=== PATIENT | female | born 1995 | race Caucasian/White ===

== ENCOUNTER → 2016-08-19 | Outpatient (CLI) | payer OTHER ==
[~2016-08-19] MED LIST: BCPILLS PO; MULT-506 PO; [UNRECOGNIZED DRUG - REMARK] PO
[2016-08-21 21:57] LABS: CHLAMYDIA TRACH RNA*** NOT DETECTED (NOT DETECTED); GC (NEIS GONORRHOEAE)RNA** NOT DETECTED (NOT DETECTED)
== END | disposition home or self-care (01) ==
LOC: C.LABSPEC 18:07
PROVIDERS: ATTEND Obstetrics & Gynecology
DX: Z01.419 Encounter for gynecological examination (general) (routine) without abnormal findings (principal)

== ENCOUNTER → 2016-08-19 | Outpatient (CLI) | payer OTHER | END | disposition home or self-care (01) | LOC: C.PAPS 10:13 | PROVIDERS: ATTEND Obstetrics & Gynecology | DX: Z01.419 Encounter for gynecological examination (general) (routine) without abnormal findings (principal) ==

== ENCOUNTER 2017-01-04 13:03 | Emergency (ER) | payer OTHER ==
[~2017-01-04] VITALS: Ht 160 cm; Wt 83.0 kg
[2017-01-04 13:07] VITALS: TEMP 36.7; Ht 160 cm; Wt 83.0 kg
[2017-01-04] MEDS ORDERED: XYLOCAINE 1%/SOD BICARB 20 ML VIAL INFIL ONE (13:15)
[2017-01-04] MEDS ORDERED: DIPHTHERIA/TETANUS/PERTUSSIS 0.5 ML SYR/VIAL IM. ONE (13:15)
[2017-01-04] MEDS ORDERED: [UNRECOGNIZED DRUG - REMARK] PO (13:21)
[2017-01-04] MEDS ORDERED: MULT-506 PO (13:21)
[2017-01-04] MEDS ORDERED: BCPILLS PO (13:21)
--- NOTE | 2017-01-04 13:48 | EMERGENCY ROOM VISIT NOTE ---
History First contact with patient: 13:09 Chief Complaint: LACERATION/CUT (NON-SUTURE) Stated Complaint: CUT FINGER/HAND Nursing Triage Summary: pt here with lac to right 5th from a piece of broken glass. full rom of hand. History of Present Illness The patient is a 21 year old female who presents to the Emergency Room with complaints of a laceration to her right fifth finger. The patient was washing a drinking glass when the glass broke and cut her hand. The patient denies any paresthesias or numbness of the right fifth finger. She is able to flex and extend the finger. She rates her discomfort a 5 out of 10. The patient is left -hand dominant. The patient reports that her tetanus booster is not up-to-date. Review of Systems 6 system review was performed and was negative except for pertinent positives and negatives as indicated in history of present illness Past Medical/Surgical History Medical Problems: (1) Concussion Surgical Problems: (1) No history of previous surgery Family History FH: cancer FH: diabetes mellitus FH: heart disease Social History Smoking Status: Never Smoker Alcohol Use: none Marital Status: single, in relationship Occupation Status: employed Current/Historical Medications Scheduled Control Pills ( Control Pills), 1 TAB PO DAILY Multivitamin (Multivitamin), 1 TAB PO DAILY [Facial Medication], 1 TAB PO DAILY Allergies Coded Allergies: No Known Allergies (Unverified , 01/04/17) Physical Exam Vital Signs Date Time Temp Pulse Resp B/P (MAP) Pulse Ox O2 Delivery O2 Flow Rate FiO2 01/04/17 13:07 36.7 91 16 120/77 96 Room Air Physical Exam CONSTITUTIONAL: Healthy and well nourished. Alert and oriented X 3 with positive affect. HEENT: Normocephalic, atraumatic. Pupils equal, round and reactive. NECK: Full active range of motion without discomfort. MUSCULOSKELETAL: Examination of the right fifth finger shows a 1.25 cm laceration over the ulnar aspect of the proximal phalanx. No active bleeding noted. Capillary refill of the fingertip is less than 2 seconds. The patient is able to flex and extend the finger against resistance. INTEGUMENTARY: No rash or other significant dermatologic conditions noted. NEUROLOGIC: Right fifth finger is sensory intact. Medical Decision & Procedures Medications Administered Medications (Trade) Dose Ordered Sig/Dali Route Start Time Stop Time Status Last Admin Dose Admin Diphtheria/ Pertussis/Tetanus Vacc (Adacel Inj) 0.5 ml ONCE ONCE IM. 01/04/17 13:15 01/04/17 13:16 DC 01/04/17 13:21 0.5 ML Lidocaine HCl (Buffered Lidocaine 1% Inj) 20 ml ONE ONCE INFIL 01/04/17 13:15 01/04/17 13:16 DC 01/04/17 13:20 20 ML Procedure Laceration repair was performed under local anesthesia after receiving verbal consent from the patient. Using buffered 1% lidocaine without epinephrine, good local anesthesia was administered. The wound was then peripherally cleansed with iodine, then irrigated with approximately 80 mL of normal saline. The wound was then approximated using 5-0 nylon simple interrupted sutures. Bacitracin dressing was applied. ED Course Patient history and physical exam were performed. Nurse's notes were reviewed. Vital signs were reviewed and normal. Laceration repair was performed under local anesthesia. The patient was provided additional verbal and written wound care instructions. Ice for swelling. Ibuprofen or Tylenol as needed for pain. Suture removal in 12-14 days, or seek reevaluation sooner for any signs of wound infection. Patient was happy with plan of care, voiced understanding of all discharge instructions, and denied any pain at the time of discharge. Medical Decision Impression Primary Impression: Laceration of right little finger Departure Information Referrals No Doctor, Assigned (PCP) Patient Instructions Critical Access Hospital Problem Qualifiers Primary Impression: Laceration of right little finger Encounter type: initial encounter Damage to nail status: without damage Foreign body presence: without foreign body Qualified Codes: S61.216A - Laceration without foreign body of right little finger without damage to nail, initial encounter
[2017-01-04 13:58] VITALS: BP 116/72; PULSE 86; O2SAT 99
== END 2017-01-04 13:59 | disposition home or self-care (01) ==
LOC: C.EDB 13:04 → C.EDD 13:59
DX: S61.216A Laceration without foreign body of right little finger without damage to nail, initial encounter (principal); W25.XXXA Contact with sharp glass, initial encounter; Z80.9 Family history of malignant neoplasm, unspecified; Z83.3 Family history of diabetes mellitus; Z79.3 Long term (current) use of hormonal contraceptives; Z79.899 Other long term (current) drug therapy; Z23 Encounter for immunization

== ENCOUNTER 2022-06-06 10:07 | Inpatient (IN) ==
[2022-06-06] MEDS ORDERED: DINOPROSTONE 10 MG INSERT PV ONE (10:16)
[2022-06-06] MEDS ORDERED: LIDOCAINE 1% LOCAL 20 ML VIAL INFIL PRN (10:16)
[2022-06-06] MEDS ORDERED: OXYTOCIN 30 UNITS/500 ML BAG IV PRN ×3 (10:16→22:44)
[2022-06-06 10:53] LABS: Hematocrit (blood only) 35.7 % (34.1-44.9); Mean Corpuscular Hemoglobin 30.3 pg (25.0-34.0); Mean Corpuscular Hgb Conc 33.6 g/dL (32.0-36.0); Mean Corpuscular Volume 90.2 fL (80.0-100.0); Mean Platelet Volume 11.4 fL (9.4-12.3); Platelet Count 237 K/uL (130-400); RDW Coefficient of Variation 13.4 % (11.5-14.5); Red Blood Count 3.96 M/uL (3.93-5.22); White Blood Count 11.76 K/ul (4.8-10.8)
--- NOTE | 2022-06-06 11:04 | History & Physical Report ---
Date of Service June 06, 2022 Assessment & Plan (1) History of IUFD: Plan: 26-year-old -0-0-1 at 39 weeks of gestation with history of IUFD in 2013 from placental abruption at 30 weeks, Induction of labor per history, Vital signs stable afebrile, heart rate category 1, Cervix favorable, has some irregular contractions, GBS negative, Plan to admit, monitor, labs, oxytocin per protocol, epidural when patient desires, All questions were answered. (2) MTHFR mutation: Plan: No h/o DVT, on Aspirin Admission and Anticipated Discharge Date Admission Date: June 06, 2022 History of Present Illness Primary Care Provider: Pedro Mckinney MD Patient is a 26-year-old -0-0-1 at 39 weeks of gestation who was scheduled for induction of labor at term due to history of IUFD in 2013. Patient feels well and no complaints. She denies contractions, leakage of fluid, vaginal bleeding. She reports good movements. She has contractions on the monitor and she feels them as tightening with no pain. Her has been uncomplicated, GBS negative. She had vaginal bleeding in 2013 when she was to her first child around 30 weeks, when she presented to the hospital, found to have IUFD and was in labor. She delivered demise infants and told that she had abruption. She has been seeing [facility] during this with growth scans and NSTs. They have been normal. Last growth scan was within a week and estimated weight was 7 pounds 7 ounces. History of MT FHR mutation, no history of DVT, on aspirin 81 mg daily. History of depression and anxiety, has been off medications and feeling well. Allergies Allergy/AdvReac Type Severity Reaction Status Date / Time No Known Allergies Allergy Unverified 11/26/20 12:09 Home Medications Medication Instructions Recorded Confirmed Type ondansetron 4 mg disintegrating 4 mg PO Q6H PRN nausea and 11/26/20 Rx tablet vomiting #20 tabs Patient History Medical History (Updated 06/06/22 @ 11:03 by Yanick Ibarra MD) Anxiety Depression MTHFR mutation PCOS (polycystic ovarian syndrome) Platelet disorder Surgical History No significant past surgical history Social History Smoking Status: Never smoker Hx Alcohol Use: No Hx Substance Use: No Preferred Language: Hungarian Communication Ability: Effective Applique Cutter Required: No Beliefs That Will Affect Care: None marital status: Single Current Living Situation: Significant Other Current Living Situation Comment: [employer] current occupational status: employed Other Information That Helps Us Care for You: No Feels Safe at Home: Yes Safety Concerns: Feels Safe At This Time Assistive Devices: None 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 Physical Exam Constitutional: WD/WN, vitals as above well developed, well nourished, + well hydrated and comfortable Gastrointestinal (Abdomen): normal bowel sounds, soft, nontender, no hepatosplenomegaly (gravid) Genitourinary: normal external appearance OB Exam Abdomen: + vertex Manual OB Exam: + cervical dilation 3 cm, + cervical effacement 50% and + station -2 OB Exam Monitor Tracing: + external uterine monitor used and + category I Results & Data ([facility]) Vital Signs (Past 12 Hours) Vital Signs Temp Pulse Resp BP 06/06/22 10:20 37.0 C 20 06/06/22 10:18 78 115/67 Laboratory Results Lab Results 06/06/22 06/06/22 Range/Units 10:34 Unknown WBC 11.76 H (4.8-10.8) K/ul RBC 3.96 (3.93-5.22) M/uL Hgb 12.0 (12.0-16.0) g/dl Hct 35.7 (34.1-44.9) % MCV 90.2 (80.0-100.0) fL MCH 30.3 (25.0-34.0) pg MCHC 33.6 (32.0-36.0) g/dL RDW Std Deviation 44.0 (36.4-46.3) fL RDW Coeff of Raj 13.4 (11.5-14.5) % Plt Count 237 (130-400) K/uL MPV 11.4 (9.4-12.3) fL SARS-CoV-2, RNA, NAAT NEGATIVE (NEGATIVE)
[2022-06-06 11:20] LABS: Alanine Aminotransferase 8 U/L (7-52); Albumin Globulin Ratio 1.1 (0.9-2); Albumin Level 3.4 gm/dl (3.4-5.0); Alkaline Phosphatase 85 U/L (34-104); Anion Gap 8 (3-11); Aspartate Aminotransferase 14 U/L (13-39); BUN Creatinine Ratio 23.3 (10-20); Bilirubin,Total 0.5 mg/dl (0.2-1.0); Blood Urea Nitrogen 10 mg/dl (6-23); Calcium 9.3 mg/dl (8.5-10.1); Carbon Dioxide 22 mmol/L (21-32); Chloride 105 mmol/L (98-107); Creatinine Clr Calc Pharmacy 199.6 ml/min; Est GFR (African American) > 150.0 ml/min; Est GFR (Non-African American) 138.4 ml/min; Globulin 3.2 gm/dl (2.5-4.0); Glucose 78 mg/dl (70-99(Fasting)); Potassium 3.9 mmol/L (3.5-5.1); Sodium 135 mmol/L (136-145); Total Protein 6.6 gm/dl (6.0-8.3)
[2022-06-06] MEDS: LACTATED RINGER'S 1,000 ML IV PRN ×3 (11:32→20:25)
--- NOTE | 2022-06-06 15:29 | Obstetrical Progress Note ---
Date of Service June 06, 2022 Assessment & Plan Admission and Anticipated Discharge Date Admission Date: June 06, 2022 Subjective Patient is reevaluated She has been on Oxytocin, 12 miu/min, not painful yet. FHR categ I VE; 4/ 70%/ -2, AROM'ed clear fluid Continue to monitor closely Results & Data ([facility]) Vital Signs (Past 12 Hours) Vital Signs Temp Pulse Resp BP 06/06/22 10:20 37.0 C 20 06/06/22 14:38 72 06/06/22 14:38 118/61 06/06/22 13:39 74 06/06/22 13:39 111/60 06/06/22 12:14 77 06/06/22 12:14 36.9 C 121/58 L 06/06/22 11:35 71 06/06/22 11:35 113/68 06/06/22 10:18 78 115/67
[2022-06-06] MEDS ORDERED: LIDOCAINE 2%/EPINEPHRINE 1:200,000 20 ML SDV ONE (16:32)
[2022-06-06] MEDS ORDERED: ePHEDrine sulfate 50 MG/ML AMP ONE (16:32)
[2022-06-06] MEDS ORDERED: BUPIVACAINE 0.25% 30 ML VIAL ONE (16:32)
[2022-06-06] MEDS ORDERED: fentaNYL citrate 100 MCG/2 ML VIAL ONE (16:32)
[2022-06-06] MEDS ORDERED: SODIUM CHLORIDE 0.9% INJ 10 ML VIAL ONE (16:32)
[2022-06-06] MEDS ORDERED: fentaNYL 2MCG/ML ROPIVACAINE 1.25MG/ML 100 ML BAG EPI ONE (16:33)
--- NOTE | 2022-06-06 16:39 | Anesthesiology Consultation ---
Date of Service June 06, 2022 Assessment & Plan (1) Encounter for pre-operative examination: Chart Review Chart Review: Patient NOT seen in Pre Admission Testing and Acceptable Risk for Labor Epidural Consults Requested none History Height/Weight Height: 5 ft 2 in Weight: 87.09 kg Allergies Allergy/AdvReac Type Severity Reaction Status Date / Time No Known Allergies Allergy Unverified 11/26/20 12:09 Medications Home Medications Medication Instructions Recorded Confirmed Last Taken ondansetron 4 mg disintegrating 4 mg PO Q6H PRN nausea and 11/26/20 Unknown tablet vomiting #20 tabs Active Medications Generic Name Dose Route Start Last Admin Trade Name Freq PRN Reason Stop Dose Admin Lactated Ringer's 1,000 mls @ 150 mls/hr 06/06/22 10:16 06/06/22 16:35 Lr IV 06/08/22 10:15 999 mls/hr .[id number] PRN Administration L&D Protocol Protocol Oxytocin 30 units in 500 mls @ 12 mls/hr 06/06/22 10:56 06/06/22 15:10 Pitocin IV 06/08/22 10:55 0.72 units/hr .Q24H PRN 12 mls/hr Labor Induction/Augmentation Titration Protocol 0.72 UNITS/HR Past Medical History Medical History Anxiety Depression MTHFR mutation PCOS (polycystic ovarian syndrome) Platelet disorder Past Surgical History Surgical History No significant past surgical history Social History Smoking Status: Never smoker Hx Alcohol Use: No Hx Substance Use: No Physical Exam Vital Signs Last Vital Signs Temp 98.8 F 06/06/22 16:10 Pulse 79 06/06/22 16:35 Resp 20 06/06/22 16:10 BP 117/80 06/06/22 16:35 Testing Laboratory Results 06/06/22 10:34 06/06/22 10:34
[2022-06-06] MEDS ORDERED: ePHEDrine sulfate 50 MG/ML AMP IV PRN (16:42)
[2022-06-06] MEDS ORDERED: NALOXONE HCL 0.4 MG/1 ML VIAL/CARP IV PRN (16:42)
[2022-06-06] MEDS ORDERED: diphenhydrAMINE 50 MG/ML VIAL IV PRN (16:42)
[2022-06-06] MEDS ORDERED: fentaNYL 2MCG/ML ROPIVACAINE 1.25MG/ML 100 ML BAG EPI PRN (16:42)
[2022-06-06] MEDS ORDERED: NALBUPHINE HCL INJ 10 MG/ML AMP IV PRN (16:42)
[2022-06-06] MEDS ORDERED: NALOXONE HCL 1 MG in SODIUM CHLORIDE 0.9% 1000ML 1,000 ML IV PRN (16:42)
--- NOTE | 2022-06-06 19:51 | Obstetrical Progress Note ---
Date of Service June 06, 2022 Assessment & Plan Admission and Anticipated Discharge Date Admission Date: June 06, 2022 Subjective Patient feels pressure FHR categ I, eary decels with contractions only, moderate variability and accels in between VE; 8/ 90%/ +1 to +2 Continue to monitor closely Anticipate Results & Data ([facility]) Vital Signs (Past 12 Hours) Vital Signs Temp Pulse Resp BP Pulse Ox 06/06/22 19:15 36.7 C 18 06/06/22 16:10 37.1 C 20 06/06/22 10:20 37.0 C 20 06/06/22 19:45 99 06/06/22 19:45 86 06/06/22 19:42 82 06/06/22 19:42 120/59 L 06/06/22 19:40 99 06/06/22 19:40 80 06/06/22 19:14 18 06/06/22 19:14 36.7 C 18 06/06/22 19:35 99 06/06/22 19:35 86 06/06/22 19:30 99 06/06/22 19:30 83 06/06/22 19:28 88 06/06/22 19:28 138/68 06/06/22 19:25 99 06/06/22 19:25 82 06/06/22 19:20 100 06/06/22 19:20 86 06/06/22 19:15 99 06/06/22 19:15 78 06/06/22 19:13 82 06/06/22 19:13 117/64 06/06/22 19:10 99 06/06/22 19:10 73 06/06/22 19:05 100 06/06/22 19:05 69 06/06/22 19:00 100 06/06/22 19:00 79 06/06/22 18:57 71 06/06/22 18:57 104/57 L 06/06/22 18:55 100 06/06/22 18:55 69 06/06/22 18:50 100 06/06/22 18:50 73 06/06/22 18:20 20 06/06/22 18:20 20 06/06/22 18:35 20 06/06/22 18:35 20 06/06/22 18:05 20 06/06/22 18:05 20 06/06/22 18:45 100 06/06/22 18:45 76 06/06/22 18:43 80 06/06/22 18:43 113/57 L 06/06/22 18:40 100 06/06/22 18:40 74 06/06/22 18:35 99 06/06/22 18:35 69 06/06/22 18:30 99 06/06/22 18:30 70 06/06/22 18:28 66 06/06/22 18:28 114/62 06/06/22 18:25 99 06/06/22 18:25 70 06/06/22 18:20 97 06/06/22 18:20 72 06/06/22 18:15 97 06/06/22 18:15 67 06/06/22 18:12 71 06/06/22 18:12 110/59 L 06/06/22 18:10 98 06/06/22 18:10 75 06/06/22 18:05 97 06/06/22 18:05 63 06/06/22 18:05 20 06/06/22 18:05 20 06/06/22 18:00 97 06/06/22 18:00 78 06/06/22 17:58 76 06/06/22 17:58 109/58 L 06/06/22 17:55 97 06/06/22 17:55 76 06/06/22 17:50 20 06/06/22 17:50 36.8 C 20 06/06/22 17:50 97 06/06/22 17:50 80 06/06/22 17:45 97 06/06/22 17:45 74 06/06/22 17:43 69 06/06/22 17:43 131/71 06/06/22 17:40 97 06/06/22 17:40 73 06/06/22 17:07 20 06/06/22 17:07 20 06/06/22 17:20 20 06/06/22 17:20 20 06/06/22 17:35 20 06/06/22 17:35 20 06/06/22 17:35 97 06/06/22 17:35 72 06/06/22 17:30 97 06/06/22 17:30 74 06/06/22 17:29 77 06/06/22 17:29 118/63 12/01/22 17:25 97 06/06/22 17:25 72 06/06/22 17:20 98 06/06/22 17:20 75 06/06/22 17:15 97 06/06/22 17:15 80 06/06/22 17:10 97 06/06/22 17:10 78 06/06/22 17:10 114/59 L 06/06/22 17:08 82 06/06/22 17:08 119/57 L 06/06/22 17:06 88 06/06/22 17:06 117/57 L 06/06/22 17:05 97 06/06/22 17:05 84 06/06/22 17:04 80 06/06/22 17:04 119/56 L 06/06/22 17:02 82 06/06/22 17:02 118/61 06/06/22 17:00 98 06/06/22 17:00 84 06/06/22 16:55 98 06/06/22 16:55 80 06/06/22 16:55 108/55 L 06/06/22 16:50 99 06/06/22 16:50 82 06/06/22 16:49 82 06/06/22 16:49 125/72 06/06/22 16:45 97 06/06/22 16:45 79 06/06/22 16:35 79 06/06/22 16:35 117/80 06/06/22 16:09 70 06/06/22 16:09 118/66 06/06/22 14:38 72 06/06/22 14:38 118/61 06/06/22 13:39 74 06/06/22 13:39 111/60 06/06/22 12:14 77 06/06/22 12:14 36.9 C 121/58 L 06/06/22 11:35 71 06/06/22 11:35 113/68 06/06/22 10:18 78 115/67
[2022-06-06] MEDS ORDERED: MINERAL OIL 30 ML UDC ONE (20:56)
[2022-06-06] MEDS ORDERED: LIDOCAINE 2% LOCAL 20 ML VIAL ONE (22:09)
[2022-06-06] MEDS ORDERED: ceFAZolin 2000MG 2,000 MG/15 ML SYR IV STA (22:24)
[2022-06-06] MEDS ORDERED: ONDANSETRON INJ 2 MG/ML 2 ML VIAL ONE (22:32)
[2022-06-06] MEDS ORDERED: ONDANSETRON INJ 2 MG/ML 2 ML VIAL IV STA (22:33)
[2022-06-06] MEDS ORDERED: DIPHTHERIA/TETANUS/PERTUSSIS 0.5 ML SYR/VIAL IM ONE (22:44)
[2022-06-06] MEDS ORDERED: HYDROCORTISONE ACETATE 25 MG SUPP PR PRN (22:44)
[2022-06-06] MEDS ORDERED: BENZOCAINE 20% AER SPR 82.5 GM CAN EXT PRN (22:44)
[2022-06-06] MEDS ORDERED: ACETAMINOPHEN 325 MG TAB PO PRN (22:44)
[2022-06-06] MEDS ORDERED: oxyCODONE/ACETAMINOPHEN 5mg/325mg TAB PO PRN (22:44)
[2022-06-06] MEDS ORDERED: MEASLES, MUMPS & RUBELLA VIRUS VIAL SQ ONE (22:44)
--- NOTE | 2022-06-06 22:50 | Delivery Summary ---
Vaginal Delivery Summary Date of Service June 06, 2022 Vaginal Delivery Summary Patient was found to be fully dilated and desire to push. She pushed for about 50 minutes and delivered the head without difficulty. The shoulders were delivered with minimal traction and the baby was handed off to the mother, where mouth and nose were suctioned. The cord was clamped times and cut at 1 minute delay. The baby was moving and crying at that point. The vagina and perineum were checked for lacerations. There was a second-degree perineal laceration, skin laceration was extended into the perineal area. Rectal exam was done and good sphincter tone was noted. Perineal body muscles around the sphincter were held with Allis clamps to support the sphincter during repair. You have 8 stitches were placed x2 with 2-0 Vicryl. And the rest of the perineal body muscles were sutured with 2-0 Vicryl. Rectal exam was done and again excellent sphincter tone was noted and no sutures were felt. The gloves were changed and the rest of the laceration was repaired with 2-0 Vicryl starting from vaginal mucosa together in a continuous fashion and bringing the skin in a subcuticular fashion. It was hemostatic. The rest of the vagina and labia were intact. Placenta was found to be in the vagina, delivered spontaneously as intact and complete. The uterus was explored and found to be empty, the lower segment was cleared of all clots and debris's, fundus was firm and EBL was 250 mL. The mom and baby tolerated the procedure well. Patient was given 2 g of cefazolin during repair. Baby was a viable female Apgars 7/9, weight is pending. None complications happened and I was present during whole procedure. At the end of the procedure the sponge, needle and instrument count was correct x2.
[2022-06-07] MEDS: PRENATAL VITAMIN 1 TAB PO SCH (07:28)
[2022-06-07] MEDS: DOCUSATE SODIUM 100 MG CAP PO SCH ×2 (07:28→21:21)
[2022-06-07] MEDS: FERROUS SULFATE 325 MG TAB PO SCH (07:28)
[2022-06-07] MEDS ORDERED: bisacodyL 5 MG TABEC PO SCH (09:00)
[2022-06-07 09:42] LABS: Hematocrit (blood only) 30.7 % (34.1-44.9); Hemoglobin 10.5 g/dl (12.0-16.0); Mean Corpuscular Hemoglobin 30.8 pg (25.0-34.0); Mean Corpuscular Hgb Conc 34.2 g/dL (32.0-36.0); Mean Platelet Volume 11.7 fL (9.4-12.3); Platelet Count 224 K/uL (130-400); RDW Coefficient of Variation 13.2 % (11.5-14.5); Red Blood Count 3.41 M/uL (3.93-5.22); White Blood Count 23.41 K/ul (4.8-10.8)
--- NOTE | 2022-06-07 10:06 | Obstetrical Progress Note ---
Date of Service June 07, 2022 Assessment & Plan (1) Normal course: PPD #1 pt doing well no complaints d/c home tomorrow Results & Data ([facility]) Vital Signs (Past 12 Hours) Vital Signs Temp Pulse Pulse Resp BP BP Pulse Ox 06/07/22 07:25 36.6 C 73 21 107/69 06/07/22 05:00 36.5 C 81 16 110/66 97 06/07/22 01:00 37.1 C 85 18 106/64 97 06/07/22 00:40 20 06/07/22 00:10 20 06/06/22 23:40 37.0 C 18 06/06/22 23:25 18 06/06/22 23:10 18 06/06/22 22:55 18 06/06/22 22:40 20 06/07/22 00:40 97 H 118/62 06/07/22 00:26 96 H 118/63 06/07/22 00:10 120 H 121/70 06/06/22 23:56 123/61 06/06/22 23:41 100 H 06/06/22 23:41 122/58 L 06/06/22 23:25 93 H 06/06/22 23:25 139/63 06/06/22 23:10 111 H 06/06/22 23:10 138/64 06/06/22 22:56 101 H 06/06/22 22:56 134/55 L 06/06/22 22:40 105 H 06/06/22 22:40 133/65 06/06/22 22:35 97 06/06/22 22:35 117 H 06/06/22 22:30 97 06/06/22 22:30 133 H 06/06/22 22:27 112 H 06/06/22 22:27 150/65 H 06/06/22 22:25 99 06/06/22 22:25 108 H 06/06/22 22:21 110 H 06/06/22 22:21 152/65 H 06/06/22 22:20 98 06/06/22 22:20 115 H 06/06/22 22:15 95 06/06/22 22:15 127 H 06/06/22 22:13 171 H 06/06/22 22:13 71/55 L 12/01/22 22:10 94 06/06/22 22:10 109 H O2 Del Method 06/07/22 07:25 Room Air 06/07/22 05:00 Room Air 06/07/22 01:00 Room Air 06/07/22 00:40 06/07/22 00:10 06/06/22 23:40 06/06/22 23:25 06/06/22 23:10 06/06/22 22:55 06/06/22 22:40 06/07/22 00:40 06/07/22 00:26 06/07/22 00:10 06/06/22 23:56 06/06/22 23:41 06/06/22 23:41 06/06/22 23:25 06/06/22 23:25 06/06/22 23:10 06/06/22 23:10 06/06/22 22:56 06/06/22 22:56 06/06/22 22:40 06/06/22 22:40 06/06/22 22:35 06/06/22 22:35 06/06/22 22:30 06/06/22 22:30 06/06/22 22:27 06/06/22 22:27 06/06/22 22:25 06/06/22 22:25 06/06/22 22:21 06/06/22 22:21 06/06/22 22:20 06/06/22 22:20 06/06/22 22:15 06/06/22 22:15 06/06/22 22:13 06/06/22 22:13 06/06/22 22:10 06/06/22 22:10
--- NOTE | 2022-06-07 11:31 | Anesthesia Procedure Note ---
Date of Service June 07, 2022 Anesthesia Post Epidural Note Vital Signs Vital Signs: Temp Pulse Resp BP Pulse Ox O2 Del Method 36.6 C 73 21 107/69 97 06/07/22 07:25 06/07/22 07:25 06/07/22 07:25 06/07/22 07:25 06/07/22 05:00 06/07/22 07:25 Pain Intensity Lower Perineal: Pain Intensity: 1 Notes Mental Status: alert / awake / arousable and participated in evaluation Patient Amnestic to Procedure: No Nausea / Vomiting: adequately controlled Pain: adequately controlled Airway Patency, RR, SpO2: stable & adequate BP & HR: stable & adequate Hydration State: stable & adequate Neuraxial Anesthesia: was administered and sensory block resolved Anesthetic Complications: no major complications apparent and Pt Satisfied with anesthetic care Epidural: Removed without complications and With tip intact
[2022-06-07] MEDS: IBUPROFEN 600 MG TAB PO PRN ×2 (17:13→21:21)
[2022-06-08] MEDS ORDERED: bisacodyL 10 MG SUPP PR PRN
[2022-06-08 07:34] LABS: Hematocrit (blood only) 28.5 % (34.1-44.9); Hemoglobin 9.5 g/dl (12.0-16.0)
[2022-06-08] MEDS: FERROUS SULFATE 325 MG TAB PO SCH (08:12)
[2022-06-08] MEDS: PRENATAL VITAMIN 1 TAB PO SCH (08:12)
[2022-06-08] MEDS: IBUPROFEN 600 MG TAB PO PRN (08:12)
[2022-06-08] MEDS: DOCUSATE SODIUM 100 MG CAP PO SCH (08:12)
--- NOTE | 2022-06-08 08:23 | Obstetrical Progress Note ---
Date of Service June 08, 2022 Assessment & Plan (1) Normal course: PPD #2 pt doing well d/c home today Subjective Ambulation: ambulating normally Voiding: no voiding problems Passing Gas:: Yes Diet Tolerance:: regular diet Lochia:: Small Feeding Type:: breast feeding Current Pain Level(1-10): 3 Cramping pain, wants to go home today. Denies SOB, chest pain, fevers or chills Physical Exam Constitutional WD/WN, vitals as above Respiratory normal respiratory effort, lungs clear to auscultation Cardiovascular RRR, no murmur, no edema Gastrointestinal (Abdomen) normal bowel sounds, soft, nontender, no hepatosplenomegaly Results & Data ([facility]) Vital Signs (Past 12 Hours) Vital Signs Temp Pulse Resp BP Pulse Ox O2 Del Method 06/07/22 23:17 36.6 C 73 18 103/66 97 Room Air Laboratory Results H/H 9.5/28.5%
== END 2022-06-08 20:15 | disposition home or self-care (01) | DRG 807 ==
LOC: 4S1 10:07 → 4E2 06-07 01:08

== ENCOUNTER 2024-02-17 11:10 | Inpatient (IN) ==
[2024-02-17] MEDS ORDERED: LIDOCAINE 1% LOCAL 20 ML VIAL INFIL PRN (11:26)
[2024-02-17] MEDS ORDERED: OXYTOCIN 30 UNITS/NSS 30 UNITS/500 ML BAG IV PRN (11:26)
[2024-02-17 11:53] LABS: Hemoglobin 11.5 g/dl (12.0-16.0); Mean Corpuscular Hemoglobin 30.3 pg (25.0-34.0); Mean Corpuscular Hgb Conc 33.8 g/dL (32.0-36.0); Mean Corpuscular Volume 89.5 fL (80.0-100.0); Mean Platelet Volume 12.2 fL (9.4-12.4); Platelet Count 188 K/uL (130-400); RDW Coefficient of Variation 13.6 % (11.5-14.5); RDW Standard Deviation 44.4 fL (36.4-46.3); White Blood Count 8.82 K/ul (4.8-10.8)
--- NOTE | 2024-02-17 14:28 | History & Physical Report ---
Date of Service February 17, 2024 Assessment & Plan (1) History of IUFD: Plan: induction of labor with Oxytocin Admission and Anticipated Discharge Date Admission Date: February 17, 2024 History of Present Illness Chief Complaint: induction of labor Primary Care Provider: Pedro Mckinney MD 28 F [id number] at 39 weeks admitted for induction of labor due to history of IUFD at 30 weeks. GBS is negative. Allergies Allergy/AdvReac Type Severity Reaction Status Date / Time prednisone AdvReac Anxiety Verified 02/17/24 11:54 Home Medications Medication Instructions Recorded Confirmed Type ferrous sulfate 325 mg (65 mg 325 mg PO BID 06/06/22 02/17/24 History iron) tablet (Iron (ferrous sulfate)) prenat.vits,ralph,[id number] 1 tab PO DAILY 06/06/22 02/17/24 History aspirin 81 mg chewable tablet 81 mg PO DAILY 02/17/24 02/17/24 History Patient History Medical History OCD (obsessive compulsive disorder) MTHFR mutation History of IUFD Platelet disorder Surgical History No significant past surgical history Social History Smoking Status: Never smoker Hx Alcohol Use: No Hx Substance Use: No Preferred Language: Brazilian Communication Ability: Effective Black Pickler Required: No Beliefs That Will Affect Care: None marital status: Single Current Living Situation: Significant Other Current Living Situation Comment: [employer] and daughter current occupational status: employed Other Information That Helps Us Care for You: No Feels Safe at Home: Yes Safety Concerns: Feels Safe At This Time Assistive Devices: None 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 Review of Systems All systems reviewed & are unremarkable except as noted in HPI & below Physical Exam Constitutional: WD/WN, vitals as above Eyes: PERRL, conjunctivae normal, anicteric sclerae Respiratory: normal respiratory effort, lungs clear to auscultation Cardiovascular: RRR, no murmur, no edema Gastrointestinal (Abdomen): Inspection/Auscultation: abdomen normal to inspe ction Musculoskeletal: Extremities: extremities normal to inspection Skin: no rashes, warm and dry Neurologic: patellar DTR's 2+ bilat, sensation intact Psychiatric: A+Ox3, euthymic affect Genitourinary: Manual OB Exam: + cervical dilation 3 cm, + cervical effacement 50% and + station -2 OB Exam Monitor Tracing: + external FHT monitor used, + external uterine monitor used, + category I and + normal FHT variability Results & Data Vital Signs (Past 12 Hours) Vital Signs Temp Pulse Resp BP 02/17/24 11:35 36.8 C 20 02/17/24 11:21 69 115/67 Laboratory Results Laboratory Results - last 72 hr 02/17/24 11:39 WBC 8.82 RBC 3.80 L Hgb 11.5 L Hct 34.0 L MCV 89.5 MCH 30.3 MCHC 33.8 RDW Std Deviation 44.4 RDW Coeff of Raj 13.6 Plt Count 188 MPV 12.2 Treponema pallidum Ab Negative Code Status & VTE Plan VTE Prophylaxis Plan VTE Prophylaxis will be ordered: No Monitoring External Monitor Cat 1
[2024-02-17] MEDS: LACTATED RINGER'S 1,000 ML IV PRN (14:48)
[2024-02-17] MEDS: OXYTOCIN 30 UNITS/NSS 30 UNITS/500 ML BAG IV PRN (14:49)
--- OUTSIDE RECORDS SUMMARY | 2024-02-17 18:05 | External Medical Summary | Summary of Care ---
Author Name Unknown Organization [facility] Address [address] [place] [address] Phone [phone] Care Team Providers Care Jig Maker Name Role Phone Thelma Christian PA-C Primary Care Provider [phone] Reason for Visit * Reason Onset Date Comments Med Request 02/09/2024 Encounter Details Date Type Department Care Team (Late st Contact Info) Description 02/09/2024 Telephone Family Practice [facility] [address] [place] [address] Thelma Christian PA-C [address] [place] [address] Med Request Allergies Active Allergy Reactions Criticality Noted Date Comments Prednisone 04/23/2021 Increased anxiety documented as of this encounter (statuses as of 02/12/2024) Medications Medication Sig Dispensed Refills Start Date End Date Status 6.75-0.2 MG Oral Tablet Take by mouth. Active Aspirin 81 MG Oral Tablet ChewableIndication s:Hx of preeclampsia, prior , currently , unspecified trimester Take 1 Tablet by mouth in the morning. 100 Tablet 3 08/04/2023 Active Vitron-C 65-125 MG Oral Tablet (Iron-Vitamin C 65-125 mg per tab) Take 1 Tablet by mouth in the morning. 90 Tablet 1 10/20/2023 Active metroNIDAZOLE 500 MG Oral Tablet (Flagyl) Take 1 Tablet by mouth in the morning and 1 Tablet before bedtime. X 7 days until gone.. 14 Tablet 12/15/2023 02/11/2024 Discontinued (Medication List Clean Up) metroNIDAZOLE 250 MG Oral Tablet (Flagyl) Take 1 Tablet by mouth in the morning and 1 Tablet at noon and 1 Tablet before bedtime. Do all this for 7 days. until gone.. 21 Tablet 02/05/2024 02/11/2024 Discontinued (Medication List Clean Up) documented as of this encounter (statuses as of 02/12/2024) Active Problems Problem Noted Date Diagnosed Date Pyelectasis of fetus on ultrasound 11/05 Overview: Resolved 31 weeks Last Assessment & Plan: CONSIDERATIONS: urinary tract dilation is found in approximately 1% of pregnancies and for the woman who is under 35 years of age at the time of delivery, this may be considered a normal variant of and is not associated with an increased risk for aneuploidy. urinary tract dilation can be physiologic 50 to 70 percent of the time. The other common causes of urinary tract dilation are some type of urinary obstruction (10-30%) and bladder reflux (10-40%). RECOMMENDATIONS: We recommend follow up Maternal Medicine ultrasound at 32-36 weeks gestation. We recommend alerting the undercover cop providing care of this finding. Impaired glucose in , antepartum 2023 Overview: Failed early 1 hr GTT Antepartum anemia 10/20/2023 Overview: Hgb 11.6 at 21 weeks. Repeat 11.7 at 34 weeks. Increased Vitron C to twice daily. , supervision, high-risk 07/23/2023 Recurrent major depressive disorder 11/20/2022 COVID-19 virus infection 02/04/2022 Hx of preeclampsia, prior pr egnancy, currently , unspecified trimester 11/15/2021 Overview: Patient reports hypertension and proteinuria at last appointment prior to IUFD at 30 weeks in 2013. Possible preeclampsia - records not available. Recommend starting low-dose aspirin at 12-13 weeks. Baseline Preeclampsia Labs Lab Results Component Value Date/Time PLATELET AUTO - [facility] 279 07/23/2023 09:54 AM CREATININE - [facility] 0.5 07/23/2023 09:54 AM AST - [facility] 20 07/23/2023 09:54 AM ALT - [facility] 32 07/23/2023 09:54 AM PROTEIN/ CREATININE RATIO, URINE - [facility] 92 07/23/2023 09:45 AM BP Readings from Last 10 Encounters: 07/23/23 100/60 06/19/23 120/76 04/29/23 118/68 03/21/23 110/70 10/22/22 98/70 06/03/22 98/70 05/31/22 120/70 05/24/22 120/70 05/17/22 110/80 05/14/22 120/68 Last Assessment & Plan: CONSIDERATIONS: Discussed that the overall recurrence rate for pre-eclampsia is 20%. The recurrence risk of pre-eclampsia is 5-7% if it was uncomplicated pre-eclampsia in the prior . If it was pre-eclampsia with severe features in the prior , the recurrence risk goes up to 30-65%. Explained to patient that risk factors for development of pre-eclampsia include the primigravid state, history of pre-eclampsia in previous , family history of pre-eclampsia, presence of chronic hypertension, increased BMI, multiple gestation, pre-existing maternal renal disease or diabetes, advanced maternal age, antiphospholipid syndrome and other coagulopathies, chronic maternal autoimmune disease, or prolonged interval between pregnancies. Discussed with patient that the risks associated with a diagnosis of pre- eclampsia which is not monitored and not managed appropriately include development of HELLP syndrome or eclampsia (seizures) and end organ damage to liver, brain, kidneys, or fetus (manifested by growth restriction or ), and even maternal . RECOMMENDATIONS: Recommend baseline pre-eclamptic labwork be done early in subsequent pregnancies to include CBC, AST/ALT, creatinine, and 24 hour total urine protein. Patients should be monitored closely in subsequent pregnancies for signs of pre-eclampsia and managed appropriately to reduce the incidence of associated maternal and risks. Reviewed that pre-eclampsia and HELLP are not preventable conditions. There is some evidence that daily ASA 81mg may decrease the risk for recurrence in patients with a history of pre-eclampsia prior to 34 weeks and we recommend that she proceed with starting this therapy after 12 weeks. Recommend testing for antiphospholipid antibody syndrome (lupus anticoagulant, anti-cardiolipin IgG and IGM and [id number]) for those patients who delivered prior to 34 weeks secondary to pre-eclampsia or HELLP. Family history of blood clots 11/15/2021 Overview: Patient adopted; family history unclear. However, she thinks that her parents may have had a clotting disorder. Last Assessment & Plan: Negative inherited thrombophilia panel. History of placental abruption 10/18/2021 Overview: 2013: resulted in intrauterine demise at 29 weeks Last Assessment & Plan: I reviewed the ultrasound with her. The anatomy that was visualized appears unremarkable and the biometry is appropriate for the gestational age. The amniotic fluid volume is subjectively normal and the fetus is in the breech presentation. I reviewed her low risk noninvasive screen in light of the normal ultrasound findings. I reviewed the plan of care with her for the remainder of the . She understands that she will start nonstress testing at 28 weeks of gestation due to a demise in a prior at 30 weeks of gestation. History of IUFD 10/18/2021 Overview: Per scanned notes from [facility] 2013: Vaginal bleeding at 29+ weeks, noted to have demise. Vaginal delivery at 30 wks. Placenta examination consistent w/abruption. November 2021: APS and thrombophilia work up completed: negative Last Assessment & Plan: She presents for follow-up of growth. She has a history of placental abruption and demise in a prior , possibly related to pre-eclampsia. Today's ultrasound notes the following: The estimated weight is appropriate for gestational age in the 32nd percentile. The visualized anatomy is unremarkable in appearance. The MICHELLE is normal. A BPP is 02/11. 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 This result is not associated with a significantly increased risk for coronary artery disease, venous thromboembolism, or adverse outcome. Last Assessment & Plan: Reviewed the [place] [employer] ACOG Practice Bulletin Number 197, published January 2018,recommendations regarding MTHFR mutation. ACOG does not recommend either screening for or treating patients with MTHFR mutation given the lack of evidence of any association with an increased risk for venous thromboembolism nor for adverse outcomes. PCOS (polycystic ovarian syndrome) 05/19/2018 Overview: Treated with Metformin in the past. No recent treatment as of 11/15/21. Last Assessment & Plan: RECOMMENDATIONS: Due to the increased risk for diabetes in this population, recommend testing for undiagnosed type 2 diabetes mellitus with the first visit using the standard diagnostic criteria (2016 ADA Diabetes Management Guidelines). Family history of diabetes mellitus 04/10/2016 Overview: Sister at age 22 Estimated Date of Delivery Comme nts Yes 02/24/2024 Based on Ultraso und documented as of this encounter (statuses as of 02/12/2024) Resolved Problems Problem Noted Date Diagnosed Date Resolved Date Antepartum anemia complicating 03/22/2022 07/23/2023 Abnormal glucose tolerance i n mother complicating 03/21/2022 04/09/2022 COVID-19 affecting , antepartum 03/19/2022 07/23/2023 Overview: 21 weeks Thrombophilia 02/04/2022 11/20/2022 Health counseling 12/10/2021 07/23/2023 Overview: Patient seen by [facility]. Patient denies any questions or concerns. Problem Action Taken Date entered Entered by Date resolved 2nd trimester ed Reviewed w/pt 01/08/2022 Trista Rojas RN 01/08/2022 Provided a [facility] medical form for pt to review 01/08/2022 Trista Rojas RN 01/08/2022 Problem Action Taken Date entered Entered by Date resolved Current needs or questions Patient denies having any current needs or questions 03/21/2022 Briseida Dow RN 03/21/2022 Problem Action Taken Date entered Entered by Date resolved Current needs or questions Patient denies having any current needs or questions 03/26/2022 Chapito Novoa RN 03/26/22 Problem Action Taken Date entered Entered by Date resolved Current needs or questions Patient denies having any current needs or questions 03/29/2022 Briseida Dow RN 03/29/2022 Problem Action Taken Date entered Entered by Date resolved Current needs or questions Patient denies having any current needs or questions 04/02/2022 Briseida Dow RN 04/02/2022 Problem Action Taken Date entered Entered by Date resolved NST Discussed 04/05/2022 Tamiko Mejia RN 04/05/2022 Problem Action Taken Date entered Entered by Date resolved Current needs or questions Patient denies having any current needs or questions 04/09/2022 Chapito Novoa RN 04/09/22 Problem Action Taken Date entered Entered by Date resolved Current needs or questions Patient denies having any current needs or questions 04/12/2022 Tamiko Mejia RN 04/12/2022 Problem Action Taken Date entered Entered by Date resolved Current needs or questions Patient denies having any current needs or questions 04/23/2022 Briseida Dow RN 04/23/2022 Problem Action Taken Date entered Entered by Date resolved Current needs or questions Patient denies having any current needs or questions 04/26/2022 Briseida Dow RN 04/26/2022 Problem Action Taken Date entered Entered by Date resolved Current needs or questions Patient denies having any current needs or questions 04/30/2022 Briseida Dow RN 04/30/2022 Problem Action Taken Date entered Entered by Date resolved Current needs or questions Patient denies having any current needs or questions 05/03/2022 Briseida Dow RN 05/03/2022 Supervision of high-risk pre gnancy, unspecified trimester 11/15/2021 07/23/2023 Obesity affecting in third trimester 11/15/2021 07/23/2023 Overview: Pre-gravid BMI 30.54 (#167, 5'2") Early 1 hour GCT ordered, not completed to date. Last Assessment & Plan: DISCUSSION: 1. Discussed obstetrical risks associated with class I obesity (pre- BMI of 30 to 34.9). 2. The accuracy of ultrasound at diagnosing anomalies is significantly decreased for women with an increased BMI. RECOMMENDATIONS: 1. Recommend restricting weight gain during to 11-20 pounds. Consider referral for nutrition consult. 2. Recommend evaluation for signs and symptoms (snoring, excessive daytime sleepiness witnessed apnea or unexplained hypoxia) of obstructive sleep apnea. If any of these are present, referral to Sleep Medicine specialist for further evaluation should be considered. 3. Recommend performing gestational diabetes mellitus screen at first visit and repeat again at 26-28 weeks if early screen is normal. 4. Recommend Maternal- Medicine ultrasound for anatomy at 20 weeks. Depression complicating , antepartum 11/16/1907/23/2023 Overview: Denies suicidal or homicidal ideation. with 10 completed weeks gestation 10/18/2021 11/11/2023 Anxiety during 10/18/2021 Overview: Reports increased anxiety in due to history of IUFD. No current treatment or medication. Encouraged patient to reach out if she desires counseling or medication. Last Assessment & Plan: ANXIETY AND DEPRESSION CONSIDERATIONS: Untreated maternal anxiety and depression may be associated with an increased risk of multiple poor obstetrical outcomes including miscarriages, low weight, and delivery. Women with a history of anxiety or depression are at risk for recurrence both during and/or the period. Studies of first-trimester SSRI exposure do not demonstrate consistent data to support an increased risk for structural malformations. Anti-anxiety or depression medications have been associated with transient effects (withdrawal syndrome). RECOMMENDATIONS: Mental illness can and should be treated during when the benefits of treatment outweigh potential risks. Referral to behavioral health services as clinically indicated. Menstrual irregularity 08/07/202107/23 Melanocytic nevus of trunk 05/23/2016 0 03/17/2017 Obesity, Class I, BMI 30.0-3 4.9 (see actual BMI) 05/23/2016 11/15/2021 Overview: Early glucola Abnormal transaminases 04/23/201605/27 Overview: 04/21-alt-47->rpt 6 mths++ H/O toxoplasmosis 04/22/2016 05/19/2018 Overview: labs on [facility]CH panel >+ IGG 08/31/13--no active inf--works on barn with horses and cats, nl cbc,cr,, immune varicella,rubell, neg RPR,neg Hbs ag INFORMATION 04/10/2016 05/19/2018 Overview: Lost son at 8 mth preg in 2013 [facility]--was told has clotting disorder, ?MTHFR -testing by [facility] in [facility]-obtain records. Closed head injury with concussion 04/10/2016 05/19/2018 documented as of this encounter (statuses as of 02/12/2024) Immunizations Name Administration Dates Next Due HPV Vaccine, 9-Valent 05/27/2019 Seasonal Influenza, PF, 6 M & above, IM , (FluLaval or Fluzone) 03/07/2022,04/07/2020,04/22/2019 TDAP (age 10 and older)(Boostrix) 12/04/2023,,01/04/2017 TDAP, Age 7 and older, IM (Adacel) 01/04/2017 documented as of this encounter Social History Tobacco Use Types Packs/Day Years Used Date Smoking Tobacco: Never Smokeless Tobacco: Never Alcohol Use Standard Drinks/Week Comments No 0 (1 standard drink = 0.6 oz pur e alcohol) PHQ-2 Answer Date Recorded PHQ-2 Score 0 05/01/2020 Hunger Vital Sign Answer Date Recorded Within the past 12 months, y ou worried that your food would run out before you got the money to buy more. Never true 07/23/19 24 Within the past 12 months, t he food you bought just didn't last and you didn't have money to get more. Never true 07/23/2023 Ackerman Depression Scale Answer Date Recorded Ackerman Depression Scale Total 7 01/13/2024 The thought of harming myself has occurred to me . Never 01/13/2024 Childcare Answer Date Recorded Do you feel overwhelmed with taking care of a child, family member or friend? No 07/23/2023 Does your family need help f inding childcare? (Household - for ages 0-17 years) Not on file 07/23/2023 Clothing Answer Date Recorded Have you been unable to get clothing when it was really needed? No 07/23/2023 Is your family able to get c lothes or diapers when needed? (Household - for ages 0-17 years) Not on file 07/23/2023 Personal Safety Answer Date Recorded Do you feel unsafe or have concerns for your saf ety? No 07/23/2023 Do you have concerns for you r family's safety? (Household - for ages 0-17 years) Not on file 07/23/2023 Utilities Answer Date Recorded Do you have trouble paying y our heating, water, or electric bill? No 07/23/2023 Is your family able to pay t he heat, water, or electric bill? (Household - for ages 0-17 years) Not on file 07/23/2023 Does your family have access to good internet? (Household - for ages 0-17 years) Not on file 07/23/2023 Employment Status Answer Date Recorded Are you unemployed or without regular income? Ye s 07/23/2023 Does the household have a re gular source of income? (Household - for ages 0-17 years) Not on file 07/23/2023 Social Connections Answer Date Recorded How often do you feel lonely or isolated from th ose around you? Never 07/23/2023 Financial Resource Strain Answer Date R ecorded Do you have any trouble payi ng for your medications, or do you think you might in the future? No 07/23/2023 Does your family have troubl e paying for medicine? (Household - for ages 0-17 years) Not on file 07/23/2023 Transportation Needs Answer Date Record ed READ ONLY Do you have troubl e getting a ride to medical visits or work? Never True 07/23/2023 Does your family have a hard time getting a ride to doctors visits? (Household - for ages 0-17 years) Not on file 07/23/2023 Has lack of transportation k ept you from medical appointments, meetings, work, or from getting things needed for daily living? Check all that apply. (Adult - for ages 18 years and over) Not on file 07/23/2023 Do you (or your family) have trouble finding or paying for a ride (transportation)? (Household - for ages 0-17 years) Not on file 07/23/2023 Housing Stability Answer Date Recorded Do you currently live in a s helter or have no steady place to sleep at night? No 07/23/2023 READ ONLY Do you think you a re at risk of becoming homeless? No 07/23/2023 Does your family worry about paying for your home or becoming homeless? (Household - for ages 0-17 years) Not on file 0 07/23/2023 Are you homeless or worried that you might be in the future? (Adult - for ages 18 years and over) Not on file Are you (or your family) julia eless or worried that you might be in the future? (Household - for ages 0-17 years) Not on file Food Insecurity Answer Date Recorded Do you need food for this week? No 07/23/2023 Are you able to get enough f ood for your family? (Household - for ages 0-17 years) Not on file 07/23/2023 Does your family need food t his week? (Household - for ages 0-17 years) Not on file 07/23/2023 Do you always have enough fo od for your family? (Household - for ages 0-17 years) Not on file 07/23/2023 Estimated Date of Delivery Comme nts Yes 02/24/2024 Based on Ultraso und Sex and Gender Information Value Date Recorded Sex Assigned at Female 05/27/2019 10:41 AM EST Gender Identity Female 05/27/2019 10:41 AM EST Sexual Orientation Straight 05/27/2019 10 :41 AM EST Job Start Date Occupation Industry Not on file Not on file Not on file documented as of this encounter Miscellaneous Notes * Telephone Encounter - Kaila Patton LPN - 02/12/2024 11:41 AM EDT My G message sent to patient regarding information, please contact to set up acute video (telemed) appt to discuss medication during . * Telephone Encounter - Willard Nails DO - 02/10/2024 7:52 PM EDT Needs acute visit to discuss risks and benefits of Paxil in . Can be acute video visit * Telephone Encounter - Jaja Forde LPN - 02/10/2024 8:25 AM EDT Sent to wrong office * Telephone Encounter - Myrna Donovan OSA - 02/09/2024 2:44 PM EDT An order was requested for this patient. Name of Requesting Provider: PT Order Requested: Paroxetine Diagnosis/Reason for Request: OCD and Anxiety Pt would like to have the prescription filled so she can start taking it after she gives If order request is for Mammogram: Is the patient having any breast symptoms? N/A Is there a chance of ? N/A Has the patient had any breast problems in the past? NA What location AND department does the patient wish to have their order completed at? Na Fax Number, if applicable: Na If the caller is not a current patient, please advise the patient to call their current PCP to havethe order's prior to being seen in our office. The patient was informed that our providers would not order anything (medication, labs, etc.) prior to being seen. documented in this encounter Plan of Treatment Upcoming Encounters Date Type Department Care Team (Late st Contact Info) Description 02/18/2024 3:00 PM EDT Office Visit Gynecology/Obstetrics [facility] [address] [place] [id number] Brandy Morales CRNP [address] [place] [id number] 02/18/2024 3:30 PM EDT Imaging Radiology [facility] [address]nd Floor, [place] [address] [place] [id number] Health Maintenance Due Date Last Done Comments Hepatitis B Vaccine (1 of 3 - 19+ 3-dose series) 2012 HPV (Gardasil) Vaccine (2 - 3-dose series) 06/24/2019 05/27/2019 Depression Monitoring 05/01/2021 05/01/2020 COVID-19 Vaccine (3 - 2022-24 season) 2023 03/23/2021, 03/02/2021 Influenza Vaccine (FLU shot) (#1) 2024 03/07/2022, 04/07/2020, 04/22/2019 Pap Smear 07/23/2026 07/23/2023, 1008/2019, 08/19/2016 Cervical Cancer Screening 07/23/2028 HPV/Co-Test 07/23/2028 07/23/2023 DTaP,Tdap,and Td Vaccines (5 - Td or Tdap) 12/03/2033 12/04/2023, 03/21/2022, 01/04/2017, Additional history exists MENINGOCOCCAL (MENACTRA/MENVEO) Aged Out No longer eligible based on patient's age to complete this topic Pneumococcal Vaccine: Pediatrics (0 to 5 Years) and At-Risk Patients (6 to 64 Years) Aged Out No longer eligible based on patient's age to complete this topic documented as of this encounter Medical Devices Not on filedocumented as of this encounter Care Teams Jig Maker Relationship Specialty Start Date End Date GinoOctober ANNA Sims [address] [place] [id number] PCP - General Physician Picture Frames Inspector 12/08/20 documented as of this encounter
--- OUTSIDE RECORDS SUMMARY | 2024-02-17 18:05 | External Medical Summary | Summary of Care ---
Author Name Unknown Organization [facility] Address [address] [place] [facility] [place] [address] Phone [phone] Care Team Providers Care Outside Machinist Supervisor Name Role Phone Gino Thelma Sims PA-C Primary Care Provider [phone] Encounter Details Date Type Department Care Team (Late st Contact Info) Description 02/11/2024 Refill Gynecology/Obstetrics [facility] [address] [facility] [place] [address] Lisy Lobo, DNP, CNM [address] [facility] [place] [address] Allergies Active Allergy Reactions Criticality Noted Date Comments Prednisone 04/23/2021 Increased anxiety documented as of this encounter (statuses as of 02/12/2024) Medications Medication Sig Dispensed Refills Start Date End Date Status 6.75-0.2 MG Oral Tablet Take by mouth. Active Aspirin 81 MG Oral Tablet ChewableIndications:H x of preeclampsia, prior , currently , unspecified trimester Take 1 Tablet by mouth in the morning. 100 Tablet 3 08/04/2023 Active Vitron-C 65-125 MG Oral Tablet (Iron-Vitamin C 65-125 mg per tab) Take 1 Tablet by mouth in the morning. 90 Tablet 1 10/20/2023 Active documented as of this encounter (statuses as [...] 32-36 weeks gestation. We recommend alerting the tape stringer providing care of this finding. Impaired glucose [...] (lupus anticoagulant, anti-cardiolipin IgG and IGM and hqaj-6-ufyvajqnpfjp) for those patients who delivered prior to 34 weeks secondary to pre-eclampsia or HELLP. Family history of blood clots 11/15/2021 Overview: Patient adopted; family history unclear. However, she thinks that her parents may have had a clotting disorder. Last Assessment & Plan: Negative inherited thrombophilia panel. History of placental abruption 10/18/2021 Overview: 2014: resulted in intrauterine demise at 29 weeks [...] IUFD 10/18/2021 Overview: Per scanned notes from [facility] 2013: Vaginal bleeding at 29+ weeks, noted [...] The MICHELLE is normal. A BPP is 8/8. 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 This result is not associated with a significantly increased risk for coronary artery disease, venous thromboembolism, or adverse outcome. Last Assessment & Plan: Reviewed the [employer] ACOG Practice [...] counseling 12/10/2021 07/23/2023 Overview: Patient seen by [facility] Meter/Relay Technician. Patient denies any questions or concerns. Problem [...] at 20 weeks. Depression complicating , antepartum 11/16/19 22 07/23/2023 Overview: Denies suicidal or homicidal ideation. with [...] son at 8 mth preg in [address] Dr.Shuman GRUBER--was told has clotting disorder, ?MTHFR -testing by [facility] BUTTON MAKER in [facility]-obtain records. Closed head injury with concussion 04/10/2016 [...] money to get more. Never true 07/23/2023 [place] Depression Scale Answer Date Recorded [place] Depression Scale Total 7 01/13/2024 The thought [...] encounter Miscellaneous Notes * Telephone Encounter - Briseida Stevens RN - 02/12/2024 3:36 PM EDT Patient returned call. She was prescribed both diflucan and metrogel last week on 02/04. The metrogelis on list as discontinued so did not see this at first. Patient aware that this would treat BV, she already has picked up medication and completed this. No other concerns at this time. * Telephone Encounter - Briseida Stevens RN - 02/12/2024 2:06 PM EDT Attempted to call patient. No answer, LVM to return call. * Telephone Encounter - Briseida Stevens RN - 02/11/2024 4:17 PM EDT Received phone call from Lisy Lobo CNM for telephone order to send treatment for patient's BV. Lisy would like nursing to call in Metrogel - 5g vaginally once daily x 5 days to patients pharmacy.Order pended, Need to call pt to confirm pharmacy then call into pharmacy. Of note, patient was sent diflucan last week to treat yeast but nothing sent for BV. Attempted to call patient to make aware and confirm pharmacy. documented in this encounter Plan of Treatment Upcoming Encounters Date Type Department Care Team (Late st Contact Info) Description 02/18/2024 3:00 PM EDT Office Visit Gynecology/Obstetrics [facility] [address] [facility] [place] [address] Brandy Morales CRNP [address] [place] [address] 02/18/2024 3:30 PM EDT Imaging Radiology [facility] [address] [facility] [place] [address] Health Maintenance Due Date Last Done Comments Hepatitis B Vaccine (1 of 3 - 19+ 3-dose series) 2012 HPV (Gardasil) Vaccine (2 - 3-dose series) 06/24/2019 05/27/2019 Depression Monitoring 05/01/2021 05/01/2020 COVID-19 Vaccine (3 - 2022- season) 2023 03/23/2021, 03/02/2021 Influenza Vaccine (FLU [...] filedocumented as of this encounter Care Teams Outside Machinist Supervisor Relationship Specialty Start Date End Date Thelma Christian, ANNA [address] [place] [address] [place] [address] PCP - General Physician Felting Machine Operator 12/08/20 documented as of this encounter
--- OUTSIDE RECORDS SUMMARY | 2024-02-17 18:05 | External Medical Summary | Summary of Care ---
Author Name Unknown Organization [facility] Address [address] [place] [address] Phone [phone] Care Team Providers Care Tissue Rewinder Name Role Phone Thelma Christian PA-C Primary Care Provider [phone] Reason for Referral * Medication Prior Authorization - Closed Specialty Diagnoses / Procedures Referred By Stacy mojica Referred To Contact Diagnoses JOSSIE (generalized anxiety disorder) Stephanie Nails DO [address] [place] [address] Referral ID Status Reason Start Date Expiration Date Visits Re quested Visits Authorized [id number] Closed 999 999 Reason for Visit * Reason Onset Date Comments Med Request 02/09/2024 Encounter Details Date Type Department Care Team (Late st Contact Info) Description 02/09/2024 [facility]phone [facility] [address] [place] [address] Thelma Christian PA-C [address] [place] [address] Med Request Allergies Active Allergy Reactions Criticality [...] the morning. 90 Tablet 1 10/20/2023 Active PARoxetine HCl 10 MG Oral Tablet (pAXil)Indications :JOSSIE (generalized anxiety disorder) Take 1 Tablet by mouth in the morning. 30 Tablet 11 02/12/2024 Active metroNIDAZOLE 500 MG Oral Tablet (Flagyl) [...] 32-36 weeks gestation. We recommend alerting the splitter machine providing care of this finding. Impaired glucose [...] (lupus anticoagulant, anti-cardiolipin IgG and IGM and fgbi-3-oxigwhohyyoo) for those patients who delivered prior to [...] 2019: This individual is homozygous for the [id number] variant and negative (normal) for the C677T variant in the MTHFR gene. This result is not associated with a significantly increased risk for coronary artery disease, venous thromboembolism, or adverse outcome. Last Assessment & Plan: Reviewed the [employer] ACOG Practice [...] counseling 12/10/2021 07/23/2023 Overview: Patient seen by [facility] Product Applications Scientist. Patient denies any questions or concerns. Problem [...] H/O toxoplasmosis 04/22/2016 05/19/2018 Overview: labs on [facility] panel >+ IGG 08/31/13--no active inf--works on barn with horses and cats, nl cbc,cr,, immune varicella,rubell, neg RPR,neg Hbs ag INFORMATION 04/10/2016 05/19/2018 Overview: Lost son at 8 mth preg in 2013 [facility]--was told has clotting disorder, ?MTHFR -testing by ACCESS LIAISON in [facility]-obtain records. Closed head injury with concussion [...] money to get more. Never true 07/23/2023 Potter Depression Scale Answer Date Recorded Potter Depression Scale Total 7 01/13/2024 The thought [...] as of this encounter Miscellaneous Notes * Addendum Note - Stephanie Nails DO - 02/12/2024 2:23 PM EDTAddended by: STEPHANIE NAILS on: 02/12/2024 02:23 PM Modules accepted: Orders * Telephone Encounter - Shelly Padilla LPN - 02/12/2024 1:[address] Nails-patient wants to wait for medication until after delivery. * Telephone Encounter - Kaila Patton LPN - 02/12/2024 11:41 AM EDT My G message sent to patient regarding information, please contact to set up acute video (telemed) appt to discuss medication during . * Telephone Encounter - Stephanie Nails DO - 02/10/2024 7:52 PM EDT [...] 02/18/2024 3:00 PM EDT Office Visit Gynecology/Obstetrics [facility] [address] [place] [address] Brandy Morales CRNP 132 [place] [address] 02/18/2024 3:30 PM EDT Imaging Radiology [facility] 2[facility] [address] [place] [address] Health Maintenance Due Date Last Done Comments Hepatitis B Vaccine (1 of 3 - 19+ 3-dose series) 2012 HPV (Gardasil) Vaccine (2 - 3-dose series) 06/24/2019 05/27/2019 Depression Monitoring 05/01/2021 05/01/2020 COVID-19 Vaccine (3 - 2022- season) 2023 03/23/2021, 03/02/2021 Influenza Vaccine (FLU shot) (#1) 2024 03/07/2022, 04/07/2020, 04/22/2019 Pap Smear 07/23/2026 07/23/2023, 10/0 08/2019, 08/19/2016 Cervical Cancer Screening 07/23/2028 HPV/Co-Test 07/23/2028 [...] Not on filedocumented as of this encounter Visit Diagnoses Diagnosis JOSSIE (generalized anxiety disorder) Generalized anxiety disorder documented in this encounter Care Teams Tissue Rewinder Relationship Specialty Start Date End Date Gino October [place] [address] [address] [place] [address] PCP - General Physician Recreation Engineer 12/08/20 documented as of this encounter
--- OUTSIDE RECORDS SUMMARY | 2024-02-17 18:05 | External Medical Summary | Summary of Care ---
Author Name Unknown Organization [facility] Address [address] [facility] [place] [address] Phone [phone] Care Team Providers Care Tuft Machine Operator Name Role Phone Gino Tehlma Carrera PA-C Primary Care Provider [phone] Reason for Visit * Reason Comments Return Visit Encounter Details Date Type Department Care Team (Late st Contact Info) Description 01/28/2024 2:15 PM EDT Office Visit Gynecology/Obstetric s Latoya Catalan [address] [place] [address] Brandy Morales CRNP [address] [place] [address] Supervision of high risk in third trimester*; MTHFR mutation; History of placental abruption; History of IUFD; Hx of preeclampsia, prior , currently , unspecified trimester; Impaired glucose in , antepartum; Antepartum anemia; Pyelectasis of fetus on ultrasound Allergies Active Allergy Reactions Criticality Noted Date Comments Prednisone 04/23/2021 Increased anxiety documented as of this encounter (statuses as of 01/28/2024) Medications Medication Sig Dispensed Refills Start Date End Date Status 6.75-0.2 MG Oral Tablet Take by mouth. Active Aspirin 81 MG Oral Tablet ChewableIndications :Hx of preeclampsia, prior , currently , unspecified [...] 7 days until gone.. 14 Tablet 12/15/2023 Active Additional Information Patient not taking.Reported on 01/13/2024 documented as of this encounter (statuses as of 01/28/2024) Active Problems Problem Noted Date Diagnosed Date [...] 32-36 weeks gestation. We recommend alerting the chief of internal medicine providing care of this finding. 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 This result is not associated with a significantly increased risk for coronary artery disease, venous thromboembolism, or adverse outcome. 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 Patient denies any questions or concerns. Problem [...] told has clotting disorder, ?MTHFR -testing by CONTINUOUS WASHER OPERATOR in [facility]-obtain records. Closed head injury with concussion 04/10/2016 05/19/2018 documented as of this encounter (statuses as of 01/28/2024) Immunizations Name Administration Dates Next Due HPV [...] money to get more. Never true 07/23/2023 Moodus Depression Scale Answer Date Recorded Moodus Depression Scale Total 7 01/13/2024 The thought [...] on file documented as of this encounter Last Filed Vital Signs Vital Sign Reading Time Taken Comments Blood Pressure 102/64 01/28/2024 1:58 PM EDT Pulse - - Temperature - - Respiratory Rate - - Oxygen Saturation - - Inhaled Oxygen Concentration - - Weight 78.5 kg (173 lb) 01/28/2024 1:58 PM EDT Height 162.6 cm (5' 4") 01/28/2024 1:58 PM EDT Body Mass Index 29.7 01/28/2024 1:58 PM EDT documented in this encounter Progress Notes * Brandy Morales CRNP - 01/28/2024 2:21 PM EDT 36w1d No concerns, but would like to discuss contraception. She may be interested in Nexplanon. Baby is active. No contractions, bleeding, LOF. Needs IOL d/t IUFD. BPP after this appt today. ANNA Gamboa documented in this encounter Nursing Notes * Martina Vasquez LPN - 01/28/2024 2:06 PM EDT 36w1d Denies concerns. documented in this encounter Plan of Treatment Upcoming Encounters Date Type Department Care Team (Late st Contact Info) Description 01/28/2024 3:30 PM EDT Imaging Radiology [address] [facility] [place] [address] History of IUFD; History of placental abruption; Supervision of high risk in third trimester 02/04/2024 3:30 PM EDT Imaging Radiology [address] [facility] [place] [address] 02/04/2024 4:15 PM EDT Office Visit Gynecology/Obstetric s [address] [place] [address] Lisy Lobo, KELLIE, CNM [address] [place] [address] 02/11/2024 3:00 PM EDT Office Visit Gynecology/Obstetric s [address] [place] [address] Brandy Morales CRNP [address] [place] [address] 02/11/2024 3:30 PM EDT Imaging Radiology [address] [facility] [place] [address] 02/18/2024 3:00 PM EDT Office Visit Gynecology/Obstetric s [facility] [address] [facility] [place] [address] Brandy Morales CRNP [address] [place] [address] 02/18/2024 3:30 PM EDT Imaging Radiology [address] [facility] [place] [address] Pending Results Name Type Priority Associated Diagnoses Date /Time GROUP B STREP CULTURE/PCR Lab Routine Supervision of high risk in third trimester 01/28/2024 2:36 PM EDT Health Maintenance Due Date Last Done Comments Hepatitis B Vaccine (1 of 3 - 19+ 3-dose series) 2012 HPV (Gardasil) Vaccine (2 - 3-dose series) 06/24/2019 05/27/2019 Depression Monitoring 05/01/2021 05/01/2020 COVID-19 Vaccine ( season) 2023 03/23/2021, 03/02/2021 Influenza Vaccine (FLU [...] as of this encounter Visit Diagnoses Diagnosis History of IUFD History of placental abruption Supervision of high risk in third trimester Unspecified high-risk Supervision of high risk in third trimester- Primary Unspecified high-risk MTHFR mutation Disturbances of sulphur-bearing amino-acid metabolism History of placental abruption History of IUFD Hx of preeclampsia, prior , currently , unspecified trimester Impaired glucose in , antepartum Abnormal maternal glucose tolerance, antepartum Antepartum anemia Anemia, antepartum Pyelectasis of fetus on ultrasound Abnormal findings on screening documented in this encounter Care Teams Tuft Machine Operator Relationship Specialty Start Date End Date GinoOctober ANNA Carrera [address] [place] [address] PCP - General Physician Milk Drying Machine Operator 12/08/20 documented as of this encounter
--- OUTSIDE RECORDS SUMMARY | 2024-02-17 18:05 | External Medical Summary | Summary of Care ---
Author Name Unknown Organization [facility] Address [address] [place] [facility] [place] [address] Phone [phone] Care Team Providers Care Net Web Developer Name Role Phone Gino Thelma Sims PA-C Primary Care Provider [phone] Reason for Visit * Reason Comments Return Visit Encounter Details Date Type Department Care Team (Late st Contact Info) Description 02/11/2024 3:00 PM EDT Office Visit Gynecology/Obstetric s Latoya Catalan [address] [place] [address] Brandy Morales CRNP [address] [place] [address] Supervision of high risk in third trimester*; MTHFR mutation; History of placental abruption; History of IUFD; Hx of preeclampsia, prior , currently , unspecified trimester; Impaired glucose in , antepartum; Antepartum anemia; Pyelectasis of fetus on ultrasound Allergies Active Allergy Reactions Criticality Noted Date Comments Prednisone 04/23/2021 Increased anxiety documented as of this encounter (statuses as of 02/11/2024) Medications Medication Sig Dispensed Refills Start Date [...] as of this encounter (statuses as of 02/11/2024) Active Problems Problem Noted Date Diagnosed Date [...] 32-36 weeks gestation. We recommend alerting the embossograph operator providing care of this finding. Impaired glucose [...] prior to IUFD at 30 weeks in 2014. Possible preeclampsia - records not available. Recommend [...] (lupus anticoagulant, anti-cardiolipin IgG and IGM and dfcd-3-vmeeswznthre) for those patients who delivered prior to [...] IUFD 10/18/2021 Overview: Per scanned notes from [facility] 2013: Vaginal bleeding at 29+ weeks, noted [...] 2019: This individual is homozygous for the [id number] variant and negative (normal) for the C677T variant in the MTHFR gene. This result is not associated with a significantly increased risk for coronary artery disease, venous thromboembolism, or adverse outcome. Last Assessment & Plan: Reviewed the [employer] ACOG Practice [...] as of this encounter (statuses as of 02/11/2024) Resolved Problems Problem Noted Date Diagnosed Date Resolved Date Antepartum anemia complicating 03/22/2022 07/23/2023 Abnormal glucose tolerance i n mother complicating 03/21/2022 04/09/2022 COVID-19 affecting , antepartum 03/19/2022 07/23/2023 Overview: 21 weeks Thrombophilia 02/04/2022 11/20/2022 Health counseling 12/10/2021 07/23/2023 Overview: Patient seen by [facility] Casting And Pasting Supervisor. Patient denies any questions or concerns. Problem [...] told has clotting disorder, ?MTHFR -testing by CORPORATE COMPLIANCE OFFICER in [facility]-obtain records. Closed head injury with concussion 04/10/2016 05/19/2018 documented as of this encounter (statuses as of 02/11/2024) Immunizations Name Administration Dates Next Due HPV [...] money to get more. Never true 07/23/2023 Myton Depression Scale Answer Date Recorded Myton Depression Scale Total 7 01/13/2024 The thought [...] Sign Reading Time Taken Comments Blood Pressure 104/62 02/11/2024 3:01 PM EDT Pulse - - Temperature - - Respiratory Rate - - Oxygen Saturation - - Inhaled Oxygen Concentration - - Weight - - Height 162.6 cm (5' 4") 02/11/2024 3:01 PM EDT Body Mass Index - - documented in this encounter Progress Notes * Barndy Morales CRNP - 02/11/2024 3:47 PM EDT 38w1d No concerns. Baby is active. No contractions, bleeding, LOF. Certain this is her last baby, unsure of what she desires for contraception. BPP following this visit, was 8/8, vertex. ANNA Gamboa * Jeanie Shea LPN - 02/11/2024 3:01 PM EDT 38w1d Has us today documented in this encounter Plan of Treatment Upcoming Encounters Date Type Department Care Team (Late st Contact Info) Description 02/18/2024 3:00 PM EDT Office Visit Gynecology/Obstetrics [facility] [address] [place] [address] Brandy Morales CRNP [address] [place] [address] 02/18/2024 3:30 PM EDT Imaging [facility] [address] [place] [address] Health Maintenance Due Date Last Done Comments [...] as of this encounter Visit Diagnoses Diagnosis Supervision of high risk in third trimester- Primary Unspecified high-risk MTHFR mutation Disturbances of sulphur-bearing amino-acid metabolism History of placental abruption History of IUFD Hx of preeclampsia, prior , currently , unspecified trimester Impaired glucose in , antepartum Abnormal maternal glucose tolerance, antepartum Antepartum anemia Anemia, antepartum Pyelectasis of fetus on ultrasound Abnormal findings on screening documented in this encounter Care Teams Net Web Developer Relationship Specialty Start Date End Date GinoOctober ANNA Sims [address] [place] [address] PCP - General Physician Back End Developer 12/08/20 documented as of this encounter
--- OUTSIDE RECORDS SUMMARY | 2024-02-17 18:05 | External Medical Summary ---
Author Name Unknown Address Unknown Organization K01:[facility] [place] [address] [place] [address] Laboratory Report Ordering Provider Test Date Status BOBBY RODRIGUEZ 01/28/2024 14:36:28 Final Observation Date Value Abnormality Reference (Units ) Status Streptococcus agalactiae DNA [Presence] in Specimen by SYDNEE with probe detection 01/28/2024 14:36:28 Negative Negative Final No Group B Streptococcus det ected by culture-enhanced PCR (amplified probe). GBS GBSCT - [facility] 01/28/2024 14:36:28 0.0 Final GBS SPCCT - [facility] 01/28/2024 14:36:28 30.1 Final Performing Location LABORATORY [facility] - [address] [place] [address]
--- OUTSIDE RECORDS SUMMARY | 2024-02-17 18:05 | External Medical Summary | Summary of Care ---
Author Name Unknown Organization [facility] Address [address] [place] [address] Phone [phone] Care Team Providers Care Supervisor Hide House Name Role Phone Gino Thelma Sims PA-C Primary Care Provider [phone] Reason for Visit * Reason Comments Return Visit Encounter Details Date Type Department Care Team (Late st Contact Info) Description 02/04/2024 4:15 PM EDT Office Visit Gynecology/Obstetric s [facility] [address] [facility] [place] [address] Lisy Lobo, DNP, CN [address] [place] [address] MTHFR mutation*; History of placental abruption; History of IUFD; Hx of preeclampsia, prior , currently , unspecified trimester; Supervision of high risk , antepartum; Impaired glucose in , antepartum; Antepartum anemia; Pyelectasis of fetus on ultrasound; Vaginal discharge Allergies Active Allergy Reactions Criticality Noted Date Comments Prednisone 04/23/2021 Increased anxiety documented as of this encounter (statuses as of 02/04/2024) Medications Medication Sig Dispensed Refills Start Date [...] as of this encounter (statuses as of 02/04/2024) Active Problems Problem Noted Date Diagnosed Date [...] 32-36 weeks gestation. We recommend alerting the well driller helper providing care of this finding. 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 This result is not associated with a significantly increased risk for coronary artery disease, venous thromboembolism, or adverse outcome. 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 Patient denies any questions or concerns. Problem Action Taken Date entered Entered by Date resolved 2nd trimester ed Reviewed w/pt 01/08/2022 Trista Rojas RN 01/08/2022 Provided a [facility] medical form for pt to review 01/08/2022 Trista Rojas RN 01/08/2022 Problem Action Taken Date entered Entered by Date resolved Current needs or questions Patient denies having any current needs or questions 03/21/2022 Brsieida Dow RN 03/21/2022 Problem Action Taken Date [...] told has clotting disorder, ?MTHFR -testing by ADMINISTRATIVE EXECUTIVE in [facility]-obtain records. Closed head injury with concussion 04/10/2016 05/19/2018 documented as of this encounter (statuses as of 02/04/2024) Immunizations Name Administration Dates Next Due HPV [...] money to get more. Never true 07/23/2023 [place] Depression Scale Answer Date Recorded [place] Depression Scale Total 7 01/13/2024 The thought [...] Sign Reading Time Taken Comments Blood Pressure 104/64 02/04/2024 4:10 PM EDT Pulse - - Temperature - - Respiratory Rate - - Oxygen Saturation - - Inhaled Oxygen Concentration - - Weight 78.7 kg (173 lb 6.4 oz) 02/04/2024 4:10 P M EDT Height - - Body Mass Index 29.76 01/28/2024 1:58 PM EDT documented in this encounter Progress Notes * Lisy Lobo DNP, CNM - 02/04/2024 4:36 PM EDT Kanika Louise is a 28 year old female here for her routine OB appointment at 37w1d Her Estimated Date of Delivery: 02/24/24 REVIEW OF SYSTEMS: She affirms active movement.Having some lower pubic discomfort and pressure especially when baby moves, encouraged maternity belt. Denies vaginal bleeding, contractions, N/V, headaches.Noted today increased vaginal discharge x1 yesterday. Last had intercourse 3 days ago. No itching, burning, irritation, or odor. Denies UTI symptoms. PHYSICAL EXAM: Filed Vitals: 02/04/24 1610 BP: 104/64 Weight: 78.7 kg (173 lb 6.4 oz) SSE: no pooling, nitrazine neg, yellow-greenish discharge noted in vagina. GC/CT, BV panel collected SVE: closed/thick/high ASSESSMENT/PLAN: (Z87.59) History of IUFD Plan: Doing weekly BPP instead of 2x weekly NSTs due to her schedule. 02/11 BPP today. (O09.90) , supervision, high-risk Plan: Still deciding on contraception, states she has gotten on mini- pill. Considering Nexplanon, doing research. (O99.810) Impaired glucose in , antepartum Plan: Passed 3 hour GTT (O99.019) Antepartum anemia Plan: Taking iron and vit c - recommended Covid vaccine due to increased risk of severe disease in . Patient states she had 2 vaccines, no boosters. - Reviewed labor precautions, kick counts, loss of fluid, vaginal bleeding, round ligament pain, and encouraged hydration. - f/u with GC/CT, BV panel - RTO in 1 week or PRN Lisy Lobo DNP, CNM * Juana Trent, MED ASSIST - 02/04/2024 4:13 PM EDT 37w1d MICHELLE 13.4 BPP 8/8 Fluid leaking yesterday morning and yesterday afternoon. Reports dizziness Reports pelvic pain and lower back pain Increased pelvic pressure Denies contractions + movements documented in this encounter Plan of Treatment Upcoming Encounters Date Type Department Care Team (Late st Contact Info) Description 02/11/2024 3:00 PM EDT Office Visit Gynecology/Obstetrics [facility] [address] [place] [address] Brandy Morales CRNP [address] [place] [address] 02/11/2024 3:30 PM EDT Imaging Radiology [address] [place] [address] 02/18/2024 3:00 PM EDT Office Visit Gynecology/Obstetrics [facility] [address] [place] [address] Brandy Morales CRNP [address] [place] [address] 02/18/2024 3:30 PM EDT Imaging Radiology [address], [place] [address] [place] [address] Pending Results Name Type Priority Associated Diagnoses Date /Time VAGINOSIS PANEL, PCR Lab Routine Vaginal discharge 02/04/2024 4:43 PM EDT CHLAMYDIA TRACHOMATIS AND NEISSERIA GONORRHOEAE, AMPLIFIED PROBE Lab Routine Vaginal discharge 02/04/2024 4:43 PM EDT Scheduled Orders Name Type Priority Associated Diagnoses Orde r Schedule VAGINOSIS PANEL, PCR Lab Routine Vaginal discharge Expected: 02/04/2024, Expires: 02/03/2025 CHLAMYDIA TRACHOMATIS AND NEISSERIA GONORRHOEAE, AMPLIFIED PROBE Lab Routine Vaginal discharge Expected: 02/04/2024, Expires: 02/03/2025 Health Maintenance Due Date Last Done Comments Hepatitis B Vaccine (1 of 3 - 19+ 3-dose series) 2012 HPV (Gardasil) Vaccine (2 - 3-dose series) 06/24/2019 05/27/2019 Depression Monitoring 05/01/2021 05/01/2020 COVID-19 Vaccine (3 - season) 2023 03/23/2021, 03/02/2021 Influenza Vaccine (FLU shot) (#1) 2024 03/07/2022, 04/07/2020, 04/22/2019 Pap Smear 07/23/2026 07/23/2023, 10/08/2019, 08/19/2016 Cervical Cancer Screening 07/23/2028 HPV/Co-Test 07/23/2028 07/23/2023 DTaP,Tdap,and Td Vaccines (5 - Td or Tdap) 12/03/2033 12/04/2023, 03/21/2022, 01/04/2017, Additional history exists HIV Screening Completed 07/23/2023, 11/08/2021 Hepatitis C Screening Completed 07/23/2023 , 07/23/2023, 07/23/2023, Additional history exists MENINGOCOCCAL (MENACTRA/MENVEO) Aged Out No longer eligible based on patient's age to complete this topic Pneumococcal Vaccine: Pediatrics (0 to 5 Years) and At-Risk Patients (6 to 64 Years) Aged Out No longer eligible based on patient's age to complete this topic documented as of this encounter Medical Devices Not on filedocumented as of this encounter Visit Diagnoses Diagnosis MTHFR mutation- Primary Disturbances of sulphur-bearing amino-acid metabolism History of placental abruption History of IUFD Hx of preeclampsia, prior , currently , unspecified trimester Supervision of high risk , antepartum Impaired glucose in , antepartum Abnormal maternal glucose tolerance, antepartum Antepartum anemia Anemia, antepartum Pyelectasis of fetus on ultrasound Abnormal findings on screening Vaginal discharge Leukorrhea, not specified as infective documented in this encounter Care Teams Supervisor Hide House Relationship Specialty Start Date End Date GinoOctober ANNA Sims [address] [place] [address] PCP - General Physician Agricultural Equipment Sales Engineer 12/08/20 documented as of this encounter
--- OUTSIDE RECORDS SUMMARY | 2024-02-17 18:05 | External Medical Summary ---
Author Name Unknown Address Unknown Organization [id number]:LABORATORY [facility] - [address] [facility] [place] [address] Laboratory Report Ordering Provider Test Date Status IESHA MITCHELL 02/04/2024 16:43:03 Final Observation Date Value Abnormality Reference (Units ) Status Bacterial vaginosis [Interpretation] in Vaginal fluid Qualitative 02/04/2024 16:43:03 Positive Abnormal Negative Final Positive for Bacterial Vagin osis. Correlate results with other clinical findings. Aurora sp DNA [Presence] in Vaginal fluid by Probe 02/04/2024 16:43:03 Positive Abnormal Negative Final Aurora species group RNA de tected. Correlate results with other clinical findings. Aurora glabrata RNA [Presen ce] in Vaginal fluid by SYDNEE with probe detection 02/04/2024 16:43:03 Negative Negative Final No Aurora glabrata RNA dete cted. Correlate results with other clinical findings. Trichomonas vaginalis DNA [P resence] in Vaginal fluid by Probe 02/04/2024 16:43:03 Negative Negative Final No Trichomonas vaginalis RNA detected. Performing Location LABORATORY [facility] - [address] [place] [address]
--- OUTSIDE RECORDS SUMMARY | 2024-02-17 18:05 | External Medical Summary | Summary of Care ---
Author Name Unknown Organization [facility] Address [address] [place] [address] Phone [phone] Care Team Providers Care Scroll Shear Operator Name Role Phone Thelma Christian PA-C Primary Care Provider [phone] Reason for Visit * Reason Onset Date Comments Med Request 02/09/2024 Encounter Details Date Type Department Care Team (Late st Contact Info) Description 02/09/2024 Telephone Family Practice [facility] [address] [facility] [place] [address] Thelma Christian PA-C [address] [place] [address] Med Request Allergies Active Allergy Reactions Criticality [...] 32-36 weeks gestation. We recommend alerting the website/blog editor providing care of this finding. Impaired glucose [...] (lupus anticoagulant, anti-cardiolipin IgG and IGM and jpsb-7-fqykqsgcpipc) for those patients who delivered prior to [...] IUFD 10/18/2021 Overview: Per scanned notes from [facility] 2013: Vaginal bleeding at 29+ weeks, noted [...] 2019: This individual is homozygous for the [id number] variant and negative (normal) for the C677T variant in the MTHFR gene. This result is not associated with a significantly increased risk for coronary artery disease, venous thromboembolism, or adverse outcome. Last Assessment & Plan: Reviewed the [employer] [employer] ACOG Practice [...] 12/10/2021 07/23/2023 Overview: Patient seen by [facility] Summer Babysitter. Patient denies any questions or concerns. Problem [...] told has clotting disorder, ?MTHFR -testing by PHYSICIAN ASSISTANT SURGERY in [facility]-obtain records. Closed head injury with [...] money to get more. Never true 07/23/2023 [place] Depression Scale Answer Date Recorded [place] Depression Scale Total 7 01/13/2024 The thought [...] encounter Miscellaneous Notes * Telephone Encounter - Shelly Padilla LPN [...] 02/18/2024 3:00 PM EDT Office Visit Gynecology/Obstetrics [facility] [address] [place] [address] Brandy Morales CRNP [address] [place] [address] 02/18/2024 3:30 PM EDT Imaging Radiology [facility] 2nd Floor, [place] [address] [place] [address] Health Maintenance Due Date Last Done Comments [...] filedocumented as of this encounter Care Teams Scroll Shear Operator Relationship Specialty Start Date End Date GinoOctober ANNA Sims [address] [place] [address] PCP - General Physician Radio Engineering Teacher 12/08/20 documented as of this encounter
--- OUTSIDE RECORDS SUMMARY | 2024-02-17 18:05 | External Medical Summary | Summary of Care ---
Author Name Unknown Organization [facility] Address [address] [facility] [place] [address] Phone [phone] Care Team Providers Care Ignition Expert Name Role Phone ReannaThelma lopez Bethany CASTILLO Primary Care Provider [phone] Encounter Details Date Type Department Care Team (Late st Contact Info) Description 02/05/2024 Telephone Gynecology/Obstetrics [facility] [address] [place] [address] Yanick Tadeo MD [address] [place] [address] Allergies Active Allergy Reactions Criticality Noted Date Comments Prednisone 04/23/2021 Increased anxiety documented as of this encounter (statuses as of 02/05/2024) Medications Medication Sig Dispensed Refills Start Date [...] Additional Information Patient not taking.Reported on 01/13/2024 Fluconazole 150 MG Oral Tablet (Diflucan) Take 1 Tablet by mouth once for 1 dose. 1 Tablet 02/05/2024 02/05/2024 Active metroNIDAZOLE 250 MG Oral Tablet (Flagyl) Take 1 Tablet by mouth in the morning and 1 Tablet at noon and 1 Tablet before bedtime. Do all this for 7 days. until gone.. 21 Tablet 02/05/2024 02/12/2024 Active documented as of this encounter (statuses as of 02/05/2024) Active Problems Problem Noted Date Diagnosed Date [...] 32-36 weeks gestation. We recommend alerting the tray server providing care of this finding. 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 This result is not associated with a significantly increased risk for coronary artery disease, venous thromboembolism, or adverse outcome. Last Assessment & Plan: Reviewed the [place] [employer] ACOG Practice [...] as of this encounter (statuses as of 02/05/2024) Resolved Problems Problem Noted Date Diagnosed Date Resolved Date Antepartum anemia complicating 03/22/2022 07/23/2023 Abnormal glucose tolerance i n mother complicating 03/21/2022 04/09/2022 COVID-19 affecting , antepartum 03/19/2022 07/23/2023 Overview: 21 weeks Thrombophilia 02/04/2022 11/20/2022 Health counseling 12/10/2021 07/23/2023 Overview: Patient seen by [facility] Superintendent System Operation. Patient denies any questions or concerns. Problem [...] [facility] 8 [facility]was told has clotting disorder, ?MTHFR -testing by RATTLE LEAK AND SQUEAK REPAIRER in [facility]-obtain records. Closed head injury with concussion 04/10/2016 05/19/2018 documented as of this encounter (statuses as of 02/05/2024) Immunizations Name Administration Dates Next Due HPV [...] money to get more. Never true 07/23/2023 [place] Depression Scale Answer Date Recorded [place] Depression Scale Total 7 01/13/2024 The thought [...] encounter Miscellaneous Notes * Telephone Encounter - Jeanie Shea LPN - 02/05/2024 2:19 PM EDT Spoke with pt she verbalized understanding * Telephone Encounter - Jeanie Shea LPN - 02/05/2024 1:58 PM EDT Called pt lm to return call * Telephone Encounter - Yanick Tadeo MD - 02/05/2024 1:40 PM EDT Rx is sent Thanks * Telephone Encounter - Jeanie Shea LPN - 02/05/2024 1:01 PM EDT Pt called for her results from yesterday and per pt Lisy will not be back in the office for a couple of days and pt was to reach out to triage to have something sent in for her if results came back Positive. Pts BV culture came back positive for Bacterial Vaginosis and Aurora Species.Pt uses [facility] in [place]. Please review and advise documented in this encounter Plan of Treatment Upcoming Encounters Date Type Department Care Team (Late st Contact Info) Description 02/11/2024 3:00 PM EDT Office Visit Gynecology/Obstetrics [facility] [address] [place] [address] Brandy Morales CRNP [address] [place] [address] 02/11/2024 3:30 PM EDT Imaging Radiology [facility] [address] [facility] [place] [address] [place] [address] 02/18/2024 3:00 PM EDT Office Visit Gynecology/Obstetrics [facility] [address] [place] [address] Brandy Morales CRNP [address] [place] [address] 02/18/2024 3:30 PM EDT Imaging Radiology [facility] [address] [facility] [place] [address] [place] [address] Health Maintenance Due Date Last Done Comments Hepatitis B Vaccine (1 of 3 - 19+ 3-dose series) 2012 HPV (Gardasil) Vaccine (2 - 3-dose series) 06/24/2019 05/27/2019 Depression Monitoring 05/01/2021 05/01/2020 COVID-19 Vaccine ( - 2022- season) 2023 03/23/2021, 03/02/2021 Influenza Vaccine (FLU shot) (#1) 2024 03/07/2022, 04/07/2020, 04/22/2019 Pap Smear 07/23/2026 07/23/2023, 08/2019, 08/19/2016 Cervical Cancer Screening 07/23/2028 HPV/Co-Test [...] filedocumented as of this encounter Care Teams Ignition Expert Relationship Specialty Start Date End Date Gino October ANNA Sims [address] [place] [address] PCP - General Physician Microbiology Supervisor 12/08/20 documented as of this encounter
--- OUTSIDE RECORDS SUMMARY | 2024-02-17 18:05 | External Medical Summary ---
Author Name Unknown Address Unknown Organization K01:LABORATORY [facility] [place] - [facility] [address] [place] [address] Laboratory Report Ordering Provider Test Date Status IESHA MITCHELL 02/04/2024 16:43:03 Final Observation Date Value Abnormality Reference (Units ) Status Chlamydia trachomatis rRNA [Presence] in Specimen by SYDNEE with probe detection 02/04/2024 16:43:03 Negative Negative Final No Chlamydia trachomatis det ected by special education science teacher-mediated nucleic acid amplification. Neisseria gonorrhoeae rRNA [ Presence] in Specimen by SYDNEE with probe detection 02/04/2024 16:43:03 Negative Negative Final No Neisseria gonorrhoeae det ected by special education science teacher-mediated nucleic acid amplification. Performing Location LABORATORY [facility] - [address] [place] [address]
--- OUTSIDE RECORDS SUMMARY | 2024-02-17 18:06 | External Medical Summary ---
Author Name Unknown Address Unknown Organization K01:LABORATORY [facility] [place] - [facility] [address] [place] [address] Laboratory Report Ordering Provider Test Date Status ERMA BRAXTON 01/13/2024 15:46:55 Final Observation Date Value Abnormality Reference (Units ) Status Creatinine 01/13/2024 15:46:55 0.5 0.5-1.0 (mg/dL) Final Glomerular filtration rate/1.73 sq M.predicted [Volume Rate/Area] in Serum, Plasma or Blood by Creatinine-based formula (CKD-EPI) 01/13/2024 15:46:55 >90 >=60 (mL/min) Final eGFR is calculated based on the CKD-EPI 2020 equation Performing Location LABORATORY [facility] - [address] [place] [address]
--- OUTSIDE RECORDS SUMMARY | 2024-02-17 18:06 | External Medical Summary | Summary of Care ---
Author Name Unknown Organization [facility] Address [address] [place] [address] Phone [phone] Care Team Providers Care Container Repairer Name Role Phone Gino Thelma Sims PA-C Primary Care Provider [phone] Encounter Details Date Type Department Care Team (Late st Contact Info) Description 01/22/2024 1:45 PM EDT Office Visit Substitute Teacher Obstetrics Maternal Medicine, [place] [address] [place], [place] [id number] Pedro German, DO [address] [place] [address] History of IUFD*; Hx of preeclampsia, prior , currently , unspecified trimester; History of placental abruption Allergies Active Allergy Reactions Criticality Noted Date Comments Prednisone 04/23/2021 Increased anxiety documented as of this encounter (statuses as of 01/22/2024) Medications Medication Sig Dispensed Refills Start Date [...] as of this encounter (statuses as of 01/22/2024) Active Problems Problem Noted Date Diagnosed Date [...] 32-36 weeks gestation. We recommend alerting the economist research assistant providing care of this finding. 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 This result is not associated with a significantly increased risk for coronary artery disease, venous thromboembolism, or adverse outcome. 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 Patient denies any questions or concerns. Problem [...] told has clotting disorder, ?MTHFR -testing by IMPROVEMENT COORDINATOR in [facility]-obtain records. Closed head injury with concussion 04/10/2016 05/19/2018 documented as of this encounter (statuses as of 01/22/2024) Immunizations Name Administration Dates Next Due HPV [...] money to get more. Never true 07/23/2023 [place] Depression Scale Answer Date Recorded [place] Depression Scale Total 7 01/13/2024 The thought [...] 07/23/2023 Does the household have a re lar source of income? (Household - for ages [...] on file documented as of this encounter Progress Notes * Pedro German, DO - 01/22/2024 11:36 PM EDT MATERNAL MEDICINE VISIT Kanika Louise presented today at 35w2d to [facility] for an ultrasound. She is being seen today by Maternal- Medicine for the following reasons: Problem List Items Addressed This Visit History of placental abruption History of IUFD - Primary She presents for follow-up of growth. She has a history of placental abruption and demise in a prior , possibly related to pre-eclampsia. Today's ultrasound notes the following: The estimated weight is appropriate for gestational age in the 32nd percentile. The visualized anatomy is unremarkable in appearance. The MICHELLE is normal. A BPP is 8/8. Hx of preeclampsia, prior , currently , unspecified trimester I reviewed the ultrasound images. Kanika Louise was given the opportunity to meet with me if shehad any questions. Please refer to the ultrasound report for additional details about today's ultrasound examination. RECOMMENDATIONS: Recommend surveillance secondary to history of a demise. No follow-up with Maternal Medicine is necessary unless further questions or indications arise. Recommend delivery at 39 weeks gestation. Thank you for allowing us to participate in the care of this patient. Please call with any questions. Pedro German DO 01/22/2024 11:36 PM documented in this encounter Miscellaneous Notes * Assessment & Plan Note - Pedro German DO - 01/22/2024 11:36 PM EDT Associated Problem(s): History of IUFD She presents for follow-up of growth. She has a history of placental abruption and demise in a prior , possibly related to pre-eclampsia. Today's ultrasound notes the following: The estimated weight is appropriate for gestational age in the 32nd percentile. The visualized anatomy is unremarkable in appearance. The MICHELLE is normal. A BPP is 8/8. documented in this encounter Plan of Treatment Upcoming Encounters Date Type Department Care Team (Late st Contact Info) Description 01/28/2024 2:15 PM EDT Office Visit Gynecology/Obstetrics [facility] [address] [address] Brandy Morales CRNP [address] [address] 01/28/2024 3:30 PM EDT Imaging Radiology [facility] 2nd [facility] [address] [address] 02/04/2024 3:30 PM EDT Imaging Radiology [address] [place] [address] 02/04/2024 4:15 PM EDT Office Visit Gynecology/Obstetrics [place] [address] [address] [place] [address] Lisy Lobo, KELLIE, CNM [address] [place] [address] 02/11/2024 3:00 PM EDT Office Visit Gynecology/Obstetrics [place] [address] [place] [address] Brandy Morales CRNP [address] [place] [address] 02/11/2024 3:30 PM EDT Imaging Radiology [address] [place] [address] 02/18/2024 3:00 PM EDT Office Visit Gynecology/Obstetrics [place] [address] [facility] [place] [address] Brandy Morales CRNP [facility] [place] [address] 02/18/2024 3:30 PM EDT Imaging Radiology [address] [facility] [place] [address] Health Maintenance Due Date Last Done Comments Hepatitis B Vaccine (1 of 3 - 19+ 3-dose series) 2012 HPV (Gardasil) Vaccine (2 - 3-dose series) 06/24/2019 05/27/2019 Depression Monitoring 05/01/2021 05/01/2020 COVID-19 Vaccine (3 - 2022-24 season) 2023 03/23/2021, 03/02/2021 Influenza Vaccine (FLU shot) (#1) 2024 03/07/2022, 04/07/2020, 04/22/2019 Pap Smear 07/23/2026 07/23/2023, 100 08/2019, 08/19/2016 Cervical Cancer Screening 07/23/2028 HPV/Co-Test [...] this encounter Visit Diagnoses Diagnosis History of IUFD- Primary Hx of preeclampsia, prior , currently , unspecified trimester History of placental abruption documented in this encounter Care Teams Container Repairer Relationship Specialty Start Date End Date Thelma Christian PA-C [address] [place] [address] PCP - General Physician Rn Internship 12/08/20 documented as of this encounter
--- OUTSIDE RECORDS SUMMARY | 2024-02-17 18:06 | External Medical Summary ---
Author Name Unknown Address Unknown Organization K01:LAB[facility]ATORY [place] [address] [facility] [address] Laboratory Report Ordering Provider Test Date Status IRAISERMA 01/13/2024 15:46:55 Final Observation Date Value Abnormality Reference (Units ) Status Retic, % (auto) 01/13/2024 15:46:55 1.76 0.80-1.90 (%) Final Reticulocytes, Absolute 01/13/2024 15:46:55 68.6 31.3-100.1 (K/uL) Final Reticulocyte fraction, immature 01/13/2024 15:46:55 16.4 2.5-20.6 (%) Final Reticulocyte HGB 01/13/2024 15:46:55 33.5 29.7-37.4 (pg) Final Performing Location LAB[facility] [place] [place] [address] [place] [address]
--- OUTSIDE RECORDS SUMMARY | 2024-02-17 18:06 | External Medical Summary | Summary of Care ---
Author Name Unknown Organization [facility] Address [address] [facility] [place] [address] Phone [phone] Care Team Providers Care Rolfer Name Role Phone Gino Thelma Sims PA-C Primary Care Provider [phone] Encounter Details Date Type Department Care Team (Late st Contact Info) Description 01/14/2024 Telephone Gynecology/Obstetrics [facility] 132 [facility] [place] [address] Sandhya Saxena CNM [address] [facility] [place] [address] Allergies Active Allergy Reactions Criticality Noted Date Comments Prednisone 04/23/2021 Increased anxiety documented as of this encounter (statuses as of 01/14/2024) Medications Medication Sig Dispensed Refills Start Date [...] as of this encounter (statuses as of 01/14/2024) Active Problems Problem Noted Date Diagnosed Date [...] 32-36 weeks gestation. We recommend alerting the buildings and grounds superintendent providing care of this finding. Impaired glucose [...] (lupus anticoagulant, anti-cardiolipin IgG and IGM and bzpc-3-ppdnqszhtuot) for those patients who delivered prior to [...] IUFD 10/18/2021 Overview: Per scanned notes from [facility] 2013: Vaginal bleeding at 29+ weeks, noted to have demise. Vaginal delivery at 30 wks. Placenta examination consistent w/abruption. November 2021: APS and thrombophilia work up completed: negative Last Assessment & Plan: She presents for follow-up of growth. She has a history of placental abruption and demise in a prior , possibly related to pre-eclampsia. Mild right urinary tract dilation has been noted previously. Today's ultrasound notes the following: The estimated weight is appropriate for gestational age in the 57th percentile. urinary tract dilation is not appreciated. The visualized anatomy is unremarkable in appearance. The MICHELLE is normal. 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 This result is not associated with a significantly increased risk for coronary artery disease, venous thromboembolism, or adverse outcome. 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 Patient denies any questions or concerns. Problem Action Taken Date entered Entered by Date resolved 2nd trimester ed Reviewed w/pt 01/08/2022 Trista Rojas RN 01/08/2022 Provided a [facility] medical form for pt to review 01/08/2022 Trista Rojas RN 01/08/2022 Problem Action Taken Date entered Entered by Date resolved Current needs or questions Patient denies having any current needs or questions 03/21/2022 Briseida Dwo RN 03/21/2022 Problem Action Taken Date entered [...] H/O toxoplasmosis 04/22/2016 05/19/2018 Overview: labs on [facility] panel >+ IGG 08/31/13--no active inf--works on barn with horses and cats, nl cbc,cr,, immune varicella,rubell, neg RPR,neg Hbs ag INFORMATION 04/10/2016 05/19/2018 Overview: Lost son at 8 mth preg in 2013 [facility]--was told has clotting disorder, ?MTHFR -testing by VP SOFTWARE ENGINEERING in [facility]-obtain records. Closed head injury with concussion 04/10/2016 05/19/2018 documented as of this encounter (statuses as of 01/14/2024) Immunizations Name Administration Dates Next Due HPV [...] money to get more. Never true 07/23/2023 [place] Depression Scale Answer Date Recorded [place] Depression Scale Total 7 01/13/2024 The thought [...] s 07/23/2023 Does the household have a [facility] source of income? (Household - for ages [...] Telephone Encounter - Briseida Stevens RN - 01/14/2024 9:21 AM EDT See other encounter. Made aware in my g message. * Telephone Encounter - Briseida Stevens RN - 01/14/2024 9:21 AM EDT ----- Message from Sandhya Saxena sent at 01/13/2024 11:57 PM EDT ----- Please let patient know her anemia is remaining stable. I recommend she continue with her oral ironsupplement (Vitron C). If she can tolerate it, she should increase to twice daily. Thanks! Sandhya Saxena CNM documented in this encounter Plan of Treatment Upcoming Encounters Date Type Department Care Team (Late st Contact Info) Description 01/22/2024 1:45 PM EDT Office Visit Environmental Maintenance Worker Obstetrics Maternal Medicine, [place] [address] [place] [address] Pedro German, [address] [place] [address] 01/22/2024 1:45 PM EDT [facility] [place] [address] [place] [address] 01/28/2024 2:15 PM EDT Office Visit Gynecology/Obstetrics [facility] 132 [place] [address] Brandy Morales CRNP 132 [place] [address] 01/28/2024 3:30 PM EDT Imaging Radiology [address] [place] [address] 02/04/2024 3:30 PM EDT Imaging Radiology [address] 132 [place] [address] 02/04/2024 4:15 PM EDT Office Visit Gynecology/Obstetrics [facility] 132 [facility] [place] [address] Lisy Lobo DNP, CNM [address] [facility] [place] [address] 02/11/2024 3:00 PM EDT Office Visit Gynecology/Obstetrics [place] [address] [address] [place] [address] Brandy Morales CRNP [address] [place] [address] 02/11/2024 3:30 PM EDT Imaging Radiology [address] [place] [address] 02/18/2024 3:00 PM EDT Office Visit Gynecology/Obstetrics [facility] [address] [place] [address] Brandy Morales CRNP [address] [place] [address] 02/18/2024 3:30 PM EDT Imaging Radiology [address] [place] [address] Health Maintenance Due Date Last Done Comments [...] filedocumented as of this encounter Care Teams Rolfer Relationship Specialty Start Date End Date Gino October Beth[place], ANNA [address] [place] [address] PCP - General Physician Rampman 12/08/20 documented as of this encounter
--- OUTSIDE RECORDS SUMMARY | 2024-02-17 18:06 | External Medical Summary | Summary of Care ---
Author Name Unknown Organization [facility] Address [address] [facility] [place] [address] Phone [phone] Care Team Providers Care Toter Name Role Phone Gino Thelma Sims PA-C Primary Care Provider [phone] Encounter Details Date Type Department Care Team (Late st Contact Info) Description 01/14/2024 Telephone Gynecology/Obstetrics [facility] 132 [facility] [place] [address] Sandhya Saxena CNM 400 [facility] [place] [address] Allergies Active [...] 32-36 weeks gestation. We recommend alerting the credit review officer providing care of this finding. 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 This result is not associated with a significantly increased risk for coronary artery disease, venous thromboembolism, or adverse outcome. Last Assessment & Plan: Reviewed the [place] [employer] ACOG Practice [...] counseling 12/10/2021 07/23/2023 Overview: Patient seen by [facility] Poultry Raiser. Patient denies any questions or concerns. Problem [...] H/O toxoplasmosis 04/22/2016 05/19/2018 Overview: labs on [employer] panel >+ IGG 08/31/13--no active inf--works on barn with horses and cats, nl cbc,cr,, immune varicella,rubell, neg RPR,neg Hbs ag INFORMATION 04/10/2016 05/19/2018 Overview: Lost son at 8 mth preg in 2013 [facility]--was told has clotting disorder, ?MTHFR -testing by PERSONAL INJURY LEGAL ASSISTANT in [facility]-obtain records. Closed head injury [...] money to get more. Never true 07/23/2023 [place] Depression Scale Answer Date Recorded [place] Depression Scale Total 7 01/13/2024 The thought [...] s 07/23/2023 Does the household have a [facility] source of income? (Household - for ages [...] Stevens RN - 01/14/2024 9:21 AM EDT Please let patient know her anemia is remaining stable. I recommend she continue with her oral ironsupplement (Vitron C). If she can tolerate it, she should increase to twice daily. Thanks! Sandhya Saxena CNM * Telephone Encounter - Briseida Stevens RN - 01/14/2024 9:19 AM EDT ----- Message from Sandhya Saxena sent at 01/14/2024 7:15 AM EDT ----- Please let patient know her vitamin B12, folic acid, and TSH were normal. Thanks! Sandhya Saxena CNM documented in this encounter Plan of Treatment Upcoming Encounters Date Type Department Care Team (Late st Contact Info) Description 01/22/2024 1:45 PM EDT Office Visit Dormitory Keeper Obstetrics Maternal Medicine, [place] [address] [place] [address] [facility] [address] [place] [address] 01/22/2024 1:45 PM EDT Imaging Radiology [facility] [place] [address] [place] [address] 01/28/2024 2:15 PM EDT Office Visit Gynecology/Obstetrics [facility] [address] [place] [address] Brandy Morales CRNP 132 [facility] [place] [address] 01/28/2024 3:30 PM EDT Imaging Radiology [facility] 2nd [facility] 132 [facility] [place] [address] 02/04/2024 3:30 PM EDT Imaging Radiology [facility] 2nd [facility] [address] [facility] [place] [address] 02/04/2024 4:15 PM EDT Office Visit Gynecology/Obstetrics [facility] 132 [facility] [place] [address] Lisy Lobo DNP, CNM [address] [place] [address] [place] [address] 02/11/2024 3:00 PM EDT Office Visit Gynecology/Obstetrics [facility] [address] [place] [address] Brandy Morales CRNP [address] [place] [address] 02/11/2024 3:30 PM EDT Imaging Radiology [address] [facility] [place] [address] 02/18/2024 3:00 PM EDT Office Visit Gynecology/Obstetrics [facility] [address] [facility] [place] [address] Brandy Morales CRNP [address] [place] [address] 02/18/2024 3:30 PM EDT Imaging Radiology [address] [facility] [place] [address] Health Maintenance Due Date Last Done Comments [...] filedocumented as of this encounter Care Teams Toter Relationship Specialty Start Date End Date GinoOctober ANNA Sims [address] [place] [address] PCP - General Physician Relief Salesperson 12/08/20 documented as of this encounter
--- OUTSIDE RECORDS SUMMARY | 2024-02-17 18:06 | External Medical Summary ---
Author Name Unknown Address Unknown Organization K01:[facility] [place] [address] [place] [address] Laboratory Report Ordering Provider Test Date Status ERMA BRAXTON 01/13/2024 15:46:55 Final Observation Date Value Abnormality Reference (Units ) Status Folic Acid 01/13/2024 15:46:55 >20.0 >4.5 (ng/ mL) Final Performing Location LABORATORY [facility] - [address] [place] [address]
--- OUTSIDE RECORDS SUMMARY | 2024-02-17 18:06 | External Medical Summary ---
Author Name Unknown Address Unknown Organization K01:[facility]ATORY [facility] [place] [address] [place] [address] Laboratory Report Ordering Provider Test Date Status ERMA BRAXTON 01/13/2024 15:46:55 Final Observation Date Value Abnormality Reference (Units ) Status Vitamin B12 01/13/2024 15:46:55 397 [id number] (pg/mL) Final Performing Location LAB[facility]ATORY [facility] - [address] [place] [address]
--- OUTSIDE RECORDS SUMMARY | 2024-02-17 18:06 | External Medical Summary | Summary of Care ---
Author Name Unknown Organization [facility] Address [address] [facility] [place] [address] Phone [phone] Care Team Providers Care Catalog Library Assistant Name Role Phone Gino Thelma Sims PA-C Primary Care Provider [phone] Encounter Details Date Type Department Care Team (Late st Contact Info) Description 01/14/2024 Telephone Gynecology/Obstetrics [facility] [address] [facility] [place] [address] Sandhya Saxena CNM 400 [facility] [place] [address] Allergies Active Allergy [...] 32-36 weeks gestation. We recommend alerting the supervisor inspecting providing care of this finding. 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 This result is not associated with a significantly increased risk for coronary artery disease, venous thromboembolism, or adverse outcome. Last Assessment & Plan: Reviewed the [place] [employer] ACOG Practice [...] counseling 12/10/2021 07/23/2023 Overview: Patient seen by [facility] Degree Clerk. Patient denies any questions or concerns. Problem [...] H/O toxoplasmosis 04/22/2016 05/19/2018 Overview: labs on [employer] panel >+ IGG 08/31/13--no active inf--works on barn with horses and cats, nl cbc,cr,, immune varicella,rubell, neg RPR,neg Hbs ag INFORMATION 04/10/2016 05/19/2018 Overview: Lost son at 8 mth preg in 2013 [facility]--was told has clotting disorder, ?MTHFR -testing by [employer] in [facility]-obtain records. Closed head injury [...] money to get more. Never true 07/23/2023 [place] Depression Scale Answer Date Recorded [place] Depression Scale Total 7 01/13/2024 The thought [...] s 07/23/2023 Does the household have a [facility] source of income? (Household - for ages [...] Description 01/22/2024 1:45 PM EDT Office Visit Copy Worker Obstetrics Maternal Medicine, [place] [address] [place] [address] [facility] [address] [place] [address] 01/22/2024 1:45 PM EDT Imaging Radiology [facility] [place] [address] [place] [address] 01/28/2024 2:15 PM EDT Office Visit Gynecology/Obstetrics [facility] [address] [place] [address] Brandy Morales CRNP 132 [facility] [place] [address] 01/28/2024 3:30 PM EDT Imaging Radiology [facility] 2nd [facility] [place] [address] [facility] [place] [address] 02/04/2024 3:30 PM EDT Imaging Radiology [facility] 2nd [facility] [place] [address] [facility] [place] [address] 02/04/2024 4:15 PM EDT Office Visit Gynecology/Obstetrics [facility] [address] [facility] [place] [address] Lisy Lobo DNP, CNM [address] [place] [address] [place] [address] 02/11/2024 3:00 PM EDT Office Visit Gynecology/Obstetrics [facility] [address] [place] [address] Brandy Morales CRNP [address] [place] [address] 02/11/2024 3:30 PM EDT Imaging Radiology [address] [facility] [place] [address] 02/18/2024 3:00 PM EDT Office Visit Gynecology/Obstetrics [facility] [place] [address] Brandy Morales CRNP [address] [place] [address] 02/18/2024 3:30 PM EDT Imaging Radiology [address] [facility] [place] [address] Health Maintenance Due Date Last Done Comments [...] filedocumented as of this encounter Care Teams Catalog Library Assistant Relationship Specialty Start Date End Date GinoOctober ANNA Sims [address] [place] [address] PCP - General Physician Draw Off Worker 12/08/20 documented as of this encounter
--- OUTSIDE RECORDS SUMMARY | 2024-02-17 18:06 | External Medical Summary ---
Author Name Unknown Address Unknown Organization [id number]:LABORATORY [facility] [place] - [address] [place] [address] Laboratory Report Ordering Provider Test Date Status ERMA BRAXTON 01/13/2024 15:46:55 Final Observation Date Value Abnormality Reference (Units ) Status TSH 01/13/2024 15:46:55 1.26 0.27-4.20 (uIU/mL) Final Performing Location LABORATORY [facility] - [address] [place] [address]
--- OUTSIDE RECORDS SUMMARY | 2024-02-17 18:06 | External Medical Summary ---
Author Name Unknown Address Unknown Organization [id number]:[place] [facility] [place] [facility] [address] [place] [address] Laboratory Report Ordering Provider Test Date Status ERMA BRAXTON 01/13/2024 15:46:55 Final Observation Date Value Abnormality Reference (Units ) Status WBC, Total 01/13/2024 15:46:55 10.46 4.00-10.8 0 (K/uL) Final RBC 01/13/2024 15:46:55 3.83 3.85-5.15 (M/uL) Final Hemoglobin 01/13/2024 15:46:55 11.7 Below low normal 12 .0-15.3 (g/dL) Final Anemia reflex testing trigge rs on a HGB < 12.0 for Females and HGB < 13.0 for Males in accordance with the WHO Anemia Guidelines
Anemia reflex testing triggers on a HGB < 12.0 for Females and HGB < 13.0 for Males in accordance with the WHO Anemia Guidelines HCT 01/13/2024 15:46:55 35.9 Below low normal 36. 0-45.2 (%) Final MCV 01/13/2024 15:46:55 93.7 81.5-97.5 (fL) Final MCH 01/13/2024 15:46:55 30.5 27.0-34.0 (pg) Final MCHC 01/13/2024 15:46:55 32.6 32.0-36.0 (g/dL) Final RDW 01/13/2024 15:46:55 13.3 11.5-15.5 (%) Final Platelets 01/13/2024 15:46:55 213 140-400 (K /uL) Final MPV 01/13/2024 15:46:55 11.9 6.6-11.1 ( fL) Final Nucleated erythrocytes/100 leukocytes [Ratio] in Blood by Automated count 01/13/2024 15:46:55 0 <=0 (/100 WBCs) Final Performing Location [place] [facility] [address] [facility] [address]
--- OUTSIDE RECORDS SUMMARY | 2024-02-17 18:06 | External Medical Summary | Summary of Care ---
Author Name Unknown Organization [facility] Address [address] [place] [address] Phone [phone] Care Team Providers Care Gimp Tacker Name Role Phone Gino Thelma Sims PA-C Primary Care Provider [phone] Reason for Visit * Reason Comments Return Visit Encounter Details Date Type Department Care Team (Late st Contact Info) Description 01/13/2024 2:15 PM EDT Office Visit Gynecology/Obstetric [facility] 132 [facility] [place] [address] Dary Hart PA-C 400 [facility] [place] [address] Supervision of high risk in third trimester*; Antepartum anemia; Impaired glucose in , antepartum; MTHFR mutation; History of placental abruption; History of IUFD; Hx of preeclampsia, prior , currently , unspecified trimester; Pyelectasis of fetus on ultrasound Allergies Active Allergy Reactions Criticality Noted Date Comments Prednisone 04/23/2021 Increased anxiety documented as of this encounter (statuses as of 01/13/2024) Medications Medication Sig Dispensed Refills Start Date [...] as of this encounter (statuses as of 01/13/2024) Active Problems Problem Noted Date Diagnosed Date [...] 32-36 weeks gestation. We recommend alerting the housecleaner floor providing care of this finding. Impaired glucose in , antepartum 2023 Overview: Failed early 1 hr GTT Antepartum anemia 10/20/2023 Overview: Hgb 11.6 at 21 weeks. Repeat CBC in 4 weeks. Rx for Vitron C daily. 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 This result is not associated with a significantly increased risk for coronary artery disease, venous thromboembolism, or adverse outcome. 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 Patient denies any questions or concerns. Problem [...] son at 8 mth preg in 2013 [facility]--was told has clotting disorder, ?MTHFR -testing by PRODUCTION MATERIAL COORDINATOR in [facility]-obtain records. Closed head injury with concussion 04/10/2016 05/19/2018 documented as of this encounter (statuses as of 01/13/2024) Immunizations Name Administration Dates Next Due HPV [...] money to get more. Never true 07/23/2023 [place] Depression Scale Answer Date Recorded [place] Depression Scale Total 10 07/23/2023 The thought of harming myself has occurred to me . Never 07/23/2023 Childcare Answer Date Recorded Do you feel [...] Reading Time Taken Comments Blood Pressure 104/62 01/13/2024 2:02 PM EDT Pulse - - Temperature - - Respiratory Rate - - Oxygen Saturation - - Inhaled Oxygen Concentration - - Weight 77.6 kg (171 lb) 01/13/2024 2:02 PM EDT Height 162.6 cm (5' 4") 01/13/2024 2:02 PM EDT Body Mass Index 29.35 01/13/2024 2:02 PM EDT documented in this encounter Progress Notes * Dary Hart PA-C - 01/13/2024 2:11 PM EDT Kanika Louise is a 28 year old female here for her routine OB appointment at 34w0d Her Estimated Date of Delivery: 02/24/24 She is scheduled for BPP at 3:00 PM, following today's appointment. She mentions some incontinence to her urine over the last few weeks, specifically if she does not make it to the bathroom in time. States that this is new from previous , but not bothersome.Denies any continuous leakage or big gushes of fluid. Denies further urinary symptoms. REVIEW OF SYSTEMS She affirms movement. Denies vaginal bleeding, LOF, contractions, N/V, headaches, vision changes, chest pain, RUQ pain. Does report some right upper abdominal pain due to baby sitting higher up, but this only lasted 1-2 days and is no longer present. [place] Depression Scale [place] Depression Scale Total: 7 [place] suicide question and score: Score of 3 = Yes, quite often. Score of 2 = Sometimes. Score of 1 = Hardly ever The thought of harming myself has occurred to me.: 0 PHYSICAL EXAM BP 104/62 | Ht 1.626 m (5' 4") | Wt 77.6 kg (171 lb) | LMP (LMP Unknown) | BMI 29.35 kg/m | BSA 1.87 m +FHT 120s Fundal height 34 cm ASSESSMENT/PLAN Supervision of high risk in third trimester (Primary) Antepartum anemia - She is taking Vitron C once daily. She is due for repeat CBC at this time. - Encouraged to complete following visits today. Order is in. She is agreeable to completing today. Impaired glucose in , antepartum - Passed 3 hour GTT MTHFR mutation History of placental abruption History of IUFD Hx of preeclampsia, prior , currently , unspecified trimester - Patient is taking 81 mg aspirin daily Pyelectasis of fetus on ultrasound Supervision of - discussed GBS and to expect swab to be complete at next visit - to monitor for any new/worsening headaches, vision changes, swelling, RUQ pain. - labor precautions and kick counts reviewed RTO in 1 week for BPP and in 2 weeks for MINDI Dary Hart PA-C 01/13/2024 documented in this encounter Nursing Notes * Martina Vasquez LPN - 01/13/2024 2:20 PM EDT 34w0d Denies concerns Given labor instructions documented in this encounter Plan of Treatment Upcoming Encounters Date Type Department Care Team (Late st Contact Info) Description 01/13/2024 3:00 PM EDT Imaging Radiology [facility] [address] [place] [address] History of IUFD; History of placental abruption; Supervision of high risk in third trimester 01/22/2024 1:45 PM EDT Office Visit Legal File Clerk Obstetrics Maternal Medicine, [place] [address] [place] [address] Pedro German DO [address] [place] [address] 01/22/2024 1:45 PM EDT Imaging Radiology [facility] [address] [place] [address] 01/28/2024 2:15 PM EDT Office Visit Gynecology/Obstetric s [facility] [address] [place] [address] Brandy Morales CRNP [address] [place] [address] 01/28/2024 3:30 PM EDT Imaging Radiology [facility] 2nd [facility] [place] [address] [place] [address] 02/04/2024 3:30 PM EDT Imaging Radiology [address] 132 [facility] [place] [address] 02/04/2024 4:15 PM EDT Office Visit Gynecology/Obstetric s [place] [address] [place] [address] Lisy Lobo, DNP, CNM 400 [facility] [place] [address] 02/11/2024 3:00 PM EDT Office Visit Gynecology/Obstetric s [address] [place] [address] Brandy Morales CRNP 132 [facility] [place] [address] 02/11/2024 3:30 PM EDT Imaging Radiology [address], [place] 132 [facility] [place] [address] 02/18/2024 3:00 PM EDT Office Visit Gynecology/Obstetric s [place] [address] [place] [address] Brandy Morales CRNP [address] [facility] [place] [address] 02/18/2024 3:30 PM EDT Imaging Radiology [address] 132 [facility] [place] [address] Health Maintenance Due Date Last Done Comments [...] risk in third trimester- Primary Unspecified high-risk Antepartum anemia Anemia, antepartum Impaired glucose in , antepartum Abnormal maternal glucose tolerance, antepartum 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
--- OUTSIDE RECORDS SUMMARY | 2024-02-17 18:06 | External Medical Summary | Summary of Care ---
Author Name Unknown Organization [facility] Address [address] [place] [address] Phone [phone] Care Team Providers Care Bread Slicer Machine Name Role Phone Thelma Christian PA-C Primary Care Provider [phone] Reason for Visit * Reason Comments Outpatient Testing Encounter Details Date Type Department Care Team (Late st Contact Info) Description 01/13/2024 3:50 PM EDT Laboratory Laboratory, [facility] [address] [facility] 132 [place] [address] Antepartum anemia Allergies Active Allergy Reactions Criticality Noted Date [...] 32-36 weeks gestation. We recommend alerting the vial gauger providing care of this finding. Impaired glucose [...] (lupus anticoagulant, anti-cardiolipin IgG and IGM and wyxg-[id number]-konrrhsgngul) for those patients who delivered prior to [...] IUFD 10/18/2021 Overview: Per scanned notes from [facility] 2013: Vaginal bleeding at 29+ weeks, noted [...] 2019: This individual is homozygous for the [id number] variant and negative (normal) for the C677T variant in the MTHFR gene. This result is not associated with a significantly increased risk for coronary artery disease, venous thromboembolism, or adverse outcome. Last Assessment & Plan: Reviewed the [place] [employer]nec[employer] ACOG Practice [...] 12/10/2021 07/23/2023 Overview: Patient seen by [facility] Production Intern. Patient denies any questions or concerns. Problem [...] told has clotting disorder, ?MTHFR -testing by CAREER PLACEMENT SERVICES COUNSELOR in [facility]-obtain records. Closed head injury with [...] money to get more. Never true 07/23/2023 [place] Depression Scale Answer Date Recorded [place] Depression Scale Total 10 07/23/2023 The thought [...] s 07/23/2023 Does the household have a [facility] source of income? (Household - for ages [...] on file documented as of this encounter Plan of Treatment Upcoming Encounters Date Type Department Care Team (Late st Contact Info) Description 01/22/2024 1:45 PM EDT Office Visit Critical Power Install Technician Obstetrics Maternal Medicine, [address] [address] Pedro German, [address] [place] [place] [address] 01/22/2024 1:45 PM EDT Imaging Rad[facility], [place] [address] [place] [address] 01/28/2024 2:15 PM EDT Office Visit Gynecology/Obstetrics [facility] [address] [place] [address] Brandy Morales CRNP [address] [place] [address] 01/28/2024 3:30 PM EDT Imaging Radiology [address], [place] [address] [place] [address] 02/04/2024 3:30 PM EDT Imaging Radiology [address], [place] [address] [place] [address] 02/04/2024 4:15 PM EDT Office [facility] [address] [place] [address] Lisy Lobo, KELLIE, [address] [address] 02/11/2024 3:00 PM EDT Office [facility] [address] [place] [address] Brandy Morlaes CRNP [address] [place] [address] 02/11/2024 3:30 PM EDT Imaging Radiology [address], [place] [address] [place] [address] 02/18/2024 3:00 PM EDT Office Visit Gynecology/Obstetrics [facility] [address] [place] [address] Brandy Morales CRNP [address] [place] [address] 02/18/2024 3:30 PM EDT Imaging Radiology [address], [address] [place] [address] Pending Results Name Type Priority Associated Diagnoses Date /Time CBC WITH WBC DIFFERENTIAL AND ANEMIA REFLEX WORKUP Lab Routine Antepartum anemia 01/13/2024 3:46 PM EDT ANEMIA CBC Lab Routine Antepartum anemia 01/13/2024 3:46 PM EDT DIFFERENTIAL, AUTOMATED Lab Routine Antepartum anemia 01/13/2024 3:46 PM EDT ANEMIA REFLEX CHEMISTRY HOLD Lab Routine Antepartum anemia 01/13/2024 3:46 PM EDT Health Maintenance Due Date Last [...] as of this encounter Visit Diagnoses Diagnosis Antepartum anemia Anemia, antepartum documented in this encounter Care Teams Bread Slicer Machine Relationship Specialty Start Date End Date Gino October ANNA Sims [address] [place] [address] PCP - General Physician Tube Machine Operator 12/08/20 documented as of this encounter
--- OUTSIDE RECORDS SUMMARY | 2024-02-17 18:06 | External Medical Summary ---
Author Name Unknown Address Unknown Organization K01:LAB[place]ORY [facility] [place] [address] [facility] [address] Laboratory Report Ordering Provider Test Date Status IRAISERMA Sims 01/13/2024 15:46:55 Final Observation Date Value Abnormality Reference (Units ) Status Iron 01/13/2024 15:46:55 108 33-151 (ug /dL) Final Iron-binding capacity 01/13/2024 15:46:55 403 250-425 (ug/dL) Final Transferrin Sat % 01/13/2024 15:46:55 27 15 -55 (%) Final Performing Location [facility] [place] [address] [facility] [address]
--- OUTSIDE RECORDS SUMMARY | 2024-02-17 18:06 | External Medical Summary | Summary of Care ---
Author Name Unknown Organization [facility] Address [address] [place] [address] Phone [phone] Care Team Providers Care Baker Bread Name Role Phone Thelma Christian PA-C Primary Care Provider [phone] Reason for Visit * Reason Onset Date Comments Precert Denied 10/22/2023 VITRON C Encounter Details Date Type Department Care Team (Late st Contact Info) Description 10/22/2023 Telephone Gynecology/Obstetrics [facility] [address] [place] [address] [facility] [address] [place] [address] Precert Denied (VITRON C) Allergies Active Allergy Reactions Criticality Noted Date Comments Prednisone 04/23/2021 Increased anxiety documented as of this encounter (statuses as of 01/21/2024) Medications Medication Sig Dispensed Refills Start Date [...] as of this encounter (statuses as of 01/21/2024) Active Problems Problem Noted Date Diagnosed Date [...] 32-36 weeks gestation. We recommend alerting the circuit manager providing care of this finding. Impaired glucose [...] 07/23/23 100/60 06/19/23 120/76 04/29/23 118/68 03/21/23 110/10/22/22 98/70 06/03/22 98/70 05/31/22 120/70 05/24/22 120/70 [...] (lupus anticoagulant, anti-cardiolipin IgG and IGM and kiyq-7-bidgcpioesje) for those patients who delivered prior to [...] IUFD 10/18/2021 Overview: Per scanned notes from [facility] 2013: Vaginal bleeding at 29+ weeks, noted [...] 2019: This individual is homozygous for the [id number] variant and negative (normal) for the C677T variant in the MTHFR gene. This result is not associated with a significantly increased risk for coronary artery disease, venous thromboembolism, or adverse outcome. 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 Patient denies any questions or concerns. Problem [...] told has clotting disorder, ?MTHFR -testing by STRAIGHT SLICING MACHINE OPERATOR in [facility]-obtain records. Closed head injury with concussion 04/10/2016 05/19/2018 documented as of this encounter (statuses as of 01/21/2024) Immunizations Name Administration Dates Next Due HPV Vaccine, 9-Valent 05/27/2019 Seasonal Influenza, PF, 6 M & above, IM , (FluLaval or Fluzone) 03/07/2022,04/07/2020,04/22/2019 TDAP (age 10 and older)(Boostrix) 03/21/2022,07/2016 TDAP, Age 7 and older, IM (Adacel) [...] money to get more. Never true 07/23/2023 [place] Depression Scale Answer Date Recorded [place] Depression Scale Total 7 01/13/2024 The thought [...] encounter Miscellaneous Notes * Telephone Encounter - Tamiko Mejia RN - 10/22/2023 10:50 AM EDT Women's Medicine Pre-Cert Request Medication/Disease State Information: Medication: Vitron C Oral/Inhaler/Self-administered injection Medication- route pre-cert [place] [id number] Diagnosis (including ICD-10): O99.019 Medication(s) Tried/Failed/Contraindicated: See corresponding visit note(s) for additional supporting clinical information. Office Information: Prescriber: Sandhya Saxena CNM documented in this encounter Plan of Treatment Upcoming Encounters Date Type Department Care Team (Zohaib Contact Info) Description 01/22/2024 1:45 PM EDT Office Visit Jet Dyeing Machine Operator Obstetrics Maternal Medicine, [employer] [address] [place] [address] Pedro German, [address] [place] [address] 01/22/2024 1:45 PM EDT Imaging Radiology [facility] [employer] [address] [place] [address] 01/28/2024 2:15 PM EDT Office Visit Gynecology/Obstetrics [facility] [address] [place] [address] Brandy Morales CRNP [address] [place] [address] 01/28/2024 3:30 PM EDT Imaging Radiology [address], [place] [address] [facility] [place] [address] 02/04/2024 3:30 PM EDT Imaging Radiology [address], [place] [address] [place] [address] 02/04/2024 4:15 PM EDT Office Visit [facility]cology[facility] [address] [place] [address] Lisy Lobo, KELLIE, CNM [address] [place] [address] 02/11/2024 3:00 PM EDT Office Visit [facility] [address] [place] [address] Brandy Morales CRNP [address] [place] [address] 02/11/2024 3:30 PM EDT Imaging Radiology [address], [place] [address] [place] [address] 02/18/2024 3:00 PM EDT Office Visit Gynecology/Obstetrics [facility] [address] [place] [address] Brandy Morales CRNP [address] [place] [address] 02/18/2024 3:30 PM EDT Imaging Radiology [facility] 2nd Floor, [place] [address] [place] [address] Health Maintenance Due Date Last Done Comments [...] filedocumented as of this encounter Care Teams Baker Bread Relationship Specialty Start Date End Date GinoOctober ANNA Sims [address] [place] [address] PCP - General Physician Emulsion Coater 12/08/20 documented as of this encounter
--- OUTSIDE RECORDS SUMMARY | 2024-02-17 18:06 | External Medical Summary | Summary of Care ---
Author Name Unknown Organization [facility] Address [address] [place] [place] [address] Phone [phone] Care Team Providers Care Manager Customer Name Role Phone Gino Thelma Sims PA-C Primary Care Provider [phone] Encounter Details Date Type Department Care Team (Late st Contact Info) Description 01/14/2024 Telephone Gynecology/Obstetrics [facility] 132 [facility] [place] [address] Sandhya Saxena CNM [address] [facility] [place] [address] Allergies Active [...] 32-36 weeks gestation. We recommend alerting the space controller providing care of this finding. Impaired glucose [...] (lupus anticoagulant, anti-cardiolipin IgG and IGM and sbdz-2-yyqqjleigzlt) for those patients who delivered prior to [...] IUFD 10/18/2021 Overview: Per scanned notes from [facility] 2013: Vaginal bleeding at 29+ weeks, [...] 2019: This individual is homozygous for the [id number] variant and negative (normal) for the C677T variant in the MTHFR gene. This result is not associated with a significantly increased risk for coronary artery disease, venous thromboembolism, or adverse outcome. Last Assessment & Plan: Reviewed the [place] [employer]nec[employer] ACOG Practice [...] counseling 12/10/2021 07/23/2023 Overview: Patient seen by [facility] Choir Accompanist. Patient denies any questions or concerns. Problem [...] H/O toxoplasmosis 04/22/2016 05/19/2018 Overview: labs on [employer] panel >+ IGG 08/31/13--no active inf--works on barn with horses and cats, nl cbc,cr,, immune varicella,rubell, neg RPR,neg Hbs ag INFORMATION 04/10/2016 05/19/2018 Overview: Lost son at 8 mth preg in 2013 [facility]--was told has clotting disorder, ?MTHFR -testing by WINDOW DECORATOR in [facility]-obtain records. Closed head injury with [...] money to get more. Never true 07/23/2023 [place] Depression Scale Answer Date Recorded [place] Depression Scale Total 7 01/13/2024 The thought [...] s 07/23/2023 Does the household have a caro centerr source of income? (Household - for [...] Description 01/22/2024 1:45 PM EDT Office Visit Senior Ui Developer Obstetrics Maternal Medicine, [place] [address] [place] [address] [facility] [address] [place] [address] 01/22/2024 1:45 PM EDT Imaging Radiology [facility], [place] [address] [place] [address] 01/28/2024 2:15 PM EDT Office Visit Gynecology/Obstetrics [facility] [address] [facility] [place] [address] Brandy Morales CRNP 132 [facility] [place] [address] 01/28/2024 3:30 PM EDT Imaging Radiology [facility] 2nd [facility], [place] 132 [facility] [place] [address] 02/04/2024 3:30 PM EDT Imaging Radiology [facility] 2nd [facility], [place] [address] [facility] [place] [address] 02/04/2024 4:15 PM EDT Office Visit Gynecology/Obstetrics [facility] 132 [facility] [place] [address] Lisy Lobo DNP, CNM [address] [place] [address] [place] [address] 02/11/2024 3:00 PM EDT Office Visit Gynecology/Obstetrics [facility] [address] [place] [address] Brandy Morales CRNP [address] [place] [address] 02/11/2024 3:30 PM EDT Imaging Radiology [address] [facility] [place] [address] 02/18/2024 3:00 PM EDT Office Visit Gynecology/Obstetrics [facility] [place] [address] Brandy Morales CRNP [address] [place] [address] 02/18/2024 3:30 PM EDT Imaging Radiology [address] [facility] [place] [address] Health Maintenance Due Date Last Done Comments [...] filedocumented as of this encounter Care Teams Manager Customer Relationship Specialty Start Date End Date GinoOctober ANNA Sims [address] [place] [address] PCP - General Physician Orchid Grower 12/08/20 documented as of this encounter
--- OUTSIDE RECORDS SUMMARY | 2024-02-17 18:06 | External Medical Summary ---
Author Name Unknown Address Unknown Organization [id number]:[facility] [place] [address] [place] [address] Laboratory Report Ordering Provider Test Date Status ERMA BRAXTON 01/13/2024 15:46:55 Final Observation Date Value Abnormality Reference (Units ) Status Ferritin 01/13/2024 15:46:55 84 13-150 (ng /mL) Final Performing Location LABORATORY [facility] - [address] [place] [address]
--- OUTSIDE RECORDS SUMMARY | 2024-02-17 18:06 | External Medical Summary ---
Author Name Unknown Address Unknown Organization [id number]:[facility] [place] [address] [facility] [place] [address] Laboratory Report Ordering Provider Test Date Status ERMA BRAXTON 01/13/2024 15:46:55 Final Observation Date Value Abnormality Reference (Units ) Status SYNC LEUKOCYTES IN BLOOD BY AUTOMATED COUNT 01/13/2024 15:46:55 10.46 4.00-10.80 (K/uL) Final Segs 01/13/2024 15:46:55 75.4 Above high normal 40.0-75.0 (%) Final Lymphs % 01/13/2024 15:46:55 15.8 Below low normal 18.0-42.0 (%) Final Monos 01/13/2024 15:46:55 7.9 1.0-11.0 (%) Final Eosinophils 01/13/2024 15:46:55 0.3 0.0-6.0 (%) Final Basos 01/13/2024 15:46:55 0.3 0.0-2.0 (%) Final Immature Granulocyte, Percent 01/13/2024 15:46:55 0.3 0.0-2.0 (%) Final Absolute Segs 01/13/2024 15:46:55 7.89 Above high normal 1.80-7.70 (K/uL) Final Lymphs, absolute 01/13/2024 15:46:55 1.65 1.00-4.80 (K/ul) Final Monos, Abs 01/13/2024 15:46:55 0.83 0.00-1.10 (K/uL) Final Eos, Abs 01/13/2024 15:46:55 0.03 0.00-0.70 (K/uL) Final Basos, Abs 01/13/2024 15:46:55 0.03 0.00-0.20 (K/uL) Final Immature Granulocytes, Number 01/13/2024 15:46:55 0.03 0.00-0.20 (K/uL) Final Performing Location [facility] [place] [address] [facility] [address]
--- OUTSIDE RECORDS SUMMARY | 2024-02-17 18:07 | External Medical Summary | Summary of Care ---
Author Name Unknown Organization [facility] Address [address] [place] [address] Phone [phone] Care Team Providers Care Linoleum Tile Floor Layer Name Role Phone ReannaThelma lopez ANNA Primary Care Provider [phone] Reason for Visit * Reason Onset Date Comments Test Results 12/15/[address] Roy Encounter Details Date Type Department Care Team (Late st Contact Info) Description 12/15/2023 Telephone Gynecology/Obstetrics [facility] [address] [place] [address] Mehrdad Roy MD [address] [place] [address] Test Results (Review with Dr. Roy) Allergies Active Allergy Reactions Criticality Noted Date Comments Prednisone 04/23/2021 Increased anxiety documented as of this encounter (statuses as of 12/15/2023) Medications Medication Sig Dispensed Refills Start Date [...] as of this encounter (statuses as of 12/15/2023) Active Problems Problem Noted Date Diagnosed Date Pyelectasis of fetus on ultrasound 05/2 09/2023 Last Assessment & Plan: CONSIDERATIONS: urinary tract [...] 32-36 weeks gestation. We recommend alerting the concrete mixer loader truck mounted providing care of this finding. Impaired glucose [...] (lupus anticoagulant, anti-cardiolipin IgG and IGM and zuch-5-teqvvnqfozbn) for those patients who delivered prior to [...] IUFD 10/18/2021 Overview: Per scanned notes from [facility] 2013: Vaginal bleeding at 29+ weeks, [...] is appropriate for gestational age in the 67th percentile. Mild right urinary tract dilation is noted. There is no apparent ureteral dilation or bladder abnormality. The remainder of the visualized anatomy is unremarkable in appearance. The MICHELLE is normal. 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 Patient denies any questions or concerns. Problem [...] told has clotting disorder, ?MTHFR -testing by TARGET AIRCRAFT TECHNICIAN in [facility]-obtain records. Closed head injury with concussion 04/10/2016 05/19/2018 documented as of this encounter (statuses as of 12/15/2023) Immunizations Name Administration Dates Next Due HPV [...] money to get more. Never true 07/23/2023 [place] Depression Scale Answer Date Recorded [place] Depression Scale Total 10 07/23/2023 The thought of harming myself has occurred to me . Never 07/23/2023 Estimated Date of Delivery Comme nts [...] Telephone Encounter - Briseida Stevens RN - 12/15/2023 8:30 AM EDT Patient vaginosis testing positive for yeast and BV. Patient has not taken diflucan that was prescribed Friday. She states she is not comfortable taking this. Advised patient she can take 3 day course of monistat OTC for yeast. Advised will review with Dr. Roy for BV treatment and call patient back. Pharmacy updated. documented in this encounter Plan of Treatment Upcoming Encounters Date Type Department Care Team (Late st Contact Info) Description 12/17/2023 2:00 PM EDT Imaging Radiology [facility] 2nd [facility], [address] [place] [address] 12/24/2023 3:30 PM EDT Imaging Radiology [address], [address] [place] [address] 12/25/2023 1:45 PM EDT Office Visit Crop Pest Control Specialist Obstetrics Maternal Medicine, [place] [address] [place] [address] Pedro German, [address] [place] [address] 12/25/2023 1:45 PM EDT Imaging Radiology [facility], [place] [address] [place] [address] 12/31/2023 3:30 PM EDT Imaging Radiology [facility] 2nd [facility], [address] [place] [address] 01/07/2024 3:30 PM EDT Imaging Radiology [facility] 2nd [facility], [place] [address] [place] [place] [address] 01/14/2024 2:45 PM EDT Imaging Radiology [address], [place] [address] [place] [address] 01/21/2024 3:30 PM EDT Imaging Radiology [address], [place] [address] [address] [place] [address] 01/22/2024 1:45 PM EDT Office Visit Crop Pest Control Specialist Obstetrics Maternal Medicine, [place] [address] [place] [address] Pedro German, [address] [place] [address] 01/22/2024 1:45 PM EDT Imaging Radiology [facility], [place] [address] [place] [address] 01/28/2024 3:30 PM EDT Imaging Radiology [address], [place] [address] [address] [place] [address] 02/04/2024 3:30 PM EDT Imaging Radiology [address], [place] [address] [address] [place] [address] 02/11/2024 3:30 PM EDT Imaging Radiology [address], [address] [place] [address] 02/18/2024 3:30 PM EDT Imaging Radiology [address], [address] [place] [address] Health Maintenance Due Date Last Done Comments Hepatitis B (1 of 3 - 19+ 3-dose series) 2012 GARDASIL-HPV IMMUNIZATION SERIES (2 - 3-dose series) 06/24/2019 05/27/2019 COVID-19 Vaccine (3 - season) 2023 03/23/2021, 03/02/2021 Influenza Vaccine (FLU shot) (Season Ended) 2024 03/07/2022, 04/07/2020, 04/22/2019 Pap Smear 07/23/2026 [...] filedocumented as of this encounter Care Teams Linoleum Tile Floor Layer Relationship Specialty Start Date End Date Gino October ANNA Sims [address] [place] [address] PCP - General Physician Surgical Services Manager 12/08/20 documented as of this encounter
--- OUTSIDE RECORDS SUMMARY | 2024-02-17 18:07 | External Medical Summary | Summary of Care ---
Author Name Unknown Organization [facility] Address [address] [place] [address] Phone [phone] Care Team Providers Care Felt Dyeing Machine Tender Name Role Phone Thelma Christian PA-C Primary Care Provider [phone] Reason for Visit * Reason Onset Date Comments Appointment 10/02/2023 Acute/diarrhea Encounter Details Date Type Department Care Team (Late st Contact Info) Description 10/02/2023 Telephone Family Practice [facility] [place] [address] [place] [address] Thelma Christian PA-C [address] [facility] [place] [address] Appointment (Acute/diarrhea ) Allergies Active Allergy Reactions Criticality Noted Date Comments Prednisone 04/23/2021 Increased anxiety documented as of this encounter (statuses as of 01/01/2024) Medications Medication Sig Dispensed Refills Start Date End Date Status 6.75-0.2 MG Oral Tablet Take by mouth. Active Aspirin 81 MG Oral Tablet ChewableIndications:H x of preeclampsia, prior , currently , unspecified trimester Take 1 Tablet by mouth in the morning. 100 Tablet 3 08/04/2023 Active documented as of this encounter (statuses as of 01/01/2024) Active Problems Problem Noted Date Diagnosed Date [...] 32-36 weeks gestation. We recommend alerting the court supervisor providing care of this finding. 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 This result is not associated with a significantly increased risk for coronary artery disease, venous thromboembolism, or adverse outcome. 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 Patient denies any questions or concerns. Problem [...] told has clotting disorder, ?MTHFR -testing by GREASE PRESS HELPER in [facility]-obtain records. Closed head injury with concussion 04/10/2016 05/19/2018 documented as of this encounter (statuses as of 01/01/2024) Immunizations Name Administration Dates Next Due HPV [...] money to get more. Never true 07/23/2023 [place] Depression Scale Answer Date Recorded [place] Depression Scale Total 10 07/23/2023 The thought [...] encounter Miscellaneous Notes * Telephone Encounter - Janny Mehta OSA - 10/02/2023 12:06 PM EDT No Appointments Available Patient declined appointments?: No What Visit Type is needed? Acute If Acute Visit Type is needed, were surrounding clinics offered to patient (Yes/No)? No, explain nothing available Was patient offered appointments with other available providers (Yes/No)? No, explain nothing available See Call Details? (Yes or No): Yes documented in this encounter Plan of Treatment Upcoming Encounters Date Type Department Care Team (Late st Contact Info) Description 01/07/2024 3:30 PM EDT Imaging Radiology [address] [place] [address] 01/14/2024 2:45 PM EDT Imaging Radiology [address] [place] [address] 01/21/2024 3:30 PM EDT Imaging Radiology [facility] [address] [facility], [place] [address] [place] [address] 01/22/2024 1:45 PM EDT Office Visit Support Technician Obstetrics Maternal Medicine, [place] [address] [place] [address] Pedro German, [address] [place] [address] 01/22/2024 1:45 PM EDT [facility], [place] [address] [place] [address] 01/28/2024 3:30 PM EDT Imaging Radiology [facility] [address] [facility], [place] [address] [address] [place] [address] 02/04/2024 3:30 PM EDT Imaging Radiology [address], [address] [place] [address] 02/11/2024 3:30 PM EDT Imaging Radiology [facility] [address] [facility], [place] [address] [address] [place] [address] 02/18/2024 3:30 PM EDT Imaging Radiology [address], [address] [place] [address] Health Maintenance Due Date Last Done Comments Hepatitis B (1 of 3 - 19+ 3-dose series) 2012 GARDASIL-HPV IMMUNIZATION SERIES (2 - 3-dose series) 06/24/2019 05/27/2019 Depression [...] filedocumented as of this encounter Care Teams Felt Dyeing Machine Tender Relationship Specialty Start Date End Date Gino Thelma [place], ANNA [address] [place] [address] PCP - General Physician Certified Surgical First Assistant 12/08/20 documented as of this encounter
--- OUTSIDE RECORDS SUMMARY | 2024-02-17 18:07 | External Medical Summary | Summary of Care ---
Author Name Unknown Organization [facility] Address [address] [place] [address] Phone [phone] Care Team Providers Care Stake Driver Name Role Phone ReannaThelma lopez ANNA Primary Care Provider [phone] Reason for Visit * Reason Onset Date Comments Test Results 12/15/[address] Roy Encounter Details Date Type Department Care Team (Late st Contact Info) Description 12/15/2023 Telephone Gynecology/Obstetrics [facility] [address] [place] [address] Mehrdad Roy MD [address] [place] [address] Test Results (Review with Dr. Roy) Allergies [...] 32-36 weeks gestation. We recommend alerting the manager financial services providing care of this finding. 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 This result is not associated with a significantly increased risk for coronary artery disease, venous thromboembolism, or adverse outcome. Last Assessment & Plan: Reviewed the [place] [employer] ACOG Practice [...] counseling 12/10/2021 07/23/2023 Overview: Patient seen by [facility] Mash Filter Operator. Patient denies any questions or concerns. Problem [...] told has clotting disorder, ?MTHFR -testing by GUEST SERVICES COORDINATOR in [facility]-obtain records. Closed head injury with concussion 04/10/2016 [...] money to get more. Never true 07/23/2023 Topaz Depression Scale Answer Date Recorded Topaz Depression Scale Total 10 07/23/2023 The thought [...] Encounter - Briseida Stevens RN - 12/15/2023 12:04 PM EDT Patient called and made aware. She verbalized understanding * Telephone Encounter - Briseida Stevens RN - 12/15/2023 11:37 AM EDT Reviewed with Dr. Roy. He sent in flagyl for her. He advised she take the flagyl then take the diflucan. I attempted to call patient to make aware. No answer, LVM to return call. * [...] Description 12/17/2023 2:00 PM EDT Imaging Radiology [address] [place] [address] 12/24/2023 3:30 PM EDT Imaging Radiology [address] [place] [address] 12/25/2023 1:45 PM EDT Office Visit Prosthetic Assistant Obstetrics Maternal Medicine, [address] [address] Pedro German, [address] [place] [address] 12/25/2023 1:45 PM EDT [facility] [place] [address] [place] [address] 12/31/2023 3:30 PM EDT Imaging Radiology [facility] 2nd Floor, [place] [address] [place] [address] 01/07/2024 3:30 PM EDT Imaging Radiology [facility] 2nd Floor, [address] [place] [address] 01/14/2024 2:45 PM EDT Imaging Radiology [facility] 2nd Floor, [place] [address] [address] [place] [address] 01/21/2024 3:30 PM EDT Imaging Radiology [facility] 2nd Floor, [address] [place] [address] 01/22/2024 1:45 PM EDT Office Visit Prosthetic Assistant Obstetrics Maternal Medicine, [place] [address] [place] [address] Pedro German, [address] [place] [address] (work) 01/22/2024 1:45 PM EDT Imaging Radiology [facility] [place], [place] [address] [place] [address] 01/28/2024 3:30 PM EDT Imaging Radiology [facility] 2nd Floor, [place] [address] [place] [address] 02/04/2024 3:30 PM EDT Imaging Radiology [facility] 2[facility] Floor, [place] [address] [place] [address] 02/11/2024 3:30 PM EDT Imaging Radiology [facility] 2[facility] Floor, [place] [address] [place] [address] 02/18/2024 3:30 PM EDT Imaging Radiology [facility] 2[facility], [place] [address] [place] [address] Health Maintenance Due Date Last Done Comments [...] filedocumented as of this encounter Care Teams Stake Driver Relationship Specialty Start Date End Date GinoOctober ANNA Sims [address] [place] [address] PCP - General Physician Batch Mixer 12/08/20 documented as of this encounter
--- OUTSIDE RECORDS SUMMARY | 2024-02-17 18:07 | External Medical Summary | Summary of Care ---
Author Name Unknown Organization [facility] Address [address] [place] [address] Phone [phone] Care Team Providers Care Dehydrogenation Converter Operator Name Role Phone ReannaThelma lopez ANNA Primary Care Provider [phone] Reason for Visit * Reason Onset Date Comments Test Results 12/15/[address] Roy Encounter Details Date Type Department Care Team (Late st Contact Info) Description 12/15/2023 Telephone Gynecology/Obstetrics [facility] [address] [place] [address] Mehrdad Roy MD [address] [place] [address] Test Results (Review with Dr. Roy) Allergies [...] weeks gestation. We recommend alerting the chief engineer production providing care of this finding. Impaired glucose [...] (lupus anticoagulant, anti-cardiolipin IgG and IGM and kpmf-5-npucqjwoibno) for those patients who delivered prior to [...] 10/18/2021 Overview: Per scanned notes from [facility] 2013: Vaginal bleeding at 29+ weeks, [...] 2019: This individual is homozygous for the [id number] variant and negative (normal) for the C677T variant in the MTHFR gene. This result is not associated with a significantly increased risk for coronary artery disease, venous thromboembolism, or adverse outcome. Last Assessment & Plan: Reviewed the [place] [employer] ACOG Practice [...] counseling 12/10/2021 07/23/2023 Overview: Patient seen by [facility] Citrix Administrator. Patient denies any questions or concerns. Problem [...] told has clotting disorder, ?MTHFR -testing by TURN OUT in [facility]-obtain records. Closed [...] money to get more. Never true 07/23/2023 Wyatt Depression Scale Answer Date Recorded Wyatt Depression Scale Total 10 07/23/2023 The thought [...] Description 12/17/2023 2:00 PM EDT Imaging Radiology [facility] 2nd [facility], [address] [place] [address] 12/24/2023 3:30 PM EDT Imaging Radiology [address], [address] [place] [address] 12/25/2023 1:45 PM EDT Office Visit Adjunct Instructor Chemistry Obstetrics Maternal Medicine, [place] [address] [place] [address] Pedro German, [address] [place] [address] 12/25/2023 1:45 PM EDT Imaging Radiology [facility], [place] [address] [place] [address] 12/31/2023 3:30 PM EDT Imaging Radiology [facility] 2nd [facility], [address] [place] [address] 01/07/2024 3:30 PM EDT Imaging Radiology [facility] 2nd [facility], [place] Sh[place]ana Ashfordil [place] [address] 01/14/2024 2:45 PM EDT Imaging Radiology [address], [place] Sh[place]ana [place]gail [place] [address] 01/21/2024 3:30 PM EDT Imaging Radiology [address], [place] [address] [address] [place] [address] 01/22/2024 1:45 PM EDT Office Visit Adjunct Instructor Chemistry Obstetrics Maternal Medicine, [place] [address] [place] [address] Pedro German, [address] [place] [address] 01/22/2024 1:45 PM EDT Imaging Radiology [facility], [place] [address] [place] [address] 01/28/2024 3:30 PM EDT Imaging Radiology [address], [place] [address] [address] [place] [address] 02/04/2024 3:30 PM EDT Imaging Radiology [address], [place] [address] [address] [place] [address] 02/11/2024 3:30 PM EDT Imaging Radiology [address], [address] [place] [address] 02/18/2024 3:30 PM EDT Imaging Radiology [address], [address] [place] [address] Health Maintenance Due Date Last Done Comments [...] filedocumented as of this encounter Care Teams Dehydrogenation Converter Operator Relationship Specialty Start Date End Date Gino October ANNA Sims [address] [place] [address] PCP - General Physician Bull Riveter 12/08/20 documented as of this encounter
--- OUTSIDE RECORDS SUMMARY | 2024-02-17 18:07 | External Medical Summary | Summary of Care ---
Author Name Unknown Organization [facility] Address [address] [place] [address] Phone [phone] Care Team Providers Care Claim Rep Name Role Phone Gino Thelma Sims PA-C Primary Care Provider [phone] Encounter Details Date Type Department Care Team (Late st Contact Info) Description 12/29/2023 Orders Only Outcomes Research Department [address] [place] [address] Geetha Jimenez CHRA [employer] Research Other*[id number] Allergies Active Allergy Reactions Criticality Noted Date Comments Prednisone 04/23/2021 Increased anxiety documented as of this encounter (statuses as of 12/29/2023) Medications Medication Sig Dispensed Refills Start Date [...] days until gone.. 14 Tablet 12/15/2023 Active documented as of this encounter (statuses as of 12/29/2023) Active Problems Problem Noted Date Diagnosed Date [...] 32-36 weeks gestation. We recommend alerting the deflash and wash operator providing care of this finding. Impaired [...] 118/68 03/21/23 110/70 10/22/22 98/70 06/03/22 98/70 11/25/22 120/70 05/24/22 120/70 05/17/22 110/80 05/14/22 120/68 [...] (lupus anticoagulant, anti-cardiolipin IgG and IGM and rfgq-5-ezdhjdfscdxi) for those patients who delivered prior to [...] IUFD 10/18/2021 Overview: Per scanned notes from [facility] 2013: Vaginal bleeding at 29+ [...] 2019: This individual is homozygous for the [id number] variant and negative (normal) for the C677T variant in the MTHFR gene. This result is not associated with a significantly increased risk for coronary artery disease, venous thromboembolism, or adverse outcome. 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 Patient denies any questions or concerns. Problem [...] told has clotting disorder, ?MTHFR -testing by VICE CHANCELLOR in [facility]-obtain records. Closed head injury with concussion 04/10/2016 05/19/2018 documented as of this encounter (statuses as of 12/29/2023) Immunizations Name Administration Dates Next Due HPV [...] money to get more. Never true 07/23/2023 Romayor Depression Scale Answer Date Recorded Romayor Depression Scale Total 10 07/23/2023 The thought [...] Care Team (Late st Contact Info) Description 12/31/2023 3:30 PM EDT Imaging Radiology [facility] 2nd [facility], [place] [facility] [place] [address] 01/07/2024 3:30 PM EDT Imaging Radiology [facility] 2nd [facility], [place] [address] [place] [address] 01/14/2024 2:45 PM EDT Imaging Radiology [facility] 2nd [facility] [place] [address] 01/21/2024 3:30 PM EDT Imaging Radiology [address], [place] [address] [address] 01/22/2024 1:45 PM EDT Office Visit House Manager Obstetrics Maternal Medicine, [place] [address] [place] [address] Pedro German, [address] [place] [address] 01/22/2024 1:45 PM EDT Imaging Radiology [facility], [place] [address] [place] [address] 01/28/2024 3:30 PM EDT Imaging Radiology [facility] 2nd Floor, [address] [place] [address] 02/04/2024 3:30 PM EDT Imaging Radiology [facility] 2nd Floor, [address] [place] [address] 02/11/2024 3:30 PM EDT Imaging Radiology [facility] 2nd Floor, [address] [place] [address] 02/18/2024 3:30 PM EDT Imaging Radiology [facility] 2nd Floor, [address] [place] [address] Scheduled Orders Name Type Priority Associated Diagnoses Orde r Schedule MYCODE SUBSEQUENT ADULT Lab Routine My[employer] Research Other*[id number] Every 6 Months for 2 Occurrences starting 12/29/2023 until 01/17/2025 Health Maintenance Due Date Last Done Comments [...] as of this encounter Visit Diagnoses Diagnosis [employer] Research Other*[id number] documented in this encounter Care Teams Claim Rep Relationship Specialty Start Date End Date GinoOctober ANNA Sims [address] [place] [address] PCP - General Physician Insole Presser 12/08/20 documented as of this encounter
--- OUTSIDE RECORDS SUMMARY | 2024-02-17 18:07 | External Medical Summary | Summary of Care ---
Author Name Unknown Organization [facility] Address [address] [place] [facility] [place] [place] [address] Phone [phone] Care Team Providers Care Event Designer Name Role Phone Gino Thelma Carrera PA-C Primary Care Provider [phone] Reason for Visit * Reason Comments Return Visit Encounter Details Date Type Department Care Team (Late st Contact Info) Description 12/12/2023 2:30 PM EDT Office Visit Gynecology/Obstetric [facility] [address] [place] [address] Mehrdad Roy MD [address] [place] [address] MTHFR mutation*; History of placental abruption; History of IUFD; Hx of preeclampsia, prior , currently , unspecified trimester; Supervision of high risk in third trimester; Impaired glucose in , antepartum; Antepartum anemia; Pyelectasis of fetus on ultrasound Allergies Active Allergy Reactions Criticality Noted Date Comments Prednisone 04/23/2021 Increased anxiety documented as of this encounter (statuses as of 12/12/2023) Medications Medication Sig Dispensed Refills Start Date End Date Status 6.75-0.2 MG Oral Tablet Take by mouth. Active Aspirin 81 MG Oral Tablet ChewableIndications: Hx of preeclampsia, prior , currently , unspecified trimester Take 1 Tablet by mouth in the morning. 100 Tablet 3 08/04/2023 Active Vitron-C 65-125 MG Oral Tablet (Iron-Vitamin C 65-125 mg per tab) Take 1 Tablet by mouth in the morning. 90 Tablet 1 10/20/2023 Active Fluconazole 150 MG Oral Tablet (Diflucan) Take 1 Tablet by mouth once for 1 dose. 1 Tablet 12/12/2023 12/12/2023 Active documented as of this encounter (statuses as of 12/12/2023) Active Problems Problem Noted Date Diagnosed Date Pyelectasis of fetus on ultrasound 11/05 Last Assessment & Plan: CONSIDERATIONS: urinary tract [...] 32-36 weeks gestation. We recommend alerting the fitter's assistant providing care of this finding. 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 This result is not associated with a significantly increased risk for coronary artery disease, venous thromboembolism, or adverse outcome. 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 Patient denies any questions or concerns. Problem [...] any current needs or questions 04/02/2022 Briseida Dwo RN 04/02/2022 Problem Action Taken Date entered [...] told has clotting disorder, ?MTHFR -testing by UNIT CONTROL CLERK in [facility]-obtain records. Closed head injury with concussion 04/10/2016 05/19/2018 documented as of this encounter (statuses as of 12/12/2023) Immunizations Name Administration Dates Next Due HPV [...] money to get more. Never true 07/23/2023 Marengo Depression Scale Answer Date Recorded Marengo Depression Scale Total 10 07/23/2023 The thought [...] Sign Reading Time Taken Comments Blood Pressure 116/74 12/12/2023 2:26 PM EDT Pulse - - Temperature - - Respiratory Rate - - Oxygen Saturation - - Inhaled Oxygen Concentration - - Weight 78.5 kg (173 lb) 12/12/2023 2:26 PM EDT Height 162.6 cm (5' 4") 12/12/2023 2:26 PM EDT Body Mass Index 29.7 12/12/2023 2:26 PM EDT documented in this encounter Progress Notes * Mehrdad Roy MD - 12/12/2023 2:42 PM EDT Pt doing well Hx of demise Reports vaginal pain and discomfort Pel; erythematous. Clear homogenous disch ESWAB obtained Pt satnam for BPP documented in this encounter Nursing Notes * Martina Vasquez LPN - 12/12/2023 2:35 PM EDT Sharp pelvic pain, not constant but ongoing. Vaginal swelling, redness, pain, irritation. documented in this encounter Plan of Treatment Upcoming Encounters Date Type Department Care Team (Late st Contact Info) Description 12/12/2023 3:30 PM EDT Imaging Radiology [facility] 2nd [facility], [place] [address] [place] [address] History of IUFD; History of placental abruption; Supervision of high risk in third trimester 12/15/2023 9:15 AM EDT Office Visit Gynecology/Obstetric s [facility] [address] [place] [address] Mehrdad Roy MD [address] [place] [address] Hossein, Non Stress Tests Ab [address] [place] [address] 12/17/2023 2:00 PM EDT Imaging Radiology [address], [place] [address] [place] [address] 12/24/2023 3:30 PM EDT Imaging Radiology [address], [place] [address] [place] [address] 12/25/2023 1:45 PM EDT Office Visit Cardiology Associate Obstetrics Maternal Medicine, [place] [address] [place] [address] [facility] [address] [place] [address] 12/25/2023 1:45 PM EDT Imaging Radiology [facility], [place] [address] [place] [address] 12/29/2023 1:45 PM EDT Office Visit Gynecology/Obstetric s [facility] [address] [place] [address] Brandy Morales CRNP [address] [place] [address] Hossein Non Stress Tests Ab [address] [place] [address] 12/31/2023 3:30 PM EDT Imaging Radiology [address], [place] [address] [place] [address] 01/01/2024 1:45 PM EDT Office Visit Gynecology/Obstetric s [facility] [address] [place] [address] Brandy Morales CRNP [address] [place] [address] Catalan, Non Stress Tests Ab [address] [place] [address] 01/07/2024 3:30 PM EDT Imaging Radiology [address], [place] [address] [place] [address] 01/12/2024 2:30 PM EDT Office Visit Gynecology/Obstetric s [facility] [address] [place] [address] Mehrdad Roy MD [address] [place] [address] [place], Non Stress Tests Ab [address] [place] [address] 01/14/2024 2:45 PM EDT Imaging Radiology [address], [place] [address] [place] [address] 01/15/2024 2:30 PM EDT Office Visit Gynecology/Obstetric s [facility] [address] [place] [address] Treva Caro MD [address] [place] [address] [place], Non Stress Tests Ab [address] [place] [address] 01/19/2024 9:00 AM EDT Office Visit Gynecology/Obstetric s [facility] [address] [place] [address] Dary Hart PA-C [address] [place] [address] [place], Non Stress Tests Ab [address] [place] [address] 01/21/2024 3:30 PM EDT Imaging Radiology Jonathanevgeny [address] [place] [address] 01/22/2024 9:45 AM EDT Office Visit Gynecology/Obstetric s [facility] [address] [place] [address] Brandy Morales CRNP [address] [place] [address] Hossein Non Stress Tests Ab [address] [place] [address] 01/22/2024 1:45 PM EDT Office Visit Cardiology Associate Obstetrics Maternal Medicine, [address] [address] Pedro German, [address] [place] [address] 01/22/2024 1:45 PM EDT Imaging Radiology [facility], [place] [address] [place] [address] 01/26/2024 1:45 PM EDT Office Visit Gynecology/Obstetric s [facility] [address] [place] [address] Brandy Morales CRNP [address] [place] [address] Hossein, Non Stress Tests Ab [address] [place] [address] 01/28/2024 3:30 PM EDT Imaging Radiology [address] [place] [address] 01/29/2024 9:15 AM EDT Office Visit Gynecology/Obstetric s [facility] [address] [place] [address] Michael Henry CNM [address] [facility] [place] [address] [place]an, Non Stress Tests Ab [address] [place] [address] 02/02/2024 1:45 PM EDT Office Visit Gynecology/Obstetric s [facility] [address] [place] [address] Brandy Morales CRNP [address] [place] [address] Catalan, Non Stress Tests Ab [address] [place] [address] 02/04/2024 3:30 PM EDT Imaging Radiology [facility] 2nd [facility], [place] [address] [place] [address] 02/05/2024 2:30 PM EDT Office Visit Gynecology/Obstetric s [facility] [address] [place] [address] Treva Caro MD [address] [facility] [place] [address] Catalan, Non Stress Tests Ab [address] [place] [address] 02/11/2024 3:30 PM EDT Imaging Radiology [facility] 2nd Floor, [place] [address] [place] [address] 02/12/2024 1:45 PM EDT Office Visit Gynecology/Obstetric s [facility] [address] [place] [address] Brandy Morales CRNP [address] [place] [address] Hossein Non Stress Tests Ab [address] [place] [address] 02/18/2024 3:30 PM EDT Imaging Radiology [facility] 2nd Floor, [place] [address] [place] [address] 02/19/2024 1:45 PM EDT Office Visit Gynecology/Obstetric s [facility]ev[facility] [address] [place] [address] Brandy Morales CRNP [address] [place] [address] Hossein Non Stress Tests [facility] [address] [place] [address] 02/23/2024 9:00 AM EDT Office [facility] [address] [place] [address] Lisy Lobo, KELLIE, [address] [address] Hossein Non Stress Tests [facility] [address] [place] [address] Pending Results Name Type Priority Associated Diagnoses Date /Time VAGINOSIS PANEL, PCR Lab Routine MTHFR mutation 12/12/2023 3:16 PM EDT Health Maintenance Due Date Last Done Comments Hepatitis B (1 of 3 - 19+ 3-dose series) 2012 GARDASIL-HPV IMMUNIZATION SERIES (2 - 3-dose series) 06/24/2019 05/27/2019 COVID-19 Vaccine (3 - 2022- season) 2023 [...] high risk in third trimester Unspecified high-risk MTHFR mutation- Primary Disturbances of sulphur-bearing amino-acid metabolism History of placental abruption History of IUFD Hx of preeclampsia, prior , currently , unspecified trimester Supervision of high risk in third trimester Unspecified high-risk Impaired glucose in , antepartum Abnormal maternal glucose tolerance, antepartum Antepartum anemia Anemia, antepartum Pyelectasis of fetus on ultrasound Abnormal findings on screening documented in this encounter Care Teams Event Designer Relationship Specialty Start Date End Date GinoOctober ANNA Carrera [address] [place] [address] PCP - General Physician Video Engineer 12/08/20 documented as of this encounter
--- OUTSIDE RECORDS SUMMARY | 2024-02-17 18:07 | External Medical Summary | Summary of Care ---
Author Name Unknown Organization [facility] Address [address] [place] [facility] [place] [address] Phone [phone] Care Team Providers Care Sail Finisher Hand Name Role Phone Gino Thelma Carrera PA-C Primary Care Provider [phone] Reason for Visit * Reason Comments Return Visit Encounter Details Date Type Department Care Team (Late st Contact Info) Description 12/12/2023 2:30 PM EDT Office Visit Gynecology/Obstetric Latoya Catalan [address] [place] [address] Mehrdad Roy MD [address] [place] [address] MTHFR mutation*; History of placental abruption; History [...] 32-36 weeks gestation. We recommend alerting the wildfire prevention specialist providing care of this finding. 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 This result is not associated with a significantly increased risk for coronary artery disease, venous thromboembolism, or adverse outcome. Last Assessment & Plan: Reviewed the [employer] ACOG Practice [...] counseling 12/10/2021 07/23/2023 Overview: Patient seen by [facility]. Patient denies any questions or concerns. Problem [...] told has clotting disorder, ?MTHFR -testing by SUPERVISOR TYPESETTING in [facility]-obtain records. Closed head injury with concussion 04/10/2016 [...] money to get more. Never true 07/23/2023 [place] Depression Scale Answer Date Recorded [place] Depression Scale Total 10 07/23/2023 The thought [...] Description 12/12/2023 3:30 PM EDT Imaging Radiology [facility] 2nd [facility], [place] [address] [place] [address] History of IUFD; History of placental abruption; Supervision of high risk in third trimester 12/15/2023 9:15 AM EDT Office Visit Gynecology/Obstetric s [facility] [address] [place] [address] Mehrdad Roy MD [address] [place] [address] Hossein, Non Stress Tests Ab [address] [place] [address] 12/17/2023 2:00 PM EDT Imaging Radiology [address], [place] [address] [place] [address] 12/24/2023 3:30 PM EDT Imaging Radiology [address], [place] [address] [place] [address] 12/25/2023 1:45 PM EDT Office Visit General Practitioner Obstetrics Maternal [facility], [place] [address] [place] [address] [facility] [address] [place] [address] 12/25/2023 1:45 PM EDT Imaging Radiology [facility] [place], [place] [address] [place] [address] 12/29/2023 1:45 PM EDT Office Visit Gynecology/Obstetric s Latoya Catalan [address] [place] [address] Barndy Morales CRNP [address] [place] [address] Hossein Non Stress Tests Ab [address] [place] [address] 12/31/2023 3:30 PM EDT Imaging Radiology [address], [place] [address] [place] [address] 01/01/2024 1:45 PM EDT Office Visit Gynecology/Obstetric s Latoya Catalan [address] [place] [address] Brandy Morales CRNP [address] [place] [address] Catalan, Non Stress Tests Ab [address] [place] [address] 01/07/2024 3:30 PM EDT Imaging Radiology [address], [place] [address] [place] [address] 01/12/2024 2:30 PM EDT Office Visit Gynecology/Obstetric s [facility] [address] [place] [address] Mehrdad Roy MD [address] [place] [address] Catalan, Non Stress Tests Ab [address] [place] [address] 01/14/2024 2:45 PM EDT Imaging Radiology [address], [place] [address] [place] [address] 01/15/2024 2:30 PM EDT Office Visit Gynecology/Obstetric s [facility] [address] [place] [address] Treva Caro MD [address] [place] [address] Catalan, Non Stress Tests Ab [address] [place] [address] 01/19/2024 9:00 AM EDT Office Visit Gynecology/Obstetric s [facility] [address] [place] [address] Dary Hart PA-C [address] [place] [address] Catalan, Non Stress Tests Ab [address] [place] [address] 01/21/2024 3:30 PM EDT Imaging Radiology Jonathanevgeny [address] [place] [address] 01/22/2024 9:45 AM EDT Office Visit Gynecology/Obstetric s Latoya Catalan [address] [place] [address] Brandy Morales CRNP [address] [place] [address] Hossein Non Stress Tests Ab [address] [place] [address] 01/22/2024 1:45 PM EDT Office Visit General Practitioner Obstetrics Maternal Medicine, [address] [address] Pedro German, [address] [place] [address] 01/22/2024 1:45 PM EDT Imaging Radiology [facility] [place], [place] [address] [place] [address] 01/26/2024 1:45 PM EDT Office Visit Gynecology/Obstetric s Latoya Catalan [address] [place] [address] Brandy Morales CRNP [address] [place] [address] Hossein, Non Stress Tests Ab [address] [place] [address] 01/28/2024 3:30 PM EDT Imaging Radiology [address] [place] [address] 01/29/2024 9:15 AM EDT Office Visit Gynecology/Obstetric s [facility] [address] [place] [address] Michael Henry CNM [address] [facility] [place] [address] Catalan, Non Stress Tests Ab [address] [place] [address] 02/02/2024 1:45 PM EDT Office Visit Gynecology/Obstetric s [facility] [address] [place] [address] Brandy Morales CRNP [address] [place] [address] Catalan, Non Stress Tests Ab [address] [place] [address] 02/04/2024 3:30 PM EDT Imaging Radiology [facility]nd [facility] [place] [address] [place] [address] 02/05/2024 2:30 PM EDT Office Visit Gynecology/Obstetric s [facility] [address] [place] [address] Treva Caro MD [address] [facility] [place] [address] Catalan, Non Stress Tests Ab [address] [place] [address] 02/11/2024 3:30 PM EDT Imaging Radiology [facility] 2nd Floor, [place] [address] [place] [address] 02/12/2024 1:45 PM EDT Office Visit Gynecology/Obstetric s [facility] [address] [place] [address] Brandy Morales CRNP [address] [place] [address] Hossein Non Stress Tests Ab [address] [place] [address] 02/18/2024 3:30 PM EDT Imaging Radiology [facility] 2nd Floor, [place] [address] [place] [address] 02/19/2024 1:45 PM EDT Office Visit Gynecology/Obstetric s [facility] [address] [place] [address] Brandy Morales CRNP [address] [place] [address] Hossein Non Stress Tests [facility] [address] [place] [address] 02/23/2024 9:00 AM EDT [facility] [address] [place] [address] Lisy Lobo, KELLIE, [address] [address] Hossein Non Stress Tests [facility] [address] [place] [address] Pending Results Name Type Priority Associated Diagnoses [...] screening documented in this encounter Care Teams Sail Finisher Hand Relationship Specialty Start Date End Date GinoOctober ANNA Carrera [address] [place] [address] PCP - General Physician Police Lieutenant Precinct 12/08/20 documented as of this encounter
--- OUTSIDE RECORDS SUMMARY | 2024-02-17 18:07 | External Medical Summary | Summary of Care ---
Author Name Unknown Organization [facility] Address [address] [facility] [address] Phone [phone] Care Team Providers Care [employer] Team Member Name Role Phone Gino Thelma Sims PA-C Primary Care Provider [phone] Encounter Details Date Type Department Care Team (Late st Contact Info) Description 12/09/2023 Telephone [facility] [address] [place] [address] BackerFrancisco CRNP [address] [place] [address] Allergies Active Allergy Reactions Criticality Noted Date Comments Prednisone 04/23/2021 Increased anxiety documented as of this encounter (statuses as of 12/09/2023) Medications Medication Sig Dispensed Refills Start Date [...] as of this encounter (statuses as of 12/09/2023) Active Problems Problem Noted Date Diagnosed Date [...] 32-36 weeks gestation. We recommend alerting the seasoning mixer providing care of this finding. 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 Patient denies any questions or concerns. Problem [...] told has clotting disorder, ?MTHFR -testing by HIGH FREQUENCY MILL OPERATOR in [facility]-obtain records. Closed head injury with concussion 04/10/2016 05/19/2018 documented as of this encounter (statuses as of 12/09/2023) Immunizations Name Administration Dates Next Due HPV [...] money to get more. Never true 07/23/2023 [place] Depression Scale Answer Date Recorded [place] Depression Scale Total 10 07/23/2023 The thought [...] Telephone Encounter - Briseida Stevens RN - 12/09/2023 12:59 PM EDT Patient called and made aware. Patient verbalized understanding. Patient will try monistat and let us know if symptoms do not improve. Patient sent to scheduling to schedule BPPs. * Addendum Note - Francisco Vaca CRNP - 12/09/2023 12:03 PM EDT Addended by: FRANCISCO VACA on: 12/09/2023 12:03 PM Modules accepted: Orders * Telephone Encounter - Francisco Vaca CRNP - 12/09/2023 12:02 PM EDT Can try 3 day Monistat OTC. Weekly BPP is fine, please help schedule. ANNA Rhodes * Telephone Encounter - Briseida Stevens RN - 12/09/2023 11:48 AM EDT Patient calling in for recommendations from provider regarding twice weekly NSTs. Patient unable tocome to NST today due to children's court magistrate/transportation. Patient has NST scheduled for Friday, states asof now she should be able to make appt. She is asking if she should instead have a weekly BPP instead of NSTs due to her transportation concerns. Please advise. Reports that it is going to be hard for her to make it to office twice weekly. Patient also reports operation research analyst that she has vaginal swelling/irritation and increase in discharge. Denies itching/white discharge. She states she sprayed dermoplast on her exterior /labia and is askingif this would harm the baby. She states she rinsed it off right away because she was afraid it would harm the baby. Advised that it likely didn't cause harm but advised her not to use this again and to only wash with water/avoid any soap or irritants. Advised she would need MINDI visit for evaluationof this to properly advise. Please review/advise further. documented in this encounter Plan of Treatment Upcoming Encounters Date Type Department Care Team (Late st Contact Info) Description 12/12/2023 3:30 PM EDT Imaging Radiology [facility] [address] [facility] [address] [place] [address] 12/15/2023 9:15 AM EDT Office Visit Gynecology/Obstetrics [facility] [address] [place] [address] Mehrdad Roy MD [address] [place] [address] Hossein Non Stress Tests Ab [address] [place] [address] 12/25/2023 1:45 PM EDT Office Visit Financial Dealers Obstetrics Maternal Medicine, [place] [address] [place] [address] Pedro German, [address] [place] [address] 12/25/2023 1:45 PM EDT Imaging Radiology [facility] [address] [place] [address] 12/29/2023 1:45 PM EDT Office [facility] [address] [place] [address] Brandy Morales CRNP [address] [place] [address] Hossein Non Stress Tests Ab [address] [place] [address] 01/01/2024 1:45 PM EDT Office Visit Gynecology/Obstetrics Latoya [facility] [address] [place] [address] Brandy Morales CRNP [address] [place] [address] Hossein Non Stress Tests Ab [address] [place] [address] 01/12/2024 2:30 PM EDT Office Visit Gynecology/Obstetrics Latoya Catalan [address] [place] [address] Mehrdad Roy MD [address] [place] [address] Hossein Non Stress Tests Ab [address] [place] [address] 01/15/2024 2:30 PM EDT Office Visit Gynecology/Obstetrics Latoya Catalan [address] [place] [address] Treva Caro MD [address] [facility] [address] Hossein Non Stress Tests Ab [address] [place] [address] 01/19/2024 9:00 AM EDT Office Visit Gynecology/Obstetrics Latoya Catalan [address] [place] [address] Dary Hart PA-C [address] [facility] [place] [address] Hossein Non Stress Tests Ab [address] [place] [address] 01/22/2024 9:45 AM EDT Office Visit Gynecology/Obstetrics Latoya Catalan [address] [place] [address] Brandy Morales CRNP [address] [place] [address] Nirali Catalan Stress Tests Ab [address] [place] [address] 01/22/2024 1:45 PM EDT Office Visit Financial Dealers Obstetrics Maternal Medicine, [address] [address] Pedro German, [address] [place] [address] 01/22/2024 1:45 PM EDT [facility] [place] [address] [place] [address] 01/26/2024 1:45 PM EDT Office Visit Gynecology/Obstetrics JonathanGiancarloevgeny Catalan [address] [place] [address] Brandy Morales CRNP [address] [place] [address] Nirali Catalan Stress Tests Ab [address] [place] [address] 01/29/2024 9:15 AM EDT Office Visit Gynecology/Obstetrics Jonathanamari Catalan [address] [place] [address] Michael Henry, [facility] [address] [facility] [address] Hossein Non Stress Tests Ab [address] [place] [address] 02/02/2024 1:45 PM EDT Office Visit Gynecology/Obstetrics Castillo[facility]oss [address] [place] [address] Brandy Morales CRNP [address] [place] [address] Hossein, Non Stress Tests Ab [address] [place] [address] 02/05/2024 2:30 PM EDT Office Visit Gynecology/Obstetrics [facility] [address] [place] [address] Treva Caro MD [address] [place] [address] Hossein, Non Stress Tests Ab [address] [place] [address] 02/12/2024 1:45 PM EDT Office Visit Gynecology/Obstetrics [facility] Catalan [address] [place] [address] Brandy Morales CRNP [address] [place] [address] Hossein Non Stress Tests Ab [address] [place] [address] 02/19/2024 1:45 PM EDT Office Visit Gynecology/Obstetrics [facility] Catalan [address] [place] [address] Brandy Moralse CRNP [address] [place] [address] Hossein, Non Stress Tests Ab [address] [place] [address] 02/23/2024 9:00 AM EDT Office Visit Gynecology/Obstetrics [facility] Catalan [address] [place] [address] Lisy Lobo, KELLIE, CNM [address] [place] [address] Catalan, Non Stress Tests Ab [address] [place] [address] Scheduled Orders Name Type Priority Associated Diagnoses Orde r Schedule US BPP W/O NON-STRESS TEST Medical Imaging Routine History of IUFD History of placental abruption Supervision of high risk in third trimester Every Week for 11 Occurrences starting 12/09/2023 until 06/09/2024 Health Maintenance Due Date Last Done Comments Hepatitis B (1 of 3 - 19+ 3-dose series) 2012 GARDASIL-HPV IMMUNIZATION SERIES (2 - 3-dose series) 06/24/2019 05/27/2019 COVID-19 Vaccine ( season) 2023 03/23/2021, 03/02/2021 [...] Visit Diagnoses Diagnosis History of IUFD- Primary History of placental abruption Supervision of high risk in third trimester Unspecified high-risk documented in this encounter Care Teams [employer] Team Member Relationship Specialty Start Date End Date GinoOctober ANNA Sims [address] [place] [address] PCP - General Physician Optical Assistant 12/08/20 documented as of this encounter
--- OUTSIDE RECORDS SUMMARY | 2024-02-17 18:07 | External Medical Summary ---
Author Name Unknown Address Unknown Organization K01:LABORATORY [facility] - [address] [facility] [address] Laboratory Report Ordering Provider Test Date Status TAWNY MENDOZAU 12/12/2023 15:16:26 Final Observation Date Value Abnormality Reference (Units ) Status Bacterial vaginosis [Interpretation] in Vaginal fluid Qualitative 12/12/2023 15:16:26 Positive Abnormal Negative Final Positive for Bacterial Vagin osis. Correlate results with other clinical findings. Aurora sp DNA [Presence] in Vaginal fluid by Probe 12/12/2023 15:16:26 Positive Abnormal Negative Final Aurora species group RNA de tected. Correlate results with other clinical findings. Aurora glabrata RNA [Presen ce] in Vaginal fluid by SYDNEE with probe detection 12/12/2023 15:16:26 Negative Negative Final No Aurora glabrata RNA dete cted. Correlate results with other clinical findings. Trichomonas vaginalis DNA [P resence] in Vaginal fluid by Probe 12/12/2023 15:16:26 Negative Negative Final No Trichomonas vaginalis RNA detected. Performing Location LABORATORY [facility] - [address] [facility] [address]
--- OUTSIDE RECORDS SUMMARY | 2024-02-17 18:07 | External Medical Summary | Summary of Care ---
Author Name Unknown Organization [facility] Address [address] [place] [address] Phone [phone] Care Team Providers Care Dog Licenser Name Role Phone Gino Thelma Sims PA-C Primary Care Provider [phone] Reason for Visit * Reason Comments Ultrasound Encounter Details Date Type Department Care Team (Late st Contact Info) Description 12/25/2023 1:45 PM EDT Office Visit Daycare Teacher Obstetrics Maternal Medicine, [place] [address], [place] [id number] Pedro German, DO [address], [place] [id number] History of placental abruption*; History of IUFD; Hx of preeclampsia, prior , currently , unspecified trimester; Pyelectasis of fetus on ultrasound; 31 weeks gestation of Allergies Active Allergy Reactions Criticality Noted Date Comments Prednisone 04/23/2021 Increased anxiety documented as of this encounter (statuses as of 12/25/2023) Medications Medication Sig Dispensed Refills Start Date [...] as of this encounter (statuses as of 12/25/2023) Active Problems Problem Noted Date Diagnosed Date [...] 32-36 weeks gestation. We recommend alerting the mess cook providing care of this finding. 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 This result is not associated with a significantly increased risk for coronary artery disease, venous thromboembolism, or adverse outcome. 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 Patient denies any questions or concerns. Problem [...] Overview: Early glucola Abnormal transaminases 04/23/201605/27 Overview: 10/16-alt-47->rpt 6 mths++ H/O toxoplasmosis 04/22/2016 05/19/2018 Overview: labs on [facility] panel >+ IGG 08/31/13--no active inf--works on barn with horses and cats, nl cbc,cr,, immune varicella,rubell, neg RPR,neg Hbs ag INFORMATION 04/10/2016 05/19/2018 Overview: Lost son at 8 mth preg in 2013 [facility]--was told has clotting disorder, ?MTHFR -testing by ENGRAVER WOOD in [facility]-obtain records. Closed head injury with concussion 04/10/2016 05/19/2018 documented as of this encounter (statuses as of 12/25/2023) Immunizations Name Administration Dates Next Due HPV [...] money to get more. Never true 07/23/2023 [place] Depression Scale Answer Date Recorded [place] Depression Scale Total 10 07/23/2023 The thought [...] Progress Notes * Pedro German, DO - 12/25/2023 2:47 PM EDT MATERNAL MEDICINE VISIT Kanika Louise presented today at 31w2d to [facility] for an ultrasound. She is being seen today by Maternal- Medicine for the following reasons: Problem List Items Addressed This Visit History of placental abruption - Primary History of IUFD She presents for follow-up of growth. She has a history of placental abruption and demise in a prior , possibly related to pre- eclampsia. Mild right urinary tract dilation has been noted previously. Today's ultrasound notes the following: The estimated weight is appropriate for gestational age in the 57th percentile. urinary tract dilation is not appreciated. The visualized anatomy is unremarkable in appearance. The MICHELLE is normal. Hx of preeclampsia, prior , currently , unspecified trimester Pyelectasis of fetus on ultrasound Other Visit Diagnoses 31 weeks gestation of I reviewed the ultrasound images. Kanika Louise was given the opportunity to meet with me if shehad any questions. Please refer to the ultrasound report for additional details about today's ultrasound examination. RECOMMENDATIONS: Recommend surveillance secondary to history of demise. Recommend follow up ultrasound with MFM in 4 weeks for growth. Thank you for allowing us to participate in the care of this patient. Please call with any questions. Pedro German DO 12/25/2023 2:47 PM documented in this encounter Miscellaneous Notes * Assessment & Plan Note - Pedro German DO - 12/25/2023 2:16 PM EDT Associated Problem(s): History of IUFD She presents for follow-up of growth. She has a history of placental abruption and demise in a prior , possibly related to pre- eclampsia. Mild right urinary tract dilation has been noted previously. Today's ultrasound notes the following: The estimated weight is appropriate for gestational age in the 57th percentile. urinary tract dilation is not appreciated. The visualized anatomy is unremarkable in appearance. The MICHELLE is normal. documented in this encounter Plan of Treatment Upcoming Encounters Date Type Department Care Team (Late st Contact Info) Description 12/31/2023 3:30 PM EDT Imaging Radiology [address] [place] [address] 01/07/2024 3:30 PM EDT Imaging Radiology [address] [place] [address] 01/14/2024 2:45 PM EDT Imaging Radiology [facility] 2nd Floor, [place] [address] [address] [place] [address] 01/21/2024 3:30 PM EDT Imaging Radiology [facility] 2nd Floor, [place] [address] [place] [address] 01/22/2024 1:45 PM EDT Office Visit Daycare Teacher Obstetrics Maternal Medicine, [place] [address] [place] [address] Pedro German, [address] [place] [address] 01/22/2024 1:45 PM EDT Imaging Radiology [facility], [place] [address] [place] [address] 01/28/2024 3:30 PM EDT Imaging Radiology [facility] 2nd Floor, [place] [address] [address] [place] [address] 02/04/2024 3:30 PM EDT Imaging Radiology [facility] 2nd Floor, [place] [address] [address] [place] [address] 02/11/2024 3:30 PM EDT Imaging Rad[facility] 2nd Floor, [place] [address] [address] [place] [address] 02/18/2024 3:30 PM EDT Imaging Radiology [facility] 2nd Floor, [address] [place] [address] Health Maintenance Due Date Last Done Comments [...] this encounter Visit Diagnoses Diagnosis History of placental abruption- Primary History of IUFD Hx of preeclampsia, prior , currently , unspecified trimester Pyelectasis of fetus on ultrasound Abnormal findings on screening 31 weeks gestation of state, incidental documented in this encounter Care Teams Dog Licenser Relationship Specialty Start Date End Date Thelma Christian PA-C [address] [place] [address] PCP - General Physician Customer Retention Representative 12/08/20 documented as of this encounter
--- OUTSIDE RECORDS SUMMARY | 2024-02-17 18:07 | External Medical Summary | Summary of Care ---
Author Name Unknown Organization [facility] Address [address] [place] [address] Phone [phone] Care Team Providers Care Subway Guard Name Role Phone ReannaThelma lopez ANNA Primary Care Provider [phone] Reason for Visit * Reason Onset Date Comments Test Results 12/15/[address] Roy Encounter Details Date Type Department Care Team (Late st Contact Info) Description 12/15/2023 Telephone Gynecology/Obstetrics [facility] [address] [place] [address] Mehrdad Roy MD [address] [place] [address] Test Results (Review with Dr. Roy) Allergies [...] 32-36 weeks gestation. We recommend alerting the purchase price analyst providing care of this finding. 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 This result is not associated with a significantly increased risk for coronary artery disease, venous thromboembolism, or adverse outcome. Last Assessment & Plan: Reviewed the [place] [employer] ACOG Practice [...] Overview: Patient seen by [facility] Retail Clerk. Patient denies any questions or concerns. [...] told has clotting disorder, ?MTHFR -testing by MANAGER ADVANCED in [facility]-obtain records. Closed head injury with concussion [...] money to get more. Never true 07/23/2023 [place] Depression Scale Answer Date Recorded [place] Depression Scale Total 10 07/23/2023 The thought [...] take the flagyl then take the diflucan. * Telephone Encounter - Briseida Stevens RN [...] Description 12/17/2023 2:00 PM EDT [address] Radiology [address] [address] 12/24/2023 3:30 PM EDT Imaging Radiology [address] [place] [address] 12/25/2023 1:45 PM EDT Office Visit Financial Institution Branch Manager Obstetrics Maternal Medicine, [address] [address] Pedro German, [address] [place] [address] 12/25/2023 1:45 PM EDT Imaging Radiology [facility], [place] [address] [place] [address] 12/31/2023 3:30 PM EDT Imaging Radiology [address] [place] [address] 01/07/2024 3:30 PM EDT Imaging Radiology [facility] 2nd Floor, [address] [place] [address] 01/14/2024 2:45 PM EDT Imaging Radiology [facility] 2nd Floor, [place] [address] [place] [address] 01/21/2024 3:30 PM EDT Imaging Radiology [facility] 2nd Floor, [place] [address] [place] [address] 01/22/2024 1:45 PM EDT Office Visit Financial Institution Branch Manager Obstetrics Maternal Medicine, [place] [address] [place] [address] Pedro German, [facility] [place] [address] 01/22/2024 1:45 PM EDT Imaging Radiology [facility], [place] [address] [place] [address] 01/28/2024 3:30 PM EDT Imaging Radiology [facility] 2nd Floor, [place] [address] [address] [place] [address] 02/04/2024 3:30 PM EDT Imaging Radiology [facility] 2nd Floor, [place] [address] [address] [place] [address] 02/11/2024 3:30 PM EDT Imaging Radiology [facility] 2nd Floor, [place] [place] [address] 02/18/2024 3:30 PM EDT Imaging Radiology [facility] 2nd Floor, [place] [address] [address] [place] [address] Health Maintenance Due Date Last Done Comments [...] filedocumented as of this encounter Care Teams Subway Guard Relationship Specialty Start Date End Date Thelma Christian PA-C [address] [place] [address] PCP - General Physician Senior Principal Software Engineer 12/08/20 documented as of this encounter
--- OUTSIDE RECORDS SUMMARY | 2024-02-17 18:07 | External Medical Summary | Summary of Care ---
Author Name Unknown Organization [facility] Address [address] [place] [address] Phone [phone] Care Team Providers Care Oliving Machine Operator Name Role Phone Gino Thelma iSms PA-C Primary Care Provider [phone] Reason for Visit * Reason Comments Return Visit Encounter Details Date Type Department Care Team (Late st Contact Info) Description 12/12/2023 2:30 PM EDT Office Visit Gynecology/Obstetric [facility] [address] [place] [address] Reji Roy MD [address] [place] [address] MTHFR mutation*; History of placental abruption; History [...] days until gone.. 14 Tablet 12/15/2023 Active Fluconazole 150 MG Oral Tablet (Diflucan) Take 1 Tablet by mouth once for 1 dose. 1 Tablet 12/12/2023 12/12/2023 documented as of this encounter (statuses as [...] 32-36 weeks gestation. We recommend alerting the therapist providing care of this finding. 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 Patient denies any questions or concerns. [...] son at 8 mth preg in 2013 [facility]--was told has clotting disorder, ?MTHFR -testing by HARBOUR MASTER in [facility]-obtain records. Closed head [...] money to get more. Never true 07/23/2023 [place] Depression Scale Answer Date Recorded [place] Depression Scale Total 10 07/23/2023 The thought [...] documented in this encounter Progress Notes * Reji Roy MD - 12/12/2023 2:42 PM EDT Pt doing well Hx of demise Reports vaginal pain and discomfort Pel; erythematous. Clear homogenous disch ESWAB obtained Pt satnam for BPP documented in this encounter Nursing Notes * Martina Vasquez LPN - 12/12/2023 2:35 PM EDT Sharp pelvic pain, not constant but ongoing. Vaginal swelling, redness, pain, irritation. documented in this encounter Miscellaneous Notes * Addendum Note - Reji Roy MD - 12/15/2023 11:34 AM EDTAddended by: REJI ROY on: 12/15/2023 11:34 AM Modules accepted: Orders documented in this encounter Plan of Treatment Upcoming Encounters Date Type Department Care Team (Late st Contact Info) Description 12/17/2023 2:00 PM EDT Imaging Radiology [facility] 2nd Floor, [address] [place] [address] 12/24/2023 3:30 PM EDT Imaging Radiology [facility] 2nd Floor, [address] [place] [address] 12/25/2023 1:45 PM EDT Office Visit Bacon Stringer Obstetrics Maternal Medicine, [place] [address] [place] [address] Pedro German, [address] [place] [address] 12/25/2023 1:45 PM EDT Imaging Radiology [facility], [place] [address] [place] [address] 12/31/2023 3:30 PM EDT Imaging Radiology [facility] 2nd Floor, [address] [place] [address] 01/07/2024 3:30 PM EDT Imaging Radiology [facility] 2nd Floor, [address] [place] [address] 01/14/2024 2:45 PM EDT Imaging Radiology [facility] 2nd Floor, [address] [place] [address] 01/21/2024 3:30 PM EDT Imaging Radiology [facility] 2nd Floor, [address] [place] [address] 01/22/2024 1:45 PM EDT Office Visit Bacon Stringer Obstetrics Maternal Medicine, [place] [address] [place] [address] Pedro German, [address] [place] [address] 01/22/2024 1:45 PM EDT Imaging Radiology [facility], [place] [address] [place] [address] 01/28/2024 3:30 PM EDT Imaging Radiology [facility] 2nd [facility], [address] [place] [address] 02/04/2024 3:30 PM EDT Imaging Radiology [address], [address] [place] [address] 02/11/2024 3:30 PM EDT Imaging Radiology [address], [address] [place] [address] 02/18/2024 3:30 PM EDT Imaging Radiology [address], [address] [place] [address] Health Maintenance Due Date Last Done Comments [...] Not on filedocumented as of this encounter Procedures Procedure Name Priority Date/Time Associated Diagnosis Comments VAGINOSIS PANEL, PCR Routine 12/12/2023 3:16 PM EDT MTHFR mutation documented in this encounter Results * (ABNORMAL) VAGINOSIS PANEL, PCR (12/12/2023 3:16 PM EDT) Bacterial Vaginosis Result Positive(A) Negative 12/13/2023 12:18 PM EDT [facility] Comment:Positive for Bacteri al Vaginosis. Correlate results with other clinical findings. Aurora species Result Positive(A) Negative 12/13/2023 12:18 PM EDT [facility] Comment:Aurora species grou p RNA detected. Correlate results with other clinical findings. Aurora glabrata Result Negative Negative 12/13/2023 12:18 PM EDT [facility] Comment:No Aurora glabrata RNA detected. Correlate results with other clinical findings. Trichomonas Result Negative Negative 12/13/2023 12:18 PM EDT [facility] Comment:No Trichomonas vagin shital RNA detected. Swab Specimen from wound / Unknown 12/12/2023 3:16 PM EDT 12/12/2023 3:16 PM EDT Reji Roy MD LAB MICRO - GENERAL ORDERABLES Performing Organization Address City/State/[facility] Co de Phone Number LABORATORY [facility] [address] [place] [address] documented in this encounter Visit Diagnoses Diagnosis MTHFR mutation- [...] screening documented in this encounter Care Teams Oliving Machine Operator Relationship Specialty Start Date End Date Gino October ANNA Sims [address] [place] [address] PCP - General Physician Ammonia Still Operator 12/08/20 documented as of this encounter
--- OUTSIDE RECORDS SUMMARY | 2024-02-17 18:07 | External Medical Summary | Summary of Care ---
Author Name Unknown Organization [facility] Address [address] [place] [address] Phone [phone] Care Team Providers Care Teletypesetter Operator Name Role Phone ReannaThelma lopez ANNA Primary Care Provider Reason for Visit * Reason Onset Date Comments Test Results 12/15/[address] Roy Encounter Details Date Type Department Care Team (Late st Contact Info) Description 12/15/2023 Telephone Gynecology/Obstetrics [facility] [address] [place] [address] Mehrdad Roy MD [address] [place] [address] Test Results (Review with Dr. Roy) Allergies [...] 32-36 weeks gestation. We recommend alerting the home security professional providing care of this finding. 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 This result is not associated with a significantly increased risk for coronary artery disease, venous thromboembolism, or adverse outcome. Last Assessment & Plan: Reviewed the [place] [employer] ACOG Practice [...] 07/23/2023 Overview: Patient seen by [facility] Fish Agent. Patient denies any questions or concerns. Problem [...] told has clotting disorder, ?MTHFR -testing by BOILER SETTER in [facility]-obtain records. Closed head injury [...] money to get more. Never true 07/23/2023 [place] Depression Scale Answer Date Recorded [place] Depression Scale Total 10 07/23/2023 The thought [...] Description 12/17/2023 2:00 PM EDT Imaging Radiology [address] [place] [address] 12/24/2023 3:30 PM EDT Imaging Radiology [address] [place] [address] 12/25/2023 1:45 PM EDT Office Visit Cake Icer And Packer Obstetrics Maternal Medicine, [place] [address] [place] [address] Pedro German, [address] [place] [address] 12/25/2023 1:45 PM EDT Imaging Radiology [facility], [place] [address] [place] [address] 12/31/2023 3:30 PM EDT Imaging Radiology [address] [place] [address] 01/07/2024 3:30 PM EDT Imaging Radiology [facility] 2nd Floor, [place] [address] [address] [place] [address] 01/14/2024 2:45 PM EDT Imaging Radiology [facility] 2nd Floor, [place] [address] [address] [place] [address] 01/21/2024 3:30 PM EDT Imaging Radiology [facility] 2nd Floor, [address] [place] [address] 01/22/2024 1:45 PM EDT Office Visit [employer] Icer [employer] Packer Obstetrics Maternal Medicine, [place] [address] [place] [address] Pedro German, [address] [place] [address] 01/22/2024 1:45 PM EDT Imaging Radiology [facility], [place] [address] [place] [address] 01/28/2024 3:30 PM EDT Imaging Radiology [facility] 2nd Floor, [place] [address] [address] [place] [address] 02/04/2024 3:30 PM EDT Imaging Radiology [facility] 2nd Floor, [place] [address] [address] [place] [address] 02/11/2024 3:30 PM EDT Imaging Radiology [facility] 2nd Floor, [place] [address] [address] [place] [address] 02/18/2024 3:30 PM EDT [facility] 2nd [facility], [place] [address] [address] [place] [address] Health Maintenance Due Date Last Done Comments [...] filedocumented as of this encounter Care Teams Teletypesetter Operator Relationship Specialty Start Date End Date GinoOctober ANNA Sims [address] [facility] [place] [address] PCP - General Physician Completion Manager 12/08/20 documented as of this encounter
--- OUTSIDE RECORDS SUMMARY | 2024-02-17 18:08 | External Medical Summary ---
Author Name Unknown Address Unknown Organization K01:[facility]ORY [facility] [place] [address] [facility] [place] [facility] [address] Laboratory Report Ordering Provider Test Date Status FRANCISCOBACKER 11/11/2023 13:49:03 Final Observation Date Value Abnormality Reference (Units ) Status Bacterial vaginosis [Interpretation] in Vaginal fluid Qualitative 11/11/2023 13:49:03 Negative Negative Final Negative for Bacterial Vagin osis. Correlate results with other clinical findings. Aurora sp DNA [Presence] in Vaginal fluid by Probe 11/11/2023 13:49:03 Negative Negative Final No Aurora species group RNA detected. Correlate results with other clinical findings. Aurora glabrata RNA [Presen ce] in Vaginal fluid by SYDNEE with probe detection 11/11/2023 13:49:03 Negative Negative Final No Aurora glabrata RNA dete cted. Correlate results with other clinical findings. Trichomonas vaginalis DNA [P resence] in Vaginal fluid by Probe 11/11/2023 13:49:03 Negative Negative Final No Trichomonas vaginalis RNA detected. Performing Location [facility] [address] [facility] [address]
--- OUTSIDE RECORDS SUMMARY | 2024-02-17 18:08 | External Medical Summary | Summary of Care ---
Author Name Unknown Organization [facility] Address [address] [facility] [place] [address] Phone [phone] Care Team Providers Care Asphalt Mixing Machine Operator Name Role Phone Gino Thelma Sims PA-C Primary Care Provider [phone] Reason for Visit * Reason Comments Outpatient Testing Encounter Details Date Type Department Care Team (Late st Contact Info) Description 12/04/2023 9:00 AM EDT Laboratory Laboratory, [facility] [address] [place] [address] [facility] [address] [place] [address] Impaired glucose in , antepartum; Supervision of high risk in second trimester Allergies Active Allergy Reactions Criticality Noted Date Comments Prednisone 04/23/2021 Increased anxiety documented as of this encounter (statuses as of 12/04/2023) Medications Medication Sig Dispensed Refills Start Date [...] as of this encounter (statuses as of 12/04/2023) Active Problems Problem Noted Date Diagnosed Date [...] 32-36 weeks gestation. We recommend alerting the sports nutritionist providing care of this finding. 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 This result is not associated with a significantly increased risk for coronary artery disease, venous thromboembolism, or adverse outcome. Last Assessment & Plan: Reviewed the [place] [employer] ACOG Practice [...] as of this encounter (statuses as of 12/04/2023) Resolved Problems Problem Noted Date Diagnosed Date Resolved Date Antepartum anemia complicating 03/22/2022 07/23/2023 Abnormal glucose tolerance i n mother complicating 03/21/2022 04/09/2022 COVID-19 affecting , antepartum 03/19/2022 07/23/2023 Overview: 21 weeks Thrombophilia 02/04/2022 11/20/2022 Health counseling 12/10/2021 07/23/2023 Overview: Patient seen by [facility] Products Assembler. Patient denies any questions or concerns. Problem [...] told has clotting disorder, ?MTHFR -testing by ETL MANAGER in [facility]-obtain records. Closed head injury with concussion 04/10/2016 05/19/2018 documented as of this encounter (statuses as of 12/04/2023) Immunizations Name Administration Dates Next Due HPV [...] money to get more. Never true 07/23/2023 [place] Depression Scale Answer Date Recorded [place] Depression Scale Total 10 07/23/2023 The thought [...] Care Team (Late st Contact Info) Description 12/04/2023 1:45 PM EDT Office Visit Gynecology/Obstetrics Latoya Catalan [address] [facility] [place] [address] Haley Vaca CRNP [address] [place] [address] Hossein, Non Stress Tests Ab [address] [place] [address] 12/25/2023 1:45 PM EDT Office Visit Titrator Obstetrics Maternal Medicine, [place] [address] [place] [address] Pedro German, [address] [place] [address] 12/25/2023 1:45 PM EDT Imaging Radiology [place] [address] [place] [address] 01/22/2024 1:45 PM EDT Office Visit Titrator Obstetrics Maternal Medicine, [place] [address] [place] [address] Pedro German, [address] [place] [address] 01/22/2024 1:45 PM EDT Imaging Radiology [place] [address] [place] [address] Pending Results Name Type Priority Associated Diagnoses Date /Time GESTATIONAL GLUCOSE TOLERANCE, 3 HOUR Lab Routine Impaired glucose in , antepartum 12/04/2023 9:06 AM EDT 100-G GESTATIONAL GLUCOSE, 3 HOUR Lab Routine Impaired glucose in , antepartum 12/04/2023 12:07 PM EDT SYPHILIS ANTIBODY SCREEN WITH REFLEX TO RPR Lab Routine Supervision of high risk in second trimester 12/04/2023 12:07 PM EDT SYPHILIS ANTIBODY SCREEN Lab Routine Supervision of high risk in second trimester 12/04/2023 12:07 PM EDT Health Maintenance Due Date Last Done Comments Hepatitis B (1 of 3 - 19+ 3-dose series) 2012 GARDASIL-HPV IMMUNIZATION SERIES (2 - 3-dose series) 06/24/2019 05/27/2019 COVID-19 Vaccine (3 - 2022-2 4 season) 2023 03/23/2021, 03/02/2021 Influenza Vaccine (FLU shot) (Season Ended) 2024 03/07/2022, 04/07/2020, 04/22/2019 Pap Smear 07/23/2026 07/23/2023, 04/07/2020, 08/19/2016 Cervical Cancer Screening 07/23/2028 HPV/Co-Test 07/23/2028 07/23/2023 DTaP,Tdap,and Td Vaccines (4 - Td or Tdap) 03/21/2032 03/21/2022, 01/04/2017, 01/04/2017 MENINGOCOCCAL (MENACTRA/MENVEO) Aged Out No longer eligible b ased on patient's age to complete this topic Pneumococcal Vaccine: Pediatrics (0 to 5 Years) and At-Risk Patients (6 to 64 Years) Aged Out No longer eligible b ased on patient's age to complete this topic documented as of this encounter Medical Devices Not on filedocumented as of this encounter Procedures Procedure Name Priority Date/Time Associated Diagnosis Comments 100-G GESTATIONAL GLUCOSE, 2 HOUR Routine 12/04/2023 11:09 AM EDT Impaired glucose in , antepartum 100-G GESTATIONAL GLUCOSE, 1 HOUR Routine 12/04/2023 10:08 AM EDT Impaired glucose in , antepartum 100-G GESTATIONAL GLUCOSE, FASTING Routine 12/04/2023 9:06 AM EDT Impaired glucose in , antepartum documented in this encounter Results * 100-G GESTATIONAL GLUCOSE, 2 HOUR (12/04/2023 11:09 AM EDT) 100-g Gestational Glucose, 2 Hour 125 70 - 154 mg/dL 12/04/2023 11:50 AM EDT LAB[facility]ATORY [facility] 57-10 Blood Venous blood specimen / Unknown Venipuncture / Unknown 12/04/2023 11:09 AM EDT 12/04/2023 11:09 AM EDT Haley CASTILLO LAB BLOOD O RDERABLES LAB[facility] [place] 57-10 [address] [place] [address] * 100-G GESTATIONAL GLUCOSE, 1 HOUR (12/04/2023 10:08 AM EDT) 100-g Gestational Glucose, 1 Hour 153 70 - 179 mg/dL 12/04/2023 11:06 AM EDT LAB[facility] [place] 57-10 Blood Venous blood specimen / Unknown Venipuncture / Unknown 12/04/2023 10:08 AM EDT 12/04/2023 10:08 AM EDT Haley CASTILLO LAB BLOOD O RDERABLES Performing Organization Address [facility] Co de Phone Number LAB[facility]ORY [place] 57-[address] [place] [address] * 100-G GESTATIONAL GLUCOSE, FASTING (12/04/2023 9:06 AM EDT) 100-g Gestational Glucose, Fasting 77 70 - 94 mg/dL 12/04/2023 10:06 AM EDT LAB[facility] [place] 57-10 Blood Venous blood specimen / Unknown Venipuncture / Unknown 12/04/2023 9:06 AM EDT 12/04/2023 9:06 AM EDT Narrative [facility] [place] 57-10 - 12/04/2023 10:06 AM EDT Based on ACOG guideline, gestational diabetes mellitus is diagnosed when any of the following is met: Fasting is greater than or equal to 95 mg/dL 1 hour is greater than or equal to 180 mg/dL 2 hour is greater than or equal to 155 mg/dL 3 hour is greater than or equal to 140 mg/dL Haley CASTILLO LAB BLOOD O RDERABLES [place] [address] [place] [address] documented in this encounter Visit Diagnoses Diagnosis Impaired glucose in , antepartum Abnormal maternal glucose tolerance, antepartum Supervision of high risk in second trimester Unspecified high-risk documented in this encounter Care Teams Asphalt Mixing Machine Operator Relationship Specialty Start Date End Date Gino October ANNA Sims [address] [place] [address] PCP - General Physician Grader Tender 12/08/20 documented as of this encounter
--- OUTSIDE RECORDS SUMMARY | 2024-02-17 18:08 | External Medical Summary | Summary of Care ---
Author Name Unknown Organization [facility] Address [address] [facility] [address] Phone [phone] Care Team Providers Care Director Of Safety And Security Name Role Phone Gino Thelma Sims PA-C Primary Care Provider [phone] Encounter Details Date Type Department Care Team (Late st Contact Info) Description 12/09/2023 Telephone [facility] [address] [place] [address] BackerFrancisco CRNP [address] [place] [address] Allergies Active Allergy Reactions Criticality Noted Date [...] 32-36 weeks gestation. We recommend alerting the sales apprentice providing care of this finding. 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 Patient denies any questions or concerns. [...] told has clotting disorder, ?MTHFR -testing by TRAWL NET MAKER in [facility]-obtain records. Closed head [...] money to get more. Never true 07/23/2023 [place] Depression Scale Answer Date Recorded [place] Depression Scale Total 10 07/23/2023 The thought [...] encounter Miscellaneous Notes * Addendum Note - Francisco Vaca CRNP [...] unable tocome to NST today due to child and adolescent psychologist/transportation. Patient has NST scheduled for Friday, states asof now she should be able to make appt. She is asking if she should instead have a weekly BPP instead of NSTs due to her transportation concerns. Please advise. Reports that it is going to be hard for her to make it to office twice weekly. Patient also reports nurse practitioner that she has vaginal swelling/irritation and increase [...] Team (Late st Contact Info) Description 12/12/2023 10:15 AM EDT Office Visit Gynecology/Obstetrics [facility] [place] [address] Francisco Vaca CRNP [address] [place] [address] Hossein Non Stress Tests Ab [address] [place] [address] 12/15/2023 9:15 AM EDT Office Visit Gynecology/Obstetrics Latoya Catalan [address] [place] [address] Mehrdad Roy MD [address] [place] [address] Hossein Non Stress Tests Ab [address] [place] [address] 12/25/2023 1:45 PM EDT Office Visit Retort Condenser Attendant Obstetrics Maternal Medicine, [place] [address] [place] [address] Pedro German, [address] [place] [address] 12/25/2023 1:45 PM EDT Imaging Radiology [place] [address] [place] [address] 12/29/2023 1:45 PM EDT Office Visit Gynecology/Obstetrics Latoya Catalan [address] [place] [address] Brandy Morales CRNP [address] [place] [address] Hossein Non Stress Tests Ab [address] [place] [address] 01/01/2024 1:45 PM EDT Office Visit Gynecology/Obstetrics Latoya Catalan [address] [place] [address] Brandy Morales CRNP [address] [place] [address] Catalan, Non Stress Tests Ab [address] [place] [address] 01/12/2024 2:30 PM EDT Office Visit Gynecology/Obstetrics [facility] [address] [place] [address] Mehrdad Roy MD [address] [place] [address] Catalan, Non Stress Tests Ab [address] [place] [address] 01/15/2024 2:30 PM EDT Office Visit Gynecology/Obstetrics [facility] [address] [place] [address] Treva Caro MD [address] [place] [address] Catalan, Non Stress Tests Ab [address] [place] [address] 01/19/2024 9:00 AM EDT Office Visit Gynecology/Obstetrics [facility] [address] [place] [address] Dary Hart PA-C [address] [place] [address] Catalan, Non Stress Tests Ab [address] [place] [address] 01/22/2024 9:45 AM EDT Office Visit Gynecology/Obstetrics [facility] [address] [place] [address] Brandy Morales CRNP [address] [place] [address] Catalan, Non Stress Tests Ab [address] [place] [address] 01/22/2024 1:45 PM EDT Office Visit Retort Condenser Attendant Obstetrics Maternal Medicine, [place] [address] [place] [address] Pedro German, [address] [place] [address] 01/22/2024 1:45 PM EDT [facility] [place] [address] [place] [address] 01/26/2024 1:45 PM EDT Office Visit Gynecology/Obstetrics Latoya Catalan [address] [place] [address] Brandy Morales CRNP [address] [place] [address] Hossein Non Stress Tests Ba [address] [place] [address] 01/29/2024 9:15 AM EDT Office Visit Gynecology/Obstetrics Latoya Calross [address] [place] [address] Michael Henry, [place] [address] Hossein, Non Stress Tests Ab [address] [place] [address] 02/02/2024 1:45 PM EDT Office Visit Gynecology/Obstetrics [facility] [address] [place] [address] Brandy Morales CRNP [address] [place] [address] Catalan, Non Stress Tests Ab [address] [place] [address] 02/05/2024 2:30 PM EDT Office Visit Gynecology/Obstetrics [facility] [address] [place] [address] Treva Caro MD [address] [facility] [address] Catalan, Non Stress Tests Ab [address] [place] [address] 02/12/2024 1:45 PM EDT Office Visit Gynecology/Obstetrics [facility] [address] [place] [address] Brandy Morales CRNP [address] [place] [address] Catalan, Non Stress Tests Ab [address] [place] [address] 02/19/2024 1:45 PM EDT Office Visit Gynecology/Obstetrics [facility] [address] [place] [address] Brandy Morales CRNP [address] [place] [address] Catalan, Non Stress Tests Ab [address] [place] [address] 02/23/2024 9:00 AM EDT Office Visit Gynecology/Obstetrics [facility] [address] [place] [address] Lisy Lobo DNP, CNM [address] [facility] [address] Catalan, Non Stress Tests Ab [address] [place] [address] Scheduled Orders Name Type Priority Associated Diagnoses [...] high-risk documented in this encounter Care Teams Director Of Safety And Security Relationship Specialty Start Date End Date GinoOctober ANNA Sims [address] [place], [place] [address] PCP - General Physician Spin Instructor 12/08/20 documented as of this encounter
--- OUTSIDE RECORDS SUMMARY | 2024-02-17 18:08 | External Medical Summary ---
Author Name Unknown Address Unknown Organization K0G:LAB[facility]ATORY [facility] [address] [place] [address] Laboratory Report Ordering Provider Test Date Status DAVION SINGH 12/04/2023 10:08:37 Final Observation Date Value Abnormality Reference (Units ) Status Glucose [Mass/volume] in Serum or Plasma --1 hour post dose glucose 12/04/2023 10:08:37 153 70-179 (mg/dL) Final Performing Location [facility] 57-1 0 - [address] [place] [address]
--- OUTSIDE RECORDS SUMMARY | 2024-02-17 18:08 | External Medical Summary ---
Author Name Unknown Address Unknown Organization K0G:[facility] [place] 57-[address] - [address] [place] [address] Laboratory Report Ordering Provider Test Date Status DAVION SINGH 12/04/2023 12:07:44 Final Observation Date Value Abnormality Reference (Units ) Status Glucose [Mass/volume] in Serum or Plasma --3 hours post dose glucose 12/04/2023 12:07:44 112 70-139 (mg/dL) Final Performing Location [facility] [place] 57-1 0 - [address] [place] [address]
--- OUTSIDE RECORDS SUMMARY | 2024-02-17 18:08 | External Medical Summary | Summary of Care ---
Author Name Unknown Organization [facility] Address [address] [facility] [place] [address] Phone [phone] Care Team Providers Care Ophthalmologist Name Role Phone Gino Thelma Sims PA-C Primary Care Provider [phone] Reason for Visit * Reason Comments Return Visit Encounter Details Date Type Department Care Team (Late st Contact Info) Description 11/11/2023 1:30 PM EDT Office Visit Gynecology/Obstetric s Latoya Catalan [address] [place] [address] Haley Vaca CRNP [address] [place] [address] Supervision of high risk in second trimester*; MTHFR mutation; History of placental abruption; History of IUFD; Hx of preeclampsia, prior , currently , unspecified trimester; Impaired glucose in , antepartum; Antepartum anemia; Vaginal discharge Allergies Active Allergy Reactions Criticality Noted Date Comments Prednisone 04/23/2021 Increased anxiety documented as of this encounter (statuses as of 11/11/2023) Medications Medication Sig Dispensed Refills Start Date End Date Status 6.75-0.2 MG Oral Tablet Take by mouth. 0 Active Aspirin 81 MG Oral Tablet ChewableIndications:H x of preeclampsia, prior , currently , unspecified trimester Take 1 Tablet by mouth in the morning. 100 Tablet 3 08/04/2023 Active Vitron-C 65-125 MG Oral Tablet (Iron-Vitamin C 65-125 mg per tab) Take 1 Tablet by mouth in the morning. 90 Tablet 1 10/20/2023 Active documented as of this encounter (statuses as of 11/11/2023) Active Problems Problem Noted Date Diagnosed Date Impaired glucose in , antepartum 2023 Overview: [...] (lupus anticoagulant, anti-cardiolipin IgG and IGM and [id number]) for those patients who delivered prior to [...] IUFD 10/18/2021 Overview: Per scanned notes from [facility] 2013: Vaginal bleeding at [...] is appropriate for gestational age in the 87th percentile. The visualized anatomy is unremarkable in appearance. The MICHELLE is normal. 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 This result is not associated with a significantly increased risk for coronary artery disease, venous thromboembolism, or adverse outcome. 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 Patient denies any questions or concerns. Problem [...] son at 8 mth preg in 2013 [facility]--was told has clotting disorder, ?MTHFR -testing by INSTRUMENTATION FITTER in [facility]-obtain records. Closed head injury with concussion 04/10/2016 05/19/2018 documented as of this encounter (statuses as of 11/11/2023) Immunizations Name Administration Dates Next Due HPV Vaccine, 9-Valent 05/27/2019 Seasonal Influenza, PF, 6 M & above, IM , (FluLaval or Fluzone) 03/07/2022,04/07/2020,04/22/2019 TDAP (age 10 and older)(Boostrix) 03/21/2022,07/2016 TDAP (age 11 and older)(Adacel) 01/04/2017 documented as of this encounter Social [...] money to get more. Never true 07/23/2023 [place] Depression Scale Answer Date Recorded [place] Depression Scale Total 10 07/23/2023 The thought [...] Sign Reading Time Taken Comments Blood Pressure 110/66 11/11/2023 1:25 PM EDT Pulse - - Temperature - - Respiratory Rate - - Oxygen Saturation - - Inhaled Oxygen Concentration - - Weight 75.8 kg (167 lb) 11/11/2023 1:25 PM EDT Height - - Body Mass Index 28.67 09/29/2023 2:02 PM EDT documented in this encounter Progress Notes * Haley Vaca CRNP - 11/11/2023 1:33 PM EDT 25w0d Tearful today, having problems with FOB. Denies concern for safety, he is not threatening or hurting her. Emotional support provided. Encouraged to reach out if needed. + movement. No ctx/bleeding. Follows with MFM. Reports change in vaginal discharge, +odor. No itching/burning. Requests testing for yeast/BV. On exam, moderate white discharge, normal pH. Vaginosis panel sent, follow up on result. Start biweekly NSTs at 28 weeks; will be due for labs, including 3hr GTT. Aware to fast prior. Discussed option of weekly BPP if transportation problems preclude her from coming to the office twice a week. She will let us know if this is the case. Shoe Fitter Documentation Provider requested senior svp. Name of senior svp: ANNA Reyes documented in this encounter Nursing Notes * Vianca Obregon LPN - 11/11/2023 1:23 PM EDT 25w0d Denies vaginal bleeding/rom + movement Requesting BV testing- change in discharge, odor documented in this encounter Plan of Treatment Upcoming Encounters Date Type Department Care Team (Late st Contact Info) Description 11/27/2023 1:45 PM EDT Office Visit Immigration Patrol Inspector Obstetrics Maternal Medicine, [address] [address] Pedro German, [address] [address] 11/27/2023 1:45 PM EDT Imaging Radiology [address] [address] 12/25/2023 1:45 PM EDT Office Visit Immigration Patrol Inspector Obstetrics Maternal Medicine, [address] [address] Pedro German, [address] [address] 12/25/2023 1:45 PM EDT Imaging Radiology [address] [place] [address] 01/22/2024 1:45 PM EDT Office Visit Immigration Patrol Inspector Obstetrics Maternal Medicine, [place] [address] [place] [address] Pedro German, [address] [place] [address] 01/22/2024 1:45 PM EDT Imaging [facility], [place] [address] [place] [address] Pending Results Name Type Priority Associated Diagnoses Date /Time VAGINOSIS PANEL, PCR Lab Routine Vaginal discharge 11/11/2023 1:49 PM EDT Scheduled Orders Name Type Priority Associated Diagnoses Orde r Schedule SYPHILIS ANTIBODY SCREEN WITH REFLEX TO RPR Lab Routine Supervision of high risk in second trimester Expected: 11/11/2023, Expires: 11/10/2024 Health Maintenance Due Date Last Done Comments [...] Diagnoses Diagnosis Supervision of high risk in second trimester- Primary Unspecified high-risk 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
--- OUTSIDE RECORDS SUMMARY | 2024-02-17 18:08 | External Medical Summary | Summary of Care ---
Author Name Unknown Organization [facility] Address [address] [facility] [place] [address] Phone [phone] Care Team Providers Care Director Mobile Media Solutions Name Role Phone GinoThelma ANNA Primary Care Provider [phone] Encounter Details Date Type Department Care Team (Late st Contact Info) Description 10/20/2023 Telephone Gynecology/Obstetrics [facility] 132 [facility] [place] [address] Sandhya Saxena, PAMELA [address] [facility] [place] [address] Allergies Active Allergy Reactions Criticality Noted Date Comments Prednisone 04/23/2021 Increased anxiety documented as of this encounter (statuses as of 10/28/2023) Medications Medication Sig Dispensed Refills Start Date [...] as of this encounter (statuses as of 10/28/2023) Active Problems Problem Noted Date Diagnosed Date Impaired glucose in , antepartum 2023 Overview: Failed early 1 hr GTT Antepartum anemia 10/20/2023 Overview: Hgb 11.6 at 21 weeks. Repeat CBC in 4 weeks. Rx for Vitron C daily. Supervision of high risk in first trim mian 07/23/2023 Recurrent major depressive disorder 11/20/2022 COVID-19 [...] (lupus anticoagulant, anti-cardiolipin IgG and IGM and ecps-9-vbbbmdxwjmlq) for those patients who delivered prior to 34 weeks secondary to pre-eclampsia or HELLP. Family history of blood clots 11/15/2021 Overview: Patient adopted; family history unclear. However, she thinks that her parents may have had a clotting disorder. Last Assessment & Plan: Negative inherited thrombophilia panel. with 10 completed weeks gestation 10/05 History of placental abruption 10/18/2021 Overview: 2013: [...] up completed: negative Last Assessment & Plan: The anatomy that was visualized is appropriate for the gestational age. MTHFR mutation 04/05/2019 Overview: April 2019: This individual is homozygous for the [id number] variant and negative (normal) for the C677T variant in the MTHFR gene. This result is not associated with a significantly increased risk for coronary artery disease, venous thromboembolism, or adverse outcome. 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 Patient denies any questions or concerns. [...] 11/16/1907/23/2023 Overview: Denies suicidal or homicidal ideation. Anxiety during 10/18/2021 Overview: Reports increased anxiety [...] told has clotting disorder, ?MTHFR -testing by DIRECTOR VALIDATION in [facility]-obtain records. Closed head injury with concussion 04/10/2016 05/19/2018 documented as of this encounter (statuses as of 10/28/2023) Immunizations Name Administration Dates Next Due HPV [...] money to get more. Never true 07/23/2023 [place] Depression Scale Answer Date Recorded [place] Depression Scale Total 10 07/23/2023 The thought [...] Telephone Encounter - Tamiko Mejia RN - 10/28/2023 8:17 AM EDT left message for patient to call office * Telephone Encounter - Sandhya Saxena CNM - 10/27/2023 4:55 PM EDT She may get OTC Vitron C or take iron 65mg daily with vitamin C 250mg daily. I also recommend the M-DAQ miguelangel for financial help with prescriptions. Agree that she needs to avoid any face wash that iseven slightly concerning in . Thanks! Sandhya Saxena CNM * Telephone Encounter - Radha Prince LPN - 10/27/2023 4:27 PM EDT Vitron C was denied. What would you recommend for replacement. * Telephone Encounter - Tamiko Mejia RN - 10/20/2023 12:23 PM EDT Pt is aware. Pt asked again if she should use her face wash. I again read Sandhya's message to her andadvised that if there is any concern, she should avoid. Pt is aware. * Telephone Encounter - Radha Prince LPN - 10/20/2023 11:56 AM EDT ----- Message from Sandhya Saxena CNM sent at 10/20/2023 11:14 AM EDT ----- Please let patient know she is anemic. I have sent an Rx for Vitron C once daily. She should take this at least 2 hours apart from PNV, calcium, and dairy. We will repeat her CBC in 1 month. She may take Colace 100mg PO BID prn constipation. Her TSH, folic acid, B12, and creatinine were normal. Thanks! Sandhya Saxena CNM documented in this encounter Plan of Treatment Upcoming Encounters Date Type Department Care Team (Late st Contact Info) Description 10/30/2023 1:45 PM EDT Office Visit Deep Well Contractor Obstetrics Maternal Medicine, [place] [address] [place] [address] Pedro German, [address] [place] [address] 10/30/2023 1:45 PM EDT Imaging Radiology [facility] [address] [place] [address] 11/11/2023 1:30 PM EDT Office Visit Gynecology/Obstetrics [facility] [address] [place] [address] Haley Vaca CRNP [address] [place] [address] 11/27/2023 1:45 PM EDT Office Visit Deep Well Contractor Obstetrics Maternal Medicine, [place] [address] [place] [address] Pedro German, [address] [place] [address] 11/27/2023 1:45 PM EDT Imaging Radiology [place] [address] [place] [address] 12/25/2023 1:45 PM EDT Office Visit Deep Well Contractor Obstetrics Maternal Medicine, [place] [address] [place] [address] Pedro German, [address] [place] [address] 12/25/2023 1:45 PM EDT Imaging Radiology [place] [address] [place] [address] 01/22/2024 1:45 PM EDT Office Visit Deep Well Contractor Obstetrics Maternal Medicine, [place] [address] [place] [address] Pedro German, [address] [place] [address] 01/22/2024 1:45 PM EDT Imaging Radiology [place] [address] [place] [address] Health Maintenance Due Date Last Done Comments [...] filedocumented as of this encounter Care Teams Director Mobile Media Solutions Relationship Specialty Start Date End Date Reannaoctober Bethany, ANDREIC [facility] [place] [address] PCP - General Physician Service Station Console Operator 12/08/20 documented as of this encounter
--- OUTSIDE RECORDS SUMMARY | 2024-02-17 18:08 | External Medical Summary | Summary of Care ---
Author Name Unknown Organization [facility] Address [address] [place] [address] Phone [phone] Care Team Providers Care Drywall Metal Stud Worker Name Role Phone Gino Thelma Sims PA-C Primary Care Provider Reason for Visit * Reason Comments Ultrasound Encounter Details Date Type Department Care Team (Late st Contact Info) Description 10/30/2023 1:45 PM EDT Office Visit Marketing Analytics Lead Obstetrics Maternal Medicine, [place] [address] [place], [place] [id number] Pedro German, DO [address] [place], [place] [id number] History of IUFD*; History of placental abruption; Hx of preeclampsia, prior , currently , unspecified trimester Allergies Active Allergy Reactions Criticality Noted Date Comments Prednisone 04/23/2021 Increased anxiety documented as of this encounter (statuses as of 10/30/2023) Medications Medication Sig Dispensed Refills Start Date [...] as of this encounter (statuses as of 10/30/2023) Active Problems Problem Noted Date Diagnosed Date [...] (lupus anticoagulant, anti-cardiolipin IgG and IGM and tjjd-8-jywrfsdsrucz) for those patients who delivered prior to 34 weeks secondary to pre-eclampsia or HELLP. Family history of blood clots 11/15/2021 Overview: Patient adopted; family history unclear. However, she thinks that her parents may have had a clotting disorder. Last Assessment & Plan: Negative inherited thrombophilia panel. with 10 completed weeks gestation 10/05 History of placental abruption 10/18/2021 Overview: 2014: [...] Per scanned notes from [facility] 2013: Vaginal bleeding at 29+ weeks, noted [...] 2019: This individual is homozygous for the [id number] variant and negative (normal) for the C677T variant in the MTHFR gene. This result is not associated with a significantly increased risk for coronary artery disease, venous thromboembolism, or adverse outcome. 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 Patient denies any questions or concerns. Problem [...] [place] at 8 mth preg [place] [facility]was told has clotting disorder, ?MTHFR -testing by MEDIA LIBRARIAN in [facility]-obtain records. Closed head injury with concussion 04/10/2016 05/19/2018 documented as of this encounter (statuses as of 10/30/2023) Immunizations Name Administration Dates Next Due HPV [...] money to get more. Never true 07/23/2023 [place] Depression Scale Answer Date Recorded [place] Depression Scale Total 10 07/23/2023 The thought [...] this encounter Progress Notes * Pedro German, - 10/30/2023 5:23 PM EDT MATERNAL MEDICINE VISIT Kanika Louise presented today at 23w2d to [facility] for an ultrasound. She is being [...] about today's ultrasound examination. RECOMMENDATIONS: Recommend surveillance starting at 28 weeks secondary to history of demise. Recommend follow up ultrasound with MFM in 4 weeks for growth. Thank you for allowing us to participate in the care of this patient. Please call with any questions. Pedro German DO 10/30/2023 5:23 PM documented in this encounter Miscellaneous Notes * Assessment & Plan Note - Pedro German DO - 10/30/2023 5:23 PM EDT Associated Problem(s): History of IUFD [...] Description 11/11/2023 1:30 PM EDT Office Visit Gynecology/Obstetrics [facility] [address] [facility] [address] BackerHaley CRNP [address] [facility] [address] 11/27/2023 1:45 PM EDT Office Visit Marketing Analytics Lead Obstetrics Maternal Medicine, [address] [address] Pedro German DO [address] [place] [address] 11/27/2023 1:45 PM EDT Imaging Radiology [facility], [place] [address] [place] [address] 12/25/2023 1:45 PM EDT Office Visit Marketing Analytics Lead Obstetrics Maternal Medicine, [place] [address] [place] [address] Pedro German, [address] [place] [address] 12/25/2023 1:45 PM EDT Imaging Radiology [facility] [address] [place] [address] 01/22/2024 1:45 PM EDT Office Visit Marketing Analytics Lead Obstetrics Maternal Medicine, [place] [address] [place] [address] Pedro German, [address] [place] [address] 01/22/2024 1:45 PM EDT Imaging Radiology [place] [address] [place] [address] Health Maintenance Due Date Last Done Comments [...] of IUFD- Primary History of placental abruption Hx of preeclampsia, prior , currently , unspecified trimester documented in this encounter Care Teams Drywall Metal Stud Worker Relationship Specialty Start Date End Date Gino October ANNA Sims [address] [place] [address] PCP - General Physician Manager Telecom 12/08/20 documented as of this encounter
--- OUTSIDE RECORDS SUMMARY | 2024-02-17 18:08 | External Medical Summary | Summary of Care ---
Author Name Unknown Organization [facility] Address [address] [facility] [place] [address] Phone [phone] Care Team Providers Care Vocational School Teacher Name Role Phone Gino Thelma Bethany ANNA Primary Care Provider [phone] Encounter Details Date Type Department Care Team (Late st Contact Info) Description 10/29/2023 Telephone Gynecology/Obstetrics [facility] 132 [facility] [place] [address] Sandhya Saxena, PAMELA [address] [facility] [place] [address] Allergies Active Allergy Reactions Criticality Noted Date Comments Prednisone 04/23/2021 Increased anxiety documented as of this encounter (statuses as of 10/29/2023) Medications Medication Sig Dispensed Refills Start Date [...] as of this encounter (statuses as of 10/29/2023) Active Problems Problem Noted Date Diagnosed Date [...] (lupus anticoagulant, anti-cardiolipin IgG and IGM and gozo-3-imsvddwjgjld) for those patients who delivered prior to [...] IUFD 10/18/2021 Overview: Per scanned notes from [facility] 2013: Vaginal bleeding at 29+ weeks, noted to have demise. Vaginal delivery at 30 wks. Placenta examination consistent w/abruption. November 2021: APS and thrombophilia work up completed: negative Last Assessment & Plan: The anatomy that was visualized is appropriate for the gestational age. MTHFR mutation 04/05/2019 Overview: April 2019: This individual is homozygous for the [id number] variant and negative (normal) for the C677T variant in the MTHFR gene. This result is not associated with a significantly increased risk for coronary artery disease, venous thromboembolism, or adverse outcome. 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 Patient denies any questions or concerns. [...] told has clotting disorder, ?MTHFR -testing by FLANGING MACHINE OPERATOR in [facility]-obtain records. Closed head injury with concussion 04/10/2016 05/19/2018 documented as of this encounter (statuses as of 10/29/2023) Immunizations Name Administration Dates Next Due HPV [...] money to get more. Never true 07/23/2023 [place] Depression Scale Answer Date Recorded [place] Depression Scale Total 10 07/23/2023 The thought [...] Telephone Encounter - Tamiko Mejia RN - 10/29/2023 11:14 AM EDT See other encounter. * Telephone Encounter - Lora Fagan LPN - 10/29/2023 10:50 AM EDT Received denial for pt's Vitron- C prescription. Please review. Ab stone. Lora Fagan LPN 10/29/2023 10:51 AM * Telephone Encounter - Lora Fagan LPN - 10/29/2023 10:50 AM EDT Type Date User Summary Attachment Precert 10/27/2023 8:17 AM Catherine Ludwig OSA Denied completely because: The requested drug ismade by a company who is not in the Medicaid Drug Rebate Program. These drugs are not a covered benefit. - Note: Denied completely because: The requested drug is made by a company who is not in the Medicaid Drug Rebate Program. These drugs are not a covered benefit. New or re-auth: new Approved/Denied: NON COVERED Drug Name and Formulation: Vitron-C 65-125 MG Oral Tablet (Iron-Vitamin C 65-125 mg per tab) How Prescribed(directions/sig):Take 1 Tablet by mouth in the morning. - Oral Day Supply: 90 FOR 90 Did you receive insurance information from outside the chart? Valid auth start date: Valid auth end date: Rx Insurance Info: [facility] Rx Benefits Verified through/on date: RTE Referral (TE) received from: office Bria Ludwig Medication Special Diet Cook . Type Date User Summary Attachment Precert 10/24/2023 1:29 PM Catherine Ludwig OSA Submission Information: Medication: Vitron-C 65-125 MG Oral Tablet (Iron-Vitamin C 65-125 mg per tab) Portal used: [facility] Insurance: [facility] Authorization #/Loving: [id number]) - Note: Submission Information: Medication: Vitron-C 65-125 MG Oral Tablet (Iron-Vitamin C 65-125 mg per tab) Portal used: [facility] Insurance: [facility] Authorization #/Loving: [id number]) documented in this encounter Plan of Treatment Upcoming Encounters Date Type Department Care Team (Late st Contact Info) Description 10/30/2023 1:45 PM EDT Office Visit Soap Press Feeder Obstetrics Maternal Medicine, [place] [address] [place] [address] Pedro German DO [address] [place] [address] 10/30/2023 1:45 PM EDT [facility] [address] [place] [address] 11/11/2023 1:30 PM EDT Office Visit Gynecology/Obstetrics [facility] [address] [place] [address] Haley Vaca CRNP [address] [place] [address] 11/27/2023 1:45 PM EDT Office Visit Soap Press Feeder Obstetrics Maternal Medicine, [address] [address] Pedro German, [address] [place] [address] 11/27/2023 1:45 PM EDT Imaging Radiology [place] [address] [place] [address] 12/25/2023 1:45 PM EDT Office Visit Soap Press Feeder Obstetrics Maternal Medicine, [place] [address] [place] [address] Pedro German, [address] [place] [address] 12/25/2023 1:45 PM EDT Imaging Radiology [place] [address] [place] [address] 01/22/2024 1:45 PM EDT Office Visit Soap Press Feeder Obstetrics Maternal Medicine, [place] [address] [place] [address] Pedro German, [address] [place] [address] 01/22/2024 1:45 PM EDT Imaging Radiology [place] [address] [place] [address] Health Maintenance Due Date Last Done Comments Hepatitis B (1 of 3 - 19+ 3-dose series) 2012 GARDASIL-HPV IMMUNIZATION SERIES (2 - 3-dose series) 06/24/2019 05/27/2019 COVID-19 Vaccine ( - 2022-2 4 season) 2023 03/23/2021, 03/02/2021 [...] filedocumented as of this encounter Care Teams Vocational School Teacher Relationship Specialty Start Date End Date Gino Thelma ANNA Sims [facility] [place] [address] PCP - General Physician Plant Machinist 12/08/20 documented as of this encounter
--- OUTSIDE RECORDS SUMMARY | 2024-02-17 18:08 | External Medical Summary | Summary of Care ---
Author Name Unknown Organization [facility] Address [address] [place] [address] Phone [phone] Care Team Providers Care Corrective Therapy Aide Teacher Name Role Phone Thelma Christian PA-C Primary Care Provider [phone] Reason for Visit * Reason Comments Return Visit Non Stress Test Encounter Details Date Type Department Care Team (Late st Contact Info) Description 12/04/2023 1:45 PM EDT Office Visit Gynecology/Obstetric s Latoya Catalan [address] [place] [address] Haley Vaca CRNP [address] [place] [address] Hossein Non Stress Tests Ab [address] [facility] [place] [address] Supervision of high risk in third trimester*; MTHFR mutation; History of placental abruption; History of IUFD; Hx of preeclampsia, prior , currently , unspecified trimester; Impaired glucose in , antepartum; Antepartum anemia; Pyelectasis of fetus on ultrasound; Need for prophylactic vaccination with combined ciyylqxksw-podjhml-me rtussis (DTP) vaccine Allergies Active Allergy Reactions Criticality Noted Date [...] 32-36 weeks gestation. We recommend alerting the admissions representative providing care of this finding. 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 Patient denies any questions or concerns. Problem [...] son at 8 mth preg in 2013 [facility] [place]was told has clotting disorder, ?MTHFR -testing by INTERPRETER TRANSLATOR in [facility]-obtain records. Closed head [...] money to get more. Never true 07/23/2023 [place] Depression Scale Answer Date Recorded [place] Depression Scale Total 10 07/23/2023 The thought [...] Sign Reading Time Taken Comments Blood Pressure 102/60 12/04/2023 1:49 PM EDT Pulse - - Temperature - - Respiratory Rate - - Oxygen Saturation - - Inhaled Oxygen Concentration - - Weight 76.2 kg (168 lb) 12/04/2023 1:49 PM EDT Height - - Body Mass Index 28.84 09/29/2023 2:02 PM EDT documented in this encounter Progress Notes * Haley Vaca CRNP - 12/04/2023 1:09 PM EDT 28w2d Seeing [facility] for growth scans. Doing well, no ctx/leaking/bleeding. Baby moving well. Reviewed [facility] and when to call. Accepts Tdap today. Completed labs, passed 3 hr glucose testing. Discussed safe exercise. Continue twice weekly NSTs, MINDI in 2 weeks. ANNA Rhodes ASSESSMENT assessment with Non-stress Test completed on 12/04/2023 at 28.2 weeks gestation for indicationof prior IUFD heart baseline: 130 bpm Variability: Moderate Decelerations: absent Accelerations: present Contractions: None NST start time: 1310 NST stop time: 1336 NST strip reviewed, interpreted, and approved by OB provider, ANNA Rhodes . NST strip stored in clinic storage file documented in this encounter Nursing Notes * Vianca Obregon LPN - 12/04/2023 1:50 PM EDT Patient here for tdap injection. Patient doing well no complaints. Injection given IM as ordered. Patient tolerated well. Patient to follow up as directed. Patient instructed to call if any complications. Patient verbalized understanding of instructions given. Injection site: Right Deltoid Medication Source: Dispensed stock medication documented in this encounter Plan of Treatment Upcoming Encounters Date Type Department Care Team (Late st Contact Info) Description 12/25/2023 1:45 PM EDT Office Visit Keying Machine Operator Obstetrics Maternal Medicine, [address] [address] Pedro German, [facility] [address] 12/25/2023 1:45 PM EDT Imaging Radiology [address] [address] 01/22/2024 1:45 PM EDT Office Visit Keying Machine Operator Obstetrics Maternal Medicine, [place] [address] [place] [address] Pedro German, [address] [place] [address] 01/22/2024 1:45 PM EDT Imaging Radiology [address] [id number] Health Maintenance Due Date Last Done Comments [...] fetus on ultrasound Abnormal findings on screening Need for prophylactic vaccination with combined nijphevcdu-iuohvql-qcrhmsucl (DTP) vaccine documented in this encounter Care Teams Corrective Therapy Aide Teacher Relationship Specialty Start Date End Date GinoOctober ANNA Sims [address] [place] [address] PCP - General Physician Research Environmental Engineer 12/08/20 documented as of this encounter
--- OUTSIDE RECORDS SUMMARY | 2024-02-17 18:08 | External Medical Summary ---
Author Name Unknown Address Unknown Organization K01:[facility] [place] [address] [facility] [address] Laboratory Report Ordering Provider Test Date Status DAVION SINGH 12/04/2023 12:07:44 Final Observation Date Value Abnormality Reference (Units ) Status Treponema pallidum Ab [Presence] in Serum by Immunoassay 12/04/2023 12:07:44 Nonreactive Nonreactive Final No serologic evidence of syp hilis. No additional testing clinicially indicated at this time. Consider repeat testing in 2-4 weeks if acute or primary syphilis is suspected. Performing Location [facility] [address] [place] [address]
--- OUTSIDE RECORDS SUMMARY | 2024-02-17 18:08 | External Medical Summary | Summary of Care ---
Author Name Unknown Organization [facility] Address [address] [facility] [place] [address] Phone [phone] Care Team Providers Care Annealing Oven Operator Name Role Phone Gino Thelma Sims PA-C Primary Care Provider [phone] Reason for Visit * Reason Comments Return Visit Encounter Details Date Type Department Care Team (Late st Contact Info) Description 11/11/2023 1:30 PM EDT Office Visit Gynecology/Obstetric s Latoya Catalan [address] [place] [address] Haley Vaca CRNP [address] [place] [address] Supervision of high risk in second trimester*; [...] (lupus anticoagulant, anti-cardiolipin IgG and IGM and [id number]-[id number]) for those patients who delivered prior to [...] 2019: 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 This result is not associated with a significantly increased risk for coronary artery disease, venous thromboembolism, or adverse outcome. Last Assessment & Plan: Reviewed the [place] [employer] ACOG Practice [...] counseling 12/10/2021 07/23/2023 Overview: Patient seen by [facility] Supervisor Lime. Patient denies any questions or concerns. Problem [...] son at 8 mth preg in 2013 [facility]--was told has clotting disorder, ?MTHFR -testing by SCREEN TENDER in [facility]-obtain records. Closed head injury with [...] money to get more. Never true 07/23/2023 [place] Depression Scale Answer Date Recorded [place] Depression Scale Total 10 07/23/2023 The thought [...] us know if this is the case. Spine Specialist Documentation Provider requested brand engineer. Name of brand engineer: ANNA Reyes documented in this encounter Nursing Notes * Vianca Obregon LPN - 11/11/2023 1:23 PM EDT 25w0d Denies vaginal bleeding/rom + movement Requesting BV testing- change in discharge, odor documented in this encounter Plan of Treatment Upcoming Encounters Date Type Department Care Team (Late st Contact Info) Description 11/27/2023 1:45 PM EDT Office Visit Florist Supplies Salesperson Obstetrics Maternal Medicine, [place] [address] [place] [address] Pedro German DO [address] [place] [address] 11/27/2023 1:45 PM EDT Imaging Radiology [facility] [place] [address] [place] [address] 12/04/2023 9:00 AM EDT [facility] [address] [facility] [place] [id number] CatalanMaria Fernanda pepper [address] [facility] [place] [address] 12/04/2023 1:45 PM EDT Office Visit Gynecology/Obstetrics Latoya Catalan [address] [place] [address] RubenserHaley CRNP [address] [facility] [place] [address] Hossein, Nirali Stress Tests Ab [address] [place] [facility] [place] [address] 12/25/2023 1:45 PM EDT Office Visit Florist Supplies Salesperson Obstetrics Maternal Medicine, [place] [address] [place] [address] Pedro German, DO [address] [place] [address] 12/25/2023 1:45 PM EDT Imaging Radiology [place] [address] [place] [address] 01/22/2024 1:45 PM EDT Office Visit Florist Supplies Salesperson Obstetrics Maternal Medicine, [place] [address] [place] [address] Pedro German, [address] [place] [address] 01/22/2024 1:45 PM EDT Imaging Radiology [place] [address] [place] [address] Pending Results Name Type Priority Associated Diagnoses [...] infective documented in this encounter Care Teams Annealing Oven Operator Relationship Specialty Start Date End Date Reannaoctober ANNA Sims [address] [place] [address] PCP - General Physician Double Corner Cutter 12/08/20 documented as of this encounter
--- OUTSIDE RECORDS SUMMARY | 2024-02-17 18:08 | External Medical Summary ---
Author Name Unknown Address Unknown Organization [facility] [address] [place] [address] Laboratory Report Ordering Provider Test Date Status DAVION SINGH 12/04/2023 09:06:51 Final Based on ACOG guideline, ges tational diabetes mellitus is diagnosed when any of the following is met:
Fasting is greater than or equal to 95 mg/dL
1 hour is greater than or equal to 180 mg/dL
2 hour is greater than or equal to 155 mg/dL
3 hour is greater than or equal to 140 mg/dL Observation Date Value Abnormality Reference (Units ) Status Glucose, fasting 12/04/2023 09:06:51 77 70- 94 (mg/dL) Final Performing Location [facility] - [address] [place] [address]
--- OUTSIDE RECORDS SUMMARY | 2024-02-17 18:08 | External Medical Summary | Summary of Care ---
Author Name Unknown Organization [facility] Address [address] [place] [address] Phone [phone] Care Team Providers Care Corporate Law Specialist Name Role Phone Gino Thelma Sims PA-C Primary Care Provider [phone] Encounter Details Date Type Department Care Team (Late st Contact Info) Description 11/27/2023 1:45 PM EDT Office Visit Grain Picker Obstetrics Maternal Medicine, [place] [address] [place], [place] [id number] Pedro German, [address] [place] [address] Hx of preeclampsia, prior , currently , unspecified trimester*; History of placental abruption; History of IUFD; Pyelectasis of fetus on ultrasound Allergies Active Allergy Reactions Criticality Noted Date Comments Prednisone 04/23/2021 Increased anxiety documented as of this encounter (statuses as of 11/27/2023) Medications Medication Sig Dispensed Refills Start Date [...] as of this encounter (statuses as of 11/27/2023) Active Problems Problem Noted Date Diagnosed Date [...] 32-36 weeks gestation. We recommend alerting the collar turner providing care of this finding. 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 Patient denies any questions or concerns. Problem [...] told has clotting disorder, ?MTHFR -testing by SALES DEVELOPMENT CONSULTANT in [facility]-obtain records. Closed head injury with concussion 04/10/2016 05/19/2018 documented as of this encounter (statuses as of 11/27/2023) Immunizations Name Administration Dates Next Due HPV [...] money to get more. Never true 07/23/2023 [place] Depression Scale Answer Date Recorded [place] Depression Scale Total 10 07/23/2023 The thought [...] encounter Progress Notes * Pedro German, - 11/27/2023 1:55 PM EDT MATERNAL MEDICINE VISIT Kanika Louise is at 27w2d who presents to [facility] for an ultrasound and follow-up of her high risk . PHYSICAL EXAM: General: pleasant, alert and oriented, no acute distress She is being seen today by Maternal- Medicine for the following reasons: Problem List Items Addressed This Visit History of placental abruption History of IUFD She presents for follow-up [...] prior , currently , unspecified trimester - Primary Pyelectasis of fetus on ultrasound CONSIDERATIONS: urinary tract dilation is found in [...] 32-36 weeks gestation. We recommend alerting the collar turner providing care of this finding. We reviewed today's ultrasound findings. (For full report, please refer to ultrasound report provided separately). Ms. Louise's questions were answered to her satisfaction. RECOMMENDATIONS: Recommend surveillance starting at 28 weeks secondary to history of demise. Recommend follow up ultrasound with [facility] in 4 weeks for growth. Thank you for allowing us to participate in the care of this patient. Please call with any questions. Pedro German DO 11/27/2023 1:55 PM documented in this encounter Miscellaneous Notes * Assessment & Plan Note - Pedro German DO - 11/27/2023 1:55 PM EDT Associated Problem(s): Pyelectasis of fetus on ultrasound CONSIDERATIONS: urinary tract dilation is found in [...] 32-36 weeks gestation. We recommend alerting the collar turner providing care of this finding. * Assessment & Plan Note - Pedro German DO - 11/27/2023 1:53 PM EDT Associated Problem(s): History of IUFD [...] Description 12/04/2023 9:00 AM EDT [facility] [address] [place] [phone] Maria Fernanda Catalan [address] [place] [address] 12/04/2023 1:45 PM EDT Office Visit Gynecology/Obstetrics Latoya Catalan [address] [place] [address] BackerHaley CRNP [address] [place] [address] Catalan, Nirali Stress Tests Ab [address] [place] [address] 12/25/2023 1:45 PM EDT Office Visit Grain Picker Obstetrics Maternal Medicine, [address] [address] Pedro German, [address] [place] [address] 12/25/2023 1:45 PM EDT Imaging Radiology [place] [address] [place] [address] 01/22/2024 1:45 PM EDT Office Visit Grain Picker Obstetrics Maternal Medicine, [place] [address] [place] [address] Pedro German, [address] [place] [address] 01/22/2024 1:45 PM EDT Imaging Radiology [place] [address] [place] [address] Health Maintenance Due Date Last Done Comments [...] as of this encounter Visit Diagnoses Diagnosis Hx of preeclampsia, prior , currently , unspecified trimester- Primary History of placental abruption History of IUFD Pyelectasis of fetus on ultrasound Abnormal findings on screening documented in this encounter Care Teams Corporate Law Specialist Relationship Specialty Start Date End Date Gino October [place], [place] [address] [address] [place] [address] PCP - General Physician Commercial Credit Reviewer 12/08/20 documented as of this encounter
--- OUTSIDE RECORDS SUMMARY | 2024-02-17 18:08 | External Medical Summary | Summary of Care ---
Author Name Unknown Organization [facility] Address [address] [facility] [place] [address] Phone [phone] Care Team Providers Care Artificial Log Machine Operator Name Role Phone GinoThelma ANNA Primary Care Provider [phone] Encounter Details Date Type Department Care Team (Late st Contact Info) Description 10/20/2023 Telephone Gynecology/Obstetrics [facility] [address] [facility] [place] [address] Sandhya Saxena, PAMELA [address] [facility] [place] [address] Allergies Active Allergy Reactions Criticality Noted Date Comments Prednisone 04/23/2021 Increased anxiety documented as of this encounter (statuses as of 10/27/2023) Medications Medication Sig Dispensed Refills Start Date [...] as of this encounter (statuses as of 10/27/2023) Active Problems Problem Noted Date Diagnosed Date [...] (lupus anticoagulant, anti-cardiolipin IgG and IGM and xwva-3-nllucctngvpq) for those patients who delivered prior to [...] 10/18/2021 Overview: Per scanned notes from [facility] 2013: Vaginal bleeding at 29+ weeks, noted to have demise. Vaginal delivery at 30 wks. Placenta examination consistent w/abruption. November 2021: APS and thrombophilia work up completed: negative Last Assessment & Plan: The anatomy that was visualized is appropriate for the gestational age. 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 This result is not associated with a significantly increased risk for coronary artery disease, venous thromboembolism, or adverse outcome. 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 Patient denies any questions or concerns. [...] told has clotting disorder, ?MTHFR -testing by HEDIS NURSE in [facility]-obtain records. Closed head injury with concussion 04/10/2016 05/19/2018 documented as of this encounter (statuses as of 10/27/2023) Immunizations Name Administration Dates Next Due HPV [...] money to get more. Never true 07/23/2023 [place] Depression Scale Answer Date Recorded [place] Depression Scale Total 10 07/23/2023 The thought [...] encounter Miscellaneous Notes * Telephone Encounter - Sandhya Saxena CNM - 10/27/2023 4:55 PM EDT She may get OTC Vitron C or take iron 65mg daily with vitamin C 250mg daily. I also recommend the [employer] miguelangel for financial help with prescriptions. Agree [...] Description 10/30/2023 1:45 PM EDT Office Visit Electric Organ Assembler Obstetrics Maternal Medicine, [address] [address] Pedro German [place] [address] 10/30/2023 1:45 PM EDT Imaging Radiology [place] [address] [place] [address] 11/11/2023 1:30 PM EDT Office Visit Gynecology/Obstetrics [facility] [address] [place] [address] Haley Vaca CRNP [address] [place] [address] 11/27/2023 1:45 PM EDT Office Visit Electric Organ Assembler Obstetrics Maternal Medicine, [place] [address] [place] [address] Pedro German [place] [address] 11/27/2023 1:45 PM EDT Imaging Radiology [facility] [address] [place] [address] 12/25/2023 1:45 PM EDT Office Visit Electric Organ Assembler Obstetrics Maternal Medicine, [place] [address] [place] [address] Pedro German, [address] [place] [address] 12/25/2023 1:45 PM EDT Imaging Radiology [place] [address] [place] [address] 01/22/2024 1:45 PM EDT Office Visit Electric Organ Assembler Obstetrics Maternal Medicine, [place] [address] [place] [address] Pedro German, [address] [place] [address] 01/22/2024 1:45 PM EDT Imaging Radiology [address] [id number] Health Maintenance Due Date Last Done Comments [...] filedocumented as of this encounter Care Teams Artificial Log Machine Operator Relationship Specialty Start Date End Date October [place], ANNA [address] [place] [address] PCP - General Physician Technologist Infectious Disease 12/08/20 documented as of this encounter
--- OUTSIDE RECORDS SUMMARY | 2024-02-17 18:08 | External Medical Summary | Summary of Care ---
Author Name Unknown Organization [facility] Address [address] [place] [address] Phone [phone] Care Team Providers Care Account Services Coordinator Name Role Phone Gino Thelma Sism PA-C Primary Care Provider [phone] Encounter Details Date Type Department Care Team (Late st Contact Info) Description 08/01/2023 Telephone Wind Farm Designer Obstetrics Maternal Medicine, [place] [address] [place] [address] [place], Nurse Wind Farm Designer [facility] [address] [place] [address] Allergies Active Allergy Reactions Criticality Noted Date Comments Prednisone 04/23/2021 Increased anxiety documented as of this encounter (statuses as of 10/31/2023) Medications Medication Sig Dispensed Refills Start Date End Date Status 6.75-0.2 MG Oral Tablet Take by mouth. 0 Active documented as of this encounter (statuses as of 10/31/2023) Active Problems Problem Noted Date Diagnosed Date [...] (lupus anticoagulant, anti-cardiolipin IgG and IGM and wuoq-3-zvgyhpjgfmaa) for those patients who delivered prior to [...] 2019: This individual is homozygous for the [id number] variant and negative (normal) for the C677T [...] as of this encounter (statuses as of 10/31/2023) Resolved Problems Problem Noted Date Diagnosed Date Resolved Date Antepartum anemia complicating 03/22/2022 07/23/2023 Abnormal glucose tolerance i n mother complicating 03/21/2022 04/09/2022 COVID-19 affecting , antepartum 03/19/2022 07/23/2023 Overview: 21 weeks 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 Patient denies any questions or concerns. [...] [facility] at 8 mth [facility]was told has clotting disorder, ?MTHFR -testing by LICENSED VETERINARY TECHNICIAN in [facility]-obtain records. Closed head injury with concussion 04/10/2016 05/19/2018 documented as of this encounter (statuses as of 10/31/2023) Immunizations Name Administration Dates Next Due HPV [...] money to get more. Never true 07/23/2023 [place] Depression Scale Answer Date Recorded [place] Depression Scale Total 10 07/23/2023 The thought [...] encounter Miscellaneous Notes * Telephone Encounter - Deb Sanchez OSA - 08/01/2023 10:36 AM EST ----- Message from ANNA Irving sent at 07/28/2023 3:12 PM EST ----- Regarding: Plz reschedule Patient no show for MFM nurse practitioner consult today Please contact patient to reschedule. Leodan Allison documented in this encounter Plan of Treatment Upcoming Encounters Date Type Department Care Team (Late st Contact Info) Description 11/11/2023 1:30 PM EDT Office Visit Gynecology[facility]Obst[facility] [address] [facility] [place] [address] Haley Vaca CRNP [address] [facility] [place] [address] 11/27/2023 1:45 PM EDT Office Visit Wind Farm Designer Obstetrics [facility] [address] [place] [address] Pedro German DO [address] [place] [address] 11/27/2023 1:45 PM EDT Imaging Radiology [address] [address] 12/25/2023 1:45 PM EDT Office Visit Wind Farm Designer Obstetrics Maternal Medicine, [address] [address] Pedro German, [facility] [place] [address] 12/25/2023 1:45 PM EDT Imaging Radiology [place] [address] [place] [address] 01/22/2024 1:45 PM EDT Office Visit Wind Farm Designer Obstetrics Maternal Medicine, [address] [address] Pedro German, [facility] [place] [address] 01/22/2024 1:45 PM EDT Imaging Radiology [address] [address] Health Maintenance Due Date Last Done Comments [...] filedocumented as of this encounter Care Teams Account Services Coordinator Relationship Specialty Start Date End Date GinoOctober Bethany, ANNA [address] [place] [address] PCP - General Physician Manager Therapy 12/08/20 documented as of this encounter
--- OUTSIDE RECORDS SUMMARY | 2024-02-17 18:08 | External Medical Summary ---
Author Name Unknown Address Unknown Organization K0G:[facility] [address] [place] [address] Laboratory Report Ordering Provider Test Date Status DAVION SINGH 12/04/2023 11:09:21 Final Observation Date Value Abnormality Reference (Units ) Status Glucose, 2-hr post glucose challenge 12/04/2023 11:09:21 125 70-154 (mg/dL) Final Performing Location [facility] [address] [place] [address]
--- OUTSIDE RECORDS SUMMARY | 2024-02-17 18:08 | External Medical Summary | Summary of Care ---
Author Name Unknown Organization [facility] Address [address] [facility] [address] Phone [phone] Care Team Providers Care Warehouse Traffic Supervisor Name Role Phone Gino Thelma Sims PA-C Primary Care Provider [phone] Encounter Details Date Type Department Care Team (Late st Contact Info) Description 12/09/2023 Telephone Gynecology/Obstetrics [facility] [address] [place] [address] BackerFrancisco CRNP [address] [place] [address] Allergies Active Allergy Reactions Criticality Noted Date [...] 32-36 weeks gestation. We recommend alerting the m1 armor crewman providing care of this finding. 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 This result is not associated with a significantly increased risk for coronary artery disease, venous thromboembolism, or adverse outcome. Last Assessment & Plan: Reviewed the [employer] ACOG Practice [...] 12/10/2021 07/23/2023 Overview: Patient seen by [facility] Dry Wall Installations Mechanic. Patient denies any questions or concerns. [...] told has clotting disorder, ?MTHFR -testing by REEFER ENGINEER in [facility]-obtain records. Closed head injury with [...] money to get more. Never true 07/23/2023 [place] Depression Scale Answer Date Recorded [place] Depression Scale Total 10 07/23/2023 The thought [...] unable tocome to NST today due to director child abuse therapy/transportation. Patient has NST scheduled for Friday, states asof now she should be able to make appt. She is asking if she should instead have a weekly BPP instead of NSTs due to her transportation concerns. Please advise. Reports that it is going to be hard for her to make it to office twice weekly. Patient also reports compensation vice president that she has vaginal swelling/irritation and increase [...] 12/12/2023 10:15 AM EDT Office Visit [facility] [place] [address] Francisco Vaca CRNP [address] [place] [address] Hossein Non Stress Tests Ab [address] [place] [address] 12/15/2023 9:15 AM EDT Office Visit Gynecology/Obstetrics [facility] [address] [place] [address] Mehrdad Roy MD [address] [place] [address] Hossein Non Stress Tests Ab [address] [place] [address] 12/25/2023 1:45 PM EDT Office Visit Diagnostic Technologist Obstetrics Maternal [facility], [place] [address] [place] [address] Pedro German, [address] [place] [address] 12/25/2023 1:45 PM EDT Imaging Radiology [place] [address] [place] [address] 12/29/2023 1:45 PM EDT Office Visit Gynecology/Obstetrics Latoya Catalan [address] [place] [address] Brandy Morales CRNP [address] [place] [address] Hossein Non Stress Tests Ab [address] [place] [address] 01/01/2024 1:45 PM EDT Office Visit Gynecology/Obstetrics Latoya Catalan [address] [place] [address] Brandy Morales CRNP [address] [place] [address] Catalan, Non Stress Tests Ab [address] [place] [address] 01/12/2024 2:30 PM EDT Office Visit Gynecology/Obstetrics [facility] [address] [place] [address] Mehrdad Roy MD [address] [place] [address] Catalan, Non Stress Tests Ab [address] [place] [address] 01/15/2024 2:30 PM EDT Office Visit Gynecology/Obstetrics [facility] [address] [place] [address] Treva Caro MD [address] [place] [address] Catalan, Non Stress Tests Ab [address] [place] [address] 01/19/2024 9:00 AM EDT Office Visit Gynecology/Obstetrics [facility] [address] [place] [address] Dary Hart PA-C [address] [place] [address] Catalan, Non Stress Tests Ab [address] [place] [address] 01/22/2024 9:45 AM EDT Office Visit Gynecology/Obstetrics [facility] [address] [place] [address] Brandy Morales CRNP [address] [place] [address] Catalan, Non Stress Tests Ab [address] [place] [address] 01/22/2024 1:45 PM EDT Office Visit Diagnostic Technologist Obstetrics Maternal [facility], [place] [address] [place] [address] Pedro German, [address] [place] [address] 01/22/2024 1:45 PM EDT Imaging Radiology [facility] [place] [address] [place] [address] 01/26/2024 1:45 PM EDT Office Visit Gynecology/Obstetrics Latoya Catalan [address] [place] [address] Brandy Morales CRNP [address] [place] [address] Hossein Non Stress Tests Ab [address] [place] [address] 01/29/2024 9:15 AM EDT Office Visit Gynecology/Obstetrics Latoya Carloss [address] [place] [address] Michael Henry, [address] [address] Hossein, Non Stress Tests Ab [address] [place] [address] 02/02/2024 1:45 PM EDT Office Visit Gynecology/Obstetrics [facility] [address] [place] [address] Brandy Morales CRNP [address] [place] [address] [place]la[place], Non Stress Tests Ab [address] [place] [address] 02/05/2024 2:30 PM EDT Office Visit Gynecology/Obstetrics [facility] [address] [place] [address] [facility] [address] [facility] [address] Catalan, Non Stress Tests Ab [address] [place] [address] 02/12/2024 1:45 PM EDT Office Visit Gynecology/Obstetrics [facility] [address] [place] [address] Brandy Morales CRNP [address] [place] [address] Catalan, Non Stress Tests Ab [address] [place] [address] 02/19/2024 1:45 PM EDT Office Visit Gynecology/Obstetrics [facility] [address] [place] [address] Brandy Morales CRNP [address] [place] [address] Catalan, Non Stress Tests Ab [address] [place] [address] 02/23/2024 9:00 AM EDT Office Visit Gynecology/Obstetrics [facility] [address] [place] [address] Lisy Lobo DNP, CNM [address] [facility] [address] Catalan, Non Stress Tests Ab [address] [place] [address] Scheduled Orders Name Type Priority Associated Diagnoses [...] high-risk documented in this encounter Care Teams Warehouse Traffic Supervisor Relationship Specialty Start Date End Date GinoOctober ANNA Sims [address] [place], [place] [address] PCP - General Physician Customer Care Voice Consultant 12/08/20 documented as of this encounter
--- OUTSIDE RECORDS SUMMARY | 2024-02-17 18:08 | External Medical Summary | Summary of Care ---
Author Name Unknown Organization [facility] Address [address] [facility] [place] [address] Phone [phone] Care Team Providers Care Area Operations Manager Name Role Phone GinoThelma ANNA Primary Care Provider [phone] Encounter Details Date Type Department Care Team (Late st Contact Info) Description 10/20/2023 Telephone Gynecology/Obstetrics [facility] [address] [facility] [place] [address] Sandhya Saxena, PAMELA 400 [facility] [place] [address] Allergies Active [...] (lupus anticoagulant, anti-cardiolipin IgG and IGM and zrbn-0-efakzzdcyvas) for those patients who delivered prior to [...] IUFD 10/18/2021 Overview: Per scanned notes from [facility] 2013: Vaginal bleeding at 29+ weeks, noted to have demise. Vaginal delivery at 30 wks. Placenta examination consistent w/abruption. November 2021: APS and thrombophilia work up completed: negative Last Assessment & Plan: The anatomy that was visualized is appropriate for the gestational age. MTHFR mutation 04/05/2019 Overview: April 2019: This individual is homozygous for the [id number] variant and negative (normal) for the C677T variant in the MTHFR gene. This result is not associated with a significantly increased risk for coronary artery disease, venous thromboembolism, or adverse outcome. Last Assessment & Plan: Reviewed the [employer]nec[employer] ACOG Practice [...] 12/10/2021 07/23/2023 Overview: Patient seen by [facility] Partnership Development Manager. Patient denies any questions or concerns. [...] told has clotting disorder, ?MTHFR -testing by PAINTLESS DENT REPAIR TECHNICIAN in [facility]-obtain records. Closed head injury with concussion [...] money to get more. Never true 07/23/2023 [place] Depression Scale Answer Date Recorded [place] Depression Scale Total 10 07/23/2023 The thought [...] Encounter - Tamiko Mejia RN - 10/28/2023 11:53 AM EDT Spoke with pt and she is aware. * Telephone Encounter - Tamiko Mejia RN - 10/28/2023 8:17 AM EDT left message for patient to call office * Telephone Encounter - Sandhya Saxena CNM - 10/27/2023 4:55 PM EDT She may get OTC Vitron C or take iron 65mg daily with vitamin C 250mg daily. I also recommend the [employer] miguelangel for financial help with prescriptions. Agree [...] Description 10/30/2023 1:45 PM EDT Office Visit Cloth Cutting Machine Operator Obstetrics Maternal Medicine, [place] [address] [place] [address] Pedro German, [address] [place] [address] 10/30/2023 1:45 PM EDT Imaging Radiology [facility] [address] [place] [address] 11/11/2023 1:30 PM EDT Office Visit Gynecology/Obstetrics [facility] [address] [place] [place] [address] Nola HaleyANNA Squires [address] [place] [address] 11/27/2023 1:45 PM EDT Office Visit Cloth Cutting Machine Operator Obstetrics Maternal Medicine, [place] [address] [place] [address] Pedro German, [address] [place] [address] 11/27/2023 1:45 PM EDT Imaging Radiology [place] [address] [place] [address] 12/25/2023 1:45 PM EDT Office Visit Cloth Cutting Machine Operator Obstetrics Maternal Medicine, [place] [address] [place] [address] Pedro German, [address] [place] [address] 12/25/2023 1:45 PM EDT Imaging Radiology [facility] [place] [address] [place] [address] 01/22/2024 1:45 PM EDT Office Visit Cloth Cutting Machine Operator Obstetrics Maternal Medicine, [place] [address] [place] [address] Pedro German, [address] [place] [address] 01/22/2024 1:45 PM EDT Imaging Radiology [place] [address] [place], [place] [address] Health Maintenance Due Date Last Done Comments [...] filedocumented as of this encounter Care Teams Area Operations Manager Relationship Specialty Start Date End Date Reannaoctober ANDREI SimsC [address] [place] [address] PCP - General Physician Electric Range Preparer 12/08/20 documented as of this encounter
--- OUTSIDE RECORDS SUMMARY | 2024-02-17 18:09 | External Medical Summary | Summary of Care ---
Author Name Unknown Organization [facility] Address [address] [place] [address] Phone [phone] Care Team Providers Care Director Pharmacology Name Role Phone Gino Thelma Sims PA-C Primary Care Provider [phone] Reason for Visit * Reason Comments Ultrasound Encounter Details Date Type Department Care Team (Late st Contact Info) Description 10/01/2023 10:30 AM EDT Office Visit Relay Adjuster Obstetrics Maternal Medicine, [place] [address] [place], [place] [id number] Arias Donnelly MD [address] [place], [place] [id number] History of placental abruption*; Family history of diabetes mellitus Allergies Active Allergy Reactions Criticality Noted Date Comments Prednisone 04/23/2021 Increased anxiety documented as of this encounter (statuses as of 10/01/2023) Medications Medication Sig Dispensed Refills Start Date End Date Status 6.75-0.2 MG Oral Tablet Take by mouth. 0 Active Aspirin 81 MG Oral Tablet ChewableIndications:H x of preeclampsia, prior , currently , unspecified trimester Take 1 Tablet by mouth in the morning. 100 Tablet 3 08/04/2023 Active metroNIDAZOLE 500 MG Oral Tablet (Flagyl) Take 1 Tablet by mouth in the morning and 1 Tablet before bedtime. X 7 days until gone.. 14 Tablet 0 09/29/2023 Active documented as of this encounter (statuses as of 10/01/2023) Active Problems Problem Noted Date Diagnosed Date Supervision of high risk in first trim [...] (lupus anticoagulant, anti-cardiolipin IgG and IGM and ljfi-9-ezwtuaonnuvt) for those patients who delivered prior to [...] 10/18/2021 Overview: Per scanned notes from [facility] 2013: Vaginal bleeding at 29+ weeks, noted to have demise. Vaginal delivery at 30 wks. Placenta examination consistent w/abruption. November 2021: APS and thrombophilia work up completed: negative Last Assessment & Plan: The anatomy that was visualized is appropriate for the gestational age. MTHFR mutation 04/05/2019 Overview: April 2019: This individual is homozygous for the [id number] variant and negative (normal) for the C677T [...] as of this encounter (statuses as of 10/01/2023) Resolved Problems Problem Noted Date Diagnosed Date Resolved Date Antepartum anemia complicating 03/22/2022 07/23/2023 Abnormal glucose tolerance i n mother complicating 03/21/2022 04/09/2022 COVID-19 affecting , antepartum 03/19/2022 07/23/2023 Overview: 21 weeks Thrombophilia 02/04/2022 11/20/2022 Health counseling 12/10/2021 07/23/2023 Overview: Patient seen by [facility] All Source Intelligence Technician. Patient denies any questions or concerns. [...] [facility] at 8 mth [facility]was told has clotting disorder, ?MTHFR -testing by PARTS CONSULTANT in [facility]-obtain records. Closed head injury with concussion 04/10/2016 05/19/2018 documented as of this encounter (statuses as of 10/01/2023) Immunizations Name Administration Dates Next Due HPV [...] money to get more. Never true 07/23/2023 [place] Depression Scale Answer Date Recorded [place] Depression Scale Total 10 07/23/2023 The thought [...] as of this encounter Progress Notes * Arias Donnelly MD - 10/01/2023 10:12 AM EDT MATERNAL MEDICINE VISIT Kanika Louise is at 19w1d who presents to [facility] for an ultrasound and follow-up of her high risk . The patient is currently 19 weeks 1 day gestation comes in for an evaluation of anatomy. In aprior , she had a demise at 30 weeks of gestation. This was complicated byhypertension and a placental abruption. Of note, the patient has a low risk noninvasive screen during this . She is being seen today by Maternal- Medicine for the following reasons: Problem List Items Addressed This Visit Family history of diabetes mellitus History of placental abruption - Primary I reviewed the ultrasound with her. The anatomy that was visualized appears unremarkable and the biometry is appropriate for the gestational age. The amniotic fluid volume is subjectivelynormal and the fetus is in the breech presentation. I reviewed her low risk noninvasive screen in light of the normal ultrasound findings. I reviewed the plan of care with her for the remainder of the . She understands that she will start nonstress testing at 28 weeks of gestation due to a demise in a prior at 30 weeks of gestation. We reviewed today's ultrasound findings. (For full report, please refer to ultrasound report provided separately). Ms. Louise's questions were answered to her satisfaction. Ms. Louise was instructed to notify her primary emt/dispatcher if she felt regular contractions (approximately every 10 mins), leaking of fluid, vaginal bleeding or if movement decreased. RECOMMENDATIONS: Recommend surveillance starting at 28 weeks secondary to history of demise. Recommend follow up ultrasound with MFM in 4 weeks for growth secondary to history of demise. Thank you for allowing us to participate in the care of this patient. Please call with any questions. I spent 15 minutes with Ms. Louise of which greater than 50% was spent in face to face consultation and coordination of care for the above. Arias Donnelly MD 10/01/2023 10:12 AM documented in this encounter Miscellaneous Notes * Assessment & Plan Note - Arias Donnelly MD - 10/01/2023 11:05 AM EDT Associated Problem(s): History of placental abruption I reviewed the ultrasound with her. The anatomy that was visualized appears unremarkable and the biometry is appropriate for the gestational age. The amniotic fluid volume is subjectivelynormal and the fetus is in the breech presentation. I reviewed her low risk noninvasive screen in light of the normal ultrasound findings. I reviewed the plan of care with her for the remainder of the . She understands that she will start nonstress testing at 28 weeks of gestation due to a demise in a prior at 30 weeks of gestation. documented in this encounter Plan of Treatment Upcoming Encounters Date Type Department Care Team (Late st Contact Info) Description 10/17/2023 4:00 PM EDT Office Visit Gynecology/Obstetrics [facility] [address] [facility] [place] [address] Dary Hart PA-C 400 [facility] [place] [address] 10/30/2023 1:45 PM EDT Office Visit Relay Adjuster Obstetrics Maternal Medicine, [address] [address] Pedro German [address] [place] [address] 10/30/2023 1:45 PM EDT Imaging Radiology [place] [address] [place] [address] 11/28/2023 9:15 AM EDT Office Visit Relay Adjuster Obstetrics Maternal Medicine, [address] [address] Pedro German, [address] [place] [address] 11/28/2023 9:15 AM EDT Imaging Radiology [place] [address] [place] [address] 12/26/2023 9:45 AM EDT Office Visit Relay Adjuster Obstetrics Maternal Medicine, [place] [address] [place] [address] Pedro German, [address] [place] [address] 12/26/2023 9:45 AM EDT Imaging Radiology [place] [address] [place] [address] 01/23/2024 9:45 AM EDT Office Visit Relay Adjuster Obstetrics Maternal Medicine, [address] [address] Pedro German, [address] [place] [address] 01/23/2024 9:45 AM EDT Imaging Radiology [address] [address] Health Maintenance Due Date Last Done Comments Hepatitis B (1 of 3 - 19+ 3-dose series) 2012 GARDASIL-HPV IMMUNIZATION SERIES (2 - 3-dose series) 06/24/2019 05/27/2019 Depression Screening 05/01/2021 05/01/2020 COVID-19 Vaccine (3 - 2022-2 4 season) 2023 03/23/2021, 03/02/2021 Influenza Vaccine (FLU shot) (#1) 2023 03/07/2022, 04/07/2020, 04/22/2019 Pap Smear 07/23/2026 07/23/2023, [...] Diagnoses Diagnosis History of placental abruption- Primary Family history of diabetes mellitus documented in this encounter Care Teams Director Pharmacology Relationship Specialty Start Date End Date GinoOctober ANNA Sims [address] [place] [address] PCP - General Physician Plant Operator Helper 12/08/20 documented as of this encounter
--- OUTSIDE RECORDS SUMMARY | 2024-02-17 18:09 | External Medical Summary ---
Author Name Unknown Address Unknown Organization K01:[facility] [place] [address] [place] [address] Laboratory Report Ordering Provider Test Date Status ERMA BRAXTON 10/17/2023 16:17:48 Final Observation Date Value Abnormality Reference (Units ) Status Vitamin B12 10/17/2023 16:17:48 [phone] (pg/mL) Final Performing Location [facility] - [address] [place] [address]
--- OUTSIDE RECORDS SUMMARY | 2024-02-17 18:09 | External Medical Summary ---
Author Name Unknown Address Unknown Organization K01:[facility] - [address] [place] [address] Laboratory Report Ordering Provider Test Date Status ERMA BRAXTON 10/17/2023 16:17:48 Final Observation Date Value Abnormality Reference (Units ) Status Ferritin 10/17/2023 16:17:48 173 Above high normal 13 -150 (ng/mL) Final Performing Location [facility] - [address] [place] [address]
--- OUTSIDE RECORDS SUMMARY | 2024-02-17 18:09 | External Medical Summary | Summary of Care ---
Author Name Unknown Organization [facility] Address [address] [place] [address] Phone [phone] Care Team Providers Care Mechanical Meter Tester Name Role Phone Gino Thelma Sims PA-C Primary Care Provider [phone] Reason for Visit * Reason Comments Ultrasound Encounter Details Date Type Department Care Team (Late st Contact Info) Description 10/01/2023 10:30 AM EDT Office Visit Transporter Radiology Obstetrics Maternal Medicine, [place] [address] [place], [place] [phone] Arias Donnelly MD [address] [place], [place] [phone] History of placental abruption*; Family history of [...] (lupus anticoagulant, anti-cardiolipin IgG and IGM and vdzh-6-vwgqtcptbflz) for those patients who delivered prior to [...] IUFD 10/18/2021 Overview: Per scanned notes from [facility] 2013: Vaginal bleeding at 29+ weeks, noted to have demise. Vaginal delivery at 30 wks. Placenta examination consistent w/abruption. November 2021: APS and thrombophilia work up completed: negative Last Assessment & Plan: The anatomy that was visualized is appropriate for the gestational age. MTHFR mutation 04/05/2019 Overview: April 2019: This individual is homozygous for the [id number] variant and negative (normal) for the C677T variant in the MTHFR gene. This result is not associated with a significantly increased risk for coronary artery disease, venous thromboembolism, or adverse outcome. Last Assessment & Plan: Reviewed the [place] [employer] ACOG Practice [...] counseling 12/10/2021 07/23/2023 Overview: Patient seen by [facility] Clerk General Office. Patient denies any questions or concerns. Problem [...] [facility] told has [facility], ?MTHFR -testing by ACCESS LIAISON in [facility]-obtain records. Closed head injury with [...] money to get more. Never true 07/23/2023 [place] Depression Scale Answer Date Recorded [place] Depression Scale Total 10 07/23/2023 The thought [...] Louise is at 19w1d who presents to [facility] for an ultrasound and follow-up of [...] Louise was instructed to notify her primary quantitative manager if she felt regular contractions (approximately every [...] 10/17/2023 4:00 PM EDT Office Visit Gynecology/Obstetrics [facility] 132 [facility] [place] [address] Dary Hart PA-C [address] [facility] [place] [address] 10/30/2023 1:45 PM EDT Office Visit Transporter Radiology Obstetrics Maternal Medicine, [address] [address] Pedro German [address] [place] [address] 10/30/2023 1:45 PM EDT Imaging Radiology [place] [address] [place] [address] 11/28/2023 9:15 AM EDT Office Visit Transporter Radiology Obstetrics Maternal Medicine, [address] [address] Pedro German, [address] [place] [address] 11/28/2023 9:15 AM EDT Imaging Radiology [place] [address] [place] [address] 12/26/2023 9:45 AM EDT Office Visit Transporter Radiology Obstetrics Maternal Medicine, [place] [address] [place] [address] Pedro German, [address] [place] [address] 12/26/2023 9:45 AM EDT Imaging Radiology [place] [address] [place] [address] 01/23/2024 9:45 AM EDT Office Visit Transporter Radiology Obstetrics Maternal Medicine, [address] [address] Pedro German, [address] [place] [address] 01/23/2024 9:45 AM EDT Imaging Radiology [address] [address] Health Maintenance Due Date Last Done Comments [...] mellitus documented in this encounter Care Teams Mechanical Meter Tester Relationship Specialty Start Date End Date GinoOctober ANNA Sims [address] [place] [address] PCP - General Physician Wrestling Coach 12/08/20 documented as of this encounter
--- OUTSIDE RECORDS SUMMARY | 2024-02-17 18:09 | External Medical Summary | Summary of Care ---
Author Name Unknown Organization [facility] Address [address] [facility] [place] [address] Phone [phone] Care Team Providers Care Journeyman Welder Name Role Phone Thelma Christian PA-C Primary Care Provider [phone] Encounter Details Date Type Department Care Team (Late st Contact Info) Description 10/20/2023 Orders Only Gynecology/Obstetrics [facility] 132 [facility] [place] [address] Sandhya Saxena, ELE [address] [place] [address] Antepartum anemia* Allergies Active Allergy Reactions Criticality Noted Date Comments Prednisone 04/23/2021 Increased anxiety documented as of this encounter (statuses as of 10/20/2023) Medications Medication Sig Dispensed Refills Start Date [...] as of this encounter (statuses as of 10/20/2023) Active Problems Problem Noted Date Diagnosed Date [...] (lupus anticoagulant, anti-cardiolipin IgG and IGM and udni-1-mkavjuyvrcyk) for those patients who delivered prior to [...] Overview: Per scanned notes from [facility] 2013: Vaginal bleeding at 29+ weeks, noted to have demise. Vaginal delivery at 30 wks. Placenta examination consistent w/abruption. November 2021: APS and thrombophilia work up completed: negative Last Assessment & Plan: The anatomy that was visualized is appropriate for the gestational age. MTHFR mutation 04/05/2019 Overview: April 2019: This individual is homozygous for the [id number] variant and negative (normal) for the C677T [...] as of this encounter (statuses as of 10/20/2023) Resolved Problems Problem Noted Date Diagnosed Date Resolved Date Antepartum anemia complicating 03/22/2022 07/23/2023 Abnormal glucose tolerance i n mother complicating 03/21/2022 04/09/2022 COVID-19 affecting , antepartum 03/19/2022 07/23/2023 Overview: 21 weeks Thrombophilia 02/04/2022 11/20/2022 Health counseling 12/10/2021 07/23/2023 Overview: Patient seen by [facility] Swiss Machinist. Patient denies any questions or concerns. Problem [...] 07/23/2023 Overview: Denies suicidal or homicidal ideation. Anxiety [...] told has clotting disorder, ?MTHFR -testing by AUTOMOTIVE PRODUCTION WORKER in [facility]-obtain records. Closed head injury with concussion 04/10/2016 05/19/2018 documented as of this encounter (statuses as of 10/20/2023) Immunizations Name Administration Dates Next Due HPV [...] money to get more. Never true 07/23/2023 [place] Depression Scale Answer Date Recorded [place] Depression Scale Total 10 07/23/2023 The thought [...] Description 10/30/2023 1:45 PM EDT Office Visit Power Ballast Machine Operator Obstetrics Maternal Medicine, [address] [address] Pedro German [facility] [address] 10/30/2023 1:45 PM EDT Imaging Radiology [place] [address] [place] [address] 11/11/2023 1:30 PM EDT Office Visit Gynecology/Obstetrics [facility] [address] [place] [address] Haley Vaca CRNP [address] [place] [address] 11/27/2023 1:45 PM EDT Office Visit Power Ballast Machine Operator Obstetrics Maternal Medicine, [place] [address] [place] [address] Pedro German [place] [address] 11/27/2023 1:45 PM EDT Imaging Radiology [address] [address] 12/25/2023 1:45 PM EDT Office Visit Power Ballast Machine Operator Obstetrics Maternal Medicine, [address] [address] Pedro German, [place] [address] 12/25/2023 1:45 PM EDT Imaging Radiology [address] [address] 01/22/2024 1:45 PM EDT Office Visit Power Ballast Machine Operator Obstetrics Maternal Medicine, [address] [address] Pedro German, [address] [address] 01/22/2024 1:45 PM EDT Imaging Radiology [address] [address] Scheduled Orders Name Type Priority Associated Diagnoses Orde r Schedule CBC WITH WBC DIFFERENTIAL AND ANEMIA REFLEX WORKUP Lab Routine Antepartum anemia Expected: 11/19/2023, Expires: 10/19/2024 Health Maintenance Due Date Last Done Comments [...] of this encounter Visit Diagnoses Diagnosis Antepartum anemia- Primary Anemia, antepartum documented in this encounter Care Teams Journeyman Welder Relationship Specialty Start Date End Date GinoOctober Bethany, ANDREIC [facility] Christian Basilio [place], [place] [address] PCP - General Physician Blender / Cook 12/08/20 documented as of this encounter
--- OUTSIDE RECORDS SUMMARY | 2024-02-17 18:09 | External Medical Summary | Summary of Care ---
Author Name Unknown Organization [facility] Address [address] [facility] [place] [address] Phone [phone] Care Team Providers Care Tele Marketing Executive Name Role Phone Thelma Christian PA-C Primary Care Provider [phone] Encounter Details Date Type Department Care Team (Late st Contact Info) Description 10/15/2023 Telephone Gynecology/Obstetrics [facility] Catalan [address] [place] [address] Brandy Morales CRNP [address] [place] [address] Allergies Active Allergy Reactions Criticality Noted Date Comments Prednisone 04/23/2021 Increased anxiety documented as of this encounter (statuses as of 10/15/2023) Medications Medication Sig Dispensed Refills Start Date [...] as of this encounter (statuses as of 10/15/2023) Active Problems Problem Noted Date Diagnosed Date [...] (lupus anticoagulant, anti-cardiolipin IgG and IGM and vuoh-7-xeqvvbzapijn) for those patients who delivered prior to [...] 10/18/2021 Overview: Per scanned notes from [facility] 2013: Vaginal bleeding at 29+ weeks, noted to have demise. Vaginal delivery at 30 wks. Placenta examination consistent w/abruption. November 2021: APS and thrombophilia work up completed: negative Last Assessment & Plan: The anatomy that was visualized is appropriate for the gestational age. MTHFR mutation 04/05/2019 Overview: April 2019: This individual is homozygous for the [id number] variant and negative (normal) for the C677T variant in the MTHFR gene. This result is not associated with a significantly increased risk for coronary artery disease, venous thromboembolism, or adverse outcome. Last Assessment & Plan: Reviewed the [place] [employer] ACOG Practice [...] as of this encounter (statuses as of 10/15/2023) Resolved Problems Problem Noted Date Diagnosed Date Resolved Date Antepartum anemia complicating 03/22/2022 07/23/2023 Abnormal glucose tolerance i n mother complicating 03/21/2022 04/09/2022 COVID-19 affecting , antepartum 03/19/2022 07/23/2023 Overview: 21 weeks Thrombophilia 02/04/2022 11/20/2022 Health counseling 12/10/2021 07/23/2023 Overview: Patient seen by [facility] Mapping Pilot. Patient denies any questions or concerns. Problem [...] told has clotting disorder, ?MTHFR -testing by NURSERY ATTENDANT in [facility]-obtain records. Closed head injury with concussion 04/10/2016 05/19/2018 documented as of this encounter (statuses as of 10/15/2023) Immunizations Name Administration Dates Next Due HPV [...] money to get more. Never true 07/23/2023 [place] Depression Scale Answer Date Recorded [place] Depression Scale Total 10 07/23/2023 The thought [...] Telephone Encounter - Tamiko Mejia RN - 10/15/2023 2:14 PM EDT Pt called in stating that she went for her facial and they ended up using salicylic acid on her face. She knows that this was not to be used but was not aware until after. Advised not to using movingforward. Pt agreeable. documented in this encounter Plan of Treatment Upcoming Encounters Date Type Department Care Team (Late st Contact Info) Description 10/17/2023 3:30 PM EDT Laboratory Laboratory, [facility] 132 [facility] [place] [id number] [facility] [address] 10/17/2023 4:00 PM EDT Office Visit Gynecology/Obstetrics [facility] 132 [facility] [place] [address] Dary Hart PA-C [address] [place] [address] [place] [address] 10/30/2023 1:45 PM EDT Office Visit Clinical Phlebotomist Obstetrics Maternal Medicine, [place] [address] [place] [address] Pedro German DO [address] [place] [address] 10/30/2023 1:45 PM EDT Imaging Radiology [facility] [address] [place] [address] 11/27/2023 1:45 PM EDT Office Visit Clinical Phlebotomist Obstetrics Maternal Medicine, [place] [address] [place] [address] Pedro German, [address] [place] [address] 11/27/2023 1:45 PM EDT Imaging Radiology [place] [address] [place] [address] 12/25/2023 1:45 PM EDT Office Visit Clinical Phlebotomist Obstetrics Maternal Medicine, [place] [address] [place] [address] Pedro German, [address] [place] [address] 12/25/2023 1:45 PM EDT Imaging Radiology [facility], [place] [address] [place] [address] 01/22/2024 1:45 PM EDT Office Visit Clinical Phlebotomist Obstetrics Maternal Medicine, [place] [address] [place] [address] Pedro German, DO [address] [place] [address] 01/22/2024 1:45 PM EDT Imaging Radiology [place] [address] [place] [address] Health Maintenance Due Date Last Done Comments [...] filedocumented as of this encounter Care Teams Tele Marketing Executive Relationship Specialty Start Date End Date Reannaoctober ANNA Sims [address] Christian Basilio [place] [address] PCP - General Physician Hot Box Spotter 12/08/20 documented as of this encounter
--- OUTSIDE RECORDS SUMMARY | 2024-02-17 18:09 | External Medical Summary ---
Author Name Unknown Address Unknown Organization [id number]:LABORATORY [facility] [place] - 100 [facility] [place] [address] Laboratory Report Ordering Provider Test Date Status ERMA BRAXTON 10/17/2023 16:17:48 Final Observation Date Value Abnormality Reference (Units ) Status SYNC LEUKOCYTES IN BLOOD BY AUTOMATED COUNT 10/17/2023 16:17:48 9.42 4.00-10.80 (K/uL) Final Segs 10/17/2023 16:17:48 75.6 Above high normal 40.0-75.0 (%) Final Lymphs % 10/17/2023 16:17:48 13.6 Below low normal 18.0-42.0 (%) Final Monos 10/17/2023 16:17:48 9.4 1.0-11.0 (%) Final Eosinophils 10/17/2023 16:17:48 0.6 0.0-6.0 (%) Final Basos 10/17/2023 16:17:48 0.3 0.0-2.0 (%) Final Immature Granulocyte, Percent 10/17/2023 16:17:48 0.5 0.0-2.0 (%) Final Absolute Segs 10/17/2023 16:17:48 7.11 1.80-7.70 (K/uL) Final Lymphs, absolute 10/17/2023 16:17:48 1.28 1.00-4.80 (K/ul) Final Monos, Abs 10/17/2023 16:17:48 0.89 0.00-1.10 (K/uL) Final Eos, Abs 10/17/2023 16:17:48 0.06 0.00-0.70 (K/uL) Final Basos, Abs 10/17/2023 16:17:48 0.03 0.00-0.20 (K/uL) Final Immature Granulocytes, Number 10/17/2023 16:17:48 0.05 0.00-0.20 (K/uL) Final Performing Location LABORATORY [facility] – [place] - [address] [facility] [address]
--- OUTSIDE RECORDS SUMMARY | 2024-02-17 18:09 | External Medical Summary ---
Author Name Unknown Address Unknown Organization K01:[facility] [place] [address] [place] [address] Laboratory Report Ordering Provider Test Date Status ERMA BRAXTON 10/17/2023 16:17:48 Final Observation Date Value Abnormality Reference (Units ) Status Folic Acid 10/17/2023 16:17:48 >20.0 >4.5 (ng/ mL) Final Performing Location LABORATORY [facility] - [address] [place] [address]
--- OUTSIDE RECORDS SUMMARY | 2024-02-17 18:09 | External Medical Summary | Summary of Care ---
Author Name Unknown Organization [facility] Address [address] [facility] [address] Phone [phone] Care Team Providers Care Supervisor Inspection Room Name Role Phone Thelma Christian PA-C Primary Care Provider [phone] Reason for Visit * Reason Comments Outpatient Testing Encounter Details Date Type Department Care Team (Late st Contact Info) Description 10/18/2023 11:40 AM EDT Laboratory Laboratory, [facility] [address] [facility] 132 [facility] [place] [address] PCOS (polycystic ovarian syndrome) Allergies Active Allergy Reactions Criticality Noted Date Comments Prednisone 04/23/2021 Increased anxiety documented as of this encounter (statuses as of 10/18/2023) Medications Medication Sig Dispensed Refills Start Date End Date Status 6.75-0.2 MG Oral Tablet Take by mouth. 0 Active Aspirin 81 MG Oral Tablet ChewableIndications:H x of preeclampsia, prior , currently , unspecified trimester Take 1 Tablet by mouth in the morning. 100 Tablet 3 08/04/2023 Active documented as of this encounter (statuses as of 10/18/2023) Active Problems Problem Noted Date Diagnosed Date [...] (lupus anticoagulant, anti-cardiolipin IgG and IGM and qsaj-8-rxwvxyakewct) for those patients who delivered prior to [...] IUFD 10/18/2021 Overview: Per scanned notes from [facility] 2013: Vaginal bleeding at 29+ weeks, noted to have demise. Vaginal delivery at 30 wks. Placenta examination consistent w/abruption. November 2021: APS and thrombophilia work up completed: negative Last Assessment & Plan: The anatomy that was visualized is appropriate for the gestational age. MTHFR mutation 04/05/2019 Overview: April 2019: This individual is homozygous for the [id number] variant and negative (normal) for the C677T variant in the MTHFR gene. This result is not associated with a significantly increased risk for coronary artery disease, venous thromboembolism, or adverse outcome. Last Assessment & Plan: Reviewed the [place] [employer] ACOG Practice [...] as of this encounter (statuses as of 10/18/2023) Resolved Problems Problem Noted Date Diagnosed Date Resolved Date Antepartum anemia complicating 03/22/2022 07/23/2023 Abnormal glucose tolerance i n mother complicating 03/21/2022 04/09/2022 COVID-19 affecting , antepartum 03/19/2022 07/23/2023 Overview: 21 weeks Thrombophilia 02/04/2022 11/20/2022 Health counseling 12/10/2021 07/23/2023 Overview: Patient seen by [facility] Coal Trammer. Patient denies any questions or concerns. Problem [...] told has clotting disorder, ?MTHFR -testing by DATA LEAD in [facility]-obtain records. Closed head injury with concussion 04/10/2016 05/19/2018 documented as of this encounter (statuses as of 10/18/2023) Immunizations Name Administration Dates Next Due HPV [...] money to get more. Never true 07/23/2023 [place] Depression Scale Answer Date Recorded [place] Depression Scale Total 10 07/23/2023 The thought [...] Description 10/30/2023 1:45 PM EDT Office Visit Global Account Director Obstetrics Maternal Medicine, [address] [address] Pedro German [address] [address] 10/30/2023 1:45 PM EDT Imaging Radiology [address] [address] 11/11/2023 1:30 PM EDT Office Visit Gynecology/Obstetrics [facility] [address] [place] [address] Haley Vaca CRNP [address] [place] [address] 11/27/2023 1:45 PM EDT Office Visit Global Account Director Obstetrics Maternal Medicine, [address] [address] Pedro German DO [address] [place] [address] 11/27/2023 1:45 PM EDT Imaging Radiology [address] [address] 12/25/2023 1:45 PM EDT Office Visit Global Account Director Obstetrics Maternal Medicine, [address] [address] Pedro German DO [address] [place] [address] 12/25/2023 1:45 PM EDT Imaging Radiology [place] [address] [place] [address] 01/22/2024 1:45 PM EDT Office Visit Global Account Director Obstetrics Maternal Medicine, [place] [address] [place] [address] Pedro German, [address] [place] [address] 01/22/2024 1:45 PM EDT Imaging Radiology [place] [address] [place] [address] Pending Results Name Type Priority Associated Diagnoses Date /Time 50-G GESTATIONAL GLUCOSE, 1 HOUR Lab Routine PCOS (polycystic ovarian syndrome) 10/18/2023 12:39 PM EDT Health Maintenance Due Date Last [...] as of this encounter Visit Diagnoses Diagnosis PCOS (polycystic ovarian syndrome) Polycystic ovaries documented in this encounter Care Teams Supervisor Inspection Room Relationship Specialty Start Date End Date Gino October Bethany, ANNA [address] [place] [address] PCP - General Physician Tank Car Inspector 12/08/20 documented as of this encounter
--- OUTSIDE RECORDS SUMMARY | 2024-02-17 18:09 | External Medical Summary | Summary of Care ---
Author Name Unknown Organization [facility] Address [address] [facility] [place] [address] Phone [phone] Care Team Providers Care Inventory Audit Clerk Name Role Phone GinoThelma ANNA Primary Care Provider [phone] Encounter Details Date Type Department Care Team (Late st Contact Info) Description 10/20/2023 Telephone Gynecology/Obstetrics [facility] 132 [facility] [place] [address] Sandhya Saxena, PAMELA 400 [facility] [place] [address] Allergies Active Allergy [...] (lupus anticoagulant, anti-cardiolipin IgG and IGM and ztva-2-cattpcvxbbqc) for those patients who delivered prior to [...] 10/18/2021 Overview: Per scanned notes from [facility] 2013: Vaginal bleeding at 29+ weeks, noted to have demise. Vaginal delivery at 30 wks. Placenta examination consistent w/abruption. November 2021: APS and thrombophilia work up completed: negative Last Assessment & Plan: The anatomy that was visualized is appropriate for the gestational age. MTHFR mutation 04/05/2019 Overview: April 2019: This individual is homozygous for the [id number] variant and negative (normal) for the C677T [...] Patient seen by [facility] Trucking Supervisor. Patient denies any questions or concerns. [...] told has clotting disorder, ?MTHFR -testing by ADDRESS CHANGE CLERK in [facility]-obtain records. Closed head injury with concussion 04/10/2016 [...] money to get more. Never true 07/23/2023 [place] Depression Scale Answer Date Recorded [place] Depression Scale Total 10 07/23/2023 The thought [...] encounter Miscellaneous Notes * Telephone Encounter - Radha Prince LPN [...] Description 10/30/2023 1:45 PM EDT Office Visit Divorce Mediator Obstetrics Maternal Medicine, [address] [address] Pedro German, [facility] [place] [address] 10/30/2023 1:45 PM EDT Imaging Radiology [address] [address] 11/11/2023 1:30 PM EDT Office Visit Gynecology/Obstetrics [facility] [address] [place] [address] BackerHaley CRNP [address] [place] [address] 11/27/2023 1:45 PM EDT Office Visit Divorce Mediator Obstetrics Maternal Medicine, [address] [address] Pedro German [facility] [place] [address] 11/27/2023 1:45 PM EDT Imaging Radiology [address] [address] 12/25/2023 1:45 PM EDT Office Visit Divorce Mediator Obstetrics Maternal Medicine, [address] [address] Pedro German, [address] [address] 12/25/2023 1:45 PM EDT Imaging Radiology [facility] [address] [place] [address] 01/22/2024 1:45 PM EDT Office Visit Divorce Mediator Obstetrics Maternal Medicine, [place] [address] [place] [address] Maxi [facility] [address] [place] [address] 01/22/2024 1:45 PM EDT Imaging Radiology [facility] [place] [address] [place] [address] Health Maintenance Due Date Last Done Comments [...] filedocumented as of this encounter Care Teams Inventory Audit Clerk Relationship Specialty Start Date End Date October ANNA Sims [address] Basilio [place] [address] PCP - General Physician Recreation Aide 12/08/20 documented as of this encounter
--- OUTSIDE RECORDS SUMMARY | 2024-02-17 18:09 | External Medical Summary ---
Author Name Unknown Address Unknown Organization K01:[facility]ORY [place] [address] [address] [facility] [address] Laboratory Report Ordering Provider Test Date Status IRAISRITCHIE 10/17/2023 16:17:48 Final Observation Date Value Abnormality Reference (Units ) Status Retic, % (auto) 10/17/2023 16:17:48 2.54 Above high normal 0.80-1.90 (%) Final Reticulocytes, Absolute 10/17/2023 16:17:48 96.5 31.3-100.1 (K/uL) Final Reticulocyte fraction, immature 10/17/2023 16:17:48 10.9 2.5-20.6 (%) Final Reticulocyte HGB 10/17/2023 16:17:48 33.8 29.7-37.4 (pg) Final Performing [place] [facility] [facility] [place] [address] [place] [address]
--- OUTSIDE RECORDS SUMMARY | 2024-02-17 18:09 | External Medical Summary | Summary of Care ---
Author Name Unknown Organization [facility] Address [address] [facility] [place] [address] Phone [phone] Care Team Providers Care Charcoal Burner Beehive Kiln Name Role Phone Gino Thelma Bethany ANNA Primary Care Provider [phone] Reason for Visit * Reason Onset Date Comments Test Results 10/20/2023 Encounter Details Date Type Department Care Team (Late st Contact Info) Description 10/20/2023 Telephone Gynecology/Obstetrics [facility] [address] [place] [address] Haley Vaca CRNP [address] [place] [address] Test Results Allergies Active Allergy Reactions Criticality Noted Date [...] (lupus anticoagulant, anti-cardiolipin IgG and IGM and [id number]) for those patients who delivered prior to [...] IUFD 10/18/2021 Overview: Per scanned notes from [facility] 2013: Vaginal bleeding at 29+ weeks, noted to have demise. Vaginal delivery at 30 wks. Placenta examination consistent w/abruption. November 2021: APS and thrombophilia work up completed: negative Last Assessment & Plan: The anatomy that was visualized is appropriate for the gestational age. MTHFR mutation 04/05/2019 Overview: April 2019: This individual is homozygous for the [id number] variant and negative (normal) for the C677T variant in the MTHFR gene. This result is not associated with a significantly increased risk for coronary artery disease, venous thromboembolism, or adverse outcome. Last Assessment & Plan: Reviewed the [place] [employer] ACOG Practice [...] counseling 12/10/2021 07/23/2023 Overview: Patient seen by [facility] Major Gifts Director. Patient denies any questions or concerns. [...] H/O toxoplasmosis 04/22/2016 05/19/2018 Overview: labs on [facility]yga panel >+ IGG 08/31/13--no active inf--works on barn with horses and cats, nl cbc,cr,, immune varicella,rubell, neg RPR,neg Hbs ag INFORMATION 04/10/2016 05/19/2018 Overview: Lost son at 8 mth preg in 2013 [facility]--was told has clotting disorder, ?MTHFR -testing by BULL BUCKER in [facility]-obtain records. [...] money to get more. Never true 07/23/2023 [place] Depression Scale Answer Date Recorded [place] Depression Scale Total 10 07/23/2023 The thought [...] Encounter - Tamiko Mejia RN - 10/20/2023 11:40 AM EDT GLUCOSE - [facility] Date/Time Value Ref Range Status 07/23/2023 09:54 AM 80 70 - 120 mg/dL Final 04/30/2019 01:26 PM 88 70 - 120 mg/dL Final GLUCOSE URINE, POCT - [facility] Date/Time Value Ref Range Status 09/25/2023 12:00 AM Negative Negative mg/dL Final GLUCOSE-OUTSIDE LAB Date/Time Value Ref Range Status 11/26/2020 12:00 AM 99 70 - 99 MG/DL Patient notified of abnormal glucola. The order has been placed in epic. Patient. advised to be NPO after 10pm the night before the test.The patient must stay on the premises for the entire time of the test. Patient counseled to take something to eat for after testing. Patient scheduled for Friday. * Telephone Encounter - Vianca Obregon LPN - 10/20/2023 9:35 AM EDT Attempted to call pt,na, LM for pt to call office to review results below. * Telephone Encounter - Haley Vaca CRNP - 10/20/2023 8:40 AM EDT Elevated 1 hr glucose, needs to complete 3 hr testing. ANNA Rhodes documented in this encounter Plan of Treatment Upcoming Encounters Date Type Department Care Team (Late st Contact Info) Description 10/24/2023 7:50 AM EDT Laboratory Laboratory, [facility] [address] [place] [address] [facility] [address] [place] [address] 10/30/2023 1:45 PM EDT Office Visit Antisqueak Worker Obstetrics Maternal Medicine, [address] [address] Pedro German DO [address] [place] [address] 10/30/2023 1:45 PM EDT Imaging Radiology [facility], [place] [address] [place] [address] 11/11/2023 1:30 PM EDT Office Visit Gynecology/Obstetrics [facility] [address] [place] [address] Haley Vaca CRNP [address] [place] [address] 11/27/2023 1:45 PM EDT Office Visit Antisqueak Worker Obstetrics Maternal Medicine, [place] [address] [place] [address] Pedro German DO [address] [place] [address] 11/27/2023 1:45 PM EDT Imaging Radiology [place] [address] [place] [address] 12/25/2023 1:45 PM EDT Office Visit Antisqueak Worker Obstetrics Maternal Medicine, [place] [address] [place] [address] Pedro German, [address] [place] [address] 12/25/2023 1:45 PM EDT Imaging Radiology [place] [address] [place] [address] 01/22/2024 1:45 PM EDT Office Visit Antisqueak Worker Obstetrics Maternal Medicine, [address] [address] Pedro German, [address] [place] [address] 01/22/2024 1:45 PM EDT Imaging Radiology [address] [address] Scheduled Orders Name Type Priority Associated Diagnoses Orde r Schedule GESTATIONAL GLUCOSE TOLERANCE, 3 HOUR Lab Routine Impaired glucose in , antepartum Expected: 10/20/2023 (Approximate), Expires: 10/19/2024 Health Maintenance Due Date Last [...] as of this encounter Visit Diagnoses Diagnosis Impaired glucose in , antepartum- Primary Abnormal maternal glucose tolerance, antepartum documented in this encounter Care Teams Charcoal Burner Beehive Kiln Relationship Specialty Start Date End Date Gino October Bethany, ANNA [address] [place] [address] PCP - General Physician Historic Interpreter 12/08/20 documented as of this encounter
--- OUTSIDE RECORDS SUMMARY | 2024-02-17 18:09 | External Medical Summary | Summary of Care ---
Author Name Unknown Organization [facility] Address [address] [facility] [place] [address] Phone [phone] Care Team Providers Care Associate Professor Of Musicology Name Role Phone ReannaThelma lopez ANNA Primary Care Provider Encounter Details Date Type Department Care Team (Late st Contact Info) Description 10/14/2023 Orders Only PATIENT PORTAL DO NOT DELETE THIS DEPT USED BY MAG[place] AGUIRRE [id number] Allergies Active Allergy Reactions Criticality Noted Date Comments Prednisone 04/23/2021 Increased anxiety documented as of this encounter (statuses as of 10/14/2023) Medications Medication Sig Dispensed Refills Start Date [...] as of this encounter (statuses as of 10/14/2023) Active Problems Problem Noted Date Diagnosed Date [...] (lupus anticoagulant, anti-cardiolipin IgG and IGM and [id number]) for those patients who delivered prior to [...] IUFD 10/18/2021 Overview: Per scanned notes from [facility] 2013: Vaginal bleeding at 29+ weeks, noted to have demise. Vaginal delivery at 30 wks. Placenta examination consistent w/abruption. November 2021: APS and thrombophilia work up completed: negative Last Assessment & Plan: The anatomy that was visualized is appropriate for the gestational age. 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 This result is not associated with a significantly increased risk for coronary artery disease, venous thromboembolism, or adverse outcome. Last Assessment & Plan: Reviewed the [place] [employer] ACOG Practice [...] as of this encounter (statuses as of 10/14/2023) Resolved Problems Problem Noted Date Diagnosed Date Resolved Date Antepartum anemia complicating 03/22/2022 07/23/2023 Abnormal glucose tolerance i n mother complicating 03/21/2022 04/09/2022 COVID-19 affecting , antepartum 03/19/2022 07/23/2023 Overview: 21 weeks Thrombophilia 02/04/2022 11/20/2022 Health counseling 12/10/2021 07/23/2023 Overview: Patient seen by [facility]man. Patient denies any questions or concerns. Problem [...] having any current needs or questions 04/09/2022 Chaipto Novoa RN 04/09/22 Problem Action Taken Date [...] told has clotting disorder, ?MTHFR -testing by CRYPTOLOGIC TECHNICIAN TECHNICAL in [facility]-obtain records. Closed head injury with concussion 04/10/2016 05/19/2018 documented as of this encounter (statuses as of 10/14/2023) Immunizations Name Administration Dates Next Due HPV [...] money to get more. Never true 07/23/2023 [place] Depression Scale Answer Date Recorded [place] Depression Scale Total 10 07/23/2023 The [...] 10/17/2023 4:00 PM EDT Office Visit Gynecology/Obstetrics [address] [place] [address] Dary Hart PA-C [address] [facility] [place] [address] 10/30/2023 1:45 PM EDT Office Visit Clinical Services Consultant Obstetrics Maternal Medicine, [address] [address] Pedro German, [address] [place] [address] 10/30/2023 1:45 PM EDT Imaging Radiology [address] [address] 11/27/2023 1:45 PM EDT Office Visit Clinical Services Consultant Obstetrics Maternal Medicine, [address] [address] Pedro German [address] [place] [address] 11/27/2023 1:45 PM EDT Imaging Radiology [address] [address] 12/25/2023 1:45 PM EDT Office Visit Clinical Services Consultant Obstetrics Maternal Medicine, [address] [address] Pedro German, [address] [place] [address] 12/25/2023 1:45 PM EDT Imaging Radiology [facility], [place] [address] [place] [address] 01/22/2024 1:45 PM EDT Office Visit Clinical Services Consultant Obstetrics Maternal Medicine, [place] [address] [place] [address] Maxi Pedro Schneider, [address] [place] [address] 01/22/2024 1:45 PM EDT Imaging Radiology [facility], [place] [address] [place] [address] Health Maintenance Due Date Last Done Comments [...] filedocumented as of this encounter Care Teams Associate Professor Of Musicology Relationship Specialty Start Date End Date GinoOctober ANNA Sims [address] [place] [address] [place] [address] PCP - General Physician Flash Welder 12/08/20 documented as of this encounter
--- OUTSIDE RECORDS SUMMARY | 2024-02-17 18:09 | External Medical Summary | Summary of Care ---
Author Name Unknown Organization [facility] Address [address] [place] [address] Phone [phone] Care Team Providers Care Data Entry Assistant Name Role Phone Gino Thelma Bethany ANNA Primary Care Provider [phone] Encounter Details Date Type Department Care Team (Late st Contact Info) Description 10/20/2023 Telephone Gynecology/Obstetrics [facility] [address] [facility] [place] [address] Sandhya Saxena, PAMELA [address] [facility] [place] [address] Allergies Active [...] Supervision of high risk in first trim main 07/23/2023 Recurrent major depressive disorder 11/20/2022 COVID-19 [...] (lupus anticoagulant, anti-cardiolipin IgG and IGM and [id number]) for those patients who delivered prior to [...] IUFD 10/18/2021 Overview: Per scanned notes from [facility] 2013: Vaginal bleeding at 29+ weeks, noted to have demise. Vaginal delivery at 30 wks. Placenta examination consistent w/abruption. November 2021: APS and thrombophilia work up completed: negative Last Assessment & Plan: The anatomy that was visualized is appropriate for the gestational age. MTHFR mutation 04/05/2019 Overview: April 2019: This individual is homozygous for the [id number] variant and negative (normal) for the C677T variant in the MTHFR gene. This result is not associated with a significantly increased risk for coronary artery disease, venous thromboembolism, or adverse outcome. Last Assessment & Plan: Reviewed the [place] [employer]ians [employer] Gynec[employer] ACOG Practice [...] Patient seen by [facility] Zumba Instructor. Patient denies any questions or concerns. Problem [...] told has clotting disorder, ?MTHFR -testing by OVERHEAD WORKER in [facility]-obtain records. Closed head injury with [...] money to get more. Never true 07/23/2023 [place] Depression Scale Answer Date Recorded [place] Depression Scale Total 10 07/23/2023 The thought [...] Description 10/24/2023 7:50 AM EDT Laboratory Laboratory, [facility] [address] [place] [id number] CatalanMaria Fernanda pepper [facility] [address] [place] [address] 10/30/2023 1:45 PM EDT Office Visit Children'S Nursery Assistant Obstetrics Maternal Medicine, [address] [address] Pedro German [facility] [place] [address] 10/30/2023 1:45 PM EDT Imaging Radiology [address] [address] 11/11/2023 1:30 PM EDT Office Visit Gynecology/Obstetrics [facility] [address] [place] [address] RubenserHaley CRNP [address] [place] [address] 11/27/2023 1:45 PM EDT Office Visit Children'S Nursery Assistant Obstetrics Maternal Medicine, [address] [address] Pedro German, [address] [place] [address] 11/27/2023 1:45 PM EDT Imaging Radiology [address] [address] 12/25/2023 1:45 PM EDT Office Visit Children'S Nursery Assistant Obstetrics Maternal Medicine, [address] [address] Pedro German, [address] [place] [address] 12/25/2023 1:45 PM EDT Imaging Radiology [facility], [place] [address] [place] [address] 01/22/2024 1:45 PM EDT Office Visit Children'S Nursery Assistant Obstetrics Maternal Medicine, [place] [address] [place] [address] Maxi Pedro Schneider, [address] [place] [address] 01/22/2024 1:45 PM EDT Imaging Radiology [facility], [place] [address] [place] [address] Health Maintenance Due Date Last Done Comments [...] filedocumented as of this encounter Care Teams Data Entry Assistant Relationship Specialty Start Date End Date October ANNA Sims [address] [place] [address] [place] [address] PCP - General Physician Director Of Sustainable Design 12/08/20 documented as of this encounter
--- OUTSIDE RECORDS SUMMARY | 2024-02-17 18:09 | External Medical Summary ---
Author Name Unknown Address Unknown Organization [id number]:[facility]ORY [facility] [address] [place] [address] Laboratory Report Ordering Provider Test Date Status ERMA BRAXTON 10/17/2023 16:17:48 Final Observation Date Value Abnormality Reference (Units ) Status Creatinine 10/17/2023 16:17:48 0.5 0.5-1.0 (mg/dL) Final Glomerular filtration rate/1.73 sq M.predicted [Volume Rate/Area] in Serum, Plasma or Blood by Creatinine-based formula (CKD-EPI) 10/17/2023 16:17:48 >90 >=60 (mL/min) Final eGFR is calculated based on the CKD-EPI 2020 equation Performing Location [facility] [place] [address] [place] [address]
--- OUTSIDE RECORDS SUMMARY | 2024-02-17 18:09 | External Medical Summary | Summary of Care ---
Author Name Unknown Organization [facility] Address [address] [facility] [place] [address] Phone [phone] Care Team Providers Care Pyroglazer Name Role Phone Gino Thelma Sims PA-C Primary Care Provider [phone] Encounter Details Date Type Department Care Team (Late st Contact Info) Description 10/02/2023 Telephone Gynecology/Obstetrics [facility] [address] [facility] [place] [address] Sandhya Saxena CNM [address] [facility] [place] [address] Allergies Active Allergy Reactions Criticality Noted Date Comments Prednisone 04/23/2021 Increased anxiety documented as of this encounter (statuses as of 10/02/2023) Medications Medication Sig Dispensed Refills Start Date [...] as of this encounter (statuses as of 10/02/2023) Active Problems Problem Noted Date Diagnosed Date [...] (lupus anticoagulant, anti-cardiolipin IgG and IGM and [id number]-5-[id number]) for those patients who delivered prior to [...] IUFD 10/18/2021 Overview: Per scanned notes from [facility] 2013: Vaginal bleeding at 29+ weeks, noted to have demise. Vaginal delivery at 30 wks. Placenta examination consistent w/abruption. November 2021: APS and thrombophilia work up completed: negative Last Assessment & Plan: The anatomy that was visualized is appropriate for the gestational age. MTHFR mutation 04/05/2019 Overview: April 2019: This individual is homozygous for the [id number] variant and negative (normal) for the C677T [...] as of this encounter (statuses as of 10/02/2023) Resolved Problems Problem Noted Date Diagnosed Date Resolved Date Antepartum anemia complicating 03/22/2022 07/23/2023 Abnormal glucose tolerance i n mother complicating 03/21/2022 04/09/2022 COVID-19 affecting , antepartum 03/19/2022 07/23/2023 Overview: 21 weeks Thrombophilia 02/04/2022 11/20/2022 Health counseling 12/10/2021 07/23/2023 Overview: Patient seen by [facility] Armhole Presser. Patient denies any questions or concerns. Problem Action Taken Date entered Entered by Date resolved 2nd trimester ed Reviewed w/pt 01/08/2022 Trista oRjas RN 01/08/2022 Provided a huffman medical form [...] told has clotting disorder, ?MTHFR -testing by SHAFT REPAIRER in [facility]-obtain records. Closed head injury with concussion 04/10/2016 05/19/2018 documented as of this encounter (statuses as of 10/02/2023) Immunizations Name Administration Dates Next Due HPV [...] money to get more. Never true 07/23/2023 [place] Depression Scale Answer Date Recorded [place] Depression Scale Total 10 07/23/2023 The thought [...] Telephone Encounter - Radha Prince LPN - 10/02/2023 9:33 AM EDT MyG sent to pt by Sandhya see other encounter * Telephone Encounter - Briseida Stevens RN - 10/02/2023 9:31 AM EDT ----- Message from Sandhya Saxena CNM sent at 10/02/2023 9:18 AM EDT ----- Please let patient know her urine culture was negative for infection. If having ongoing pelvic pain, she should let us know. Thanks! Sandhya Saxena CNM documented in this encounter Plan of Treatment Upcoming Encounters Date Type Department Care Team (Late st Contact Info) Description 10/17/2023 4:00 PM EDT Office Visit Gynecology/Obstetrics [facility] [address] [facility] [place] [address] Dary Hart PA-C [address] [place] [id number] 10/30/2023 1:45 PM EDT Office Visit Leaf Sorter Obstetrics Maternal Medicine, [place] [address] [facility] [place] [id number] Pedro German [address] [place], [place] [address] 10/30/2023 1:45 PM EDT Imaging Radiology [place] [address] [place] [address] 11/28/2023 9:15 AM EDT Office Visit Leaf Sorter Obstetrics Maternal Medicine, [place] [address] [place] [address] Pedro German, [address] [place] [address] 11/28/2023 9:15 AM EDT Imaging Radiology [place] [address] [place] [address] 12/26/2023 9:45 AM EDT Office Visit Leaf Sorter Obstetrics Maternal Medicine, [place] [address] [place] [address] Pedro German, [address] [place] [address] 12/26/2023 9:45 AM EDT Imaging Radiology [facility], [place] [address] [place] [address] 01/23/2024 9:45 AM EDT Office Visit Leaf Sorter Obstetrics Maternal Medicine, [place] [address] [place] [address] Pedro German, [address] [place] [address] 01/23/2024 9:45 AM EDT Imaging Radiology [place] [address] [place] [address] Health Maintenance Due Date Last Done Comments [...] filedocumented as of this encounter Care Teams Pyroglazer Relationship Specialty Start Date End Date Reannaoctober ANNA Sims [address] [place], [place] [address]dave Basilio [place] [address] PCP - General Physician Aerial Hurricane Hunter 12/08/20 documented as of this encounter
--- OUTSIDE RECORDS SUMMARY | 2024-02-17 18:09 | External Medical Summary ---
Author Name Unknown Address Unknown Organization [id number]:LABORATORY [facility] [place] 57[address] - [address] [place] [address] Laboratory Report Ordering Provider Test Date Status DAVION SINGH 10/18/2023 12:39:36 Final Observation Date Value Abnormality Reference (Units ) Status Glucose [Moles/volume] in Serum or Plasma --1 hour post 50 g glucose PO 10/18/2023 12:39:36 138 Above high normal 70-129 (mg/dL) Final Performing Location LABORATORY [facility] [place] 57[address] - [address] [place] [address]
--- OUTSIDE RECORDS SUMMARY | 2024-02-17 18:09 | External Medical Summary ---
Author Name Unknown Address Unknown Organization K01:LABORATORY [facility] [place] - [address] [place] [address] Laboratory Report Ordering Provider Test Date Status ERMA BRAXTON 10/17/2023 16:17:48 Final Observation Date Value Abnormality Reference (Units ) Status WBC, Total 10/17/2023 16:17:48 9.42 4.00-10.8 0 (K/uL) Final RBC 10/17/2023 16:17:48 3.82 3.85-5.15 (M/uL) Final Hemoglobin 10/17/2023 16:17:48 11.6 Below low normal 12 .0-15.3 (g/dL) Final Anemia reflex testing trigge rs on a HGB < 12.0 for Females and HGB < 13.0 for Males in accordance with the WHO Anemia Guidelines
Anemia reflex testing triggers on a HGB < 12.0 for Females and HGB < 13.0 for Males in accordance with the WHO Anemia Guidelines HCT 10/17/2023 16:17:48 36.6 36.0-45.2 (%) Final MCV 10/17/2023 16:17:48 95.8 81.5-97.5 (fL) Final MCH 10/17/2023 16:17:48 30.4 27.0-34.0 (pg) Final MCHC 10/17/2023 16:17:48 31.7 32.0-36.0 (g/dL) Final RDW 10/17/2023 16:17:48 12.7 11.5-15.5 (%) Final Platelets 10/17/2023 16:17:48 284 140-400 (K /uL) Final MPV 10/17/2023 16:17:48 11.7 6.6-11.1 ( fL) Final Nucleated erythrocytes/100 leukocytes [Ratio] in Blood by Automated count 10/17/2023 16:17:48 0 <=0 (/100 WBCs) [facility] Performing Location LABORATORY [facility] - [address] [facility] [address]
--- OUTSIDE RECORDS SUMMARY | 2024-02-17 18:09 | External Medical Summary | Summary of Care ---
Author Name Unknown Organization [facility] Address [address] [facility] [place] [address] Phone [phone] Care Team Providers Care Print Producer Name Role Phone Thelma Christian Bethany ANNA Primary Care Provider [phone] Reason for Visit * Reason Comments Return Visit Encounter Details Date Type Department Care Team (Late st Contact Info) Description 10/17/2023 4:00 PM EDT Office Visit Gynecology/Obstetric [facility] 132 [facility] [place] [address] Dary Hart PA-C [address] [facility] [place] [address] Supervision of high risk in second trimester*; Hx of preeclampsia, prior , currently , unspecified trimester; History of IUFD; History of placental abruption; MTHFR mutation Allergies Active Allergy Reactions Criticality Noted Date Comments Prednisone 04/23/2021 Increased anxiety documented as of this encounter (statuses as of 10/17/2023) Medications Medication Sig Dispensed Refills Start Date End Date Status 6.75-0.2 MG Oral Tablet Take by mouth. 0 Active Aspirin 81 MG Oral Tablet ChewableIndication s:Hx of preeclampsia, prior , currently , unspecified trimester Take 1 Tablet by mouth in the morning. 100 Tablet 3 08/04/2023 Active metroNIDAZOLE 500 MG Oral Tablet (Flagyl) Take 1 Tablet by mouth in the morning and 1 Tablet before bedtime. X 7 days until gone.. 14 Tablet 0 09/29/2023 10/17/2023 Discontinued (Medication List Clean Up) documented as of this encounter (statuses as of 10/17/2023) Active Problems Problem Noted Date Diagnosed Date [...] (lupus anticoagulant, anti-cardiolipin IgG and IGM and [id number]-[id number]) for those patients who delivered prior to [...] IUFD 10/18/2021 Overview: Per scanned notes from [facility] 2013: Vaginal bleeding at 29+ weeks, noted to have demise. Vaginal delivery at 30 wks. Placenta examination consistent w/abruption. November 2021: APS and thrombophilia work up completed: negative Last Assessment & Plan: The anatomy that was visualized is appropriate for the gestational age. MTHFR mutation 04/05/2019 Overview: April 2019: This individual is homozygous for the [id number] variant and negative (normal) for the C677T variant in the MTHFR gene. This result is not associated with a significantly increased risk for coronary artery disease, venous thromboembolism, or adverse outcome. 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 Patient denies any questions or concerns. Problem Action Taken Date entered Entered by Date resolved 2nd trimester ed Reviewed w/pt 01/08/2022 Trista Rojas RN 01/08/2022 Provided a huffman medical form for pt to review 01/08/2022 Trista oRjas RN 01/08/2022 Problem Action Taken Date entered [...] told has clotting disorder, ?MTHFR -testing by GARAGE DOOR SERVICE TECHNICIAN in [facility]-obtain records. Closed head injury with concussion 04/10/2016 05/19/2018 documented as of this encounter (statuses as of 10/17/2023) Immunizations Name Administration Dates Next Due HPV [...] money to get more. Never true 07/23/2023 [place] Depression Scale Answer Date Recorded [place] Depression Scale Total 10 07/23/2023 The thought [...] Sign Reading Time Taken Comments Blood Pressure 112/66 10/17/2023 3:47 PM EDT Pulse - - Temperature - - Respiratory Rate - - Oxygen Saturation - - Inhaled Oxygen Concentration - - Weight 76.2 kg (168 lb) 10/17/2023 3:47 PM EDT Height - - Body Mass Index 28.84 09/29/2023 2:02 PM EDT documented in this encounter Progress Notes * Dary Hart PA-C - 10/17/2023 3:48 PM EDT Kanika Louise is a 28 year old female here for her routine OB appointment at 21w3d Her Estimated Date of Delivery: 02/24/24 Patient has no OB concerns at this time. She is concerned about a new face wash and moisturizer that she started 2 weeks ago. She wants to confirm this is safe in . She saw an fire ranger who reviewed the ingredients and confirmed their safety in . She also would like to start a new "facial toner" but again is unsure of the safety. REVIEW OF SYSTEMS She has felt intermittent movement. Denies vaginal bleeding, LOF, contractions, N/V, headaches, vision changes, chest pain, deep calf pain. PHYSICAL EXAM Filed Vitals: 10/17/23 1547 BP: 112/66 Weight: 76.2 kg (168 lb) +FHT 140s Fundal height 21 cm ASSESSMENT/PLAN Supervision of high risk in second trimester (Primary) Hx of preeclampsia, prior , currently , unspecified trimester - Taking 81 mg ASA History of IUFD History of placental abruption MTHFR mutation Supervision of - had anatomy u/s with MFM. Results WNL. Patient will continue to follow in 4 weeks for growth. - reviewed skin care manufacturers website and ingredients. Advised to avoid products with retinoids or salicylic acid in due to known harmful effects. Both the face wash and moisturizer donot contain these ingredients. Unable to find information regarding safety of "facial toner" she wants to use and advised against using in . - if patient continues to have reservations about new skin care products, she is advised to discontinue. RTO in 4 weeks Dary Hart PA-C 10/17/2023 documented in this encounter Nursing Notes * Vianca Obregon LPN - 10/17/2023 3:48 PM EDT 21w3d Denies vaginal bleeding/rom + movement No new concerns documented in this encounter Plan of Treatment Upcoming Encounters Date Type Department Care Team (Late st Contact Info) Description 10/30/2023 1:45 PM EDT Office Visit Winder Contort Operator Obstetrics Maternal Medicine, [address] [address] Pedro German DO [address] [place] [address] 10/30/2023 1:45 PM EDT Imaging Radiology [facility] [place], [place] [address] [address] [facility] [place] [address] 11/11/2023 1:30 PM EDT Office Visit Gynecology/Obstetrics [facility] [address] [place] [address] Haley Vaca CRNP [address] [place] [address] 11/27/2023 1:45 PM EDT Office Visit Winder Contort Operator Obstetrics Maternal Medicine, [address] [address] Pedro German, [place] [address] 11/27/2023 1:45 PM EDT Imaging Radiology [address] [address] 12/25/2023 1:45 PM EDT Office Visit Winder Contort Operator Obstetrics Maternal Medicine, [address] [address] Pedro German, [address] [address] 12/25/2023 1:45 PM EDT Imaging Radiology [address] [address] 01/22/2024 1:45 PM EDT Office Visit Winder Contort Operator Obstetrics Maternal Medicine, [address] [address] Pedro German, [address] [address] 01/22/2024 1:45 PM EDT Imaging Radiology [address] [address] Health Maintenance Due Date Last Done Comments [...] risk in second trimester- Primary Unspecified high-risk Hx of preeclampsia, prior , currently , unspecified trimester History of IUFD History of placental abruption MTHFR mutation Disturbances of sulphur-bearing amino-acid metabolism documented in this encounter Care Teams Print Producer Relationship Specialty Start Date End Date Thelma Christian PA-C [address] [place] [address] PCP - General Physician Pigs Feet Cleaner 12/08/20 documented as of this encounter
--- OUTSIDE RECORDS SUMMARY | 2024-02-17 18:09 | External Medical Summary ---
Author Name Unknown Address Unknown Organization K01:[place] [facility] [place] [address] [place] [address] Laboratory Report Ordering Provider Test Date Status ERMA BRAXTON 10/17/2023 16:17:48 Final Observation Date Value Abnormality Reference (Units ) Status TSH 10/17/2023 16:17:48 1.23 0.27-4.20 (uIU/mL) Final Performing Location LABORATORY [facility] - [address] [place] [address]
--- OUTSIDE RECORDS SUMMARY | 2024-02-17 18:09 | External Medical Summary | Summary of Care ---
Author Name Unknown Organization [facility] Address [address] [facility] [address] Phone [phone] Care Team Providers Care Lap Winding Machine Operator Name Role Phone Thelma Christian PA-C Primary Care Provider [phone] Reason for Visit * Reason Comments Outpatient Testing Encounter Details Date Type Department Care Team (Late st Contact Info) Description 10/17/2023 3:30 PM EDT Laboratory Laboratory, [facility] [address] [facility] [address] Supervision of high risk in second trimester [...] (lupus anticoagulant, anti-cardiolipin IgG and IGM and fmqt-3-[id number]) for those patients who delivered prior to [...] IUFD 10/18/2021 Overview: Per scanned notes from [facility] 2013: Vaginal bleeding at 29+ weeks, noted to have demise. Vaginal delivery at 30 wks. Placenta examination consistent w/abruption. November 2021: APS and thrombophilia work up completed: negative Last Assessment & Plan: The anatomy that was visualized is appropriate for the gestational age. MTHFR mutation 04/05/2019 Overview: April 2019: This individual is homozygous for the [id number] variant and negative (normal) for the C677T [...] Patient seen by [facility] Appliance Mechanic. Patient denies any questions or concerns. [...] told has clotting disorder, ?MTHFR -testing by TELESALES TEAM LEADER in [facility]-obtain records. Closed head injury with [...] money to get more. Never true 07/23/2023 [place] Depression Scale Answer Date Recorded [place] Depression Scale Total 10 07/23/2023 The thought [...] Description 10/30/2023 1:45 PM EDT Office Visit Avionics System Engineer Obstetrics Maternal Medicine, [address] [address] Pedro German [place] [address] 10/30/2023 1:45 PM EDT Imaging Radiology [address] [address] 11/11/2023 1:30 PM EDT Office Visit Gynecology/Obstetrics [facility] [address] [place] [address] Haley Vaca CRNP [address] [place] [address] 11/27/2023 1:45 PM EDT Office Visit Avionics System Engineer Obstetrics Maternal Medicine, [address] [address] Pedro German DO [address] [place] [address] 11/27/2023 1:45 PM EDT Imaging Radiology [address] [address] 12/25/2023 1:45 PM EDT Office Visit Avionics System Engineer Obstetrics Maternal Medicine, [address] [address] Pedro German DO [address] [place] [address] 12/25/2023 1:45 PM EDT Imaging Radiology [place] [address] [place] [address] 01/22/2024 1:45 PM EDT Office Visit Avionics System Engineer Obstetrics Maternal Medicine, [place] [address] [place] [address] Pedro German, [address] [place] [address] 01/22/2024 1:45 PM EDT Imaging Radiology [place] [address] [place] [address] Pending Results Name Type Priority Associated Diagnoses Date /Time CBC WITH WBC DIFFERENTIAL AND ANEMIA REFLEX WORKUP Lab Routine Supervision of high risk in second trimester 10/17/2023 4:17 PM EDT ANEMIA CBC Lab Routine Supervision of high risk in second trimester 10/17/2023 4:17 PM EDT DIFFERENTIAL, AUTOMATED Lab Routine Supervision of high risk in second trimester 10/17/2023 4:17 PM EDT ANEMIA REFLEX CHEMISTRY HOLD Lab Routine Supervision of high risk in second trimester 10/17/2023 4:17 PM EDT Health Maintenance Due Date Last [...] Diagnosis Supervision of high risk in second trimester Unspecified high-risk documented in this encounter Care Teams Lap Winding Machine Operator Relationship Specialty Start Date End Date Gino Thelma Bethany, ANDREIC [address] [place] [address] PCP - General Physician Aerodynamics Teacher 12/08/20 documented as of this encounter
--- OUTSIDE RECORDS SUMMARY | 2024-02-17 18:09 | External Medical Summary ---
Author Name Unknown Address Unknown Organization K01:LABORATORY [facility] [place] [facility] [address] [facility] [address] Laboratory Report Ordering Provider Test Date Status IRAISRITCHIE 10/17/2023 16:17:48 Final Observation Date Value Abnormality Reference (Units ) Status Iron 10/17/2023 16:17:48 61 33-151 (ug /dL) Final Iron-binding capacity 10/17/2023 16:17:48 347 250-425 (ug/dL) Final Transferrin Sat % 10/17/2023 16:17:48 18 15 -55 (%) Final Performing Location LABORATORY C - [address] [place] [address]
--- OUTSIDE RECORDS SUMMARY | 2024-02-17 18:10 | External Medical Summary | Summary of Care ---
Author Name Unknown Organization [facility] Address [address] [facility] [place] [address] Phone [phone] Care Team Providers Care Blooming Mill Supervisor Name Role Phone GinoThelma ANNA Primary Care Provider [phone] Encounter Details Date Type Department Care Team (Late st Contact Info) Description 09/29/2023 Telephone Gynecology/Obstetrics [facility] 132 [facility] [place] [address] Sandhya Saxena CNM 400 [facility] [place] [address] Allergies Active Allergy Reactions Criticality Noted Date Comments Prednisone 04/23/2021 Increased anxiety documented as of this encounter (statuses as of 09/29/2023) Medications Medication Sig Dispensed Refills Start Date End Date Status 6.75-0.2 MG Oral Tablet Take by mouth. 0 Active Aspirin 81 MG Oral Tablet ChewableIndications:H x of preeclampsia, prior , currently , unspecified trimester Take 1 Tablet by mouth in the morning. 100 Tablet 3 08/04/2023 Active documented as of this encounter (statuses as of 09/29/2023) Active Problems Problem Noted Date Diagnosed Date [...] (lupus anticoagulant, anti-cardiolipin IgG and IGM and lxai-2-wzwtckmjante) for those patients who delivered prior to [...] at 29 weeks Last Assessment & Plan: CONSIDERATIONS: Reviewed definition of placental abruption as well as risk factors and possible etiologies. Explained that the degree of placental separation, maternal and status, and the gestational age at which it occurs are the primary factors influencing management. Discussed that patients with a history of previous acute abruption have up to a 15% risk for recurrence in subsequent pregnancies. This risk increases to 25% after two prior abruptions. Abruption is not a preventable condition and there are currently no known therapies or interventions to decrease the risk of recurrence outside of decreasing risk factors (poorly-controlled hypertension, smoking, cocaine use). RECOMMENDATIONS: Recommend Maternal- Medicine ultrasound for growth every 4 weeks after 24 weeks as a prior placental abruption may be indicative of an underlying placental factor that can result in growth restriction in subsequent pregnancies. We currently do not recommend inherited or acquired thrombophilia screening for patients with isolated placental abruption. History of IUFD 10/18/2021 Overview: Per scanned notes from [facility] 2013: Vaginal bleeding at 29+ weeks, noted to have demise. Vaginal delivery at 30 wks. Placenta examination consistent w/abruption. November 2021: APS and thrombophilia work up completed: negative Last Assessment & Plan: The anatomy that was visualized is appropriate for the gestational age. MTHFR mutation 04/05/2019 Overview: April 2019: This individual is homozygous for the [id number] variant and negative (normal) for the C677T variant in the MTHFR gene. This result is not associated with a significantly increased risk for coronary artery disease, venous thromboembolism, or adverse outcome. Last Assessment & Plan: Reviewed the [employer] ACOG Practice [...] as of this encounter (statuses as of 09/29/2023) Resolved Problems Problem Noted Date Diagnosed Date Resolved Date Antepartum anemia complicating 03/22/2022 07/23/2023 Abnormal glucose tolerance i n mother complicating 03/21/2022 04/09/2022 COVID-19 affecting , antepartum 03/19/2022 07/23/2023 Overview: 21 weeks Thrombophilia 02/04/2022 11/20/2022 Health counseling 12/10/2021 07/23/2023 Overview: Patient seen by [facility] Protection Consultant. Patient denies any questions or concerns. Problem [...] told has clotting disorder, ?MTHFR -testing by BRUSHER AND SHEARER in [facility]-obtain records. Closed head injury with concussion 04/10/2016 05/19/2018 documented as of this encounter (statuses as of 09/29/2023) Immunizations Name Administration Dates Next Due HPV [...] money to get more. Never true 07/23/2023 [place] Depression Scale Answer Date Recorded [place] Depression Scale Total 10 07/23/2023 The thought [...] Telephone Encounter - Briseida Stevens RN - 09/29/2023 8:27 AM EDT Patient calling in to review vaginosis test results. government professor also states she had diarrhea, and stomach pain Friday and Friday night. States that she is afraid she gave the baby food poisoning. Patient denies any current diarrhea or vomiting. Reports New urinary symptoms that began over the weekend. Reports foul odor, cloudy urine. Reassured patientthat her urine testing was normal on in office. Advised patient she may of had a GI virus and she should try pushing fluids, drinking water and Gatorade. Patient Verbalized understanding. Please review / advise on Vaginosis panel. documented in this encounter Plan of Treatment Upcoming Encounters Date Type Department Care Team (Late st Contact Info) Description 10/01/2023 10:30 AM EDT Office Visit Armor Reconnaissance Vehicle Driver Obstetrics Maternal Medicine, [place] [address] [place] [address] Arias Donnelly MD [address] [place] [facility] [place] [address] 10/01/2023 10:30 AM EDT [facility] [address] [place] [facility] [place] [address] 10/17/2023 4:00 PM EDT Office [facility] [address] [place] [address] Dary Hart PA-C [address] [place] [address] Health Maintenance Due Date Last Done Comments [...] filedocumented as of this encounter Care Teams Blooming Mill Supervisor Relationship Specialty Start Date End Date Gino October ANNA Sims [address] [place] [address] PCP - General Physician Network Coordinator 12/08/20 documented as of this encounter
--- OUTSIDE RECORDS SUMMARY | 2024-02-17 18:10 | External Medical Summary | Summary of Care ---
Author Name Unknown Organization [facility] Address [address] [facility] [place] [address] Phone [phone] Care Team Providers Care Slip Bridge Operator Name Role Phone GinoThelma ANNA Primary Care Provider [phone] Encounter Details Date Type Department Care Team (Late st Contact Info) Description 09/29/2023 Telephone Gynecology/Obstetrics [facility] 132 [facility] [place] [address] Irais Saxena CN 400 [facility] [place] [address] Allergies Active [...] (lupus anticoagulant, anti-cardiolipin IgG and IGM and trpu-3-njvtetnimbxa) for those patients who delivered prior to [...] IUFD 10/18/2021 Overview: Per scanned notes from [facility] 2013: Vaginal bleeding at 29+ weeks, noted to have demise. Vaginal delivery at 30 wks. Placenta examination consistent w/abruption. November 2021: APS and thrombophilia work up completed: negative Last Assessment & Plan: The anatomy that was visualized is appropriate for the gestational age. MTHFR mutation 04/05/2019 Overview: April 2019: This individual is homozygous for the [id number] variant and negative (normal) for the C677T variant in the MTHFR gene. This result is not associated with a significantly increased risk for coronary artery disease, venous thromboembolism, or adverse outcome. Last Assessment & Plan: Reviewed the [place] [employer] ACOG Practice [...] Patient seen by [facility] Linesperson. Patient denies any questions or concerns. Problem [...] told has clotting disorder, ?MTHFR -testing by REPACK ROOM WORKER in [facility] [...] money to get more. Never true 07/23/2023 [place] Depression Scale Answer Date Recorded [place] Depression Scale Total 10 07/23/2023 The thought [...] encounter Miscellaneous Notes * Addendum Note - Irais Saxena CNM - 09/29/2023 11:10 AM EDTAddended by: IRAIS SAXENA on: 09/29/2023 11:10 AM Modules accepted: Orders * Telephone Encounter - Irais Saxena CNM - 09/29/2023 10:57 AM EDT Called patient. Reviewed that she tested positive for bacterial vaginosis. Rx for Flagyl 500mg PO BID x 7 days. Recommended avoiding intercourse while taking this medication. Patient with several other concerns. Reports diarrhea for the last 3 days, which she feels is improving. Also reports pelvic soreness, which she rates as 6/10 with movement and 0/10 at rest. Denies vaginal bleeding and LOF. Also reports pain with urination since yesterday. She felt movement yesterday morning but not since then. Patient requesting to come in to check heart tones. I have also ordered a urine culture. You can add her to my schedule at 2pm for heart tones. Thanks! Irais Saxena CNM * Telephone Encounter - Briseida Stevens RN - 09/29/2023 8:27 AM EDT Patient calling in to review vaginosis test results. call center associate also states she had diarrhea, and stomach [...] Team (Late st Contact Info) Description 09/29/2023 2:00 PM EDT Office Visit Gynecology/Obstetrics [facility] [address] [place] [address] Irais Saxena CNM 400 [facility] [place] [address] 10/01/2023 10:30 AM EDT Office Visit Food Service Supervisor Obstetrics Maternal Medicine, [place] [address] [place] [address] Arias Donnelly MD [address] [place] [address] 10/01/2023 10:30 AM EDT Imaging Radiology [facility] [address] [place] [address] 10/17/2023 4:00 PM EDT Office Visit Gynecology/Obstetrics [facility] [address] [place] [address] Dary Hart PA-C [address] [place] [address] Scheduled Orders Name Type Priority Associated Diagnoses Orde r Schedule CULTURE, URINE, QUANTITATIVE Lab Routine Dysuria Expected: 09/29/2023, Expires: 09/28/2024 Health Maintenance Due Date Last Done Comments [...] as of this encounter Visit Diagnoses Diagnosis BV (bacterial vaginosis)- Primary Vaginitis and vulvovaginitis, unspecified Dysuria documented in this encounter Care Teams Slip Bridge Operator Relationship Specialty Start Date End Date GinoOctober ANNA Sims [address] [place] [address] PCP - General Physician Double End Production Grinder 12/08/20 documented as of this encounter
--- OUTSIDE RECORDS SUMMARY | 2024-02-17 18:10 | External Medical Summary | Summary of Care ---
Author Name Unknown Organization [facility] Address [address] [place] [address] Phone [phone] Care Team Providers Care Chain Person Name Role Phone Gino Thelma Sims PA-C Primary Care Provider [phone] Reason for Visit * Reason Comments Return Visit Encounter Details Date Type Department Care Team (Late st Contact Info) Description 09/29/2023 2:00 PM EDT Office Visit Gynecology/Obstetric [facility] [address] [facility] [place] [address] Sandhya Saxena, ELE [address] [facility] [place] [address] High-risk , second trimester*; Bacterial vaginosis Allergies Active Allergy Reactions Criticality Noted Date [...] (lupus anticoagulant, anti-cardiolipin IgG and IGM and sote-1-mxngmtnkvzal) for those patients who delivered prior to [...] 2019: This individual is homozygous for the [id number] variant and negative (normal) for the C677T variant in the MTHFR gene. This result is not associated with a significantly increased risk for coronary artery disease, venous thromboembolism, or adverse outcome. Last Assessment & Plan: Reviewed the [employer] ACOG Practice [...] 07/23/2023 Overview: Patient seen by [facility] Bioinformatician. Patient denies any questions or concerns. Problem [...] any current needs or questions 04/09/2022 Chapito oNvoa RN 04/09/22 Problem Action Taken Date entered [...] [facility] at 8 mth preg [facility]was told has clotting disorder, ?MTHFR -testing by [facility] in [facility]-obtain records. Closed head injury with concussion 04/10/2016 [...] money to get more. Never true 07/23/2023 [place] Depression Scale Answer Date Recorded [place] Depression Scale Total 10 07/23/2023 The thought [...] Sign Reading Time Taken Comments Blood Pressure 110/64 09/29/2023 2:02 PM EDT Pulse - - Temperature - - Respiratory Rate - - Oxygen Saturation - - Inhaled Oxygen Concentration - - Weight 75.3 kg (166 lb) 09/29/2023 2:02 PM EDT Height 162.6 cm (5' 4") 09/29/2023 2:02 PM EDT Body Mass Index 28.49 09/29/2023 2:02 PM EDT documented in this encounter Progress Notes * Sandhya Saxena CNM - 09/29/2023 2:00 PM EDT Kanika Louise is a 28 year old female here for an acute OB appointment at 18w6d. See telephone encounter from earlier today for more details regarding patient's concerns. Her Estimated Date of Delivery: 02/24/24 REVIEW OF SYSTEMS: She affirms movement. She felt movement Friday, Friday, and Friday but no movement today. Denies vaginal bleeding, LOF, vision changes, and RUQ pain. Reports vaginal pain which started thismorning and "musky" urine odor. +Nausea for the last 2 days. Denies vomiting. Had a headache 2 daysago which has resolved. Had abdominal cramping 2 days ago and lower belly cramping this morning. Diarrhea is improving significantly. +Pubic bone pain which radiates to her lower pelvis and left lower quadrant. Pain at rest is "not bad" rated as 2/10. Pain with walking is 6-7/10. 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 -Patient to notify provider for any worsening or ongoing pain - RTO in 3 weeks as scheduled Sandhya Saxena CNM documented in this encounter Nursing Notes * Jeanie Shea LPN - 09/29/2023 2:02 PM EDT 18w6d Pt is here for FHT documented in this encounter Plan of Treatment Upcoming Encounters Date Type Department Care Team (Late st Contact Info) Description 10/01/2023 10:30 AM EDT Office Visit Community Outreach Manager Obstetrics Maternal Medicine, [place] [address] [place] [address] Arias Donnelly MD [address] [place] [address] 10/01/2023 10:30 AM EDT Imaging Rad[facility] [place] [address] [place] [place] [address] 10/17/2023 4:00 PM EDT Office Visit Gynecology/Obstetrics [facility] [address] [place] [address] Dary Hart PA-C [address] [place] [address] Health Maintenance Due Date Last Done Comments [...] as of this encounter Visit Diagnoses Diagnosis High-risk , second trimester- Primary Bacterial vaginosis Vaginitis and vulvovaginitis, unspecified documented in this encounter Care Teams Chain Person Relationship Specialty Start Date End Date GinoOctober ANNA Sims [address] [place] [address] PCP - General Physician Recreation Center Director 12/08/20 documented as of this encounter
--- OUTSIDE RECORDS SUMMARY | 2024-02-17 18:10 | External Medical Summary | Summary of Care ---
Author Name Unknown Organization [facility] Address [address] [facility] [place] [address] Phone [phone] Care Team Providers Care Travelift Operator Name Role Phone Gino Thelma Sims PA-C Primary Care Provider [phone] Reason for Visit * Reason Comments Return Visit Encounter Details Date Type Department Care Team (Late st Contact Info) Description 09/17/2023 3:00 PM EDT Office Visit Gynecology/Obstetric s Latoya Catalan [address] [place] [address] Brandy Morales CRNP [address] [place] [address] Supervision of high risk in second trimester*; MTHFR mutation; History of placental abruption; History of IUFD; Hx of preeclampsia, prior , currently , unspecified trimester Allergies Active Allergy Reactions Criticality Noted Date Comments Prednisone 04/23/2021 Increased anxiety documented as of this encounter (statuses as of 09/17/2023) Medications Medication Sig Dispensed Refills Start Date End Date Status 6.75-0.2 MG Oral Tablet Take by mouth. 0 Active Aspirin 81 MG Oral Tablet ChewableIndications:H x of preeclampsia, prior , currently , unspecified trimester Take 1 Tablet by mouth in the morning. 100 Tablet 3 08/04/2023 Active documented as of this encounter (statuses as of 09/17/2023) Active Problems Problem Noted Date Diagnosed Date [...] (lupus anticoagulant, anti-cardiolipin IgG and IGM and amnc-1-zxhtfcumeoka) for those patients who delivered prior to [...] 10/18/2021 Overview: Per scanned notes from [facility] 2014: Vaginal bleeding at 29+ weeks, noted to have demise. Vaginal delivery at 30 wks. Placenta examination consistent w/abruption. November 2021: APS and thrombophilia work up completed: negative Last Assessment & Plan: The anatomy that was visualized is appropriate for the gestational age. MTHFR mutation 04/05/2019 Overview: April 2019: This individual is homozygous for the [id number] variant and negative (normal) for the C677T [...] as of this encounter (statuses as of 09/17/2023) Resolved Problems Problem Noted Date Diagnosed Date Resolved Date Antepartum anemia complicating 03/22/2022 07/23/2023 Abnormal glucose tolerance i n mother complicating 03/21/2022 04/09/2022 COVID-19 affecting , antepartum 03/19/2022 07/23/2023 Overview: 21 weeks Thrombophilia 02/04/2022 11/20/2022 Health counseling 12/10/2021 07/23/2023 Overview: Patient seen by [facility] Psychiatric Assistant. Patient denies any questions or concerns. Problem [...] H/O toxoplasmosis 04/22/2016 05/19/2018 Overview: labs on [employer] panel >+ IGG 08/31/13--no active inf--works on barn with horses and cats, nl cbc,cr,, immune varicella,rubell, neg RPR,neg Hbs ag INFORMATION 04/10/2016 05/19/2018 Overview: Lost son at 8 mth preg in 2013 [facility]--was told has clotting disorder, ?MTHFR -testing by COUNTER INTELLIGENCE in [facility]-obtain records. Closed head injury with concussion 04/10/2016 05/19/2018 documented as of this encounter (statuses as of 09/17/2023) Immunizations Name Administration Dates Next Due HPV [...] money to get more. Never true 07/23/2023 [place] Depression Scale Answer Date Recorded [place] Depression Scale Total 10 07/23/2023 The thought [...] Sign Reading Time Taken Comments Blood Pressure 120/74 09/17/2023 2:49 PM EDT Pulse - - Temperature - - Respiratory Rate - - Oxygen Saturation - - Inhaled Oxygen Concentration - - Weight 75.3 kg (166 lb) 09/17/2023 2:49 PM EDT Height 162.6 cm (5' 4") 09/17/2023 2:49 PM EDT Body Mass Index 28.49 09/17/2023 2:49 PM EDT documented in this encounter Progress Notes * Brandy Morales CRNP - 09/17/2023 3:02 PM EDT 17w1d Concerned she isn't eating enough healthy food. States it tastes like dirt. Trying to get in as many fruits and veggies as she can. Not vomiting. Taking PNV. Encouraged to try different preparations and types. ?FM, no bleeding or cramping. Taking PNV and asprin. MSAFP today, low risk Qnatal. Anatomy u/s with MFM. ANNA Gamboa * Jeanie Shea LPN - 09/17/2023 2:47 PM EDT 17w1d Denies any concerns documented in this encounter Plan of Treatment Upcoming Encounters Date Type Department Care Team (Late st Contact Info) Description 09/17/2023 3:30 PM EDT [facility] [address] [facility] [place] [id number] [facility] [address] [facility] [place] [address] Supervision of high risk in second trimester 10/01/2023 10:30 AM EDT Office Visit Communications Writer [facility] [address] [place] [address] Arias Donnelly MD [address] [place] [address] 10/01/2023 10:30 AM EDT Imaging Radiology [facility] [address] [place] [address] 10/17/2023 4:00 PM EDT Office Visit Gynecology/Obstetric s [facility] [address] [facility] [place] [address] Dary Hart PA-C [address] [place] [address] [place] [address] Pending Results Name Type Priority Associated Diagnoses Date /Time MATERNAL SERUM AFP Lab Routine Supervision of high risk in second trimester 09/17/2023 3:13 PM EDT Scheduled Orders Name Type Priority Associated Diagnoses Orde r Schedule MATERNAL SERUM AFP Lab Routine Supervision of high risk in second trimester Expected: 09/17/2023 (Approximate), Expires: 09/16/2024 Health Maintenance Due Date Last Done Comments [...] unspecified trimester Supervision of high risk in second trimester Unspecified high-risk documented in this encounter Care Teams Travelift Operator Relationship Specialty Start Date End Date Thelma Christian PA-C [address] [place] [address] PCP - General Physician Ob/Gyn Doctor 12/08/20 documented as of this encounter
--- OUTSIDE RECORDS SUMMARY | 2024-02-17 18:10 | External Medical Summary ---
Author Name Unknown Address Unknown Organization K01:LABORATORY [place] [address] [facility] [address] [facility] [address] Laboratory Report Ordering Provider Test Date Status ERAM BRAXTON 09/25/2023 13:47:28 Final Observation Date Value Abnormality Reference (Units ) Status Chlamydia trachomatis rRNA [Presence] in Specimen by SYDNEE with probe detection 09/25/2023 13:47:28 Negative Negative Final No Chlamydia trachomatis det ected by numerical control lathe operator-mediated nucleic acid amplification. Neisseria gonorrhoeae rRNA [ Presence] in Specimen by SYDNEE with probe detection 09/25/2023 13:47:28 Negative Negative Final No Neisseria gonorrhoeae det ected by numerical control lathe operator-mediated nucleic acid amplification. Performing Location [facility] [address] [place] [address]
--- OUTSIDE RECORDS SUMMARY | 2024-02-17 18:10 | External Medical Summary | Summary of Care ---
Author Name Unknown Organization [facility] Address [address] [place] [address] Phone [phone] Care Team Providers Care Special Forces Specialist Name Role Phone Gino Thelma Sims PA-C Primary Care Provider [phone] Reason for Visit * Reason Comments Return Visit Encounter Details Date Type Department Care Team (Late st Contact Info) Description 09/25/2023 1:30 PM EDT Office Visit Gynecology/Obstetric [facility] [address] [facility] [place] [address] Sandhya Saxena, ELE [address] [facility] [place] [address] High-risk , second trimester*; History of placental abruption; History of IUFD; Hx of preeclampsia, prior , currently , unspecified trimester; Pelvic pain Allergies Active Allergy Reactions Criticality Noted Date [...] (lupus anticoagulant, anti-cardiolipin IgG and IGM and isub-5-iovdrijocbeq) for those patients who delivered prior to [...] IUFD 10/18/2021 Overview: Per scanned notes from [facility] 2013: Vaginal bleeding at 29+ weeks, noted to have demise. Vaginal delivery at 30 wks. Placenta examination consistent w/abruption. November 2021: APS and thrombophilia work up completed: negative Last Assessment & Plan: The anatomy that was visualized is appropriate for the gestational age. MTHFR mutation 04/05/2019 Overview: April 2019: This individual is homozygous for the [id number] variant and negative (normal) for the C677T [...] 12/10/2021 07/23/2023 Overview: Patient seen by [facility] Follow Up Manager. Patient denies any questions or concerns. [...] H/O toxoplasmosis 04/22/2016 05/19/2018 Overview: labs on [employer] panel >+ IGG 08/31/13--no active inf--works on barn with horses and cats, nl cbc,cr,, immune varicella,rubell, neg RPR,neg Hbs ag INFORMATION 04/10/2016 05/19/2018 Overview: Lost son at 8 mth preg in 2013 [facility]--was told has clotting disorder, ?MTHFR -testing by CATALOG SPECIALIST in [facility]-obtain records. Closed head injury [...] money to get more. Never true 07/23/2023 [place] Depression Scale Answer Date Recorded [place] Depression Scale Total 10 07/23/2023 The thought [...] Sign Reading Time Taken Comments Blood Pressure 108/62 09/25/2023 1:09 PM EDT Pulse - - Temperature 36.1 C (97 F) 09/25/2023 1:09 PM EDT Respiratory Rate - - Oxygen Saturation - - Inhaled Oxygen Concentration - - Weight 74.8 kg (165 lb) 09/25/2023 1:09 PM EDT Height 162.6 cm (5' 4") 09/25/2023 1:09 PM EDT Body Mass Index 28.32 09/25/2023 1:09 PM EDT documented in this encounter Progress Notes * Sandhya Saxena CNM - 09/25/2023 1:19 PM EDT Kanika Louise is a 28 year old female here for her routine OB appointment at 18w2d Her Estimated Date of Delivery: 02/24/24 REVIEW OF SYSTEMS: She has not yet felt movement. Denies vaginal bleeding, abnormal vaginal discharge, vaginal itching, vaginal pain, vaginal odor, LOF, N/V, headaches, vision changes, and RUQ pain. Reports waking up with pelvic and LLQ pain and the urge to void. Pain is constant, rates it as 4-5/10. Denies fevers. Had 3 bowel movements yesterday and is passing gas. Has tried position changes but no other relief measures. Mild low back pain and "light pressure" on her back. Pain is worse with urination. Denies tobacco and marijuana use. Reports a history of a severe yeast infection which went untreated and felt similar. Denies concern for STIs. Agreeable to STI testing today. PHYSICAL EXAM: Filed Vitals: 09/25/23 1309 BP: 108/62 Temp: 36.1 C (97 F) Weight: 74.8 kg (165 lb) Height: 1.626 m (5' 4") +FHT 150-160 bpm General: alert, healthy, and grimacing in pain occasionally, no acute distress Abdomen: abdomen soft, normal bowel sounds, and no masses or organomegaly, lower abdomen and LLQ and LUQ with very mild tenderness to palpation Exam (Female): external genitalia and vagina anatomy within normal limits, cervix normal in appearance without lesions or purulent discharge, small amount of white physiologic discharge No CVA tenderness Histology Manager Documentation Provider requested roof cement and paint maker helper. Name of roof cement and paint maker helper: Martina Lewis LPN ASSESSMENT/PLAN: (Z87.59) History of placental abruption (Z87.59) History of IUFD (O09.299) Hx of preeclampsia, prior , currently , unspecified trimester (R10.2) Pelvic pain Plan: CULTURE, URINE, QUANTITATIVE, URINALYSIS OBSTETRICS, POINT OF CARE, URINALYSIS, POINT OF CARE (ENTER/EDIT) -UA WNL -Urine culture -GC/CT and vaginosis swabs collected -ED precautions reviewed. Encouraged patient to have a low threshhold to present to the ED. Patientto present to the ED if having any severe pelvic pain (7/10 or above), fevers, or vaginal bleeding. -Encouraged increasing fluid intake -Recommended tylenol and warm shower or warm bath (O09.92) High-risk , second trimester Plan: - RTO in 4 weeks for MINDI as scheduled on 10/17/23 Sandhya Saxena CNM documented in this encounter Nursing Notes * Martina Vasquez LPN - 09/25/2023 1:15 PM EDT Patient tearful, pain started this worsening in back and groin. Urinary frequency, pain worse afterpeeing. Denies any bleeding. documented in this encounter Miscellaneous Notes * Result Encounter Note - Sandhya Saxena CNM - 09/26/2023 11:50 AM EDT Please notify patient that her screening for gonorrhea and chlamydia was negative. Thanks! Sandhya Saxena CNM * Result Encounter Note - Sandhya Saxena CNM - 09/25/2023 2:48 PM EDT Reviewed with patient during today's appointment. documented in this encounter Plan of Treatment Upcoming Encounters Date Type Department Care Team (Late st Contact Info) Description 10/01/2023 10:30 AM EDT Office Visit Wire Harness Assembler Obstetrics Maternal Medicine, [place] [address] [place] [address] Arias Donnelly MD [address] [place] [address] 10/01/2023 10:30 AM EDT Imaging Radiology [facility] [address] [place] [address] 10/17/2023 4:00 PM EDT Office Visit Gynecology/Obstetrics [facility] [address] [place] [address] Dary Hart PA-C [address] [facility] [place] [id number] Scheduled Orders Name Type Priority Associated Diagnoses Order Schedule URINALYSIS OBSTETRICS, POINT OF CARE Point of Care Testing - Unsolicited Results Routine Pelvic pain Ordered: 09/25/2023 Health Maintenance Due Date Last Done Comments [...] Procedure Name Priority Date/Time Associated Diagnosis Comments CHLAMYDIA TRACHOMATIS AND NEISSERIA GONORRHOEAE, AMPLIFIED PROBE Routine 09/25/2023 1:47 PM EDT Pelvic pain VAGINOSIS PANEL, PCR Routine 09/25/2023 1:47 PM EDT Pelvic pain CULTURE, URINE, QUANTITATIVE Routine 09/25/2023 1:26 PM EDT Pelvic pain URINALYSIS, POINT OF CARE (ENTER/EDIT) Routine 09/25/2023 Pelvic pain documented in this encounter Results * CHLAMYDIA TRACHOMATIS AND NEISSERIA GONORRHOEAE, AMPLIFIED PROBE (09/25/2023 1:47 PM EDT) Chlamydia Trachomatis Result Negative Negative 09/26/2023 11:47 AM EDT LABORATORY [facility] Comment:No Chlamydia trachom atis detected by mechanical meter tester-mediated nucleic acid amplification. Neisseria Gonorrhoeae Result Negative Negative 09/26/2023 11:47 AM EDT LABORATORY [facility] Comment:No Neisseria gonorrh oeae detected by mechanical meter tester-mediated nucleic acid amplification. Swab Specimen from wound / Unknown 09/25/2023 1:47 PM EDT 09/25/2023 1:47 PM EDT Sandhya MARLOW LAB MICRO - GENERAL ORDERABLES Performing Organization Address [facility] Co de Phone Number LABORATORY [address] [address] * (ABNORMAL) VAGINOSIS PANEL, PCR (09/25/2023 1:47 PM EDT) [facility] Bacterial Vaginosis Result Positive(A) Negative 09/27/2023 11:17 AM EDT LABORATORY [facility] Comment:Positive for Bacteri al Vaginosis. Correlate results with other clinical findings. Aurora species Result Negative Negative 09/27/2023 11:17 AM EDT LABORATORY [facility] Comment:No Aurora species g roup RNA detected. Correlate results with other clinical findings. Aurora glabrata Result Negative Negative 09/27/2023 11:17 AM EDT LABORATORY [facility] Comment:No Aurora glabrata RNA detected. Correlate results with other clinical findings. Trichomonas Result Negative Negative 09/27/2023 11:17 AM EDT LABORATORY [facility] Comment:No Trichomonas vagin shital RNA detected. Swab Specimen from wound / Unknown 09/25/2023 1:47 PM EDT 09/25/2023 1:47 PM EDT Sandhya Saxena Giftly LAB MICRO - GENERAL ORDERABLES Performing Organization Address [facility] de Phone Number LABORATORY [place] [address] [place] [address] * CULTURE, URINE, QUANTITATIVE (09/25/2023 1:26 PM EDT) [facility] Culture Growth No significant growth 09/26/2023 4:57 PM EDT LABORATORY GM Urine Urine specimen obtained by clean catch procedure / Unknown Non-blood Collection / Unknown 09/25/2023 1:26 PM EDT 09/25/2023 1:26 PM EDT Sandhya Saxena CNM LAB MICRO - GENERAL ORDERABLES LAB[facility]ATORY [facility] [address] [place] [address] * URINALYSIS, POINT OF CARE (ENTER/EDIT) (09/25/2023) Color, Urine Yellow Yellow or Light Yellow Clarity, Urine Clear Clear Glucose, Urine Negative Negative mg/dL Bilirubin, Urine Negative Negative Ketone, Urine Negative Negative mg/dL Specific [place], Urine 1.025 1.003 - 1.030 Blood, Urine Negative Negative pH, Urine 7.0 5.0 - 7.5 units Protein, Urine Negative Negative mg/dL Urobilinogen, Urine 0.2 0.2 - 1.0 mg/dL Nitrite, Urine Negative Negative Esterase, Urine Negative Negative Urine 09/25/2023 Sandhya Saxena CNM LAB POINT OF CARE TE ST ENTER/EDIT ORDERABLES documented in this encounter Visit Diagnoses Diagnosis High-risk , second trimester- Primary History of placental abruption History of IUFD Hx of preeclampsia, prior , currently , unspecified trimester Pelvic pain documented in this encounter Care Teams Special Forces Specialist Relationship Specialty Start Date End Date Gino October ANNA Sims [address] [place] [address] PCP - General Physician Printing Estimator 12/08/20 documented as of this encounter
--- OUTSIDE RECORDS SUMMARY | 2024-02-17 18:10 | External Medical Summary ---
Author Name Unknown Address Unknown Organization K01:[facility] [place] [address] [place] [id number] Laboratory Report Ordering Provider Test Date Status ERMA BRAXTON 09/25/2023 13:26:34 Final Observation Date Value Abnormality Reference (Units) Status Bacteria identified in Specimen by Culture 09/25/2023 13:26:34 No significant growth Final Test: Culture, Urine, Quant itative
Specimen Source: Urine, Clean Catch
Specimen Type: Urine
Specimen Date: 09/25/2023 1:26 PM
Result Date: 09/26/2023 4:57 PM
Result Status: Final result
Resulting Lab: [facility]
[address]
[facility] [address]

CULTURE

No significant growth

null Performing Location [facility] [place] [address] [facility] [address]
--- OUTSIDE RECORDS SUMMARY | 2024-02-17 18:10 | External Medical Summary ---
Author Name Unknown Address Unknown Organization K01:[facility] [place] [address] [place] [id number] Laboratory Report Ordering Provider Test Date Status ERMA BRAXTON 09/29/2023 14:53:49 Final Observation Date Value Abnormality Reference (Units) Status Bacteria identified in Specimen by Culture 09/29/2023 14:53:49 No significant growth Final Test: Culture, Urine, Quant itative
Specimen Source: Urine, Clean Catch
Specimen Type: Urine
Specimen Date: 09/29/2023 2:53 PM
Result Date: 09/30/2023 5:13 PM
Result Status: Final result
Resulting Lab: [facility]
[address]
[facility] [address]

CULTURE

No significant growth

null Performing Location LAB[facility] [place] [address] [facility] [address]
--- OUTSIDE RECORDS SUMMARY | 2024-02-17 18:10 | External Medical Summary | Summary of Care ---
Author Name Unknown Organization [facility] Address [address] [facility] [place] [address] Phone [phone] Care Team Providers Care River Pilot Name Role Phone GinoThelma ANNA Primary Care Provider [phone] Encounter Details Date Type Department Care Team (Late st Contact Info) Description 09/29/2023 Telephone Gynecology/Obstetrics [facility] [address] [facility] [place] [address] Irais Saxena CN 400 [facility] [place] [address] Allergies Active Allergy [...] (lupus anticoagulant, anti-cardiolipin IgG and IGM and fwiw-0-ytjctqnjcbdb) for those patients who delivered prior to [...] 10/18/2021 Overview: Per scanned notes from [facility] 2013: Vaginal bleeding at 29+ weeks, noted to have demise. Vaginal delivery at 30 wks. Placenta examination consistent w/abruption. November 2021: APS and thrombophilia work up completed: negative Last Assessment & Plan: The anatomy that was visualized is appropriate for the gestational age. MTHFR mutation 04/05/2019 Overview: April 2019: This individual is homozygous for the [id number] variant and negative (normal) for the C677T variant in the MTHFR gene. This result is not associated with a significantly increased risk for coronary artery disease, venous thromboembolism, or adverse outcome. Last Assessment & Plan: Reviewed the [employer] ACOG Practice [...] Overview: Patient seen by [facility] Sample Tailor. Patient denies any questions or concerns. Problem [...] told has clotting disorder, ?MTHFR -testing by SERVICE DELIVERY MANAGER in [facility]-obtain records. Closed head injury with concussion [...] money to get more. Never true 07/23/2023 [place] Depression Scale Answer Date Recorded [place] Depression Scale Total 10 07/23/2023 The thought [...] calling in to review vaginosis test results. brim ironer hand also states she had diarrhea, and stomach [...] Description 10/01/2023 10:30 AM EDT Office Visit Plating Stripper Obstetrics Maternal Medicine, [place] [address] [place] [address] Arias Donnelly MD [address] [place] [address] 10/01/2023 10:30 AM EDT Imaging Radiology [facility] [address] [place] [address] 10/17/2023 4:00 PM EDT Office Visit Gynecology/Obstetrics [facility] 132 [facility] [place] [address] Dary Hart PA-C 400 [facility] [place] [address] Scheduled Orders Name Type Priority Associated Diagnoses [...] Dysuria documented in this encounter Care Teams River Pilot Relationship Specialty Start Date End Date Reannaoctober ANNA Sims [address] [place] [address] PCP - General Physician Flute Grinder 12/08/20 documented as of this encounter
--- OUTSIDE RECORDS SUMMARY | 2024-02-17 18:10 | External Medical Summary | Summary of Care ---
Author Name Unknown Organization [facility] Address [address] [facility] [place] [address] Phone [phone] Care Team Providers Care Medical Underwriter Name Role Phone ReannaThelma lopez ANNA Primary Care Provider [phone] Encounter Details Date Type Department Care Team (Late st Contact Info) Description 09/25/2023 Telephone Gynecology/Obstetrics [facility] [address] [place] [address] Yanick Tadeo MD [address] [place] [address] Allergies Active Allergy Reactions Criticality Noted Date Comments Prednisone 04/23/2021 Increased anxiety documented as of this encounter (statuses as of 09/25/2023) Medications Medication Sig Dispensed Refills Start Date End Date Status 6.75-0.2 MG Oral Tablet Take by mouth. 0 Active Aspirin 81 MG Oral Tablet ChewableIndications:H x of preeclampsia, prior , currently , unspecified trimester Take 1 Tablet by mouth in the morning. 100 Tablet 3 08/04/2023 Active documented as of this encounter (statuses as of 09/25/2023) Active Problems Problem Noted Date Diagnosed Date [...] (lupus anticoagulant, anti-cardiolipin IgG and IGM and [id number]-2-ystiimhniqcq) for those patients who delivered prior to [...] 2019: This individual is homozygous for the [id number] variant and negative (normal) for the C677T [...] as of this encounter (statuses as of 09/25/2023) Resolved Problems Problem Noted Date Diagnosed Date Resolved Date Antepartum anemia complicating 03/22/2022 07/23/2023 Abnormal glucose tolerance i n mother complicating 03/21/2022 04/09/2022 COVID-19 affecting , antepartum 03/19/2022 07/23/2023 Overview: 21 weeks Thrombophilia 02/04/2022 11/20/2022 Health counseling 12/10/2021 07/23/2023 Overview: Patient seen by [facility] Office Trouble Shooter. Patient denies any questions or concerns. Problem [...] told has clotting disorder, ?MTHFR -testing by BEHAVIORAL HEALTH TECHNICIAN in [facility]-obtain records. Closed head injury with concussion 04/10/2016 05/19/2018 documented as of this encounter (statuses as of 09/25/2023) Immunizations Name Administration Dates Next Due HPV [...] money to get more. Never true 07/23/2023 [place] Depression Scale Answer Date Recorded [place] Depression Scale Total 10 07/23/2023 The thought [...] Telephone Encounter - Briseida Stevens RN - 09/25/2023 11:10 AM EDT Patient calling in states that she woke up this morning with a lot of pelvic pain and back pain. She rates it a 5 out of 10. Denies vaginal bleeding. She denies burning with urination or other urinary symptoms. Recommended home care tylenol and pushing fluids and call back if worsening. She states she does not have tylenol at home to try and doesn't want to take it if she doesn't have to. Patientasking what else she can do. Offered opening on Sandhya's schedule for 1:30. Patient accepts, will call back if she cannot make it for some reason.patient advised to call back with any new/worsening sx. documented in this encounter Plan of Treatment Upcoming Encounters Date Type Department Care Team (Late st Contact Info) Description 09/25/2023 1:30 PM EDT Office Visit Gynecology/Obstetrics [facility] 132 [facility] [place] [address] Sandhya Saxena CNM [address] [place] [place] [address] 10/01/2023 10:30 AM EDT Office Visit Carriage Feeder Obstetrics Maternal Medicine, [place] [address] [place] [address] Arias Donnelly MD [address] [place] [address] 10/01/2023 10:30 AM EDT Imaging Radiology [facility] [address] [place] [address] 10/17/2023 4:00 PM EDT Office Visit Gynecology/Obstetrics [facility] [address] [place] [address] Dary Hart PA-C [address] [facility] [place] [address] Health Maintenance Due Date Last Done Comments [...] filedocumented as of this encounter Care Teams Medical Underwriter Relationship Specialty Start Date End Date October ANNA Sims [address] [place], [place] [address] PCP - General Physician Press Officer 12/08/20 documented as of this encounter
--- OUTSIDE RECORDS SUMMARY | 2024-02-17 18:10 | External Medical Summary | Summary of Care ---
Author Name Unknown Organization [facility] Address [address] [place] [address] Phone [phone] Care Team Providers Care Kiosk Sales Representative Name Role Phone Thelma Christian PA-C Primary Care Provider [phone] Reason for Visit * Reason Comments Return Visit Encounter Details Date Type Department Care Team (Late st Contact Info) Description 09/25/2023 1:30 PM EDT Office Visit Gynecology/Obstetric [facility] 132 [facility] [place] [address] Sandhya Saxena, ELE 400 [facility] [place] [address] High-risk , second trimester*; [...] (lupus anticoagulant, anti-cardiolipin IgG and IGM and xtnx-1-vjizturvisbo) for those patients who delivered prior to [...] 2019: This individual is homozygous for the [id number] variant and negative (normal) for the C677T variant in the MTHFR gene. This result is not associated with a significantly increased risk for coronary artery disease, venous thromboembolism, or adverse outcome. Last Assessment & Plan: Reviewed the [employer] [employer] ACOG Practice [...] 12/10/2021 07/23/2023 Overview: Patient seen by [facility] Ultrasound Technol. Patient denies any questions or concerns. Problem [...] H/O toxoplasmosis 04/22/2016 05/19/2018 Overview: labs on TORNaytev panel >+ IGG 08/31/13--no active inf--works on barn with horses and cats, nl cbc,cr,, immune varicella,rubell, neg RPR,neg Hbs ag INFORMATION 04/10/2016 05/19/2018 Overview: Lost son at 8 mth preg in 2013 [facility]was told has clotting disorder, ?MTHFR -testing by HOSPITAL INTERNSHIP in [facility]-obtain records. Closed [...] money to get more. Never true 07/23/2023 [place] Depression Scale Answer Date Recorded [place] Depression Scale Total 10 07/23/2023 The thought [...] of white physiologic discharge No CVA tenderness Plug Paster Documentation Provider requested chrome polisher. Name of chrome polisher: Martina Lewis LPN ASSESSMENT/PLAN: (Z87.59) History of [...] Denies any bleeding. documented in this encounter Plan of Treatment Upcoming Encounters Date Type Department Care Team (Late st Contact Info) Description 10/01/2023 10:30 AM EDT Office Visit Channel Supervisor Obstetrics Maternal Medicine, [place] [address] [place] [address] Arias Donnelly MD [address] [place] [address] 10/01/2023 10:30 AM EDT Imaging Radiology [facility] [address] [place] [address] 10/17/2023 4:00 PM EDT Office Visit Gynecology/Obstetrics [facility] 132 [facility] [place] [address] Dary Hart PA-C 400 [facility] [place] [address] Pending Results Name Type Priority Associated Diagnoses Date /Time CULTURE, URINE, QUANTITATIVE Lab Routine Pelvic pain 09/25/2023 1:26 PM EDT VAGINOSIS PANEL, PCR Lab Routine Pelvic pain 09/25/2023 1:47 PM EDT CHLAMYDIA TRACHOMATIS AND NEISSERIA GONORRHOEAE, AMPLIFIED PROBE Lab Routine Pelvic pain 09/25/2023 1:47 PM EDT Scheduled Orders Name Type Priority Associated Diagnoses Order Schedule URINALYSIS OBSTETRICS, POINT OF CARE Point of Care Testing - Unsolicited Results Routine Pelvic pain Ordered: 09/25/2023 VAGINOSIS PANEL, PCR Lab Routine Pelvic pain Expected: 09/25/2023, Expires: 09/24/2024 CHLAMYDIA TRACHOMATIS AND NEISSERIA GONORRHOEAE, AMPLIFIED PROBE Lab Routine Pelvic pain Expected: 09/25/2023, Expires: 09/24/2024 Health Maintenance Due Date Last Done Comments [...] Procedure Name Priority Date/Time Associated Diagnosis Comments URINALYSIS, POINT OF CARE (ENTER/EDIT) Routine 09/25/2023 Pelvic pain documented in this encounter Results * URINALYSIS, POINT OF CARE (ENTER/EDIT) (09/25/2023) Color, Urine Yellow Yellow or Light Yellow Clarity, Urine Clear Clear Glucose, Urine Negative Negative mg/dL Bilirubin, Urine Negative Negative Ketone, Urine Negative Negative mg/dL Specific [place], Urine 1.025 1.003 - 1.030 Blood, Urine [...] pain documented in this encounter Care Teams Kiosk Sales Representative Relationship Specialty Start Date End Date October [place], ANNA [address] [place], [place] [address] PCP - General Physician Concrete Technician 12/08/20 documented as of this encounter
--- OUTSIDE RECORDS SUMMARY | 2024-02-17 18:10 | External Medical Summary | Summary of Care ---
Author Name Unknown Organization [facility] Address [address] [facility] [place] [address] Phone [phone] Care Team Providers Care Industrial Electrical Technician Name Role Phone Thelma Christian PA-C Primary Care Provider [phone] Reason for Visit * Reason Comments Outpatient Testing Encounter Details Date Type Department Care Team (Late st Contact Info) Description 09/17/2023 3:30 PM EDT Laboratory Laboratory, [facility] [address] [facility] [address] Supervision of high risk in second trimester [...] (lupus anticoagulant, anti-cardiolipin IgG and IGM and lrcn-6-ckveeyofmptk) for those patients who delivered prior to [...] 10/18/2021 Overview: Per scanned notes from [facility] 2013: Vaginal bleeding at 29+ weeks, noted to have demise. Vaginal delivery at 30 wks. Placenta examination consistent w/abruption. November 2021: APS and thrombophilia work up completed: negative Last Assessment & Plan: The anatomy that was visualized is appropriate for the gestational age. MTHFR mutation 04/05/2019 Overview: April 2019: This individual is homozygous for the [id number] variant and negative (normal) for the C677T variant in the MTHFR gene. This result is not associated with a significantly increased risk for coronary artery disease, venous thromboembolism, or adverse outcome. Last Assessment & Plan: Reviewed the [place] [employer]nec[employer] ACOG Practice [...] counseling 12/10/2021 07/23/2023 Overview: Patient seen by [facility] Supervisory Cbp Officer. Patient denies any questions or concerns. Problem [...] told has clotting disorder, ?MTHFR -testing by BIRTH CERTIFICATE CLERK in [facility]-obtain records. Closed head injury with concussion [...] money to get more. Never true 07/23/2023 [place] Depression Scale Answer Date Recorded [place] Depression Scale Total 10 07/23/2023 The thought [...] Description 10/01/2023 10:30 AM EDT Office Visit Mammographer Obstetrics Maternal Medicine, [place] [address] [place] [address] Arias Donnelly MD [address] [place] [address] 10/01/2023 10:30 AM EDT Imaging Radiology [facility] [address] [place] [address] 10/17/2023 4:00 PM EDT Office Visit Gynecology/Obstetrics [facility] 132 [facility] [place] [address] Dary Hart PA-C [address] [facility] [id number] Pending Results Name Type Priority Associated Diagnoses Date /Time MATERNAL SERUM AFP Lab Routine Supervision of high risk in second trimester 09/17/2023 3:13 PM EDT Health Maintenance Due Date Last [...] high-risk documented in this encounter Care Teams Industrial Electrical Technician Relationship Specialty Start Date End Date GinoOctober ANNA Sims [address] [place] [address] PCP - General Physician Stock Parts Fabricator 12/08/20 documented as of this encounter
--- OUTSIDE RECORDS SUMMARY | 2024-02-17 18:10 | External Medical Summary ---
Author Name Unknown Address Unknown Organization K01:LABORATORY [facility] - [address] [facility] [facility] [address] Laboratory Report Ordering Provider Test Date Status ERMA BRAXTON 09/25/2023 13:47:28 Final Observation Date Value Abnormality Reference (Units ) Status Bacterial vaginosis [Interpretation] in Vaginal fluid Qualitative 09/25/2023 13:47:28 Positive Abnormal Negative Final Positive for Bacterial Vagin osis. Correlate results with other clinical findings. Aurora sp DNA [Presence] in Vaginal fluid by Probe 09/25/2023 13:47:28 Negative Negative Final No Aurora species group RNA detected. Correlate results with other clinical findings. Aurora glabrata RNA [Presen ce] in Vaginal fluid by SYDNEE with probe detection 09/25/2023 13:47:28 Negative Negative Final No Aurora glabrata RNA dete cted. Correlate results with other clinical findings. Trichomonas vaginalis DNA [P resence] in Vaginal fluid by Probe 09/25/2023 13:47:28 Negative Negative Final No Trichomonas vaginalis RNA detected. Performing Location [facility]ORY [facility] [address] [facility] [address]
--- OUTSIDE RECORDS SUMMARY | 2024-02-17 18:10 | External Medical Summary | Summary of Care ---
Author Name Unknown Organization [facility] Address [address] [place] [address] Phone [phone] Care Team Providers Care Camera Maker Name Role Phone Gino Thelma Sims PA-C Primary Care Provider [phone] Reason for Visit * Reason Comments Return Visit Encounter Details Date Type Department Care Team (Late st Contact Info) Description 09/29/2023 2:00 PM EDT Office Visit Gynecology/Obstetric [facility] 132 [facility] [place] [address] Sandhya Saxena, PAMELA 400 [facility] [place] [address] High-risk , second trimester*; Bacterial vaginosis; Dysuria Allergies Active Allergy Reactions Criticality Noted Date [...] (lupus anticoagulant, anti-cardiolipin IgG and IGM and ngom-1-iokfmrjehcjc) for those patients who delivered prior to [...] Overview: Per scanned notes from [facility] 2013: Vaginal bleeding at 29+ weeks, noted to have demise. Vaginal delivery at 30 wks. Placenta examination consistent w/abruption. November 2021: APS and thrombophilia work up completed: negative Last Assessment & Plan: The anatomy that was visualized is appropriate for the gestational age. MTHFR mutation 04/05/2019 Overview: April 2019: This individual is homozygous for the [id number] variant and negative (normal) for the C677T variant in the MTHFR gene. This result is not associated with a significantly increased risk for coronary artery disease, venous thromboembolism, or adverse outcome. Last Assessment & Plan: Reviewed the [place] [employer] ACOG Practice [...] Overview: Patient seen by [facility] Production Control Analyst. Patient denies any questions or concerns. Problem Action Taken Date entered Entered by Date resolved 2nd trimester ed Reviewed w/pt 01/08/2022 Trista Rojas RN 01/08/2022 Provided a huffman medical form for pt to review 01/08/2022 rTista Rojas RN 01/08/2022 Problem Action Taken Date [...] H/O toxoplasmosis 04/22/2016 05/19/2018 Overview: labs on [employer] panel >+ IGG 08/31/13--no active inf--works on barn with horses and cats, nl cbc,cr,, immune varicella,rubell, neg RPR,neg Hbs ag INFORMATION 04/10/2016 05/19/2018 Overview: Lost son at 8 mth preg in 2013 [facility]--was told has clotting disorder, ?MTHFR -testing by RENTAL SALESPERSON in [facility]-obtain records. Closed head injury with [...] money to get more. Never true 07/23/2023 [place] Depression Scale Answer Date Recorded [place] Depression Scale Total 10 07/23/2023 The thought [...] Description 10/01/2023 10:30 AM EDT Office Visit Wagon Person Obstetrics Maternal Medicine, [place] [address] [place] [address] Arias Donnelly MD [address] [place] [address] 10/01/2023 10:30 AM EDT Imaging Radiology [facility] [address] [place] [address] 10/17/2023 4:00 PM EDT Office Visit Gynecology/Obstetrics [facility] [address] [place] [address] Dary Hart PA-C [address] [place] [address] Pending Results Name Type Priority Associated Diagnoses Date /Time CULTURE, URINE, QUANTITATIVE Lab Routine Dysuria 09/29/2023 2:53 PM EDT Health Maintenance Due Date Last [...] Primary Bacterial vaginosis Vaginitis and vulvovaginitis, unspecified Dysuria documented in this encounter Care Teams Camera Maker Relationship Specialty Start Date End Date GinoOctober ANNA Sims [address] [facility] [place] [address] PCP - General Physician Director Of Materials 12/08/20 documented as of this encounter
--- OUTSIDE RECORDS SUMMARY | 2024-02-17 18:10 | External Medical Summary ---
Author Name Unknown Address Unknown Organization : Laboratory Report Ordering Provider Test Date Status BOBBY RODRIGUEZ 09/17/2023 15:13:32 Final Observation Date Value Abnormality Reference (Units ) Status INTERPRETATION 09/17/2023 15:13:32 SEE BELOW Final Screen negative for open NTD . RISK FOR ONTD 09/17/2023 15:13:32 <1:5000 Final CALC'D GESTATIONAL AGE 0309/17/2023 15:13:32 17.1 Final AFP, SERUM 09/17/2023 15:13:32 33.3 (ng/mL) Final AFP MOM 09/17/2023 15:13:32 0.90 Final Reference Range:
NTD <2 .50
IDD <1.90
TWINS <4.00
TWINS IDD <3.50
TRIPLETS <4.50
The AFP test result indicates that this patient is
screen negative for open NTD. It should be noted
that normal test results can never guarantee the
of a normal baby and that 2-3% of newborns
have some type of physical or mental defect, many
of which are undetectable through any known
diagnostic technique.
This is a screening test, not a diagnostic test.
This risk assessment report is based in part on
demographic data provided by the ordering
physician. Please notify the laboratory promptly
if any data are incorrect. For assistance with
recalculations, please call your local [facility] laboratory. For assistance with
interpretation of these results, please contact
your Local [facility] genetic counselor or
call [phone] ([phone]).
Interpretive Cutoffs
Screen Positive for Open NTD:
> or = 2.50 adjusted MOM
> or = 1.90 adjusted MOM for insulin- dependent diabetics
> or = 4.00 adjusted MOM for twins
> or = 3.50 adjusted MOM for twins insulin-dependent diabetics
> or = 4.50 adjusted MOM for triplets
For additional information, please refer to
[email or web address].[email or web address] Garden/faq/[email or web address]
(This link is being provided for
informational/educational purposes only.) DATE OF 09/17/2023 15:13:32 1995 Final COLLECTION DATE 09/17/2023 15:13:32 09/17/2023 Final MATERNAL WEIGHT 09/17/2023 15:13:32 165 (lbs ) Final EST'D DATE OF DELIVERY 09/17/2023 15:13:32 02/24/2024 Final TERRA DETERMINED BY 09/17/2023 15:13:32 NG Final MOTHER'S ETHNIC ORIGIN 09/17/2023 15:13:32 WHITE Final NUMBER OF FETUSES 09/17/2023 15:13:32 1 Final INSULIN DEPEND DIABETIC 09/17/2023 15:13:32 NO Final REPEAT SPECIMEN 09/17/2023 15:13:32 NO Final HX OF NEURAL TUBE DEFECTS 09/17/2023 15:13:32 NO Final PREV DOWN SYND 09/17/2023 15:13:32 NO Final DONOR EGG 09/17/2023 15:13:32 NO Final DONOR AGE: EGG RETRIEVAL 09/17/2023 15:13:32 NOT GIVEN Final Test performed by [facility]
[address] [facility] [facility],
[place] [address]

Aquatic Habitat Biologist: Juana Vega MD,PHD,SARA
Test Reported by Isael Napier,
[facility],
[address] [place], [place]
Ki Celis M.D., Ph.D., Director of Laboratories
, JAMIL [id number] Performing Location
--- OUTSIDE RECORDS SUMMARY | 2024-02-17 18:10 | External Medical Summary | Summary of Care ---
Author Name Unknown Organization [facility] Address [address] [facility] [place] [address] Phone [phone] Care Team Providers Care Emergency Veterinary Technician Name Role Phone GinoThelma ANNA Primary Care Provider [phone] Encounter Details Date Type Department Care Team (Late st Contact Info) Description 09/26/2023 Telephone Gynecology/Obstetrics [facility] [address] [place] [address] Sandhya Saxena CNM [address] [facility] [place] [address] Allergies Active Allergy Reactions Criticality Noted Date Comments Prednisone 04/23/2021 Increased anxiety documented as of this encounter (statuses as of 09/26/2023) Medications Medication Sig Dispensed Refills Start Date End Date Status 6.75-0.2 MG Oral Tablet Take by mouth. 0 Active Aspirin 81 MG Oral Tablet ChewableIndications:H x of preeclampsia, prior , currently , unspecified trimester Take 1 Tablet by mouth in the morning. 100 Tablet 3 08/04/2023 Active documented as of this encounter (statuses as of 09/26/2023) Active Problems Problem Noted Date Diagnosed Date [...] (lupus anticoagulant, anti-cardiolipin IgG and IGM and [id number]) for those patients who delivered prior to [...] 10/18/2021 Overview: Per scanned notes from [facility] 2013: Vaginal bleeding at 29+ weeks, noted to have demise. Vaginal delivery at 30 wks. Placenta examination consistent w/abruption. November 2021: APS and thrombophilia work up completed: negative Last Assessment & Plan: The anatomy that was visualized is appropriate for the gestational age. MTHFR mutation 04/05/2019 Overview: April 2019: This individual is homozygous for the [id number] variant and negative (normal) for the C677T [...] as of this encounter (statuses as of 09/26/2023) Resolved Problems Problem Noted Date Diagnosed Date Resolved Date Antepartum anemia complicating 03/22/2022 07/23/2023 Abnormal glucose tolerance i n mother complicating 03/21/2022 04/09/2022 COVID-19 affecting , antepartum 03/19/2022 07/23/2023 Overview: 21 weeks Thrombophilia 02/04/2022 11/20/2022 Health counseling 12/10/2021 07/23/2023 Overview: Patient seen by [facility] Radiation Oncology Therapist. Patient denies any questions or concerns. Problem [...] told has clotting disorder, ?MTHFR -testing by [facility] [facility] in [facility]-obtain records. Closed head injury with concussion 04/10/2016 05/19/2018 documented as of this encounter (statuses as of 09/26/2023) Immunizations Name Administration Dates Next Due HPV [...] money to get more. Never true 07/23/2023 [place] Depression Scale Answer Date Recorded [place] Depression Scale Total 10 07/23/2023 The thought [...] Telephone Encounter - Radha Prince LPN - 09/26/2023 12:56 PM EDT ----- Message from Sandhya Saxena CNM sent at 09/26/2023 11:50 AM EDT ----- Please notify patient that her screening for gonorrhea and chlamydia was negative. Thanks! Sandhya Saxena CNM documented in this encounter Plan of Treatment Upcoming Encounters Date Type Department Care Team (Late st Contact Info) Description 10/01/2023 10:30 AM EDT Office Visit Transportation Supervisor Obstetrics Maternal Medicine, [place] [address] [facility] [place] [address] Arias Donnelly MD [address] [place] [facility] [place] [address] 10/01/2023 10:30 AM EDT [facility] [address] [facility] [place] [address] 10/17/2023 4:00 PM EDT Office Visit Gynecology/Obstetrics [facility] [address] [facility] [place] [address] Dary Hart PA-C [address] [place], [place] [address] [phone] Health Maintenance Due Date Last Done Comments [...] filedocumented as of this encounter Care Teams Emergency Veterinary Technician Relationship Specialty Start Date End Date GinoOctober ANNA Sims [address] [place] [address] PCP - General Physician School Office Assistant 12/08/20 documented as of this encounter
--- NOTE | 2024-02-17 19:39 | Anesthesiology Consultation ---
Date of Service February 17, 2024 Assessment & Plan Chart Review Chart Review: Acceptable Risk for Labor Epidural Consults Requested none ASA ASA2 Proposed Anesthesia Anesthesia Type: Labor Epidural Risk / Benefits Reviewed With: PT / POA / Parent / Guardian, Accepts Plan and Informed Consent Obtained History Height/Weight Height: 5 ft 3 in Weight: 78.653 kg Allergies Allergy/AdvReac Type Severity Reaction Status Date / Time prednisone AdvReac Anxiety Verified 02/17/24 11:54 Medications Home Medications Medication Instructions Recorded Confirmed Last Taken ferrous sulfate 325 mg (65 mg 325 mg PO BID 06/06/22 02/17/24 02/16/24 08:00 iron) tablet (Iron (ferrous sulfate)) prenat.vits,ralph,svx-mctx-sbnul 1 tab PO DAILY 06/06/22 02/17/24 02/16/24 08:00 aspirin 81 mg chewable tablet 81 mg PO DAILY 02/17/24 02/17/24 02/16/24 21:00 Active Medications Generic Name Dose Route Start Last Admin Trade Name Donis PRN Reason Stop Dose Admin Lactated Ringer's 1,000 mls @ 125 mls/hr 02/17/24 11:26 02/17/24 19:28 Lr IV 02/19/24 11:25 999 mls/hr .Q8H PRN Administration L&D Protocol Protocol Oxytocin 30 units in 500 mls @ 7 mls/hr 02/17/24 14:28 02/17/24 18:35 Pitocin 30 Units/Nss IV 02/19/24 14:27 0.42 units/hr .Q24H PRN 7 mls/hr Labor Induction/Augmentation Titration Protocol 0.42 UNITS/HR Past Medical History Medical History OCD (obsessive compulsive disorder) MTHFR mutation History of IUFD Platelet disorder Exercise / Class Metabolic Activity II 4-5 Yardwork/Stairs/Walk up hill Past Surgical History Surgical History No significant past surgical history Past Anesthesia History No Hx of Anesthesia Complications and No Family Hx of Anesthesia Complications History of PONV No Hx of PONV and No Hx of Motion Sickness Social History Smoking Status: Never smoker Hx Alcohol Use: No Hx Substance Use: No Physical Exam Vital Signs Last Vital Signs Temp 98.2 F 02/17/24 19:12 Pulse 74 02/17/24 19:36 Resp 18 02/17/24 19:12 BP 123/60 02/17/24 19:36 ENMT Mouth: no dentition abnormality Thyromental Distance: > or= 3.5 Finger Breadths Mallampati Class: II Neck normal visual inspection Respiratory normal respiratory effort Auscultation: lungs clear to auscultation bilaterally Cardiovascular Rate/Rhythm: regular rate and regular rhythm Testing Laboratory Results 02/17/24 11:39
[2024-02-17] MEDS: fentANYL 2 MCG/ML BUPIVacaine 0.125%-NSS 100ML BAG ONE (19:54)
[2024-02-17] MEDS: LIDOCAINE 2%/EPINEPHRINE 1:200,000 20 ML PF ONE (19:54)
[2024-02-17] MEDS: BUPIVACAINE 0.25% PF 30 ML VIAL ONE (19:54)
[2024-02-17] MEDS ORDERED: SODIUM CHLORIDE 0.9% PF INJ 10 ML VIAL EPI PRN (19:55)
[2024-02-17] MEDS ORDERED: ONDANSETRON INJ 2 MG/ML 2 ML VIAL IV PRN (19:55)
[2024-02-17] MEDS ORDERED: ROPIVACAINE 0.5% PF 5 MG/ML 20 ML VIAL EPI PRN (19:55)
[2024-02-17] MEDS ORDERED: ePHEDrine sulfate 50 MG/ML AMP IV PRN (19:55)
[2024-02-17] MEDS ORDERED: fentaNYL citrate PF 100 MCG/2 ML VIAL EPI STA (19:55)
[2024-02-17] MEDS ORDERED: NALOXONE HCL 0.4 MG/1 ML VIAL/CARP IV PRN (19:55)
[2024-02-17] MEDS ORDERED: LIDOCAINE 2% MPF LOCAL 5 ML VIAL EPI PRN (19:55)
[2024-02-17] MEDS ORDERED: LIDOCAINE 2%/EPINEPHRINE 1:200,000 20 ML PF EPI STA (19:55)
[2024-02-17] MEDS ORDERED: BUPIVACAINE 0.25% PF 30 ML VIAL EPI PRN (19:55)
[2024-02-17] MEDS ORDERED: BUPIVACAINE 0.25% PF 30 ML VIAL EPI STA (19:55)
[2024-02-17] MEDS ORDERED: NALBUPHINE HCL 5 MG in SYRINGE 0 ML IV PRN (19:55)
[2024-02-17] MEDS ORDERED: SODIUM CHLORIDE 0.9% PF INJ 10 ML VIAL EPI STA (19:55)
[2024-02-17] MEDS ORDERED: NALOXONE HCL 1 MG in SODIUM CHLORIDE 0.9% 1,000 ML IV PRN (19:55)
[2024-02-17] MEDS ORDERED: fentaNYL citrate PF 100 MCG/2 ML VIAL EPI PRN (19:55)
[2024-02-17] MEDS ORDERED: diphenhydrAMINE 50 MG/ML VIAL IV PRN (19:55)
[2024-02-17] MEDS ORDERED: fentANYL 2 MCG/ML BUPIVacaine 0.125%-NSS 100ML BAG EPI PRN (19:55)
[2024-02-17] MEDS: fentaNYL citrate PF 100 MCG/2 ML VIAL ONE (20:12)
[2024-02-17] MEDS: SODIUM CHLORIDE 0.9% PF INJ 10 ML VIAL ONE (20:12)
--- NOTE | 2024-02-17 20:24 | Labor Progress Brief Note ---
Date of Service February 17, 2024 Assessment & Plan Admission and Anticipated Discharge Date Admission Date: February 17, 2024 Physical Exam Genitourinary: Manual OB Exam: + cervical dilation 4 cm and 5 cm, + cervical effacement 80%, + station -2 and + amniotic fluid (AROM with clear fluid) clear OB Exam Monitor Tracing: + external FHT monitor used, + external uterine monitor used, + category I and + normal FHT variability Results & Data Vital Signs (Past 12 Hours) Vital Signs Temp Pulse Resp BP Pulse Ox 02/17/24 20:21 99 02/17/24 20:21 59 L 02/17/24 20:21 57 L 02/17/24 20:21 114/65 02/17/24 20:18 62 02/17/24 20:18 111/63 02/17/24 20:16 98 02/17/24 20:16 57 L 02/17/24 20:15 55 L 02/17/24 20:15 106/55 L 02/17/24 20:12 62 02/17/24 20:12 108/55 L 02/17/24 20:11 98 02/17/24 20:11 61 02/17/24 20:09 58 L 02/17/24 20:09 101/59 L 02/17/24 20:06 98 02/17/24 20:06 64 02/17/24 20:06 65 02/17/24 20:06 107/57 L 02/17/24 20:03 16 02/17/24 20:03 16 02/17/24 20:03 65 02/17/24 20:03 104/57 L 02/17/24 20:01 99 02/17/24 20:01 60 02/17/24 20:00 16 02/17/24 20:00 16 02/17/24 20:00 63 02/17/24 20:00 118/66 02/17/24 19:57 16 02/17/24 19:57 16 02/17/24 19:57 60 02/17/24 19:57 107/58 L 02/17/24 19:56 98 02/17/24 19:56 61 02/17/24 19:54 69 02/17/24 19:54 111/67 02/17/24 19:51 99 02/17/24 19:51 65 02/17/24 19:51 49 L 02/17/24 19:51 111/64 02/17/24 19:48 61 02/17/24 19:48 110/64 02/17/24 19:46 99 02/17/24 19:46 59 L 02/17/24 19:45 88 L 02/17/24 19:45 46 L 02/17/24 19:41 100 02/17/24 19:41 62 02/17/24 19:36 99 02/17/24 19:36 75 02/17/24 19:36 74 02/17/24 19:36 123/60 02/17/24 19:12 18 02/17/24 19:12 36.8 C 18 02/17/24 17:45 36.9 C 20 02/17/24 17:45 53 L 02/17/24 17:45 125/72 02/17/24 16:22 65 02/17/24 16:22 113/70 02/17/24 14:49 51 L 02/17/24 14:49 107/70 02/17/24 11:35 36.8 C 20 02/17/24 11:21 69 115/67
[2024-02-17] MEDS: ePHEDrine sulfate 50 MG/ML AMP ONE (20:36)
[2024-02-17] MEDS ORDERED: NURSING L&D Epidural Breakthrough Pain Update ONE (20:40)
--- NOTE | 2024-02-18 00:54 | Delivery Summary ---
Vaginal Delivery Summary Date of Service February 18, 2024 Vaginal Delivery Summary live female BRIGITTE over intact perineum with nuchal cord x1 reduced at delivery of the head with delayed cord clamping and Apgars 8/8 birthweight pending. Cord blood obtained followed by spontaneous delivery of intact placenta. First degree tear repaired with 3/0 Vicryl suture. Final sponge, needle and instrument count are correct. QBL 351 ml. Mom and baby stable.
[2024-02-18] MEDS ORDERED: HYDROCORTISONE ACETATE 25 MG SUPP PR PRN (01:05)
[2024-02-18] MEDS ORDERED: LACTATED RINGER'S 1,000 ML IV SCH (01:05)
[2024-02-18] MEDS ORDERED: OXYTOCIN 30 UNITS/NSS 30 UNITS/500 ML BAG IV PRN (01:05)
[2024-02-18] MEDS: DIPHTHER/TETAN/PERTUS Vaccine (Tdap, Adol/Adult) 0.5mL IM ONE (01:17)
[2024-02-18] MEDS: BENZOCAINE 20% SPRY 85 APPLN/85 GM CAN EXT PRN (05:37)
--- NOTE | 2024-02-18 07:35 | Anesthesia Procedure Note ---
Date of Service February 18, 2024 Anesthesia Post Epidural Note Vital Signs Vital Signs: Temp Pulse Resp BP Pulse Ox O2 Del Method 37.0 C 69 16 110/61 99 Room Air 02/18/24 04:45 02/18/24 04:45 02/18/24 04:45 02/18/24 04:45 02/18/24 00:46 02/18/24 04:45 Pain Intensity Lower Abdomen: Pain Intensity: 9 Notes Mental Status: alert / awake / arousable and participated in evaluation Nausea / Vomiting: adequately controlled Pain: adequately controlled Airway Patency, RR, SpO2: stable & adequate BP & HR: stable & adequate Hydration State: stable & adequate Neuraxial Anesthesia: was administered and sensory block is resolving Anesthetic Complications: no major complications apparent Epidural: Removed without complications and With tip intact
[2024-02-18] MEDS ORDERED: FERROUS SULFATE 325 MG TAB PO SCH (08:00)
[2024-02-18] MEDS: DOCUSATE SODIUM 100 MG CAP PO SCH (08:10)
[2024-02-18] MEDS: PRENATAL VITAMIN 1 TAB PO SCH (08:10)
[2024-02-18] MEDS ORDERED: NON-FORMULARY MEDICATION (Prenat.Vits,Cal,Min-Iron-Folic Tablet) PO SCH (09:00)
[2024-02-18] MEDS: FERROUS SULFATE 325 MG TAB PO SCH (09:59)
[2024-02-18] MEDS: PARoxetine HCL 10 MG TAB PO SCH (09:59)
[2024-02-18] MEDS: IBUPROFEN 600 MG TAB PO PRN (12:15)
[2024-02-18 21:36] VITALS: O2SAT 99
[2024-02-19] MEDS: ACETAMINOPHEN 325 MG TAB PO PRN (00:32)
[2024-02-19 06:58] LABS: Hematocrit (blood only) 30.5 % (37.0-47.0); Hemoglobin 10.2 g/dl (12.0-16.0); Mean Corpuscular Hemoglobin 30.2 pg (25.0-34.0); Mean Corpuscular Hgb Conc 33.4 g/dL (32.0-36.0); Mean Corpuscular Volume 90.2 fL (80.0-100.0); Platelet Count 170 K/uL (130-400); RDW Coefficient of Variation 13.8 % (11.5-14.5); RDW Standard Deviation 45.3 fL (36.4-46.3); Red Blood Count 3.38 M/uL (4.20-5.40); White Blood Count 8.99 K/ul (4.8-10.8)
[2024-02-19 08:21] VITALS: BP 113/74; PULSE 54; RESP 16; TEMP 97.7
--- NOTE | 2024-02-19 10:12 | Obstetrical Progress Note ---
Date of Service February 19, 2024 Assessment & Plan Admission and Anticipated Discharge Date Admission Date: February 17, 2024 Subjective Patient is seen and examined. She feels well, no complaints. Ambulating without dizziness Voiding without difficulty Tolerating regular diet with out N&V Bleeding is minimal No fever/ chills/ CP/ SOB/ N&V/ Leg pain Breast feeding without problems Lab Results 02/17/24 02/19/24 Range/Units 11:39 06:25 WBC 8.82 8.99 (4.8-10.8) K/ul RBC 3.80 L 3.38 L (4.20-5.40) M/uL Hgb 11.5 L 10.2 L (12.0-16.0) g/dl Hct 34.0 L 30.5 L (37.0-47.0) % MCV 89.5 90.2 (80.0-100.0) fL MCH 30.3 30.2 (25.0-34.0) pg MCHC 33.8 33.4 (32.0-36.0) g/dL RDW Std Deviation 44.4 45.3 (36.4-46.3) fL RDW Coeff of Raj 13.6 13.8 (11.5-14.5) % Plt Count 188 170 (130-400) K/uL MPV 12.2 12.0 (9.4-12.4) fL Treponema pallidum Ab Negative (Negative) Vital Signs Temp Pulse Resp BP Pulse Ox O2 Del Method 02/19/24 07:30 36.5 C 54 L 16 113/74 99 Room Air 02/19/24 00:30 36.6 C 56 L 18 106/69 99 Room Air 02/18/24 20:00 36.3 C L 66 18 123/81 99 Room Air 02/18/24 15:00 36.7 C 71 18 108/73 97 Room Air 02/18/24 11:35 37.2 C 63 16 105/68 99 Room Air PE: General: Alert, orientedx3, NAD Abd: soft, NT, fundus firm, below Umbilicus Perineum intact, Lochia rubra minimal Ext; NT, no edema AP: 28 yo s/p , ppd# 1 VSS Afebrile doing well Continue routine care h/o depression, started back on Paxil I offered her Psychiatry consult but declined. She has an appointment coming with her doctor. All questions were answered D/C home if baby will be discharged Results & Data Vital Signs (Past 12 Hours) Vital Signs Temp Pulse Resp BP Pulse Ox O2 Del Method 02/19/24 07:30 36.5 C 54 L 16 113/74 99 Room Air 02/19/24 00:30 36.6 C 56 L 18 106/69 99 Room Air
--- NOTE | 2024-02-19 10:28 | Obstetrical Progress Note ---
Date of Service February 19, 2024 Assessment & Plan Admission and Anticipated Discharge Date Admission Date: February 17, 2024 Subjective Patient decided to see a psychiatrist here before d.j carlos Still wants to go home after the consult. Results & Data Vital Signs (Past 12 Hours) Vital Signs Temp Pulse Resp BP Pulse Ox O2 Del Method 02/19/24 08:00 Room Air 02/19/24 07:30 36.5 C 54 L 16 113/74 99 Room Air 02/19/24 00:30 36.6 C 56 L 18 106/69 99 Room Air
[2024-02-19] MEDS ORDERED: bisacodyL 5 MG TABEC PO SCH (20:00)
[2024-02-20] MEDS ORDERED: bisacodyL 10 MG SUPP PR PRN (01:05)
== END 2024-02-19 14:30 | disposition home or self-care (01) | DRG 807 ==
LOC: 4S1 11:10 → 4E2 02-18 04:43
DX: F32.A Depression, unspecified; Z3A.39 39 weeks gestation of pregnancy; Z37.0 Single live birth; O70.0 First degree perineal laceration during delivery; O99.344 Other mental disorders complicating childbirth; O69.81X0 Labor and delivery complicated by cord around neck, without compression, not applicable or unspecified